=== PATIENT | female | born 1950 | race Caucasian/White ===

== ENCOUNTER 2016-06-05 19:15 | Inpatient (IN) | payer MEDICARE, MEDICAID ==
--- NOTE | 2016-06-05 19:20 | ED Physician Chart ---
Chief Complaint/HPI - Patient Information Date Seen:: 06/05/16 Time Seen:: 19:20 Chief Complaint:: nausea and vomiting History of Present Illness:: 65-year-old female, with severe intellectual disability, brought in with acute, severe, nausea with associated vomiting since this morning. Has also associated fever. History limited as patient has underlying severe intellectual disability History provided by EMS and EMS run sheet Allergies:: Allergies Allergy/AdvReac Type Severity Reaction Status Date / Time No Known Allergies Allergy Verified 11/17/15 11:34 Historian:: EMS Review:: Nurse's Note Reviewed, EMS run form Reviewed, Transfer documents Reviewed Review of Systems - Review of Systems Other: Complete system review otherwise unremarkable except as noted in HPI. Past Medical History - Past Medical History Past Medical History: Seizures, Other (severe intellectual disability, severe muscle spasms) Family History: None Social History: Non Smoker, No Alcohol, No Drug Use, Care Facility Surgical History: PEG/GTube Psychiatricy History: None Medication: Reviewed Family Medical History - Family Member Mother History Unknown: Yes Mother Sister History Unknown: Yes Physical Exam - Physical Examination Other:: INITIAL VITAL SIGNS: Reviewed by me GENERAL: Patient is lying on gurney, is alert but severely intellectual handicap HEAD: Head is normocephalic. No evidence of trauma. No scalp or facial swelling EYES: No scleral icterus bilaterally ENT: Oropharynx is clear of exudate and erythema NECK: Supple. No meningismus. No masses. No evidence of trauma. No cervical spine bony step-offs or crepitus to palpation RESPIRATORY: No tachypnea. Right lower lungs have crepitus. CV: Regular rate and rhythm. No murmurs, rubs, or gallops ABDOMEN: Soft, non-distended. No masses. G-tube in place. BACK: No ecchymoses. No evidence of trauma EXTREMITIES: Normal to inspection and palpation. No deformity SKIN: Skin surrounding G-tube is edematous and erythematous and indurated. Approximately 4 x 6 cm NEUROLOGIC: Face is symmetric. Withdraws to pain in all extremities Labs/Radiology/EKG Results - Radiology Results Results: Single AP VIEW Portable Chest X-ray was interpreted independently and contemporaneously by Fallon Bhat MD: No cardiomegaly Normal mediastinum No lung infiltrates No pneumothorax No soft tissue or bony abnormalities - EKG Interpretations Comments:: 12-lead EKG Interpretation by Fallon Bhat MD: Normal Sinus Rhythm with ventricular rate of 84 beats per minute Normal axis Normal intervals No acute ST or T wave changes. No obvious STEMI Assessment - Assessment General Assessment: Critical Care Time: 30 minutes Treatments/Evaluations: Close monitoring and treatment of unstable vital signs, cardiorespiratory, and neurologic status, while maintaining tight balance of fluid, respiratory, and cardiac interventions. This time includes discussing the case with the patient and the patient's family. This time does not include all procedures stated elsewhere in this record. This time also includes reviewing old records, labs and radiological studies. This time includes examining and re-examining the patient. Additionally, this time also includes arranging care with admitting and consulting physicians. Excludes all billable procedures: Yes This condition life threatening/high prob of deterioration: Yes ED Septic Shock - . Is Septic Shock (SBP<90, OR Lactate>4 mmol\L) present?: No Reassessment (Disposition) - Reassessment Reassessment:: Patient has a fever, UTI, white count of 17,000. She is septic with urinary tract infection. Gave IV Zosyn. IV fluids. Given rectal Tylenol for the fever. Also given IV Toradol. Discussed case with admitting physician Dr. Sutherland. He expressed good understanding of the case. He will admit the patient to his service for further workup and treatment. Reassessment Condition:: Improved - Diagnosis Diagnosis:: Sepsis, UTI G-tube site cellulitis/abdominal wall cellulitis - Patient Disposition Discharge/Transfer:: Acute Care w/in this hosp Admitting Medical Physician:: Deb Sutherland Time:: 21:19 Condition at Disposition:: Stable ED Discharge Plan - Patient Disposition Admit/Discharge/Transfer: Acute Care w/in this hosp
[2016-06-05] MEDS ORDERED: Sodium Chloride 0.9% 1,000 ML IV ONE (19:22)
[2016-06-05] MEDS ORDERED: Piperacillin Sodium/Tazobact 3.375 gm Vial IV ONE (19:49)
[2016-06-05 19:58] LABS: % EOSINOPHILS 0.3 % (0.0-5.0); % MONOCYTES 6.8 % (2.0-10.0); MEAN CORPUSCULAR HGB CONC 33.9 pg (28.0-36.0); PLATELET COUNT 150 Th/cmm (150-400)
[2016-06-05 20:05] LABS: INR 1.07 (0.5-1.4); PROTHROMBIN TIME (TEST) 10.6 SECONDS (9.5-11.5)
[2016-06-05 20:09] LABS: % LYMPHOCYTES 9.2 % (20.0-50.0); % NEUTROPHILS 81.7 % (40.0-80.0); HEMATOCRIT 38.3 % (35.0-45.0); MEAN CELL VOLUME 87.6 fl (81-100); MEAN CORPUSCULAR HEMOGLOBIN 29.7 pg (27.0-31.0); MEAN PLATELET VOLUME 8.7 fl; RED BLOOD COUNT 4.38 Mil/cmm (3.80-5.20); RED CELL DISTRIBUTION WIDTH 13.5 % (11.5-20.0)
[2016-06-05 20:12] LABS: ALB/GLOB RATIO 0.9 (1.0-1.8); ALKALINE PHOSPHATASE 95 U/L (34-104); ANION GAP 7.1 (7.0-16.0); BILIRUBIN,TOTAL 0.4 mg/dL (0.3-1.0); BUN - UREA NITROGEN 23 mg/dL (7-25); BUN/CREATININE RATIO 38.3; CHLORIDE 100 mEq/L (98-107); CREATININE - SERUM 0.6 mg/dL (0.6-1.2); GLUCOSE 84 mg/dL (70-105); POTASSIUM SERUM 4.1 mEq/L (3.5-5.1); SGOT 13 U/L (13-39); SGPT/ALT 7 U/L (7-52); SODIUM SERUM 133 mEq/L (136-145)
[2016-06-05 20:15] LABS: WHITE BLOOD COUNT 17.2 Th/cmm (4.8-10.8)
[2016-06-05 21:11] LABS: URINE BILIRUBIN SMALL (NEGATIVE); URINE COLOR YELLOW; URINE GLUCOSE (UA) NEGATIVE (NEGATIVE); URINE KETONE 15 mg/dL (NEGATIVE)
[2016-06-05 21:12] LABS: URINE BLOOD TRACE (NEGATIVE); URINE PROTEIN 30 mg/dL (NEGATIVE); URINE UROBILINOGEN >=8.0 E.U./dL (0.2 - 1.0)
[2016-06-05 21:13] LABS: URINE BACTERIA NONE SEEN /hpf (NONE SEEN); URINE EPITHELIAL CELLS NONE SEEN /lpf (FEW)
[2016-06-05 21:19] LABS: AMYLASE SERUM 55 U/L (29-103); LIPASE 30 U/L (11-82)
--- NOTE | 2016-06-05 21:49 | Admit Criteria Form ---
Admit Criteria Forms - Admit Criteria Diagnosis: SEPSIS and OTHER FEBRILE ILLNESS, W/O FOCAL INFECTION Clinical Indications for Admission to Inpatient Care ( Place 'X' for any and all applicable criteria): Admission is indicated for ANY ONE of the following (1)(2)(3)(4): [ ] I. Bacteremia [X]II. Suspected or identified specific infection requiring hospitalization (eg, meningitis, endocarditis) [ ]III. Hemodynamic instability [ ]IV. Altered mental status [ ]V. Failure or unavailability of outpatient antimicrobial treatment [ ]. Hypoxemia [ ]VII. Seizures [ ]VIII. High-risk febrile neutropenia [ ]IX. Need for parenteral antibiotic in patient who is likely to abuse vascular access device (eg, injection drug user) [A](7) [ ]X. Temperature greater than 104.9 degrees F (40.5 degrees C) (oral) [ ]XI. Inpatient admission required rather than observation care because of ANY ONE of the following: [ ]1) Specific infection identified that is too severe for outpatient treatment or observation care trial [ ]2) Metabolic disorder (eg, hypoglycemia, hyperglycemia, metabolic acidosis) that is severe or persistent [ ]3) Temperature greater than 103.1 degrees F (39.5 degrees C) ( oral) that is not responsive to observation care treatment [ ]4) IV fluid to replace significant ongoing (eg, for over 24 hours) losses (> 3 L/m2 per day) [ ]5) Supplemental oxygen or respiratory treatments for over 24 hours that is performable only in acute inpatient setting [ ]6) Parenteral nutrition regimen need that must be implemented on inpatient basis [ ]7) Strict or protective (eg, laminar flow) isolation [ ]8) Other condition, treatment or monitoring requiring inpatient admission Extended stay beyond goal length of stay may be needed for(1)(3) [ ]a) Sepsis or septic shock(22) [ ]b) Positive blood cultures [ ]c) Insufficient oral intake [ ]d) High-risk febrile neutropenia(29)(30) [ ]e) Continued fever and clinical instability [ ]f) Clinically active comorbid illness (e.g,heart failure, renal failure , diabetes) The original [facility] content created by Barbara Strickland has been revised. The portions of the content which have been revised are identified through the use of italic text or in bold, and [employer] has neither reviewed nor approved the modified material. All other unmodified content is copyright [facility]. Please see references footnoted in the original [facility] edition 2016 Admit Criteria Met?: Yes
[2016-06-05] MEDS ORDERED: Albuterol/Ipratropium Neb 3 ML AERS HHN PRN (23:01)
[2016-06-05] MEDS ORDERED: Sodium Chloride 0.9% 1,000 ML IV SCH (23:02)
[2016-06-06] MEDS ORDERED: Piperacillin Sodium/Tazobact 3.375 gm Vial IV ONE ×2 (00:46→04:48)
[2016-06-06] MEDS ORDERED: metroNIDAZOLE 500mg/NS 100mL 500 MG/100 ML BAG IV ONE (04:49)
[2016-06-06] MEDS: metroNIDAZOLE 500mg/NS 100mL 500 MG/100 ML BAG IV SCH ×3 (04:52→20:52)
[2016-06-06] MEDS: Albuterol/Ipratropium Neb 3 ML AERS HHN SCH ×4 (08:09→20:21)
[2016-06-06] MEDS ORDERED: Magnesium Hydroxide (MOM) 30 mL UDC GT PRN (09:20)
[2016-06-06] MEDS ORDERED: Fleet Enema 135 mL RC PRN (09:20)
[2016-06-06 09:26] LABS: ALB/GLOB RATIO 0.8 (1.0-1.8); ALKALINE PHOSPHATASE 101 U/L (34-104); ANION GAP 7.2 (7.0-16.0); BILIRUBIN,TOTAL 0.6 mg/dL (0.3-1.0); BUN - UREA NITROGEN 17 mg/dL (7-25); BUN/CREATININE RATIO 28.3; CARBON DIOXIDE 25.9 mEq/L (21.0-31.0); CHLORIDE 110 mEq/L (98-107); CREATININE - SERUM 0.6 mg/dL (0.6-1.2); GLUCOSE 77 mg/dL (70-105); POTASSIUM SERUM 4.1 mEq/L (3.5-5.1); SGOT 14 U/L (13-39); SGPT/ALT 8 U/L (7-52); SODIUM SERUM 139 mEq/L (136-145)
[2016-06-06] MEDS ORDERED: Levothyroxine 0.075 Mg Tab GT SCH (09:30)
--- NOTE | 2016-06-06 10:34 | Diagnostic Imaging Report ---
CHEST X-RAY: AP view INDICATION: Sepsis COMPARISON: Chest x-ray 06/05/2016 at 19:48 FINDINGS: There is elevation of the right hemidiaphragm. Chronic changes are seen with no focal consolidation or definite effusions. Interposed loops of bowel are seen along the left upper quadrant under the left hemidiaphragm. Heart size is normal. IMPRESSION: Chronic lung changes with no focal consolidation identified.
--- NOTE | 2016-06-06 10:35 | Diagnostic Imaging Report ---
CHEST X-RAY: AP view INDICATION: pain COMPARISON: Chest x-ray 11/18/2015 FINDINGS: Chronic lung changes are seen with no focal consolidation or effusions. Heart size normal. Gaseous distended loops of bowel are seen along the upper abdomen under the hemidiaphragms. No pleural effusions. IMPRESSION: Chronic lung changes with no focal consolidation identified Gaseous distended loops of bowel possibly representing an ileus. Consider follow-up KUB abdominal series if indicated.
[2016-06-06 10:41] LABS: % BASOPHILS 0.6 % (0.0-2.0); % EOSINOPHILS 1.8 % (0.0-5.0); % LYMPHOCYTES 9.8 % (20.0-50.0); % NEUTROPHILS 78.8 % (40.0-80.0); HEMATOCRIT 34.8 % (35.0-45.0); HEMOGLOBIN 11.9 gm/dL (11.7-16.1); MEAN CELL VOLUME 88.6 fl (81-100); MEAN CORPUSCULAR HEMOGLOBIN 30.2 pg (27.0-31.0); MEAN CORPUSCULAR HGB CONC 34.1 pg (28.0-36.0); MEAN PLATELET VOLUME 8.3 fl; NEUTROPHILE ABSOLUTE 7.2 Th/cmm (1.8-8.0); PLATELET COUNT 125 Th/cmm (150-400); RED BLOOD COUNT 3.92 Mil/cmm (3.80-5.20); RED CELL DISTRIBUTION WIDTH 13.1 % (11.5-20.0)
[2016-06-06 10:42] LABS: WHITE BLOOD COUNT 9.2 Th/cmm (4.8-10.8)
[2016-06-06] MEDS: Multivitamin w/ Minerals 15 mL UDC GT SCH (11:38)
[2016-06-06] MEDS: Levetiracetam 500 mg/5mL 5mL UDC GT SCH ×2 (11:42→16:21)
[2016-06-06] MEDS: Calcium Carb/Vit D 500 mg/200 U Tab GT SCH ×3 (11:43→20:57)
[2016-06-06] MEDS: POLYETHYLENE GLYCOL 3350 17 GM PACK GT SCH (11:43)
[2016-06-06] MEDS ORDERED: VTE Chemical Prophylaxis Screen/Admission MC PRN (12:11)
--- NOTE | 2016-06-06 13:01 | History & Physical ---
CHIEF COMPLAINT: Nausea, vomiting, fevers. HISTORY OF PRESENT ILLNESS: This is a 65-year-old female who lives at [facility] with medical history significant for profound intellectual disability, encephalopathy, spastic quadriplegia, hepatitis B carrier, osteoporosis, history of hiatal hernias, seizure disorder, history of PEG placement, who presented to the ER with a 1-day history of nausea, vomiting and also fevers. In the ER, pertinent findings included a white count of 17.2, sodium of 133 and UA which is consistent with the UTI and low-grade temperature and G-tube site with erythema consistent with a G-tube site cellulitis. The patient now has been admitted to telemetry for further management and care. The patient appears to be comfortable at this time. She is unable to give me any history. PAST MEDICAL HISTORY: As noted above, history of previous pneumonia and history of hypothyroidism and seizures. PAST SURGICAL HISTORY: Include a PEG placement. FAMILY HISTORY: Likely noncontributory. SOCIAL HISTORY: Lives at [facility]. No tobacco, ETOH. ALLERGIES: NKDA. OUTPATIENT MEDICATIONS: Tylenol 650 q. 4 p.r.n. via G-tube, Dulcolax 10 mg per rectum q. 96 hours, Oyster Shell Calcium 500 mg 2 tabs t.i.d., Fleet enema q. 96 hours per rectum for severe constipation, Keppra 500 mg b.i.d., Synthroid 75 mcg every day, Milk of Magnesia 30 mL q. 72 hours for GI upset, multivitamins with iron 30 mL every day, Zofran 4 mg q. 6 hours p.r.n. for nausea and vomiting, MiraLax 17 grams every day, sucralfate 1 gram t.i.d., valproic acid 10 mL b.i.d. REVIEW OF SYSTEMS: Unable to be done given patient's condition, but per records, nausea, vomiting and fevers for 1 day. There are no reports of coughing or phlegm production. PHYSICAL EXAMINATION: VITAL SIGNS: T-max 100.8 and T-current is 97.7, pulse 75, respirations 18, BP 135/73, satting 98% on room air. GENERAL: She is a thin, mentally disabled female, currently awake, not in acute distress. HEAD AND NECK: Normocephalic, atraumatic. NECK: There is no JVD or LAD. CARDIOVASCULAR: Regular rate and rhythm without any murmurs. LUNGS: Decreased at the bases, but clear to auscultation, no audible rhonchi or wheezing noted at this time. ABDOMEN: Soft, supple, nontender, nondistended with normoactive bowel sounds. At the G-tube site, there is surrounding erythema around the stoma. There is no discharge and no evidence of leakage. NEUROLOGIC: Unable to be tested given patient's condition. LABORATORY DATA: White count 17.2, H and H 13/38 with a platelet count of 150. INR is 1.07. Chemistry shows sodium 133, otherwise within normal limits. Creatinine kinase 19, albumin 3.4, amylase 55, lipase 55, lactic acid 1.98. UA shows positive for protein and ketones, leukocyte esterase positive with 2-5 rbc's and 2-5 wbc's. X-ray prelim results are negative. IMPRESSION: 1. Fever, rule out sepsis. 2. G-tube site cellulitis. 3. Urinary tract infection. 4. History of profound intellectual disability. 5. History of dysphagia, status post PEG. 6. History of seizure disorder. PLAN: The patient has been admitted to tele brar for further management and care where she has been placed on IV fluids, IV saline at 75 mL per hour and has been started on Zosyn for broad spectrum coverage and Flagyl for possible aspiration. She also has been placed on Zofran IV and has been kept on her other medications as scheduled. Labs will be followed as well as cultures including blood cultures and urine cultures as well as wound cultures. JOB# [id number] [facility]
[2016-06-06] MEDS: Levothyroxine 0.075 Mg Tab GT SCH (13:39)
[2016-06-07] MEDS: metroNIDAZOLE 500mg/NS 100mL 500 MG/100 ML BAG IV SCH (05:28)
[2016-06-07 07:25] LABS: % BASOPHILS 0.1 % (0.0-2.0); % EOSINOPHILS 6.7 % (0.0-5.0); % LYMPHOCYTES 11.2 % (20.0-50.0); % MONOCYTES 11.9 % (2.0-10.0); % NEUTROPHILS 70.1 % (40.0-80.0); HEMATOCRIT 33.6 % (35.0-45.0); HEMOGLOBIN 11.5 gm/dL (11.7-16.1); MEAN CELL VOLUME 87.9 fl (81-100); MEAN CORPUSCULAR HEMOGLOBIN 30.1 pg (27.0-31.0); MEAN CORPUSCULAR HGB CONC 34.2 pg (28.0-36.0); MEAN PLATELET VOLUME 8.1 fl; NEUTROPHILE ABSOLUTE 4.9 Th/cmm (1.8-8.0); RED BLOOD COUNT 3.82 Mil/cmm (3.80-5.20)
[2016-06-07 07:35] LABS: PLATELET COUNT 155 Th/cmm (150-400)
[2016-06-07] MEDS: Albuterol/Ipratropium Neb 3 ML AERS HHN SCH ×4 (07:43→19:43)
[2016-06-07 07:57] LABS: ANION GAP 9.7 (7.0-16.0); BUN - UREA NITROGEN 10 mg/dL (7-25); CALCIUM SERUM 8.4 mg/dL (8.6-10.3); CARBON DIOXIDE 24.7 mEq/L (21.0-31.0); CHLORIDE 110 mEq/L (98-107); CREATININE - SERUM 0.5 mg/dL (0.6-1.2); GLUCOSE 73 mg/dL (70-105); MAGNESIUM 1.8 mg/dL (1.9-2.7); POTASSIUM SERUM 3.4 mEq/L (3.5-5.1); SODIUM SERUM 141 mEq/L (136-145)
[2016-06-07] MEDS: Levetiracetam 500 mg/5mL 5mL UDC GT SCH ×2 (08:27→16:07)
[2016-06-07] MEDS: POLYETHYLENE GLYCOL 3350 17 GM PACK GT SCH (08:27)
[2016-06-07] MEDS: Levothyroxine 0.075 Mg Tab GT SCH (08:27)
[2016-06-07] MEDS: Calcium Carb/Vit D 500 mg/200 U Tab GT SCH ×3 (08:27→21:49)
[2016-06-07] MEDS ORDERED: Metoclopramide 5 mg/mL 2mL Vial IVP PRN (11:00)
[2016-06-07] MEDS: D5-0.45NS 1,000 ML IV SCH (11:30)
[2016-06-07] MEDS: Multivitamin w/ Minerals 15 mL UDC GT SCH (12:03)
[2016-06-07] MEDS ORDERED: Mag Sulfate 2gm/50mL Premix 2 GM/50 ML BAG IV ONE (13:00)
[2016-06-07] MEDS ORDERED: KCL 20mEq/100mL Premix 20 MEQ/100 ML PIGGYBACK IV SCH (13:00)
--- NOTE | 2016-06-07 13:35 | Diagnostic Imaging Report ---
KUB abdominal film HISTORY: Pain There is a nonspecific gas pattern of nondilated bowel. No free intraperitoneal air. Catheter tubing projects over the upper right abdomen. Severe scoliosis and deformity noted in the spine. Severe deformity about the left hip. IMPRESSION: 1. Nonspecific bowel gas pattern with no acute radiographic abnormalities
[2016-06-08 05:36] LABS: HEMATOCRIT 35.1 % (35.0-45.0); HEMOGLOBIN 11.7 gm/dL (11.7-16.1); MEAN CELL VOLUME 88.8 fl (81-100); MEAN CORPUSCULAR HEMOGLOBIN 29.7 pg (27.0-31.0); MEAN CORPUSCULAR HGB CONC 33.4 pg (28.0-36.0); MEAN PLATELET VOLUME 8.3 fl; PLATELET COUNT 162 Th/cmm (150-400); RED BLOOD COUNT 3.95 Mil/cmm (3.80-5.20); RED CELL DISTRIBUTION WIDTH 13.1 % (11.5-20.0); WHITE BLOOD COUNT 6.7 Th/cmm (4.8-10.8)
[2016-06-08 06:28] LABS: ANION GAP 4.4 (7.0-16.0); BUN - UREA NITROGEN 10 mg/dL (7-25); BUN/CREATININE RATIO 12.5; CALCIUM SERUM 8.3 mg/dL (8.6-10.3); CARBON DIOXIDE 28.4 mEq/L (21.0-31.0); CHLORIDE 108 mEq/L (98-107); CREATININE - SERUM 0.8 mg/dL (0.6-1.2); GLUCOSE 109 mg/dL (70-105); POTASSIUM SERUM 3.8 mEq/L (3.5-5.1); SODIUM SERUM 137 mEq/L (136-145)
[2016-06-08] MEDS: Albuterol/Ipratropium Neb 3 ML AERS HHN SCH ×4 (07:46→19:37)
[2016-06-08] MEDS: Levothyroxine 0.075 Mg Tab GT SCH (08:26)
[2016-06-08] MEDS: Calcium Carb/Vit D 500 mg/200 U Tab GT SCH ×3 (08:26→21:36)
[2016-06-08] MEDS: POLYETHYLENE GLYCOL 3350 17 GM PACK GT SCH (08:26)
[2016-06-08] MEDS: Levetiracetam 500 mg/5mL 5mL UDC GT SCH ×2 (09:28→18:09)
[2016-06-08] MEDS: Multivitamin w/ Minerals 15 mL UDC GT SCH (09:28)
[2016-06-08 09:49] LABS: BAND NEUTROPHILE 5 % (0-10); EOSINOPHIL 6 % (0-5); NEUTROPHILS 59 % (40-80); PLATELET ESTIMATE ADEQUATE (NORMAL); PLATELET MORPHOLOGY NORMAL (NORMAL); TOTAL CELLS COUNTED 100
[2016-06-08] MEDS: D5-0.45NS 1,000 ML IV SCH (23:11)
[2016-06-09 06:29] LABS: ANION GAP 1.3 (7.0-16.0); BUN - UREA NITROGEN 7 mg/dL (7-25); CALCIUM SERUM 8.5 mg/dL (8.6-10.3); CARBON DIOXIDE 30.2 mEq/L (21.0-31.0); CHLORIDE 110 mEq/L (98-107); CREATININE - SERUM 0.5 mg/dL (0.6-1.2); GLUCOSE 95 mg/dL (70-105); POTASSIUM SERUM 3.5 mEq/L (3.5-5.1); SODIUM SERUM 138 mEq/L (136-145)
[2016-06-09 06:46] LABS: % BASOPHILS 0.3 % (0.0-2.0); % EOSINOPHILS 5.5 % (0.0-5.0); % LYMPHOCYTES 24.6 % (20.0-50.0); % MONOCYTES 12.9 % (2.0-10.0); % NEUTROPHILS 56.7 % (40.0-80.0); HEMATOCRIT 36.5 % (35.0-45.0); HEMOGLOBIN 12.3 gm/dL (11.7-16.1); MEAN CORPUSCULAR HEMOGLOBIN 29.8 pg (27.0-31.0); MEAN CORPUSCULAR HGB CONC 33.8 pg (28.0-36.0); MEAN PLATELET VOLUME 8.1 fl; NEUTROPHILE ABSOLUTE 2.6 Th/cmm (1.8-8.0); PLATELET COUNT 183 Th/cmm (150-400); RED BLOOD COUNT 4.15 Mil/cmm (3.80-5.20); RED CELL DISTRIBUTION WIDTH 13.3 % (11.5-20.0)
[2016-06-09 06:51] LABS: WHITE BLOOD COUNT 4.6 Th/cmm (4.8-10.8)
[2016-06-09] MEDS: Albuterol/Ipratropium Neb 3 ML AERS HHN SCH ×4 (08:00→19:28)
[2016-06-09] MEDS: Calcium Carb/Vit D 500 mg/200 U Tab GT SCH ×3 (09:15→21:04)
[2016-06-09] MEDS: POLYETHYLENE GLYCOL 3350 17 GM PACK GT SCH (09:20)
[2016-06-09] MEDS: Levetiracetam 500 mg/5mL 5mL UDC GT SCH ×2 (09:25→16:46)
[2016-06-09] MEDS: Multivitamin w/ Minerals Tab GT SCH (09:25)
[2016-06-09] MEDS: Levothyroxine 0.075 Mg Tab GT SCH (09:40)
[2016-06-10] MEDS: Albuterol/Ipratropium Neb 3 ML AERS HHN SCH ×4 (07:38→19:14)
[2016-06-10] MEDS: Calcium Carb/Vit D 500 mg/200 U Tab GT SCH ×3 (08:42→20:59)
[2016-06-10] MEDS: Levetiracetam 500 mg/5mL 5mL UDC GT SCH ×2 (08:42→16:48)
[2016-06-10] MEDS: Levothyroxine 0.075 Mg Tab GT SCH (08:42)
[2016-06-10] MEDS: Multivitamin w/ Minerals Tab GT SCH (08:43)
[2016-06-10] MEDS: POLYETHYLENE GLYCOL 3350 17 GM PACK GT SCH (08:43)
[2016-06-10] MEDS: D5-0.45NS 1,000 ML IV SCH (20:59)
[2016-06-11] MEDS: Albuterol/Ipratropium Neb 3 ML AERS HHN SCH ×3 (08:07→15:36)
[2016-06-11] MEDS: Levetiracetam 500 mg/5mL 5mL UDC GT SCH ×2 (09:53→17:44)
[2016-06-11] MEDS: Multivitamin w/ Minerals Tab GT SCH (09:53)
[2016-06-11] MEDS: Calcium Carb/Vit D 500 mg/200 U Tab GT SCH ×2 (09:53→14:58)
[2016-06-11] MEDS: Levothyroxine 0.075 Mg Tab GT SCH (09:53)
[2016-06-11] MEDS: POLYETHYLENE GLYCOL 3350 17 GM PACK GT SCH (09:54)
--- NOTE | 2016-06-11 19:00 | Discharge Summary ---
ADMITTING DIAGNOSES: Fever-rule out sepsis, G-tube site cellulitis, urinary tract infection, leukocytosis. SECONDARY DIAGNOSES: History of profound mental retardation/intellectual disability, history of dysphagia status post PEG, history of seizure disorder. DISCHARGE DIAGNOSES: 1. Klebsiella pneumoniae, septicemia, bacteremia, clinically stable. 2. G-tube site cellulitis with Klebsiella pneumoniae. 3. Sepsis, resolved. 4. Urinary tract infection. CONSULTANTS: There were no consultants used during this admission. MAJOR PROCEDURES: No major procedures were done. There was a KUB done on 06/07/2016, showing nonspecific bowel gas pattern with no acute radiographic abnormalities. DISCHARGE MEDICATIONS: Tylenol 650 via G-tube q.4h. p.r.n., DuoNeb 3 mL q.4h. p.r.n. for wheezing, Dulcolax 10 mg q.96h. p.r.n. for constipation, calcium with vitamin D 2tabs via G-tube t.i.d., Diflucan 100 mg p.o. every day x 7 days, Keppra 500 mg b.i.d., Synthroid 75 mcg every day, milk of magnesia 30 mL q.72h. p.r.n. for constipation, Reglan 5 mg p.o. q.8h. around the clock, Protonix 40 mg p.o. every day and Cipro 200 mg b.i.d. x 10 days. BRIEF HOSPITAL COURSE: The patient is a 65-year-old female resident of [facility] with the above mentioned diagnosis/conditions, who was brought into the ER secondary to fever and nausea/vomiting. Pertinent findings noted on the ER included redness around the G-tube site and a UA consistent with UTI as well as a white count of 17,000. The patient was placed on Zosyn and was admitted to the medical floor. The patient was also placed on IV fluids and was pancultured and was kept on her medications via G-tube as scheduled. The patient has the G-tube, mostly for medications. She is able to eat soft pure diet. Initially, she had a poor p.o. intake, but this gradually improved. Her vital signs were also noted to improve, remaining mostly afebrile throughout her hospital stay. The redness around the G-tube site also was noted to improve. The patient was also given vancomycin for broad spectrum coverage. Blood cultures were drawn as well as wound cultures that came back with Gram positive cocci septicemia in the blood, eventually being identified as K. pneumoniae. The patient's appetite has picked up and as mentioned above, the erythema around the G-tube site has improved. CONDITION ON DISCHARGE: Stable. DISPOSITION: The patient will be discharged today to [facility] with the above-mentioned medications including PO antibiotics which are sensitive to the K. pna bacteremia. [facility]# [id number] [facility]
== END 2016-06-11 16:50 | DRG 871 ==
LOC: ER 19:15 → TELE 22:45
PROVIDERS: ADMIT Internal Medicine; ATTEND Internal Medicine
DX: A41.50 Gram-negative sepsis, unspecified (principal); G80.0 Spastic quadriplegic cerebral palsy; G93.40 Encephalopathy, unspecified; F73 Profound intellectual disabilities; K94.22 Gastrostomy infection; L03.311 Cellulitis of abdominal wall; N39.0 Urinary tract infection, site not specified; B19.10 Unspecified viral hepatitis B without hepatic coma; R13.10 Dysphagia, unspecified; G40.909 Epilepsy, unspecified, not intractable, without status epilepticus; E03.9 Hypothyroidism, unspecified; M81.0 Age-related osteoporosis without current pathological fracture; Y83.8 Other surgical procedures as the cause of abnormal reaction of the patient, or of later complication, without mention of misadventure at the time of the procedure; Y92.89 Other specified places as the place of occurrence of the external cause
CPT/HCPCS: 36415-UA; 71010-TC; 74000-TC; 80048-TC; 80053-TC; 80202-TC; 81001-TC; 82150-TC; 82550-TC; 83605; 83690-TC; 83735-TC; 85007-TC; 85025-TC; 85027-TC; 85610-TC; 85652-TC; 85730-TC; 86141-TC; 87070-90; 87075-90; 87205-90; 90799; 93005; 94760; 96375; C9113; J1885; J2405; J2543; J3370; J3475; J7030; Z7502; Z7610

== ENCOUNTER 2016-09-06 14:28 | Emergency (ER) | payer MEDICARE, MEDICAID ==
[2016-09-06 14:38] VITALS: BP 103/49
--- NOTE | 2016-09-06 15:08 | ED Physician Chart ---
Chief Complaint/HPI - Patient Information Date Seen:: 09/06/16 Time Seen:: 14:50 Chief Complaint:: left thigh contusion and swelling History of Present Illness:: Caretakers at the patient's halfway facility noted contusion and swelling of the left anterior thigh this morning. Allergies:: Allergies Allergy/AdvReac Type Severity Reaction Status Date / Time No Known Allergies Allergy Verified 06/05/16 19:39 Vitals:: Vital Signs - 8 hr 09/06/16 09/06/16 14:38 14:39 Temp 97.2 F HR 96 RR 15 BP 103/49 103/49 O2 Sat % 99 Historian:: EMS Review:: Transfer documents Reviewed Review of Systems - Review of Systems General/Constitutional: No fever Skin: Skin lesions Head: No headache Eyes: No loss of vision ENT: No earache Neck: No neck pain, No swelling Cardio Vascular: No chest pain, No palpitations Pulmonary: No SOB GI: No nausea, No vomiting G/U: No dysuria Musculoskeletal: Bone or joint pain Endocrine: Polyuria Psychiatric: Prior psych history Hematopoietic: Bruising Allergic/Immuno: No urticaria Neurological: No syncope Past Medical History - Past Medical History Past Medical History: Seizures, Arthritis, Other (mental retardation; hepatitis B; spastic quadriplegia; osteoporosis; status post pneumonia) Family History: Other (not available) Social History: Non Smoker, No Alcohol, Care Facility Surgical History: PEG/GTube Psychiatricy History: Other (mental retardation) Medication: Reviewed Family Medical History - Family Member Mother History Unknown: Yes Mother Sister History Unknown: Yes Physical Exam - Physical Examination General/Constitutional: Alert Other Gen/Cons comments:: Slight of build; contractures noted; nonverbal Head: Atraumatic Eyes: Lids, conjuctiva normal, PERRL Skin: No rash Other Skin comments:: Contusions of anterior left thigh; tenderness and slight swelling of left thigh ENMT: External ears, nose nl, TM canals nl Neck: No nuchal rigidity Respiratory: Clear to Auscultation Cardio Vascular: RRR GI: No tenderness/rebounding/guarding : No CVA tenderness Extremities: No edema, Normal digits & nails Neuro/Psych: No focal deficits Other Neuro/Psych comments:: Patient is nonverbal Labs/Radiology/EKG Results - Lab Results Results: Laboratory Results - last 24 hr 09/06/16 09/06/16 15:59 15:59 WBC 10.2 D RBC 3.81 Hgb 11.1 L Hct 33.2 L MCV 87.2 MCH 29.2 MCHC Differential 33.5 RDW 14.1 Plt Count 176 MPV 8.7 Neutrophils % 73.0 Lymphocytes % 13.4 L Monocytes % 12.9 H Eosinophils % 0.5 Basophils % 0.2 Sodium 143 Potassium 4.1 Chloride 106 Carbon Dioxide 29.1 Anion Gap 12.0 BUN 31 H Creatinine 0.5 L Est GFR ( Amer) > 60.0 Est GFR (Non-Af Amer) > 60.0 BUN/Creatinine Ratio 62.0 Glucose 90 Calcium 9.3 - Radiology Results Results: X-ray left femur showed healed fractures of the shaft the left femur; left hip joint is fused. Right femur showed possible old trauma to right inferior pubic ramus. Ultrasound left leg was negative for deep vein thrombosis. Assessment - Assessment General Assessment: I spoke to Dr. Bhatt who felt patient could return to her halfway facility with a prescription for Celebrex 200 mg daily for 10 days. ED Septic Shock - . Is Septic Shock (SBP<90, OR Lactate>4 mmol\L) present?: No - <6hrs of presentation: Vital Signs: Vital Signs - 8 hr 09/06/16 09/06/16 14:38 14:39 Temp 97.2 F HR 96 RR 15 BP 103/49 103/49 O2 Sat % 99 Reassessment (Disposition) - Reassessment Reassessment Condition:: Unchanged - Diagnosis Diagnosis:: Left thigh contusion; mental retardation; aphasia; multiple contractures; fused left hip - Aftercare/Follow up Instructions Aftercare/Follow-Up Instructions:: Refer to Discharge Instructions Medication Prescribed:: Rx for Celebrex 200 mg daily via G-tube 10 days - Patient Disposition Discharge/Transfer:: [facility] - SNF Condition at Disposition:: Stable, Unchanged
--- NOTE | 2016-09-06 15:37 | Diagnostic Imaging Report ---
Left femur 2 views Indication: Pain and swelling Comparison: none Findings: Exam is limited due to body habitus. There appears to be previous healed fractures of the femoral shaft and additional previous fractures of the left hip joint with fusion of the left hip joint. Osteopenia is noted. No obvious acute fractures identified. No significant focal soft tissue swelling. There may have been additional previous left knee fractures. IMPRESSION: Evidence of previous healed fractures of the femoral shaft with marked prominence of the cortex. There is also fusion of the left hip joint. Please correlate with patient's clinical history and previous history of trauma. Please also correlate for possible previous history of spinal cord injury. Questionable additional age-indeterminate, possibly chronic left knee fractures. If indicated left knee x-rays may also be obtained. In the setting of trauma, if clinical symptoms persist and there is continued concern for an occult fracture, follow up exams in 5-7 days is suggested.
--- NOTE | 2016-09-06 15:45 | Diagnostic Imaging Report ---
Right femur 2 views Indication: Pain, contracted Comparison: none Findings: Exam is limited as patient was uncooperative. Osteopenia is noted. No evidence of an acute fracture or dislocation. There may have been old trauma to the right inferior pubic ramus. Impression: Possible old trauma to the right inferior pubic ramus. Otherwise no evidence of an acute fracture. Osteopenia. In the setting of trauma, if clinical symptoms persist and there is continued concern for an occult fracture, follow up exams in 5-7 days such as follow repeat x-ray or CT is recommended.
[2016-09-06 16:11] LABS: % BASOPHILS 0.2 % (0.0-2.0); % EOSINOPHILS 0.5 % (0.0-5.0); % LYMPHOCYTES 13.4 % (20.0-50.0); % MONOCYTES 12.9 % (2.0-10.0); HEMATOCRIT 33.2 % (35.0-45.0); HEMOGLOBIN 11.1 gm/dL (11.7-16.1); MEAN CELL VOLUME 87.2 fl (81-100); MEAN CORPUSCULAR HEMOGLOBIN 29.2 pg (27.0-31.0); MEAN CORPUSCULAR HGB CONC 33.5 pg (28.0-36.0); MEAN PLATELET VOLUME 8.7 fl; NEUTROPHILE ABSOLUTE 7.4 Th/cmm (1.8-8.0); PLATELET COUNT 176 Th/cmm (150-400); RED BLOOD COUNT 3.81 Mil/cmm (3.80-5.20); RED CELL DISTRIBUTION WIDTH 14.1 % (11.5-20.0)
[2016-09-06 16:18] LABS: WHITE BLOOD COUNT 10.2 Th/cmm (4.8-10.8)
[2016-09-06 16:21] LABS: BUN - UREA NITROGEN 31 mg/dL (7-25); CALCIUM SERUM 9.3 mg/dL (8.6-10.3); CARBON DIOXIDE 29.1 mEq/L (21.0-31.0); CHLORIDE 106 mEq/L (98-107); CREATININE - SERUM 0.5 mg/dL (0.6-1.2); GLUCOSE 90 mg/dL (70-105); POTASSIUM SERUM 4.1 mEq/L (3.5-5.1); SODIUM SERUM 143 mEq/L (136-145)
--- NOTE | 2016-09-07 10:08 | Diagnostic Imaging Report ---
Left lower extremity DVT study HISTORY: Pain COMPARISON: None Technique: Longitudinal and transverse sonographic images of the left lower extremity veins were obtained with doppler analysis. FINDINGS: There is normal compressibility, augmentation and phasicity of the left common femoral, superficial femoral, popliteal, and posterior tibial veins. No thrombus is visualized. IMPRESSION: No evidence of thrombus within the left lower extremity veins.
== END 2016-09-06 18:05 | disposition home or self-care (01) ==
LOC: ER 14:28
DX: S70.12XA Contusion of left thigh, initial encounter (principal); F79 Unspecified intellectual disabilities; X58.XXXA Exposure to other specified factors, initial encounter; Y93.89 Activity, other specified; Y92.89 Other specified places as the place of occurrence of the external cause; Y99.8 Other external cause status
CPT/HCPCS: 36415-UA; 80048-TC; 85025-TC; 93971-TC-LT

== ENCOUNTER 2016-10-27 21:43 | Inpatient (IN) | payer MEDICARE, MEDICAID ==
--- NOTE | 2016-10-27 21:44 | ED Physician Chart ---
Chief Complaint/HPI - Patient Information Date Seen:: 10/27/16 Time Seen:: 21:44 Chief Complaint:: coffee-ground emesis History of Present Illness:: 66-year-old female history of profound intellectual disability brought in from custodial facility by ambulance with acute, single episode, moderate to severe, episode of coffee-ground emesis that happened at 8 PM tonight. History limited this patient has underlying profound dorsal disability and does not speak History provided by EMS and EMS run sheet Allergies:: Allergies Allergy/AdvReac Type Severity Reaction Status Date / Time No Known Allergies Allergy Verified 09/11/16 21:25 Historian:: EMS Review:: Nurse's Note Reviewed, EMS run form Reviewed, Transfer documents Reviewed Review of Systems - Review of Systems Other: Complete system review otherwise unremarkable except as noted in history of present illness. Past Medical History - Past Medical History Past Medical History: Other (profound intellectual disability, hepatitis B, seizures, recent left hip fracture) Social History: Non Smoker, No Alcohol, No Drug Use, Care Facility Surgical History: PEG/GTube Medication: Reviewed Family Medical History - Family Member Mother History Unknown: Yes Mother Sister History Unknown: Yes Physical Exam - Physical Examination Other:: INITIAL VITAL SIGNS: Reviewed by me GENERAL: Patient is lying on gurney. Patient is alert but does not speak. HEAD: Head is normocephalic. No evidence of trauma. No scalp or facial swelling EYES: No scleral icterus bilaterally ENT: Oropharynx is clear of exudate and erythema NECK: Supple. No meningismus. No masses. No evidence of trauma. No cervical spine bony step-offs or crepitus to palpation RESPIRATORY: No tachypnea. Clear to auscultation bilaterally. CV: Regular rate and rhythm. No murmurs, rubs, or gallops ABDOMEN: Soft, non-distended. G-tube in place. No masses BACK: No ecchymoses. No evidence of trauma EXTREMITIES: Contracted extremities. SKIN: Warm and dry. No obvious rash. No jaundice NEUROLOGIC: Face is symmetric. Withdraws to pain in all extremities Labs/Radiology/EKG Results - Lab Results Results: Lab Results 10/27/16 10/27/16 10/27/16 Range/Units 22:07 22:07 22:07 WBC 13.4 H D (4.8-10.8) Th/cmm RBC 5.09 (3.80-5.20) Mil/cmm Hgb 14.9 D (11.7-16.1) gm/dL Hct 45.5 H D (35.0-45.0) % MCV 89.3 (81-100) fl MCH 29.3 (27.0-31.0) pg MCHC Differential 32.8 (28.0-36.0) pg RDW 15.0 (11.5-20.0) % Plt Count 222 (150-400) Th/cmm MPV 9.8 fl Neutrophils % 76.9 (40.0-80.0) % Lymphocytes % 14.0 L (20.0-50.0) % Monocytes % 8.4 (2.0-10.0) % Eosinophils % 0.7 (0.0-5.0) % Basophils % 0.0 (0.0-2.0) % PT 9.9 (9.5-11.5) SECONDS INR 0.95 (0.5-1.4) PTT (Actin FS) 21.0 L (26.0-38.0) SECONDS Sodium 139 (136-145) mEq/L Potassium 4.0 (3.5-5.1) mEq/L Chloride 107 (98-107) mEq/L Carbon Dioxide 25.6 (21.0-31.0) mEq/L Anion Gap 10.4 (7.0-16.0) BUN 34 H (7-25) mg/dL Creatinine 0.7 (0.6-1.2) mg/dL Est GFR ( Amer) > 60.0 (>90) ml/min Est GFR (Non-Af Amer) > 60.0 ml/min BUN/Creatinine Ratio 48.6 Glucose 144 H (70-105) mg/dL Whole Bld Lactic Acid (0.60-1.99) mmol/L Calcium 9.6 (8.6-10.3) mg/dL Total Bilirubin 0.4 (0.3-1.0) mg/dL AST 25 (13-39) U/L ALT 18 (7-52) U/L Alkaline Phosphatase 126 H (34-104) U/L Total Protein 7.7 (6.0-8.3) gm/dL Albumin 4.1 (3.7-5.3) gm/dL Globulin 3.6 gm/dL Albumin/Globulin Ratio 1.1 (1.0-1.8) 10/27/16 Range/Units 22:07 WBC (4.8-10.8) Th/cmm RBC (3.80-5.20) Mil/cmm Hgb (11.7-16.1) gm/dL Hct (35.0-45.0) % MCV (81-100) fl MCH (27.0-31.0) pg MCHC Differential (28.0-36.0) pg RDW (11.5-20.0) % Plt Count (150-400) Th/cmm MPV fl Neutrophils % (40.0-80.0) % Lymphocytes % (20.0-50.0) % Monocytes % (2.0-10.0) % Eosinophils % (0.0-5.0) % Basophils % (0.0-2.0) % PT (9.5-11.5) SECONDS INR (0.5-1.4) PTT (Actin FS) (26.0-38.0) SECONDS Sodium (136-145) mEq/L Potassium (3.5-5.1) mEq/L Chloride (98-107) mEq/L Carbon Dioxide (21.0-31.0) mEq/L Anion Gap (7.0-16.0) BUN (7-25) mg/dL Creatinine (0.6-1.2) mg/dL Est GFR ( Amer) (>90) ml/min Est GFR (Non-Af Amer) ml/min BUN/Creatinine Ratio Glucose (70-105) mg/dL Whole Bld Lactic Acid 1.40 (0.60-1.99) mmol/L Calcium (8.6-10.3) mg/dL Total Bilirubin (0.3-1.0) mg/dL AST (13-39) U/L ALT (7-52) U/L Alkaline Phosphatase (34-104) U/L Total Protein (6.0-8.3) gm/dL Albumin (3.7-5.3) gm/dL Globulin gm/dL Albumin/Globulin Ratio (1.0-1.8) - Radiology Results Results: Single AP VIEW Portable Chest X-ray was interpreted independently and contemporaneously by Fallon Bhat MD: No cardiomegaly Normal mediastinum No lung infiltrates No pneumothorax No soft tissue or bony abnormalities - EKG Interpretations Comments:: 12-lead EKG Interpretation by Fallon Bhat MD: Normal Sinus Rhythm with ventricular rate of 80 beats per minute Normal axis Normal intervals No acute ST or T wave changes. No obvious STEMI ED Septic Shock - . Is Septic Shock (SBP<90, OR Lactate>4 mmol\L) present?: No Reassessment (Disposition) - Reassessment Reassessment:: [age]-old female with history of severe dorsal disability. Prominent with acute episode of coffee-ground emesis. We stabilized condition with IV Protonix and IV fluids and Zosyn to cover for possible aspiration pneumonia. Has slight leukocytosis. Given her severe intellectual disability it is difficult to obtain a clear history. Discussed the case with the admitting physician. Patient admitted for further workup and treatment. Reassessment Condition:: Unchanged - Diagnosis Diagnosis:: Acute upper GI bleed - Patient Disposition Discharge/Transfer:: Acute Care w/in this hosp Admitted to:: Telemetry Admitting Medical Physician:: Deb Sutherland Time:: 00:27 Condition at Disposition:: Stable ED Discharge Plan - Patient Disposition Admit/Discharge/Transfer: Acute Care w/in this hosp
[2016-10-27 22:20] LABS: % EOSINOPHILS 0.7 % (0.0-5.0); % MONOCYTES 8.4 % (2.0-10.0); % NEUTROPHILS 76.9 % (40.0-80.0); MEAN CELL VOLUME 89.3 fl (81-100); MEAN CORPUSCULAR HEMOGLOBIN 29.3 pg (27.0-31.0); MEAN CORPUSCULAR HGB CONC 32.8 pg (28.0-36.0); MEAN PLATELET VOLUME 9.8 fl; NEUTROPHILE ABSOLUTE 10.3 Th/cmm (1.8-8.0); PLATELET COUNT 222 Th/cmm (150-400); RED BLOOD COUNT 5.09 Mil/cmm (3.80-5.20)
[2016-10-27 22:29] LABS: HEMATOCRIT 45.5 % (35.0-45.0); HEMOGLOBIN 14.9 gm/dL (11.7-16.1); WHITE BLOOD COUNT 13.4 Th/cmm (4.8-10.8)
[2016-10-27 22:38] LABS: INR 0.95 (0.5-1.4); PROTHROMBIN TIME (TEST) 9.9 SECONDS (9.5-11.5)
[2016-10-27 22:40] LABS: ALB/GLOB RATIO 1.1 (1.0-1.8); ALKALINE PHOSPHATASE 126 U/L (34-104); ANION GAP 10.4 (7.0-16.0); BILIRUBIN,TOTAL 0.4 mg/dL (0.3-1.0); BUN - UREA NITROGEN 34 mg/dL (7-25); BUN/CREATININE RATIO 48.6; CALCIUM SERUM 9.6 mg/dL (8.6-10.3); CARBON DIOXIDE 25.6 mEq/L (21.0-31.0); CHLORIDE 107 mEq/L (98-107); CREATININE - SERUM 0.7 mg/dL (0.6-1.2); GLUCOSE 144 mg/dL (70-105); SGOT 25 U/L (13-39); SGPT/ALT 18 U/L (7-52); SODIUM SERUM 139 mEq/L (136-145)
[2016-10-27] MEDS ORDERED: Sodium Chloride 0.9% 1,000 ML IV ONE (22:55)
[2016-10-27] MEDS ORDERED: Pantoprazole 80 MG in Sodium Chloride 0.9% 100 ML IV ONE (22:55)
[2016-10-27] MEDS ORDERED: Piperacillin Sodium/Tazobact 3.375 gm Vial IV ONE (23:34)
[2016-10-28 03:38] LABS: URINE BILIRUBIN SMALL (NEGATIVE); URINE BLOOD NEGATIVE (NEGATIVE); URINE COLOR YELLOW; URINE GLUCOSE (UA) NEGATIVE (NEGATIVE); URINE KETONE TRACE mg/dL (NEGATIVE)
[2016-10-28 03:39] LABS: URINE BACTERIA FEW /hpf (NONE SEEN); URINE EPITHELIAL CELLS FEW /lpf (FEW); URINE PROTEIN NEGATIVE (NEGATIVE); URINE RBC 0-2 /hpf (0-5)
[2016-10-28 03:40] LABS: URINE URIC ACID CRYSTALS MODERATE /hpf (NONE SEEN)
[2016-10-28] MEDS: D5-0.9%NS 1,000 ML IV SCH ×2 (03:45→23:37)
[2016-10-28 06:17] VITALS: BP 100/67
--- NOTE | 2016-10-28 08:20 | Diagnostic Imaging Report ---
Exam: Portable examination of the chest. HISTORY: Cough. Findings: Portable examination chest upright at 2154 hours reviewed. The study demonstrates COPD changes. No acute pulmonic infiltrates or effusions are noted the costophrenic angles are clear bony thorax remarkable for degenerative osteopenia. IMPRESSION: COPD changes no acute disease
[2016-10-28] MEDS: Levothyroxine 0.025 Mg Tab NG SCH (08:43)
[2016-10-28] MEDS: Levetiracetam 500 mg/5mL 5mL UDC NG SCH ×2 (08:44→16:36)
[2016-10-28] MEDS: Pantoprazole 40 mg/Packet GT SCH (11:43)
--- NOTE | 2016-10-28 16:25 | History and Physical ---
History of Present Illness - HPI Chief Complaint: Coffee-ground emesis HPI: 66-year-old female past medical history "disability who was brought in because of one episode of hematemesis. A few hours prior to admission, stop noted patient to have coffee-ground emesis. She was then brought to the emergency room. Her G-tube was noted to be malfunctioning at the ER. WBC was started 13.4. Chest x-ray revealed no acute disease. 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: Report: No Pertinent Hx GI: Report: No Pertinent Hx Psych: Report: No Pertinent Hx Musculoskeletal: Report: No Pain Rheumatologic: Report: No pertinent Hx Infectious Disease: Report: Human Papilloma Virus Renal/: Report: No Pertinent Hx Endocrine: Report: No Pertinent Hx Dermatology: Report: No Pertinent Hx - Past Surgical History Past Surgical History: No pertinent Hx Family Medical History - Family Member Mother History Unknown: Yes (unknown at the present time) Ethnicity: Non- Mother Sister History Unknown: Yes Ethnicity: Non- Social History Smoke: No Alcohol: Other (No alcohol use) Drugs: None Lives: Residential Domestic Violence: Negative Health Maintenance Health Maintenance: Other (unknown at the present time) - Medications Home Medications: Home Medication Medication Instructions Recorded Type Acetaminophen 650 mg GT Q4HR PRN MDD NTE 11/22/13 History 3grms/24 hrs Bisacodyl [Dulcolax] 1 unit CO Q96H PRN 11/22/13 History Calcium/Cholecalciferol [Oyster 2 tab GT TID 11/22/13 History Shell Calcium 500 mg-200 Iu] Levothyroxine Sodium [Synthroid] 75 mcg GT DAILY 11/22/13 History Magnesium Hydroxide [Milk of 30 ml GT Q72HR PRN 11/22/13 History Magnesia] Polyethylene Glycol 3350 [Miralax] 17 gm GT DAILY 11/22/13 History Fleet Enema 1 applic RC Q96H PRN 06/11/15 History Levetiracetam [Keppra] 500 mg GT BID 06/11/15 History Ondansetron [Zofran Odt] 4 mg GT Q6HR PRN 06/05/16 History Valproic Acid [Depakene] 10 ml GT BID 06/05/16 History Diclofenac Sodium 50 mg GT Q12HR PRN 10/27/16 History Multivitamin w/ Minerals 1 tab GT DAILY 10/27/16 History [Theragran M] Other Medications: Zosyn, Flagyl - Allergies Allergies/Adverse Reactions: Allergies Allergy/AdvReac Type Severity Reaction Status Date / Time No Known Allergies Allergy Verified 09/11/16 21:25 Review of Systems - Review of Systems Constitutional: Report: No Significant Eyes: Report: No Significant ENT: Report: No Significant Respiratory: Report: No Significant Cardiovascular: Report: No Significant Gastrointestinal: Report: No Significant Genitourinary: Report: No Significant Musculoskeletal: Report: No Significant Skin: Report: No Significant Neurological: Report: No Significant Physical Exam - Physical Exam HEENT: Report: Pharnyx within normal limits, Pale Conjunctiva Neck: Report: Within normal limits Cardiovascular Systems: Report: +s1/s2 noted, Regular, Rate and Rhythm, no murmurs noted, Systolic Murmur, No JVD Present Respiratory: Report: Rhonchi, Chest is non-tender to palpation. Abdomen: Report: Non-tender to palpation, Bowel Sounds are within normal limits Back: Report: Inspection of back is within normal limits. Extremities: Report: Non-tender to palpation., No pedal edema was noted on inspection, Extremities are contracted Skin: Report: Color of skin is within normal limits, Warm, Dry, No Rashes noted of the skin Neuro/Psych: Report: Disoriented to name time or place, Depressed affect, No new focal deficits - Lab Results All Lab Results last 24 hours: Laboratory Last Values WBC 13.4 Th/cmm (4.8-10.8) H D 10/27/16 22:07 RBC 5.09 Mil/cmm (3.80-5.20) 10/27/16 22:07 Hgb 14.9 gm/dL (11.7-16.1) D 10/27/16 22:07 Hct 45.5 % (35.0-45.0) H D 10/27/16 22:07 MCV 89.3 fl (81-100) 10/27/16 22:07 MCH 29.3 pg (27.0-31.0) 10/27/16 22:07 MCHC Differential 32.8 pg (28.0-36.0) 10/27/16 22:07 RDW 15.0 % (11.5-20.0) 10/27/16 22:07 Plt Count 222 Th/cmm (150-400) 10/27/16 22:07 MPV 9.8 fl 10/27/16 22:07 Neutrophils % 76.9 % (40.0-80.0) 10/27/16 22:07 Lymphocytes % 14.0 % (20.0-50.0) L 10/27/16 22:07 Monocytes % 8.4 % (2.0-10.0) 10/27/16 22:07 Eosinophils % 0.7 % (0.0-5.0) 10/27/16 22:07 Basophils % 0.0 % (0.0-2.0) 10/27/16 22:07 PT 9.9 SECONDS (9.5-11.5) 10/27/16 22:07 INR 0.95 (0.5-1.4) 10/27/16 22:07 PTT (Actin FS) 21.0 SECONDS (26.0-38.0) L 10/27/16 22:07 Sodium 139 mEq/L (136-145) 10/27/16 22:07 Potassium 4.0 mEq/L (3.5-5.1) 10/27/16 22:07 Chloride 107 mEq/L (98-107) 10/27/16 22:07 Carbon Dioxide 25.6 mEq/L (21.0-31.0) 10/27/16 22:07 Anion Gap 10.4 (7.0-16.0) 10/27/16 22:07 BUN 34 mg/dL (7-25) H 10/27/16 22:07 Creatinine 0.7 mg/dL (0.6-1.2) 10/27/16 22:07 Est GFR ( Amer) > 60.0 ml/min (>90) 10/27/16 22:07 Est GFR (Non-Af Amer) > 60.0 ml/min 10/27/16 22:07 BUN/Creatinine Ratio 48.6 10/27/16 22:07 Glucose 144 mg/dL (70-105) H 10/27/16 22:07 Whole Bld Lactic Acid 1.40 mmol/L (0.60-1.99) 10/27/16 22:07 Calcium 9.6 mg/dL (8.6-10.3) 10/27/16 22:07 Total Bilirubin 0.4 mg/dL (0.3-1.0) 10/27/16 22:07 AST 25 U/L (13-39) 10/27/16 22:07 ALT 18 U/L (7-52) 10/27/16 22:07 Alkaline Phosphatase 126 U/L (34-104) H 10/27/16 22:07 Total Protein 7.7 gm/dL (6.0-8.3) 10/27/16 22:07 Albumin 4.1 gm/dL (3.7-5.3) 10/27/16 22:07 Globulin 3.6 gm/dL 10/27/16 22:07 Albumin/Globulin Ratio 1.1 (1.0-1.8) 10/27/16 22:07 Urine Source CATH 10/28/16 02:55 Urine Color YELLOW 10/28/16 02:55 Urine Clarity CLEAR (CLEAR) 10/28/16 02:55 Urine pH 5.0 10/28/16 02:55 Ur Specific [place] 1.020 (1.005-1.030) 10/28/16 02:55 Urine Protein NEGATIVE mg/dL (NEGATIVE) 10/28/16 02:55 Urine Glucose (UA) NEGATIVE mg/dL (NEGATIVE) 10/28/16 02:55 Urine Ketones TRACE mg/dL (NEGATIVE) 10/28/16 02:55 Urine Blood NEGATIVE (NEGATIVE) 10/28/16 02:55 Urine Nitrate NEGATIVE (NEGATIVE) 10/28/16 02:55 Urine Bilirubin SMALL (NEGATIVE) H 10/28/16 02:55 Urine Ictotest NEGATIVE (NEGATIVE) 10/28/16 02:55 Urine Urobilinogen 1.0 E.U./dL (0.2 - 1.0) 10/28/16 02:55 Ur Leukocyte Esterase TRACE (NEGATIVE) H 10/28/16 02:55 Urine RBC 0-2 /hpf (0-5) 10/28/16 02:55 Urine WBC 2-5 /hpf (0-5) 10/28/16 02:55 Ur Epithelial Cells FEW /lpf (FEW) 10/28/16 02:55 Uric Acid Crystals MODERATE /hpf (NONE SEEN) 10/28/16 02:55 Urine Bacteria FEW /hpf (NONE SEEN) 10/28/16 02:55 Laboratory Results - last 24 hr 10/28/16 02:55 Urine Source CATH Urine Color YELLOW Urine Clarity CLEAR Urine pH 5.0 Ur Specific D[place] 1.020 Urine Protein NEGATIVE Urine Glucose (UA) NEGATIVE Urine Ketones TRACE Urine Blood NEGATIVE Urine Nitrate NEGATIVE Urine Bilirubin SMALL H Urine Ictotest NEGATIVE Urine Urobilinogen 1.0 Ur Leukocyte Esterase TRACE H Urine RBC 0-2 Urine WBC 2-5 Ur Epithelial Cells FEW Uric Acid Crystals MODERATE Urine Bacteria FEW Microbiology 10/28/16 05:30 Gram Stain - Final Sputum - Expectorated Sputum Sputum Culture - Final - Assessment Assessment: Current Active Problems Problem Status Onset Coffee ground emesis Acute Upper GI bleed -no active bleed, stable Mal functioning [id number] Leukocytosis possible aspiration pneumonia due to recent history of emesis Prerenal azotemia Intellectual disability Constipation Hypothyroidism - Plan Plan: Continue gentle hydration Encourage fluid intake and pure diet Continue Zosyn along with Flagyl Follow-up cultures and urinalysis Follow-up CBC and electrolytes PPI
[2016-10-28 17:36] LABS: URINE BILIRUBIN NEGATIVE (NEGATIVE); URINE COLOR YELLOW; URINE GLUCOSE (UA) NEGATIVE (NEGATIVE); URINE KETONE NEGATIVE (NEGATIVE)
[2016-10-28 17:37] LABS: URINE BLOOD NEGATIVE (NEGATIVE); URINE PH 5.5; URINE PROTEIN NEGATIVE (NEGATIVE)
[2016-10-28] MEDS: metroNIDAZOLE 500mg/NS 100mL 500 MG/100 ML BAG IV SCH (20:40)
[2016-10-29 05:31] LABS: % BASOPHILS 0.7 % (0.0-2.0); % EOSINOPHILS 3.1 % (0.0-5.0); % LYMPHOCYTES 21.4 % (20.0-50.0); % MONOCYTES 10.6 % (2.0-10.0); % NEUTROPHILS 64.2 % (40.0-80.0); HEMATOCRIT 33.7 % (35.0-45.0); MEAN CELL VOLUME 89.5 fl (81-100); MEAN CORPUSCULAR HEMOGLOBIN 29.9 pg (27.0-31.0); MEAN CORPUSCULAR HGB CONC 33.5 pg (28.0-36.0); NEUTROPHILE ABSOLUTE 3.8 Th/cmm (1.8-8.0); PLATELET COUNT 170 Th/cmm (150-400); RED BLOOD COUNT 3.77 Mil/cmm (3.80-5.20); RED CELL DISTRIBUTION WIDTH 14.9 % (11.5-20.0); WHITE BLOOD COUNT 5.9 Th/cmm (4.8-10.8)
[2016-10-29] MEDS: metroNIDAZOLE 500mg/NS 100mL 500 MG/100 ML BAG IV SCH ×3 (05:37→23:03)
[2016-10-29 05:53] LABS: ALB/GLOB RATIO 1.2 (1.0-1.8); ALKALINE PHOSPHATASE 88 U/L (34-104); ANION GAP 5.5 (7.0-16.0); BILIRUBIN,TOTAL 0.4 mg/dL (0.3-1.0); BUN - UREA NITROGEN 22 mg/dL (7-25); CALCIUM SERUM 8.8 mg/dL (8.6-10.3); CARBON DIOXIDE 28.4 mEq/L (21.0-31.0); CHLORIDE 116 mEq/L (98-107); CREATININE - SERUM 0.5 mg/dL (0.6-1.2); GLUCOSE 105 mg/dL (70-105); POTASSIUM SERUM 3.9 mEq/L (3.5-5.1); SGOT 15 U/L (13-39); SGPT/ALT 12 U/L (7-52); SODIUM SERUM 146 mEq/L (136-145)
[2016-10-29 07:53] LABS: HEMOGLOBIN 11.3 gm/dL (11.7-16.1)
[2016-10-29] MEDS: Levothyroxine 0.025 Mg Tab NG SCH (10:29)
[2016-10-29] MEDS: Pantoprazole 40 mg/Packet GT SCH (10:33)
[2016-10-29] MEDS: Levetiracetam 500 mg/5mL 5mL UDC NG SCH ×2 (10:34→17:17)
--- NOTE | 2016-10-29 11:50 | Diagnostic Imaging Report ---
KUB abdominal film HISTORY: Pain, constipation The exam demonstrates distended stool-filled large bowel suggesting a degree of constipation. Balloontipped catheter noted over the upper abdomen. No free intraperitoneal air. Chronic severe deformity about the left pelvis and hip region. IMPRESSION: 1. Moderately distended stool-filled large bowel consistent with a degree of constipation
--- NOTE | 2016-10-29 13:32 | General Progress Note ---
Subjective - Review of Systems Service Date: 10/29/16 Subjective: Alert, comfortable, nonverbal Objective - Results Result Diagrams: 10/29/16 05:21 10/29/16 05:21 Recent Labs: Laboratory Last Values WBC 5.9 Th/cmm (4.8-10.8) D 10/29/16 05:21 RBC 3.77 Mil/cmm (3.80-5.20) L 10/29/16 05:21 Hgb 11.3 gm/dL (11.7-16.1) L D 10/29/16 05:21 Hct 33.7 % (35.0-45.0) L D 10/29/16 05:21 MCV 89.5 fl (81-100) 10/29/16 05:21 MCH 29.9 pg (27.0-31.0) 10/29/16 05:21 MCHC Differential 33.5 pg (28.0-36.0) 10/29/16 05:21 RDW 14.9 % (11.5-20.0) 10/29/16 05:21 Plt Count 170 Th/cmm (150-400) D 10/29/16 05:21 MPV 9.0 fl 10/29/16 05:21 Neutrophils % 64.2 % (40.0-80.0) 10/29/16 05:21 Lymphocytes % 21.4 % (20.0-50.0) 10/29/16 05:21 Monocytes % 10.6 % (2.0-10.0) H 10/29/16 05:21 Eosinophils % 3.1 % (0.0-5.0) 10/29/16 05:21 Basophils % 0.7 % (0.0-2.0) 10/29/16 05:21 PT 9.9 SECONDS (9.5-11.5) 10/27/16 22:07 INR 0.95 (0.5-1.4) 10/27/16 22:07 PTT (Actin FS) 21.0 SECONDS (26.0-38.0) L 10/27/16 22:07 Sodium 146 mEq/L (136-145) H 10/29/16 05:21 Potassium 3.9 mEq/L (3.5-5.1) 10/29/16 05:21 Chloride 116 mEq/L (98-107) H 10/29/16 05:21 Carbon Dioxide 28.4 mEq/L (21.0-31.0) 10/29/16 05:21 Anion Gap 5.5 (7.0-16.0) L 10/29/16 05:21 BUN 22 mg/dL (7-25) 10/29/16 05:21 Creatinine 0.5 mg/dL (0.6-1.2) L 10/29/16 05:21 Est GFR ( Amer) > 60.0 ml/min (>90) 10/29/16 05:21 Est GFR (Non-Af Amer) > 60.0 ml/min 10/29/16 05:21 BUN/Creatinine Ratio 44.0 10/29/16 05:21 Glucose 105 mg/dL (70-105) 10/29/16 05:21 Whole Bld Lactic Acid 1.40 mmol/L (0.60-1.99) 10/27/16 22:07 Uric Acid 2.0 mg/dL (2.3-6.6) L 10/29/16 05:21 Calcium 8.8 mg/dL (8.6-10.3) 10/29/16 05:21 Total Bilirubin 0.4 mg/dL (0.3-1.0) 10/29/16 05:21 AST 15 U/L (13-39) 10/29/16 05:21 ALT 12 U/L (7-52) 10/29/16 05:21 Alkaline Phosphatase 88 U/L (34-104) 10/29/16 05:21 Total Protein 5.8 gm/dL (6.0-8.3) L 10/29/16 05:21 Albumin 3.1 gm/dL (3.7-5.3) L 10/29/16 05:21 Globulin 2.7 gm/dL 10/29/16 05:21 Albumin/Globulin Ratio 1.2 (1.0-1.8) 10/29/16 05:21 TSH 0.35 uIU/ml (0.34-5.60) 10/29/16 05:21 Urine Source MIDSTREAM 10/28/16 02:55 Urine Color YELLOW 10/28/16 02:55 Urine Clarity SLIGHT HAZY (CLEAR) 10/28/16 02:55 Urine pH 5.5 10/28/16 02:55 Ur Specific [place] 1.020 (1.005-1.030) 10/28/16 02:55 Urine Protein NEGATIVE mg/dL (NEGATIVE) 10/28/16 02:55 Urine Glucose (UA) NEGATIVE mg/dL (NEGATIVE) 10/28/16 02:55 Urine Ketones NEGATIVE mg/dL (NEGATIVE) 10/28/16 02:55 Urine Blood NEGATIVE (NEGATIVE) 10/28/16 02:55 Urine Nitrate NEGATIVE (NEGATIVE) 10/28/16 02:55 Urine Bilirubin NEGATIVE (NEGATIVE) 10/28/16 02:55 Urine Ictotest NEGATIVE (NEGATIVE) 10/28/16 02:55 Urine Urobilinogen 1.0 E.U./dL (0.2 - 1.0) 10/28/16 02:55 Ur Leukocyte Esterase TRACE (NEGATIVE) H 10/28/16 02:55 Urine RBC 0-2 /hpf (0-5) 10/28/16 02:55 Urine WBC 2-5 /hpf (0-5) 10/28/16 02:55 Ur Epithelial Cells FEW /lpf (FEW) 10/28/16 02:55 Uric Acid Crystals MODERATE /hpf (NONE SEEN) 10/28/16 02:55 Urine Bacteria FEW /hpf (NONE SEEN) 10/28/16 02:55 Ur Random Sodium 63 mmol/L 10/28/16 02:55 - Physical Exam Vitals and I&O: Vital Signs Temp 97.7 F 10/29/16 04:00 Pulse 68 10/29/16 04:00 Resp 18 10/29/16 04:00 BP 120/63 10/29/16 04:00 Pulse Ox 94 10/29/16 04:00 Intake & Output 10/28/16 10/29/16 10/29/16 18:59 06:59 18:59 Intake Total 500 1150 50 Balance 500 1150 50 Weight (lbs) 39.009 kg Intake: Intake, IV Amount 50 1150 50 D5-0.9%Ns 1,000 ml @ 60 1000 mls/hr IV .[id number] [facility] Rx #:[id number] Piperacillin Sodium/ 50 50 50 Tazobact 3.375 gm In Sodium Chloride 0.9% 50 ml @ 100 mls/hr IV Q6HR [facility] Rx#:[id number] metroNIDAZOLE 500mg/NS 100 100mL 500 mg In 100 ml @ 100 mls/hr IV Q8HR [facility] Rx #:[id number] Other 450 Other: # Voids 3 Stool Characteristics Soft Soft Active Medications: Current Medications Acetaminophen (Tylenol 650mg/20.3ml Suspension) 650 mg NG Q4H PRN PRN Reason: Pain or Fever >101 Stop: 12/27/16 02:06 Piperacillin Sod/Tazobactam (Sod 3.375 gm/ Sodium Chloride) 50 mls @ 100 mls/ hr IV Q6HR [facility] Stop: 12/27/16 17:59 Last Admin: 10/29/16 12:54 Dose: 100 mls/hr Metronidazole (Flagyl) 500 mg in 100 mls @ 100 mls/hr IV Q8HR [facility] Stop: 12/27/16 20:59 Last Admin: 10/29/16 05:37 Dose: 100 mls/hr Dextrose/Sodium Chloride (D5-0.45ns) 1,000 mls @ 75 mls/hr IV .[id number] [facility] Stop: 12/28/16 13:23 Levetiracetam (Keppra) 500 mg NG BID [facility] Stop: 12/27/16 08:59 Last Admin: 10/29/16 10:34 Dose: Not Given Levothyroxine Sodium (Synthroid) 0.075 mg NG DAILY [facility] Stop: 12/27/16 08:59 Last Admin: 10/29/16 10:29 Dose: 0.075 mg Ondansetron HCl (Zofran) 4 mg IV Q4H PRN PRN Reason: Nausea / Vomiting Stop: 12/27/16 02:04 Pantoprazole Sodium (Protonix) 40 mg GT DAILY [facility] Stop: 12/27/16 09:59 Last Admin: 10/29/16 10:33 Dose: 40 mg Valproate Sodium (Depakene) 500 mg NG BID [facility] PRN Reason: Protocol Stop: 12/27/16 08:59 Last Admin: 10/29/16 10:32 Dose: 500 mg General: Alert, Cooperative, No acute distress HEENT: Atraumatic, PERRLA, EOMI, Mucous membr. moist/pink Neck: Supple, +2 carotid pulse wo bruit Cardiovascular: Regular rate, Normal S1, Normal S2 Lungs: Normal air movement, Other (few rhonchi) Abdomen: Bowel sounds, Soft Extremities: no Edema Neurological: Sensation intact Skin: no Rash Psych/Mental Status: Mood NL - Procedures Procedures: Procedures Procedure Code Date CHANGE GASTROSTOMY TUBE 47310 01/20/12 EGD DIAGNOSTIC BRUSH WASH 09352 11/17/[address] GASTROSTOMY TUBE 64594 11/23/13 OTHER ENDOSCOPY OF SM INTEST 45.13 11/23/13 PERCUTANEOUS [ENDOSCOPIC] GASTROSTOMY [PEG] 43.11 12/27/10 RECONSTRUCTION OF HIP SOCKET 20748 11/17/15 REPLACE GASTROSTOMY TUBE 97.02 11/23/13 REVISION OF FEEDING DEVICE IN STOMACH, PERCUTANEOUS APPROACH [id number] 11/17/15 VACCINATION NEC 99.55 07/13/13 Assessment/Plan - Problem List Patient Problems: All Active Problems Coffee ground emesis (Acute) K92.0 Gastrostomy malfunction (Acute) K94.23 - Assessment Assessment: Current Active Problems Problem Status Onset Coffee ground emesis Acute Upper GI bleed -no active bleed, stable Mal functioning [id number] Leukocytosis possible aspiration pneumonia due to recent history of emesis Prerenal azotemia improving Intellectual disability Constipation Hypothyroidism - Plan Plan: Continue gentle hydration Encourage fluid intake and pure diet Continue Zosyn along with Flagyl Follow-up cultures and urinalysis WBC down to 5.9 BUN improved down to 22 with a stable creatinine of 0.5 PPI Switch IV fluids to D5 half NS due to slight hypernatremia
[2016-10-30] MEDS: D5-0.45NS 1,000 ML IV SCH (01:26)
[2016-10-30 05:33] LABS: % BASOPHILS 0.3 % (0.0-2.0); % LYMPHOCYTES 22.3 % (20.0-50.0); % MONOCYTES 9.4 % (2.0-10.0); HEMOGLOBIN 11.5 gm/dL (11.7-16.1); MEAN CELL VOLUME 89.7 fl (81-100); MEAN CORPUSCULAR HEMOGLOBIN 29.5 pg (27.0-31.0); MEAN CORPUSCULAR HGB CONC 32.8 pg (28.0-36.0); MEAN PLATELET VOLUME 9.1 fl; NEUTROPHILE ABSOLUTE 3.7 Th/cmm (1.8-8.0); PLATELET COUNT 161 Th/cmm (150-400); RED BLOOD COUNT 3.91 Mil/cmm (3.80-5.20); RED CELL DISTRIBUTION WIDTH 14.8 % (11.5-20.0); WHITE BLOOD COUNT 5.7 Th/cmm (4.8-10.8)
[2016-10-30 06:08] LABS: ANION GAP 5.4 (7.0-16.0); BUN - UREA NITROGEN 13 mg/dL (7-25); BUN/CREATININE RATIO 32.5; CALCIUM SERUM 8.7 mg/dL (8.6-10.3); CARBON DIOXIDE 26.1 mEq/L (21.0-31.0); CHLORIDE 112 mEq/L (98-107); CREATININE - SERUM 0.4 mg/dL (0.6-1.2); GLUCOSE 131 mg/dL (70-105); MAGNESIUM 1.8 mg/dL (1.9-2.7); POTASSIUM SERUM 3.5 mEq/L (3.5-5.1); SODIUM SERUM 140 mEq/L (136-145)
[2016-10-30] MEDS: metroNIDAZOLE 500mg/NS 100mL 500 MG/100 ML BAG IV SCH ×3 (06:49→20:15)
[2016-10-30] MEDS ORDERED: Mag Sulfate 2gm/50mL Premix 2 GM/50 ML BAG IV ONE (08:11)
[2016-10-30] MEDS ORDERED: Potassium Chloride Elixir 20 mEq /15 mL UDC GT ONE (08:11)
[2016-10-30] MEDS: Pantoprazole 40 mg/Packet GT SCH (09:13)
[2016-10-30] MEDS: Levothyroxine 0.025 Mg Tab NG SCH (09:13)
[2016-10-30] MEDS: Levetiracetam 500 mg/5mL 5mL UDC NG SCH ×2 (09:59→17:16)
--- NOTE | 2016-10-30 10:54 | Diagnostic Imaging Report ---
Portable chest x-ray HISTORY: Pneumonia Compared with prior exam of October 27, 2016, patient is markedly rotated. There remains elevation the right hemidiaphragm. This poor visualization of the left lower lobe. Allowing for differences in positioning, no significant change. No definite focal parenchymal processes. IMPRESSION: 1. Allowing for differences in positioning, little change from October 27, 2016. No definite focal pulmonary processes.
--- NOTE | 2016-10-30 13:24 | General Progress Note ---
Subjective - Review of Systems Service Date: 10/30/16 Subjective: Alert, comfortable, nonverbal Objective - Results Result Diagrams: 10/30/16 05:25 10/30/16 05:25 Recent Labs: Laboratory Last Values WBC 5.7 Th/cmm (4.8-10.8) 10/30/16 05:25 RBC 3.91 Mil/cmm (3.80-5.20) 10/30/16 05:25 Hgb 11.5 gm/dL (11.7-16.1) L 10/30/16 05:25 Hct 35.0 % (35.0-45.0) 10/30/16 05:25 MCV 89.7 fl (81-100) 10/30/16 05:25 MCH 29.5 pg (27.0-31.0) 10/30/16 05:25 MCHC Differential 32.8 pg (28.0-36.0) 10/30/16 05:25 RDW 14.8 % (11.5-20.0) 10/30/16 05:25 Plt Count 161 Th/cmm (150-400) 10/30/16 05:25 MPV 9.1 fl 10/30/16 05:25 Neutrophils % 64.0 % (40.0-80.0) 10/30/16 05:25 Lymphocytes % 22.3 % (20.0-50.0) 10/30/16 05:25 Monocytes % 9.4 % (2.0-10.0) 10/30/16 05:25 Eosinophils % 4.0 % (0.0-5.0) 10/30/16 05:25 Basophils % 0.3 % (0.0-2.0) 10/30/16 05:25 PT 9.9 SECONDS (9.5-11.5) 10/27/16 22:07 INR 0.95 (0.5-1.4) 10/27/16 22:07 PTT (Actin FS) 21.0 SECONDS (26.0-38.0) L 10/27/16 22:07 Sodium 140 mEq/L (136-145) 10/30/16 05:25 Potassium 3.5 mEq/L (3.5-5.1) 10/30/16 05:25 Chloride 112 mEq/L (98-107) H 10/30/16 05:25 Carbon Dioxide 26.1 mEq/L (21.0-31.0) 10/30/16 05:25 Anion Gap 5.4 (7.0-16.0) L 10/30/16 05:25 BUN 13 mg/dL (7-25) 10/30/16 05:25 Creatinine 0.4 mg/dL (0.6-1.2) L 10/30/16 05:25 Est GFR ( Amer) > 60.0 ml/min (>90) 10/30/16 05:25 Est GFR (Non-Af Amer) > 60.0 ml/min 10/30/16 05:25 BUN/Creatinine Ratio 32.5 10/30/16 05:25 Glucose 131 mg/dL (70-105) H 10/30/16 05:25 Whole Bld Lactic Acid 1.40 mmol/L (0.60-1.99) 10/27/16 22:07 Uric Acid 2.0 mg/dL (2.3-6.6) L 10/29/16 05:21 Calcium 8.7 mg/dL (8.6-10.3) 10/30/16 05:25 Magnesium 1.8 mg/dL (1.9-2.7) L 10/30/16 05:25 Total Bilirubin 0.4 mg/dL (0.3-1.0) 10/29/16 05:21 AST 15 U/L (13-39) 10/29/16 05:21 ALT 12 U/L (7-52) 10/29/16 05:21 Alkaline Phosphatase 88 U/L (34-104) 10/29/16 05:21 Total Protein 5.8 gm/dL (6.0-8.3) L 10/29/16 05:21 Albumin 3.1 gm/dL (3.7-5.3) L 10/29/16 05:21 Globulin 2.7 gm/dL 10/29/16 05:21 Albumin/Globulin Ratio 1.2 (1.0-1.8) 10/29/16 05:21 TSH 0.35 uIU/ml (0.34-5.60) 10/29/16 05:21 Urine Source MIDSTREAM 10/28/16 02:55 Urine Color YELLOW 10/28/16 02:55 Urine Clarity SLIGHT HAZY (CLEAR) 10/28/16 02:55 Urine pH 5.5 10/28/16 02:55 Ur Specific [place] 1.020 (1.005-1.030) 10/28/16 02:55 Urine Protein NEGATIVE mg/dL (NEGATIVE) 10/28/16 02:55 Urine Glucose (UA) NEGATIVE mg/dL (NEGATIVE) 10/28/16 02:55 Urine Ketones NEGATIVE mg/dL (NEGATIVE) 10/28/16 02:55 Urine Blood NEGATIVE (NEGATIVE) 10/28/16 02:55 Urine Nitrate NEGATIVE (NEGATIVE) 10/28/16 02:55 Urine Bilirubin NEGATIVE (NEGATIVE) 10/28/16 02:55 Urine Ictotest NEGATIVE (NEGATIVE) 10/28/16 02:55 Urine Urobilinogen 1.0 E.U./dL (0.2 - 1.0) 10/28/16 02:55 Ur Leukocyte Esterase TRACE (NEGATIVE) H 10/28/16 02:55 Urine RBC 0-2 /hpf (0-5) 10/28/16 02:55 Urine WBC 2-5 /hpf (0-5) 10/28/16 02:55 Ur Epithelial Cells FEW /lpf (FEW) 10/28/16 02:55 Uric Acid Crystals MODERATE /hpf (NONE SEEN) 10/28/16 02:55 Urine Bacteria FEW /hpf (NONE SEEN) 10/28/16 02:55 Ur Random Sodium 63 mmol/L 10/28/16 02:55 - Physical Exam Vitals and I&O: Vital Signs Temp 97.6 F 10/30/16 11:53 Pulse 67 10/30/16 11:53 Resp 18 10/30/16 11:53 BP 108/60 10/30/16 11:53 Pulse Ox 98 10/30/16 11:53 Intake & Output 10/29/16 10/30/16 10/30/16 18:59 06:59 18:59 Intake Total 200 150 100 Balance 200 150 100 Intake: Intake, IV Amount 200 150 100 Piperacillin Sodium/ 100 50 Tazobact 3.375 gm In Sodium Chloride 0.9% 50 ml @ 100 mls/hr IV Q6HR [facility] Rx#:[id number] metroNIDAZOLE 500mg/NS 100 100 100 100mL 500 mg In 100 ml @ 100 mls/hr IV Q8HR [facility] Rx #:[id number] Other: Stool Characteristics Soft Active Medications: Current Medications Acetaminophen (Tylenol 650mg/20.3ml Suspension) 650 mg NG Q4H PRN PRN Reason: Pain or Fever >101 Stop: 12/27/16 02:06 Piperacillin Sod/Tazobactam (Sod 3.375 gm/ Sodium Chloride) 50 mls @ 100 mls/ hr IV Q6HR [facility] Stop: 12/27/16 17:59 Last Admin: 10/30/16 05:49 Dose: 100 mls/hr Metronidazole (Flagyl) 500 mg in 100 mls @ 100 mls/hr IV Q8HR [facility] Stop: 12/27/16 20:59 Last Admin: 10/30/16 12:57 Dose: 100 mls/hr Dextrose/Sodium Chloride (D5-0.45ns) 1,000 mls @ 75 mls/hr IV .[id number] [facility] Stop: 12/28/16 13:23 Last Admin: 10/30/16 01:26 Dose: 75 mls/hr Levetiracetam (Keppra) 500 mg NG BID [facility] Stop: 12/27/16 08:59 Last Admin: 10/30/16 09:59 Dose: 500 mg Levothyroxine Sodium (Synthroid) 0.075 mg NG DAILY [facility] Stop: 12/30/16 08:59 Ondansetron HCl (Zofran) 4 mg IV Q4H PRN PRN Reason: Nausea / Vomiting Stop: 12/27/16 02:04 Pantoprazole Sodium (Protonix) 40 mg GT DAILY [facility] Stop: 12/27/16 09:59 Last Admin: 10/30/16 09:13 Dose: 40 mg Valproate Sodium (Depakene) 500 mg NG BID [facility] PRN Reason: Protocol Stop: 12/27/16 08:59 Last Admin: 10/30/16 09:13 Dose: 500 mg General: Alert, Cooperative, No acute distress HEENT: Atraumatic, PERRLA, EOMI, Mucous membr. moist/pink Neck: Supple, +2 carotid pulse wo bruit Cardiovascular: Regular rate, Normal S1, Normal S2 Lungs: Normal air movement, Other (few rhonchi) Abdomen: Bowel sounds, Soft Extremities: no Edema Neurological: Sensation intact Skin: no Rash Psych/Mental Status: Mood NL - Procedures Procedures: Procedures Procedure Code Date CHANGE GASTROSTOMY TUBE 91603 01/20/12 EGD DIAGNOSTIC BRUSH WASH 90286 11/17/[address] GASTROSTOMY TUBE 62224 11/23/13 OTHER ENDOSCOPY OF SM INTEST 45.13 11/23/13 PERCUTANEOUS [ENDOSCOPIC] GASTROSTOMY [PEG] 43.11 12/27/10 RECONSTRUCTION OF HIP SOCKET 28987 11/17/15 REPLACE GASTROSTOMY TUBE 97.02 11/23/13 REVISION OF FEEDING DEVICE IN STOMACH, PERCUTANEOUS APPROACH [id number] 11/17/15 VACCINATION NEC 99.55 07/13/13 Assessment/Plan - Problem List Patient Problems: All Active Problems Coffee ground emesis (Acute) K92.0 Gastrostomy malfunction (Acute) K94.23 - Assessment Assessment: Current Active Problems Problem Status Onset Coffee ground emesis Acute Upper GI bleed -no active bleed, stable Mal functioning [id number] Leukocytosis possible aspiration pneumonia due to recent history of emesis Prerenal azotemia improving Intellectual disability Constipation Hypothyroidism - Plan Plan: Continue gentle hydration Encourage fluid intake and pure diet Continue Zosyn along with Flagyl Follow-up cultures and urinalysis WBC down to 5.7 BUN improved down to 13 with a stable creatinine of 0.4 PPI Switch IV fluids to D5 half NS due to slight hypernatremia Agree w/ K replacement Nutritional Asmnt/Malnutr-PDOC - Dietary Evaluation Malnutrition Findings (Please click <Entered> for more info): Nutritional Asmnt/Malnutrition Start: 10/29/16 16: 34 Text: Status: Complete Freq: Document 10/29/16 16:34 GSGAGAN (Rec: 10/29/16 16:58 GSGAGAN [email or web address]) Nutritional Asmnt/Malnutrition Patient General Information Nutritional Screening High Risk Screening Diagnosis Leukocytosis possible aspiration PNA due to recent hx of emesis Pertinent Medical Hx/Surgical Hx Intellectual disability, constipation, hypothyroidism, epilepsy, human papilloma virus, PEG Subjective Information 66 year odl female from [facility]. Admitted due to 1 episode of coffee ground emesis at [facility], none since. Pt has order for both PO intake and enteral feeding. Observed Fibersource running at 40ml/hr during visit. Spoke to KASSI Kilgore, pt refused pureed diet during lunch today. Pt appeared thin, no severe wasting noted. Questionable weights, CBW 91. 3lb via bedscalew ith equipment removed, EMR record 86lb. Current Diet Order/ Nutrition Support Pureed, 2gm Pertinent Medications D5-0.45ns, Synthroid, Flagyl, Zofran, Protonix Pertinent Labs Reviewed. Nutritional Hx/Data Height 1.47 m Height (Calculated Centimeters) 147.3 Current Weight (lbs) 41.413 kg Weight (Calculated Kilograms) 41.4 Weight (Calculated Grams) 07339.0 [place] Body Weight 95 (-2.5lb) GI Symptoms Cultural/Ethnic/Sabianist Belief [place]: 2gm potassium, pureed, [place]. One can Nepro bolus with 60ml/ water daily at 7pm. Skin Integrity/Comment: Mayur 10. Skin intact. Estimated Nutritional Goals Calories/Kcals/Kg IBW 95lb/43.2kg (questionable EMR weights, bedridden, possibly underwt) Kcals Calculated 1296-1512kcal (30-35kcal/kg) Protein Calculated 43-52g (1-1.2g/kg) Fluid: ml 1296-1512ml (1ml/kcal) Nutritional Problem 1. Problem Problem Difficulty swallowing related to Etiology dysphagia, possible aspiration PNA noted in H&P aeb Signs/Symptoms: PEG present, coffee ground emesis at SNF Intervention/Recommendation Comments 1. Recommend discontinue pureed diet, as possible aspiration PNA noted in H&P, pt refused lunch, pt has a PEG . 2. Recommend Fibersource at 45ml/hr x 24hrs, providing 1080ml total volume, 1296kcal, 58g protein. 3. Recommend swallow evaluation. Pt has orders for both enteral feeding and pureed Lindy thick at SNF. If pt pass swallow, recommend PO intake as main source of nutrition or oral gratification. Expected Outcomes/Goals Expected Outcomes/Goals 1. Pt to meet 100% of estimated nutritional needs on tube feeding with tolerance.
[2016-10-31] MEDS: D5-0.45NS 1,000 ML IV SCH (05:15)
[2016-10-31] MEDS: metroNIDAZOLE 500mg/NS 100mL 500 MG/100 ML BAG IV SCH (05:15)
[2016-10-31 05:51] LABS: % LYMPHOCYTES 16.5 % (20.0-50.0); % MONOCYTES 9.4 % (2.0-10.0); % NEUTROPHILS 71.1 % (40.0-80.0); HEMATOCRIT 36.2 % (35.0-45.0); HEMOGLOBIN 12.3 gm/dL (11.7-16.1); MEAN CELL VOLUME 88.7 fl (81-100); MEAN CORPUSCULAR HEMOGLOBIN 30.2 pg (27.0-31.0); MEAN CORPUSCULAR HGB CONC 34.1 pg (28.0-36.0); MEAN PLATELET VOLUME 9.6 fl; NEUTROPHILE ABSOLUTE 4.5 Th/cmm (1.8-8.0); PLATELET COUNT 156 Th/cmm (150-400); RED BLOOD COUNT 4.08 Mil/cmm (3.80-5.20); RED CELL DISTRIBUTION WIDTH 14.7 % (11.5-20.0); WHITE BLOOD COUNT 6.3 Th/cmm (4.8-10.8)
[2016-10-31 06:15] LABS: ANION GAP 3.9 (7.0-16.0); BUN - UREA NITROGEN 11 mg/dL (7-25); CALCIUM SERUM 8.8 mg/dL (8.6-10.3); CARBON DIOXIDE 28.1 mEq/L (21.0-31.0); CHLORIDE 109 mEq/L (98-107); CREATININE - SERUM 0.5 mg/dL (0.6-1.2); GLUCOSE 121 mg/dL (70-105); MAGNESIUM 2.1 mg/dL (1.9-2.7); SODIUM SERUM 137 mEq/L (136-145)
[2016-10-31] MEDS ORDERED: Levothyroxine 0.075 Mg Tab NG SCH (09:00)
[2016-10-31] MEDS: Pantoprazole 40 mg/Packet GT SCH (09:11)
[2016-10-31] MEDS: Levetiracetam 500 mg/5mL 5mL UDC NG SCH (09:11)
--- NOTE | 2016-10-31 14:20 | General Progress Note ---
Subjective - Review of Systems Service Date: 10/31/16 Subjective: Sleeping, comfortable, nonverbal Objective - Results Result Diagrams: 10/31/16 05:40 10/31/16 05:40 Recent Labs: Laboratory Last Values WBC 6.3 Th/cmm (4.8-10.8) 10/31/16 05:40 RBC 4.08 Mil/cmm (3.80-5.20) 10/31/16 05:40 Hgb 12.3 gm/dL (11.7-16.1) 10/31/16 05:40 Hct 36.2 % (35.0-45.0) 10/31/16 05:40 MCV 88.7 fl (81-100) 10/31/16 05:40 MCH 30.2 pg (27.0-31.0) 10/31/16 05:40 MCHC Differential 34.1 pg (28.0-36.0) 10/31/16 05:40 RDW 14.7 % (11.5-20.0) 10/31/16 05:40 Plt Count 156 Th/cmm (150-400) 10/31/16 05:40 MPV 9.6 fl 10/31/16 05:40 Neutrophils % 71.1 % (40.0-80.0) 10/31/16 05:40 Lymphocytes % 16.5 % (20.0-50.0) L 10/31/16 05:40 Monocytes % 9.4 % (2.0-10.0) 10/31/16 05:40 Eosinophils % 3.0 % (0.0-5.0) 10/31/16 05:40 Basophils % 0.0 % (0.0-2.0) 10/31/16 05:40 PT 9.9 SECONDS (9.5-11.5) 10/27/16 22:07 INR 0.95 (0.5-1.4) 10/27/16 22:07 PTT (Actin FS) 21.0 SECONDS (26.0-38.0) L 10/27/16 22:07 Sodium 137 mEq/L (136-145) 10/31/16 05:40 Potassium 4.0 mEq/L (3.5-5.1) 10/31/16 05:40 Chloride 109 mEq/L (98-107) H 10/31/16 05:40 Carbon Dioxide 28.1 mEq/L (21.0-31.0) 10/31/16 05:40 Anion Gap 3.9 (7.0-16.0) L 10/31/16 05:40 BUN 11 mg/dL (7-25) 10/31/16 05:40 Creatinine 0.5 mg/dL (0.6-1.2) L 10/31/16 05:40 Est GFR ( Amer) > 60.0 ml/min (>90) 10/31/16 05:40 Est GFR (Non-Af Amer) > 60.0 ml/min 10/31/16 05:40 BUN/Creatinine Ratio 22.0 10/31/16 05:40 Glucose 121 mg/dL (70-105) H 10/31/16 05:40 Whole Bld Lactic Acid 1.40 mmol/L (0.60-1.99) 10/27/16 22:07 Uric Acid 2.0 mg/dL (2.3-6.6) L 10/29/16 05:21 Calcium 8.8 mg/dL (8.6-10.3) 10/31/16 05:40 Magnesium 2.1 mg/dL (1.9-2.7) 10/31/16 05:40 Total Bilirubin 0.4 mg/dL (0.3-1.0) 10/29/16 05:21 AST 15 U/L (13-39) 10/29/16 05:21 ALT 12 U/L (7-52) 10/29/16 05:21 Alkaline Phosphatase 88 U/L (34-104) 10/29/16 05:21 Total Protein 5.8 gm/dL (6.0-8.3) L 10/29/16 05:21 Albumin 3.1 gm/dL (3.7-5.3) L 10/29/16 05:21 Globulin 2.7 gm/dL 10/29/16 05:21 Albumin/Globulin Ratio 1.2 (1.0-1.8) 10/29/16 05:21 TSH 0.35 uIU/ml (0.34-5.60) 10/29/16 05:21 Urine Source MIDSTREAM 10/28/16 02:55 Urine Color YELLOW 10/28/16 02:55 Urine Clarity SLIGHT HAZY (CLEAR) 10/28/16 02:55 Urine pH 5.5 10/28/16 02:55 Ur Specific [place] 1.020 (1.005-1.030) 10/28/16 02:55 Urine Protein NEGATIVE mg/dL (NEGATIVE) 10/28/16 02:55 Urine Glucose (UA) NEGATIVE mg/dL (NEGATIVE) 10/28/16 02:55 Urine Ketones NEGATIVE mg/dL (NEGATIVE) 10/28/16 02:55 Urine Blood NEGATIVE (NEGATIVE) 10/28/16 02:55 Urine Nitrate NEGATIVE (NEGATIVE) 10/28/16 02:55 Urine Bilirubin NEGATIVE (NEGATIVE) 10/28/16 02:55 Urine Ictotest NEGATIVE (NEGATIVE) 10/28/16 02:55 Urine Urobilinogen 1.0 E.U./dL (0.2 - 1.0) 10/28/16 02:55 Ur Leukocyte Esterase TRACE (NEGATIVE) H 10/28/16 02:55 Urine RBC 0-2 /hpf (0-5) 10/28/16 02:55 Urine WBC 2-5 /hpf (0-5) 10/28/16 02:55 Ur Epithelial Cells FEW /lpf (FEW) 10/28/16 02:55 Uric Acid Crystals MODERATE /hpf (NONE SEEN) 10/28/16 02:55 Urine Bacteria FEW /hpf (NONE SEEN) 10/28/16 02:55 Ur Random Sodium 63 mmol/L 10/28/16 02:55 - Physical Exam Vitals and I&O: Vital Signs Temp 97 F 10/31/16 08:00 Pulse 70 10/31/16 08:00 Resp 18 10/31/16 08:00 BP 121/58 10/31/16 08:00 Pulse Ox 97 10/31/16 08:00 Intake & Output 10/30/16 10/31/16 10/31/16 18:59 06:59 18:59 Intake Total 2190 100 60 Balance 2190 100 60 Weight (lbs) 39.916 kg 42.638 kg 42.638 kg Intake: Intake, IV Amount 1200 100 D5-0.45NS 1,000 ml @ 75 1000 mls/hr IV .[id number] [facility] Rx #:[id number] metroNIDAZOLE 500mg/NS 200 100 100mL 500 mg In 100 ml @ 100 mls/hr IV Q8HR [facility] Rx #:[id number] Oral 0 60 TPN/PPN 540 Other 450 Other: # Voids 3 2 1 # Bowel Movements 1 Active Medications: Current Medications Acetaminophen (Tylenol 650mg/20.3ml Suspension) 650 mg NG Q4H PRN PRN Reason: Pain or Fever >101 Stop: 12/27/16 02:06 Ciprofloxacin (Cipro) 250 mg PO BID [facility] Stop: 12/30/16 09:14 Last Admin: 10/31/16 11:01 Dose: 250 mg Dextrose/Sodium Chloride (D5-0.45ns) 1,000 mls @ 75 mls/hr IV .[id number] [facility] Stop: 12/28/16 13:23 Last Admin: 10/31/16 05:15 Dose: 75 mls/hr Levetiracetam (Keppra) 500 mg NG BID [facility] Stop: 12/27/16 08:59 Last Admin: 10/31/16 09:11 Dose: 500 mg Levothyroxine Sodium (Synthroid) 0.075 mg NG DAILY [facility] Stop: 12/30/16 08:59 Last Admin: 10/31/16 09:11 Dose: 0.075 mg Ondansetron HCl (Zofran) 4 mg IV Q4H PRN PRN Reason: Nausea / Vomiting Stop: 12/27/16 02:04 Pantoprazole Sodium (Protonix) 40 mg GT DAILY [facility] Stop: 12/27/16 09:59 Last Admin: 10/31/16 09:11 Dose: 40 mg Valproate Sodium (Depakene) 500 mg NG BID [facility] PRN Reason: Protocol Stop: 12/27/16 08:59 Last Admin: 10/31/16 09:11 Dose: 500 mg General: Alert, Cooperative, No acute distress HEENT: Atraumatic, PERRLA, EOMI, Mucous membr. moist/pink Neck: Supple, +2 carotid pulse wo bruit Cardiovascular: Regular rate, Normal S1, Normal S2 Lungs: Clear to auscultation, Normal air movement, Other (few rhonchi) Abdomen: Bowel sounds, Soft Extremities: no Edema Neurological: Sensation intact Skin: no Rash Psych/Mental Status: Mood NL - Procedures Procedures: Procedures Procedure Code Date CHANGE GASTROSTOMY TUBE 36245 01/20/12 EGD DIAGNOSTIC BRUSH WASH 61813 11/17/[address] GASTROSTOMY TUBE 51045 11/23/13 OTHER ENDOSCOPY OF SM INTEST 45.13 11/23/13 PERCUTANEOUS [ENDOSCOPIC] GASTROSTOMY [PEG] 43.11 12/27/10 RECONSTRUCTION OF HIP SOCKET 02155 11/17/15 REPLACE GASTROSTOMY TUBE 97.02 11/23/13 REVISION OF FEEDING DEVICE IN STOMACH, PERCUTANEOUS APPROACH [id number] 11/17/15 VACCINATION NEC 99.55 07/13/13 Assessment/Plan - Problem List Patient Problems: All Active Problems Coffee ground emesis (Acute) K92.0 Gastrostomy malfunction (Acute) K94.23 - Assessment Assessment: Current Active Problems Problem Status Onset Coffee ground emesis Acute Upper GI bleed -no active bleed, stable Mal functioning [id number] Leukocytosis possible aspiration pneumonia due to recent history of emesis Prerenal azotemia improving Intellectual disability Constipation Hypothyroidism - Plan Plan: Continue gentle hydration Encourage fluid intake and pure diet Continue Zosyn along with Flagyl Follow-up cultures and urinalysis WBC down to 4.8 BUN improved down to 11 with a stable creatinine of 0.4 PPI Switch IV fluids to D5 half NS due to slight hypernatremia, Na down to 137 Agree w/ K replacement Nutritional Asmnt/Malnutr-PDOC - Dietary Evaluation Malnutrition Findings (Please click <Entered> for more info): Nutritional Asmnt/Malnutrition Start: 10/29/16 16: 34 Text: Status: Complete Freq: Document 10/29/16 16:34 GSUN (Rec: 10/29/16 16:58 GSGAGAN [email or web address]) Nutritional Asmnt/Malnutrition Patient General Information Nutritional Screening High Risk Screening Diagnosis Leukocytosis possible aspiration PNA due to recent hx of emesis Pertinent Medical Hx/Surgical Hx Intellectual disability, constipation, hypothyroidism, epilepsy, human papilloma virus, PEG Subjective Information 66 year odl female from [facility]. Admitted due to 1 episode of coffee ground emesis at [facility], none since. Pt has order for both PO intake and enteral feeding. Observed Fibersource running at 40ml/hr during visit. Spoke to KASSI Kilgore, pt refused pureed diet during lunch today. Pt appeared thin, no severe wasting noted. Questionable weights, CBW 91. 3lb via bedscalew ith equipment removed, EMR record 86lb. Current Diet Order/ Nutrition Support Pureed, 2gm Pertinent Medications D5-0.45ns, Synthroid, Flagyl, Zofran, Protonix Pertinent Labs Reviewed. Nutritional Hx/Data Height 1.47 m Height (Calculated Centimeters) 147.3 Current Weight (lbs) 41.413 kg Weight (Calculated Kilograms) 41.4 Weight (Calculated Grams) 67714.0 [place] Body Weight 95 (-2.5lb) GI Symptoms Cultural/Ethnic/Yarsanism Belief [place]: 2gm potassium, pureed, [place]. One can Nepro bolus with 60ml/ water daily at 7pm. Skin Integrity/Comment: Mayur [place]. Skin intact. Estimated Nutritional Goals Calories/Kcals/Kg IBW 95lb/43.2kg (questionable EMR weights, bedridden, possibly underwt) Kcals Calculated 1296-1512kcal (30-35kcal/kg) Protein Calculated 43-52g (1-1.2g/kg) Fluid: ml 1296-1512ml (1ml/kcal) Nutritional Problem 1. Problem Problem Difficulty swallowing related to Etiology dysphagia, possible aspiration PNA noted in H&P aeb Signs/Symptoms: PEG present, coffee ground emesis at SNF Intervention/Recommendation Comments 1. Recommend discontinue pureed diet, as possible aspiration PNA noted in H&P, pt refused lunch, pt has a PEG . 2. Recommend Fibersource at 45ml/hr x 24hrs, providing 1080ml total volume, 1296kcal, 58g protein. 3. Recommend swallow evaluation. Pt has orders for both enteral feeding and pureed [place] thick at [facility]. If pt pass swallow, recommend PO intake as main source of nutrition or oral gratification. Expected Outcomes/Goals Expected Outcomes/Goals 1. Pt to meet 100% of estimated nutritional needs on tube feeding with tolerance.
== END 2016-10-31 15:15 | disposition home or self-care (01) | DRG 393 ==
LOC: ER 21:43 → MSI 10-28 01:55
PROVIDERS: ADMIT Internal Medicine; ATTEND Internal Medicine
DX: K94.23 Gastrostomy malfunction (principal); J69.0 Pneumonitis due to inhalation of food and vomit; E87.0 Hyperosmolality and hypernatremia; K92.2 Gastrointestinal hemorrhage, unspecified; F72 Severe intellectual disabilities; B19.10 Unspecified viral hepatitis B without hepatic coma; K59.00 Constipation, unspecified; E03.9 Hypothyroidism, unspecified; Y83.8 Other surgical procedures as the cause of abnormal reaction of the patient, or of later complication, without mention of misadventure at the time of the procedure; G40.909 Epilepsy, unspecified, not intractable, without status epilepticus; Z79.899 Other long term (current) drug therapy; Y92.89 Other specified places as the place of occurrence of the external cause
CPT/HCPCS: 36415-UA; 71010-TC; 74000-TC; 80048-TC; 80053-TC; 81001-TC; 81003-TC; 83605; 83735-TC; 84300-TC; 84443-TC; 84550-TC; 85025-TC; 85610-TC; 85730-TC; 87070; 90799; 93005; C9113; J2543; J3475; J7030; J7042; Z7610

== ENCOUNTER 2018-05-16 19:31 | Inpatient (IN) | payer MEDICARE, MEDICAID ==
--- NOTE | 2018-05-16 20:43 | ED Physician Chart ---
ED Chief Complaint/HPI - Patient Information Date Seen:: 05/16/18 Time Seen:: 20:38 Chief Complaint:: GTUBE REMOVAL History of Present Illness:: 67 YR OLD WITH PARAPLEGIA CONTRACTURES LEGS GTUBE DEPENDENT WHO PULLED OUT THE GUBE HERE FOR REPLACEMENT Allergies:: Allergies Allergy/AdvReac Type Severity Reaction Status Date / Time No Known Allergies Allergy Verified 09/11/16 21:25 Vitals:: Vital Signs - 8 hr 05/16/18 19:37 Temp 97.1 F HR 59 RR 18 BP 145/50 O2 Sat % 96 ED Review of Systems - Review of Systems General/Constitutional: No fever Eyes: No loss of vision Pulmonary: No cough GI: No vomiting, No diarrhea G/U: No frequency Endocrine: No polyuria Allergic/Immuno: No urticaria Neurological: No syncope ED Past Medical History - Past Medical History Past Medical History: Other (SEE NURSES NOTES) Family Medical History - Family Member Mother History Unknown: Yes Ethnicity: Non- Mother Sister History Unknown: Yes Ethnicity: Non- ED Physical Exam - Physical Examination Other Gen/Cons comments:: NON VERBAL SEVERE FLEXION CTXS LEGS Head: Atraumatic Eyes: Lids, conjuctiva normal ENMT: External ears, nose nl Respiratory: Nl effort/Exclusion Cardio Vascular: RRR GI: No tenderness/rebounding/guarding ED Assessment - Assessment General Assessment: GTUBE MALFUNCTION ED Septic Shock - . Is Septic Shock (SBP<90, OR Lactate>4 mmol\L) present?: No - <6hrs of presentation: Vital Signs: Vital Signs - 8 hr 05/16/18 19:37 Temp 97.1 F HR 59 RR 18 BP 145/50 O2 Sat % 96 ED Reassessment (Disposition) - Reassessment Reassessment:: GTUBE MALFUNCTION PT PULLED HER GTUBE OUT - Diagnosis Diagnosis:: ABOVE - Patient Disposition Discharge/Transfer:: Acute Care w/in this hosp Admitted to:: Med/Surg Condition at Disposition:: Stable
[2018-05-16 22:01] LABS: % BASOPHILS 0.2 % (0.0-2.0); % EOSINOPHILS 4.8 % (0.0-5.0); % LYMPHOCYTES 32.3 % (20.0-50.0); % MONOCYTES 10.3 % (2.0-10.0); % NEUTROPHILS 52.4 % (40.0-80.0); EOSINOPHILE ABSOLUTE 0.3 Th/cmm (0.1-0.4); HEMATOCRIT 42.1 % (41.0-60); HEMOGLOBIN 13.9 gm/dL (12-16); MEAN CELL VOLUME 93.6 fl (81-100); MEAN CORPUSCULAR HEMOGLOBIN 30.9 pg (27.0-31.0); MEAN PLATELET VOLUME 9.5 fl; MONOCYTE ABSOLUTE 0.6 Th/cmm (0.3-1.0); NEUTROPHILE ABSOLUTE 3.2 Th/cmm (1.8-8.0); PLATELET COUNT 141 Th/cmm (150-400); RED CELL DISTRIBUTION WIDTH 12.9 % (11.5-20.0); WHITE BLOOD COUNT 6.1 Th/cmm (4.8-10.8)
[2018-05-16 22:02] LABS: ALB/GLOB RATIO 1.1 (1.0-1.8); ALBUMIN 3.4 gm/dL (3.7-5.3); ALKALINE PHOSPHATASE 93 U/L (34-104); ANION GAP 11.9 (7.0-16.0); BILIRUBIN,TOTAL 0.4 mg/dL (0.3-1.0); BUN - UREA NITROGEN 24 mg/dL (7-25); CALCIUM SERUM 9.3 mg/dL (8.6-10.3); CARBON DIOXIDE 28.9 mEq/L (21.0-31.0); CHLORIDE 100 mEq/L (98-107); CREATININE - SERUM 0.5 mg/dL (0.6-1.2); GFR AFRICAN-AMERICAN > 60.0 ml/min (>90); GFR NON AFRICAN-AMERICAN > 60.0 ml/min; GLUCOSE 75 mg/dL (70-105); POTASSIUM SERUM 4.8 mEq/L (3.5-5.1); SGOT 21 U/L (13-39); SGPT/ALT 7 U/L (7-52); SODIUM SERUM 136 mEq/L (136-145); TOTAL PROTEIN,SERUM 6.5 gm/dL (6.0-8.3)
[2018-05-17] MEDS: D5-0.45NS 1,000 ML IV SCH ×2 (01:37→12:54)
[2018-05-17] MEDS ORDERED: Levetiracetam 500 mg/5mL 5mL Vial IV ONE (01:41)
[2018-05-17 03:39] VITALS: BP 125/50
[2018-05-17] MEDS ORDERED: Pneumococcal Vaccine 0.5 mL Vial IM ONE (03:47)
[2018-05-17 06:34] LABS: % BASOPHILS 0.4 % (0.0-2.0); % EOSINOPHILS 5.4 % (0.0-5.0); % LYMPHOCYTES 22.6 % (20.0-50.0); % MONOCYTES 8.7 % (2.0-10.0); % NEUTROPHILS 62.9 % (40.0-80.0); EOSINOPHILE ABSOLUTE 0.3 Th/cmm (0.1-0.4); HEMATOCRIT 40.3 % (41.0-60); HEMOGLOBIN 13.4 gm/dL (12-16); LYMPHOCYTE ABSOLUTE 1.2 Th/cmm (1.5-3.0); MEAN CELL VOLUME 94.5 fl (81-100); MEAN CORPUSCULAR HEMOGLOBIN 31.3 pg (27.0-31.0); MEAN CORPUSCULAR HGB CONC 33.2 pg (28.0-36.0); MEAN PLATELET VOLUME 9.6 fl; MONOCYTE ABSOLUTE 0.5 Th/cmm (0.3-1.0); NEUTROPHILE ABSOLUTE 3.5 Th/cmm (1.8-8.0); PLATELET COUNT 135 Th/cmm (150-400); RED BLOOD COUNT 4.26 Mil/cmm (3.80-5.20); RED CELL DISTRIBUTION WIDTH 13.2 % (11.5-20.0); WHITE BLOOD COUNT 5.5 Th/cmm (4.8-10.8)
[2018-05-17 06:53] LABS: ALB/GLOB RATIO 1.2 (1.0-1.8); ALBUMIN 3.4 gm/dL (3.7-5.3); ALKALINE PHOSPHATASE 72 U/L (34-104); ANION GAP 7.9 (7.0-16.0); BILIRUBIN,TOTAL 0.5 mg/dL (0.3-1.0); BUN - UREA NITROGEN 19 mg/dL (7-25); CALCIUM SERUM 9.1 mg/dL (8.6-10.3); CARBON DIOXIDE 29.5 mEq/L (21.0-31.0); CHLORIDE 103 mEq/L (98-107); CREATININE - SERUM 0.5 mg/dL (0.6-1.2); GFR AFRICAN-AMERICAN > 60.0 ml/min (>90); GFR NON AFRICAN-AMERICAN > 60.0 ml/min; GLUCOSE 90 mg/dL (70-105); MAGNESIUM 2.2 mg/dL (1.9-2.7); POTASSIUM SERUM 4.4 mEq/L (3.5-5.1); SGOT 24 U/L (13-39); SGPT/ALT 12 U/L (7-52); SODIUM SERUM 136 mEq/L (136-145); TOTAL PROTEIN,SERUM 6.2 gm/dL (6.0-8.3)
[2018-05-17 06:59] LABS: INR 1.06 (0.5-1.4)
[2018-05-17] MEDS ORDERED: Diatrizoate Meglumine/Diatri 30 mL Sol PO ONE (08:53)
--- NOTE | 2018-05-17 08:59 | Diagnostic Imaging Report ---
Upper GI (Limited) HISTORY: Gastrostomy tube placement Water-soluble contrast instilled through patient's gastrostomy tube. The exam demonstrates opacification of the gastric lumen with flow contrast into the small bowel. IMPRESSION: 1. Confirmation of gastrostomy tube within the gastric lumen
[2018-05-17] MEDS ORDERED: VTE Chemical Prophylaxis Screen/Admission MC PRN (14:07)
--- NOTE | 2018-05-17 16:37 | Consultation ---
DATE OF CONSULTATION: 05/17/2018 REQUESTING PHYSICIAN: Dr. Sutherland. REASON FOR CONSULTATION: G-tube malfunction. Thank you for asking me to see this patient in consultation. HISTORY OF PRESENT ILLNESS: This is a 67-year-old female with paraplegia, contractures of the legs and arms, who is G-tube dependent, who [facility]. She is here for replacement, subsequently. At some point, a Hilario catheter has been inserted to maintain the G-tube tract. No confirmation x-ray imaging has been performed as of yet to confirm the placement. She is nonverbal, not able to give any meaningful history. She is otherwise alert and in no acute distress. PAST MEDICAL HISTORY: G-tube dependent, status post contractures and disability. SOCIAL HISTORY: Unable to obtain given the patient's current state. REVIEW OF SYSTEMS: Unable to obtain given the patient's current state. FAMILY HISTORY: Unable to obtain. PHYSICAL EXAMINATION: VITAL SIGNS: Temperature 97.3, pulse of 57, respiratory rate of 18, blood pressure is 125/50. GENERAL: She is in no acute distress. HEENT: Normocephalic, atraumatic. PERRL positive. LUNGS: Clear bilaterally. No wheezes, rales or rhonchi. HEART: Regular rate and rhythm, normal S1, S2. ABDOMEN: Soft. There is an intact Hilario catheter with balloon up in place with no excoriation of the skin. EXTREMITIES: No lower extremity edema. Legs are contractured. NEUROLOGIC: Unable to assess. LABORATORY DATA: Hemoglobin of 13.4, white count of 5.5. INR is 1.06. IMAGING STUDIES: None available. ASSESSMENT AND PLAN: This is a 67-year-old female with contractures, who presents with G-tube dislodgement. 1. G-tube dislodgement. 2. G-tube dependent. 3. Nonverbal with history of contractures. We will confirm the patient's G-tube placement with x-ray and Gastrografin study. If this is in satisfactory position, then I will replace the G-tube at the bedside. Thank you for allowing us to participate in this patient's care and for now, keep on IV fluids, possibly PPN in the interim for G-tube is replaced and up and running. Thank you for allowing me to participate. [facility]# [id number]
[2018-05-18] MEDS: D5-0.45NS 1,000 ML IV SCH ×2 (02:20→18:35)
[2018-05-18] MEDS ORDERED: Diatrizoate Meglumine/Diatri 30 mL Sol ONE (11:37)
[2018-05-18] MEDS ORDERED: BISACODYL PR PRN (19:50)
[2018-05-18] MEDS ORDERED: Fleet Enema 135 mL RC PRN (19:50)
[2018-05-18] MEDS ORDERED: Magnesium Hydroxide (MOM) 30 mL UDC GT PRN (19:50)
[2018-05-18] MEDS ORDERED: Non-Formulary Item 1 EA (Levetiracetam [Keppra] 500 MG) GT SCH (20:00)
[2018-05-18] MEDS ORDERED: CHOLECALCIFEROL GT SCH (21:00)
[2018-05-18] MEDS ORDERED: [UNRECOGNIZED DRUG - OTHER] GT SCH (21:00)
[2018-05-18] MEDS ORDERED: CALCIUM GT SCH (21:00)
[2018-05-18] MEDS: Multivitamin w/ Minerals Tab GT SCH (22:09)
[2018-05-18] MEDS: Levetiracetam 500 mg/5mL 5mL UDSyr *for ORAL USE ONLY GT SCH (22:09)
[2018-05-18] MEDS: POLYETHYLENE GLYCOL 3350 17 GM PACK GT SCH (22:09)
--- NOTE | 2018-05-18 22:33 | Operative Report ---
DATE OF SURGERY: 05/18/2018 PROCEDURE PERFORMED: G-tube exchange. PREOPERATIVE DIAGNOSIS: G-tube dislodgement. POSTOPERATIVE DIAGNOSIS: Successful 20-Pakistani G-tube placement. INDICATIONS: G-tube dislodgement and Hilario catheter insertion in the tract; dysphagia. PROCEDURE IN DETAIL: First, the Hilario catheter was examined and the balloon was deflated. Next, a well-lubricated 20-Pakistani G-tube was placed into the tract and tugged back and forth and in and out of the gastrocutaneous fistula. The balloon was then inflated with 20 mL of sterile water and secured. RECOMMENDATIONS: 1. Obtain KUB with Gastrografin. 2. If G-tube is in correct position, okay to start tube feeds with free water flushes 50 mL q. 6 hours and checking gastric residuals q. nursing shift and hold if greater than 100 mL. 3. Resume tube feeds per dietary protocol if G-tube is in correct position. Thank you for allowing us to participate in this patient's care. JOB# [id number]
[2018-05-19] MEDS: Calcium Carb/Vit D 500 mg/200 U Tab GT SCH ×2 (04:59→12:37)
[2018-05-19 06:35] LABS: EOSINOPHILE ABSOLUTE 0.3 Th/cmm (0.1-0.4); HEMATOCRIT 38.9 % (41.0-60); HEMOGLOBIN 13.2 gm/dL (12-16); LYMPHOCYTE ABSOLUTE 1.4 Th/cmm (1.5-3.0); MEAN CELL VOLUME 92.3 fl (81-100); MEAN CORPUSCULAR HEMOGLOBIN 31.3 pg (27.0-31.0); MEAN PLATELET VOLUME 8.7 fl; MONOCYTE ABSOLUTE 1.3 Th/cmm (0.3-1.0); NEUTROPHILE ABSOLUTE 2.7 Th/cmm (1.8-8.0); PLATELET COUNT 148 Th/cmm (150-400); RED BLOOD COUNT 4.22 Mil/cmm (3.80-5.20); RED CELL DISTRIBUTION WIDTH 13.3 % (11.5-20.0); WHITE BLOOD COUNT 5.7 Th/cmm (4.8-10.8)
[2018-05-19 06:53] LABS: ALB/GLOB RATIO 1.2 (1.0-1.8); ALKALINE PHOSPHATASE 86 U/L (34-104); ANION GAP 11.9 (7.0-16.0); BILIRUBIN,TOTAL 0.5 mg/dL (0.3-1.0); BUN - UREA NITROGEN 12 mg/dL (7-25); CALCIUM SERUM 8.7 mg/dL (8.6-10.3); CARBON DIOXIDE 24.7 mEq/L (21.0-31.0); CHLORIDE 108 mEq/L (98-107); CREATININE - SERUM 0.5 mg/dL (0.6-1.2); GFR AFRICAN-AMERICAN > 60.0 ml/min (>90); GFR NON AFRICAN-AMERICAN > 60.0 ml/min; GLUCOSE 108 mg/dL (70-105); MAGNESIUM 2.2 mg/dL (1.9-2.7); POTASSIUM SERUM 4.6 mEq/L (3.5-5.1); SGOT 42 U/L (13-39); SGPT/ALT 23 U/L (7-52); SODIUM SERUM 140 mEq/L (136-145); TOTAL PROTEIN,SERUM 5.6 gm/dL (6.0-8.3)
[2018-05-19] MEDS ORDERED: Levothyroxine 0.088 Mg Tab PO SCH (07:00)
[2018-05-19] MEDS ORDERED: Non-Formulary Item 1 EA (Valproic Acid (As Sodium Salt) [Depakene] 500 MG) GT SCH (09:00)
[2018-05-19] MEDS ORDERED: LEVOTHYROXINE SODIUM 88 MCG GT SCH (09:00)
--- NOTE | 2018-05-19 09:00 | Diagnostic Imaging Report ---
KUB 2 views HISTORY: G-tube placement COMPARISON: Upper GI examination on 05/17/2018 FINDINGS: Spray Crew image demonstrates oral contrast primarily throughout the large bowel from previous procedure. This limits the examination. Gas-filled loops of bowel are noted. The second image demonstrates contrast opacification of the stomach. There may be minimal gastroesophageal reflux. IMPRESSION: Intraluminal confirmation of patient's percutaneous gastric feeding tube There may be minimal gastroesophageal reflux. A Small hiatal hernia can also not be excluded. Generalized gas-filled loops of bowel which may represent a mild ileus.
--- NOTE | 2018-05-19 09:40 | Discharge Summary ---
DATE OF DISCHARGE: 05/19/2018 ADMITTING DIAGNOSIS: Malfunctioning/dislodged PEG tube. SECONDARY DIAGNOSES: History of dysphagia/PEG placement, history of seizure disorder, history of intellectual disability, history of seizure disorder, history of hypothyroidism. DISCHARGE DIAGNOSES: G-tube malfunction/dislodgement, status post PEG replacement. CONSULTANTS: Dr. Banda of GI. MAJOR DIAGNOSTICS AND PROCEDURES: The patient underwent a chest or a G-tube replacement on 05/18/2018 without any difficulties. There was an upper GI series on 05/17/2018 showing gastrostomy tube within the gastric lumen. BRIEF HOSPITAL COURSE: This is a 67-year-old female who was transferred from [facility] secondary to malfunctioning G-tube. The G-tube appear to be in place, but was unable to be flushed. Therefore, she was transferred to the ED where she was assessed by staff and an upper GI series was done with the above-mentioned results. The G-tube appeared to be a nonworking, she could not be flushed and therefore she was admitted to medical/surgical floor for PEG replacement, which she underwent on the without any complications. On admission, she was placed on IV fluids on the Keppra and levothyroxine were given the IV form. She remained comfortable throughout her hospital stay and post G-tube replacement, she has been able to tolerate her diet or her bolus feedings well. MEDICATIONS ON DISCHARGE: Tylenol 650 q.4 hours p.r.n. for pain, Dulcolax 10 mg per rectum q.96 hours, calcium with vitamin D 500 mg/200 international units t.i.d., Fleet Enema once every 96 hours p.r.n. for severe constipation, Keppra 500 mg b.i.d., Synthroid 88 mcg every day, milk of magnesia q.72 hours p.r.n., multivitamins and minerals every day, MiraLax 17 grams daily, valproic acid 500 mg solution b.i.d. CONDITION ON DISCHARGE: Stable. DISPOSITION: The patient was discharged back to [facility] under the care of Dr. Noriega. JOB# [id number]
[2018-05-19 09:50] LABS: EOSINOPHIL 4 % (0-5); LYMPHOCYTE 30 % (20-50); MONOCYTE 12 % (2-10); NEUTROPHILS 54 % (40-80)
[2018-05-19] MEDS: Multivitamin w/ Minerals Tab GT SCH (09:52)
[2018-05-19] MEDS: Levetiracetam 500 mg/5mL 5mL UDSyr *for ORAL USE ONLY GT SCH (09:52)
[2018-05-19] MEDS: POLYETHYLENE GLYCOL 3350 17 GM PACK GT SCH (09:52)
--- NOTE | 2018-05-19 14:03 | GI Progress Note ---
Subjective - Review of Systems Subjective: NO EVENTS Objective - Results Result Diagrams: 05/19/18 05:30 05/19/18 05:30 Recent Labs: Laboratory Last Values WBC 5.7 Th/cmm (4.8-10.8) 05/19/18 05:30 RBC 4.22 Mil/cmm (3.80-5.20) 05/19/18 05:30 Hgb 13.2 gm/dL (12-16) 05/19/18 05:30 Hct 38.9 % (41.0-60) L 05/19/18 05:30 MCV 92.3 fl (81-100) 05/19/18 05:30 MCH 31.3 pg (27.0-31.0) H 05/19/18 05:30 MCHC Differential 34.0 pg (28.0-36.0) 05/19/18 05:30 RDW 13.3 % (11.5-20.0) 05/19/18 05:30 Plt Count 148 Th/cmm (150-400) L 05/19/18 05:30 MPV 8.7 fl 05/19/18 05:30 Add Manual Diff YES 05/19/18 05:30 Neutrophils % 62.9 % (40.0-80.0) 05/17/18 05:30 Lymphocytes % 22.6 % (20.0-50.0) 05/17/18 05:30 Monocytes % 8.7 % (2.0-10.0) 05/17/18 05:30 Eosinophils % 5.4 % (0.0-5.0) H 05/17/18 05:30 Basophils % 0.4 % (0.0-2.0) 05/17/18 05:30 Neutrophils (Manual) 54 % (40-80) 05/19/18 05:30 Lymphocytes 30 % (20-50) 05/19/18 05:30 Monocytes 12 % (2-10) H 05/19/18 05:30 Eosinophils 4 % (0-5) 05/19/18 05:30 PT 11.0 SECONDS (9.5-11.5) 05/17/18 05:30 INR 1.06 (0.5-1.4) 05/17/18 05:30 Sodium 140 mEq/L (136-145) 05/19/18 05:30 Potassium 4.6 mEq/L (3.5-5.1) 05/19/18 05:30 Chloride 108 mEq/L (98-107) H 05/19/18 05:30 Carbon Dioxide 24.7 mEq/L (21.0-31.0) 05/19/18 05:30 Anion Gap 11.9 (7.0-16.0) 05/19/18 05:30 BUN 12 mg/dL (7-25) 05/19/18 05:30 Creatinine 0.5 mg/dL (0.6-1.2) L 05/19/18 05:30 Est GFR ( Amer) > 60.0 ml/min (>90) 05/19/18 05:30 Est GFR (Non-Af Amer) > 60.0 ml/min 05/19/18 05:30 BUN/Creatinine Ratio 24.0 05/19/18 05:30 Glucose 108 mg/dL (70-105) H 05/19/18 05:30 Calcium 8.7 mg/dL (8.6-10.3) 05/19/18 05:30 Magnesium 2.2 mg/dL (1.9-2.7) 05/19/18 05:30 Total Bilirubin 0.5 mg/dL (0.3-1.0) 05/19/18 05:30 AST 42 U/L (13-39) H 05/19/18 05:30 ALT 23 U/L (7-52) 05/19/18 05:30 Alkaline Phosphatase 86 U/L (34-104) 05/19/18 05:30 Total Protein 5.6 gm/dL (6.0-8.3) L 05/19/18 05:30 Albumin 3.0 gm/dL (3.7-5.3) L 05/19/18 05:30 Globulin 2.6 gm/dL 05/19/18 05:30 Albumin/Globulin Ratio 1.2 (1.0-1.8) 05/19/18 05:30 - Physical Exam Vitals and I&O: Vital Signs Temp 97.4 F 05/19/18 12:00 Pulse 63 05/19/18 12:00 Resp 18 05/19/18 12:00 BP 133/76 05/19/18 12:00 Pulse Ox 98 05/19/18 12:00 Intake & Output 05/18/18 05/19/18 05/19/18 18:59 06:59 18:59 Intake Total 1000 337 Balance 1000 337 Weight (lbs) 44.452 kg 45.359 kg Intake: Intake, IV Amount 1000 D5-0.45NS 1,000 ml @ 75 1000 mls/hr IV .[id number] [facility] Rx #:[id number] Tube Feeding 337 Other: # Voids 3 3 # Bowel Movements 2 Weight Source Bedscale Bedscale Active Medications: Current Medications Acetaminophen (Tylenol) 650 mg GT Q4HR PRN PRN Reason: MILD PAIN/FEVER Stop: 07/17/18 22:05 Bisacodyl (Dulcolax 10 Mg Supp) 10 mg RC Q96HR PRN PRN Reason: Constipation Stop: 07/17/18 23:04 Calcium/Vitamin D (Oscal W/Vitamin D) 2 tab GT BIDWM [facility] Stop: 07/17/18 23:29 Last Admin: 05/19/18 12:37 Dose: 2 tab Heparin Sodium (Porcine) (Heparin) 5,000 units SUBQ Q12HR [facility] Stop: 07/16/18 20:59 Last Admin: 05/19/18 09:13 Dose: Not Given Levetiracetam (Keppra) 500 mg GT BID [facility] Stop: 07/17/18 21:59 Last Admin: 05/19/18 09:52 Dose: 500 mg Levothyroxine Sodium (Synthroid) 0.088 mg PO DAILY@0700 [facility] Stop: 07/18/18 06:59 Last Admin: 05/19/18 06:06 Dose: 0.088 mg Magnesium Hydroxide (Milk Of Magnesia) 30 ml GT Q72HR PRN PRN Reason: Constipation Stop: 07/17/18 19:49 Miscellaneous (Vte Chemical Prophylaxis Screen/ Admission) 1 ea MC PRN PRN PRN Reason: PROTOCOL Stop: 07/16/18 14:06 Mupirocin (Bactroban Oint) 1 appl NS BID [facility] Stop: 05/26/18 09:01 Polyethylene Glycol (Miralax) 17 gm GT DAILY [facility] Stop: 07/17/18 19:59 Last Admin: 05/19/18 09:52 Dose: 17 gm Sodium Phosphate (Fleet Enema) 135 ml RC Q96H PRN PRN Reason: Constipation Stop: 07/17/18 19:49 Valproate Sodium (Depakene) 500 mg GT BID [facility] Stop: 07/18/18 08:59 Last Admin: 05/19/18 09:52 Dose: 500 mg - Procedures Procedures: Procedures Procedure Code Date CHANGE FEEDING DEVICE IN UP INTEST TRACT, FITNESS PROFESSIONAL APPROACH [id number] 05/17/18 CHANGE GASTROSTOMY TUBE 16211 01/20/12 EGD DIAGNOSTIC BRUSH WASH 12776 11/17/[address] GASTROSTOMY TUBE 39375 11/23/13 OTHER ENDOSCOPY OF SM INTEST 45.13 11/23/13 PERCUTANEOUS [ENDOSCOPIC] GASTROSTOMY [PEG] 43.11 12/27/10 RECONSTRUCTION OF HIP SOCKET 38513 11/17/15 REPLACE GASTROSTOMY TUBE 97.02 11/23/13 REVISION OF FEEDING DEVICE IN STOMACH, PERCUTANEOUS APPROACH [id number] 11/17/15 VACCINATION NEC 99.55 07/13/13 Assessment/Plan - Assessment Assessment: 67 YO FEMALE WITH MALFUNCTION GT AND DYSPHAGIA GT CHANGED KUB SHOWED GT IN THE STOMACH 1.MAY USE GT 2.CONT SUPP CARE 3.ABD BINDER TO PROTECT GT
== END 2018-05-19 18:37 | DRG 393 ==
LOC: ER 19:31 → MSI 05-17 00:33
PROVIDERS: ADMIT Internal Medicine; ATTEND Internal Medicine
PROC: 0D20XUZ Change Feeding Device in Upper Intestinal Tract, External Approach (ICD-10-PCS; principal; 2018-05-18)
DX: K94.23 Gastrostomy malfunction (principal); R53.2 Functional quadriplegia; E44.1 Mild protein-calorie malnutrition; G40.909 Epilepsy, unspecified, not intractable, without status epilepticus; F79 Unspecified intellectual disabilities; E03.9 Hypothyroidism, unspecified; R13.10 Dysphagia, unspecified; Y83.3 Surgical operation with formation of external stoma as the cause of abnormal reaction of the patient, or of later complication, without mention of misadventure at the time of the procedure; Y92.89 Other specified places as the place of occurrence of the external cause; Z68.20 Body mass index [BMI] 20.0-20.9, adult
CPT/HCPCS: 36415-UA; 74000-TC; 80053-TC; 83735-TC; 85007-TC; 85025-TC; 85610-TC; 93005; 96374; J1644; J1953; Z7610

== ENCOUNTER 2018-08-11 21:26 | Emergency (ER) | payer MEDICARE, MEDICAID ==
--- NOTE | 2018-08-11 22:08 | ED Physician Chart ---
ED Chief Complaint/HPI - Patient Information Date Seen:: 08/11/18 Time Seen:: 22:03 Chief Complaint:: VOMITING History of Present Illness:: 68 YR OLD FEMALE WITH MULTIPLE MEDICAL PROBLEMS INCLUDING SEIZURES SEVERE INTELLECTUAL DISABILITIES PARAPLEGIA HEP B GTUBE AND HYPOTHYROIDISM HERE FOR SEVERAL EPISODES OF VOMITING PT HAS GTUBE IN PLACE AND NON VERBAL AND HAS FOOD STUCK AT SIDE OF THE MOUTH Allergies:: Allergies Allergy/AdvReac Type Severity Reaction Status Date / Time No Known Allergies Allergy Verified 09/11/16 21:25 Vitals:: Vital Signs - 8 hr 08/11/18 21:38 Temp 97.4 F HR 86 RR 16 BP 129/65 O2 Sat % 96 ED Review of Systems - Review of Systems General/Constitutional: No fever, No chills, No weight loss, No weakness, No diaphoresis, No edema, No loss of appetite Skin: No skin lesions, No rash, No bruising Head: No headache, No light-headedness Eyes: No loss of vision, No pain, No diplopia ENT: No earache, No nasal drainage, No sore throat, No tinnitus Neck: No neck pain, No swelling, No thyromegaly, No stiffness, No mass noted Cardio Vascular: No chest pain, No palpitations, No PND, No orthopnea, No edema Pulmonary: No SOB, No cough, No sputum, No wheezing GI: Nausea, Vomiting, Other (GTUBE) G/U: Dysuria Musculoskeletal: No bone or joint pain, No back pain, No muscle pain Endocrine: No polyuria, No polydipsia Psychiatric: No prior psych history, No depression, No anxiety, No suicidal ideation Hematopoietic: No bruising, No lymphadenopathy Allergic/Immuno: No urticaria, No angioedema Neurological: No syncope, No focal symptoms, No weakness, No paresthesia, No headache, No seizure, No dizziness, No confusion, No vertigo ED Past Medical History - Past Medical History Past Medical History: PUD/GERD, Seizures, Other (PARAPLEGIA HYPOTHYROIDISM SEVERE INTELLECTUAL DISABILITIES HEP B) Family Medical History - Family Member Mother History Unknown: Yes Ethnicity: Non- Mother Sister History Unknown: Yes Ethnicity: Non- ED Physical Exam - Physical Examination General/Constitutional: Awake Skin: Nl inspection ENMT: External ears, nose nl Neck: Nontender Respiratory: Nl effort/Exclusion Cardio Vascular: RRR GI: No tenderness/rebounding/guarding Other GI comments:: GTUBE IN PLACE Other Extremities comments:: CONTRACTURES ED Assessment - Assessment General Assessment: SEVERE MENTAL RETARDATION GTUBE IN PLACE R/O CONSTIPATION FECAL IMPACTION ED Septic Shock - . Is Septic Shock (SBP<90, OR Lactate>4 mmol\L) present?: No - <6hrs of presentation: Vital Signs: Vital Signs - 8 hr 08/11/18 21:38 Temp 97.4 F HR 86 RR 16 BP 129/65 O2 Sat % 96 ED Reassessment (Disposition) - Reassessment Reassessment:: ABD PAIN GTUBE VOMITING R/O CONSTIPATION FECAL IMPACTION - Diagnosis Diagnosis:: ABOVE - Patient Disposition Discharge/Transfer:: Acute Care w/in this hosp Admitted to:: Med/Surg Condition at Disposition:: Stable
[2018-08-11 22:59] LABS: % MONOCYTES 11.2 % (2.0-10.0); EOSINOPHILE ABSOLUTE 0.2 Th/cmm (0.1-0.4)
[2018-08-11 23:01] LABS: % BASOPHILS 0.2 % (0.0-2.0); % LYMPHOCYTES 14.8 % (20.0-50.0); % NEUTROPHILS 71.8 % (40.0-80.0); HEMATOCRIT 42.1 % (41.0-60); HEMOGLOBIN 14.1 gm/dL (12-16); LYMPHOCYTE ABSOLUTE 1.4 Th/cmm (1.5-3.0); MEAN CELL VOLUME 92.4 fl (81-100); MEAN CORPUSCULAR HEMOGLOBIN 30.9 pg (27.0-31.0); MEAN CORPUSCULAR HGB CONC 33.5 pg (28.0-36.0); MEAN PLATELET VOLUME 8.7 fl; MONOCYTE ABSOLUTE 1.1 Th/cmm (0.3-1.0); NEUTROPHILE ABSOLUTE 6.7 Th/cmm (1.8-8.0); PLATELET COUNT 159 Th/cmm (150-400); RED BLOOD COUNT 4.56 Mil/cmm (3.80-5.20); RED CELL DISTRIBUTION WIDTH 14.1 % (11.5-20.0); WHITE BLOOD COUNT 9.4 Th/cmm (4.8-10.8)
[2018-08-11 23:16] LABS: ALB/GLOB RATIO 1.3 (1.0-1.8); ALBUMIN 3.6 gm/dL (3.7-5.3); ALKALINE PHOSPHATASE 106 U/L (34-104); ANION GAP 11.9 (7.0-16.0); BILIRUBIN,TOTAL 0.4 mg/dL (0.3-1.0); BUN - UREA NITROGEN 21 mg/dL (7-25); CALCIUM SERUM 8.9 mg/dL (8.6-10.3); CARBON DIOXIDE 34.5 mEq/L (21.0-31.0); CHLORIDE 97 mEq/L (98-107); CREATININE - SERUM 0.5 mg/dL (0.6-1.2); GFR AFRICAN-AMERICAN > 60.0 ml/min (>90); GFR NON AFRICAN-AMERICAN > 60.0 ml/min; GLUCOSE 64 mg/dL (70-105); POTASSIUM SERUM 3.4 mEq/L (3.5-5.1); SGOT 29 U/L (13-39); SGPT/ALT 16 U/L (7-52); SODIUM SERUM 140 mEq/L (136-145); TOTAL PROTEIN,SERUM 6.4 gm/dL (6.0-8.3)
--- NOTE | 2018-08-12 09:03 | Diagnostic Imaging Report ---
KUB abdominal film HISTORY: Vomiting There is a nonspecific gas pattern of nondilated small and minimally dilated large bowel. Stool noted within the colon. No free intraperitoneal air. Catheter tubing projects over the upper right midabdomen. Severe scoliosis of the thoracolumbar spine convexity to the left. Severe chronic deformity noted about the left hip. IMPRESSION: 1. Nonspecific bowel gas pattern
== END 2018-08-12 01:06 ==
LOC: ER 21:26
DX: R11.2 Nausea with vomiting, unspecified (principal); R10.9 Unspecified abdominal pain; R30.0 Dysuria; K21.9 Gastro-esophageal reflux disease without esophagitis; Z93.1 Gastrostomy status
CPT/HCPCS: 36415-UA; 74000-TC; 80053-TC; 82948-90; 85025-TC

== ENCOUNTER 2018-08-13 10:04 | Inpatient (IN) | payer MEDICARE, MEDICAID ==
--- NOTE | 2018-08-13 11:02 | Diagnostic Imaging Report ---
CHEST X-RAY: AP view INDICATION: Shortness of breath COMPARISON: 08/03/2017 FINDINGS: There is marked elevation of the right hemidiaphragm limiting assessment of right lung base. Right basal linear markings are noted. Left basal density is also noted. Borderline prominent heart is noted. Degenerative changes of the spine are noted. Gas-filled bowel of the upper abdomen are noted. IMPRESSION: Elevation of the right hemidiaphragm limited evaluation of the right lung base. There is subsegmental atelectasis versus less likely scarring of the right lung base. No focal consolidation identified. left basal density along the left retrocardiac region. Findings are indeterminate however infiltrate cannot be excluded.
[2018-08-13 11:05] LABS: % EOSINOPHILS 1.4 % (0.0-5.0); % MONOCYTES 10.2 % (2.0-10.0); % NEUTROPHILS 76.4 % (40.0-80.0); EOSINOPHILE ABSOLUTE 0.1 Th/cmm (0.1-0.4); HEMATOCRIT 43.8 % (41.0-60); HEMOGLOBIN 14.7 gm/dL (12-16); MEAN CELL VOLUME 92.6 fl (81-100); MEAN CORPUSCULAR HGB CONC 33.5 pg (28.0-36.0); MEAN PLATELET VOLUME 8.9 fl; MONOCYTE ABSOLUTE 0.9 Th/cmm (0.3-1.0); NEUTROPHILE ABSOLUTE 6.7 Th/cmm (1.8-8.0); PLATELET COUNT 154 Th/cmm (150-400); RED BLOOD COUNT 4.73 Mil/cmm (3.80-5.20); RED CELL DISTRIBUTION WIDTH 14.2 % (11.5-20.0); WHITE BLOOD COUNT 8.7 Th/cmm (4.8-10.8)
--- NOTE | 2018-08-13 11:13 | ED Physician Chart ---
ED Chief Complaint/HPI - Patient Information Date Seen:: 08/13/18 Time Seen:: 11:09 Chief Complaint:: Coffee ground emesis History of Present Illness:: 68 yo female with intellectual disability, quadriplegic and G-tube, was brought from [facility] for coffee ground emesis. On arrival, pt did not have emesis. Pt was awake, alert, without acute distress. Allergies:: Allergies Allergy/AdvReac Type Severity Reaction Status Date / Time No Known Allergies Allergy Verified 08/13/18 10:33 Vitals:: Vital Signs - 8 hr 08/13/18 10:15 Temp 97.5 F HR 80 RR 16 BP 118/72 O2 Sat % 98 ED Review of Systems - Review of Systems General/Constitutional: No fever, No chills Skin: No rash Head: No headache Eyes: No pain ENT: No nasal drainage Neck: No neck pain Cardio Vascular: No chest pain Pulmonary: No SOB GI: Nausea, Vomiting Musculoskeletal: No bone or joint pain Neurological: Weakness ED Past Medical History - Past Medical History Past Medical History: Asthma/COPD, Dementia, Other (Hyponatremia, osteoporosis, hepatitis B carrier) Social History: Non Smoker, No Alcohol, No Drug Use Surgical History: PEG/GTube, other (Left hip fusion) Family Medical History - Family Member Mother History Unknown: Yes Ethnicity: Non- Mother Sister History Unknown: Yes Ethnicity: Non- ED Physical Exam - Physical Examination General/Constitutional: Awake, Alert Other Gen/Cons comments:: Non-verbal Head: Atraumatic Eyes: PERRL, EOMI Skin: No ecchymosis ENMT: Nasal exam nl Neck: No nuchal rigidity Respiratory: No Wheeze/Rhonchi/Rales Cardio Vascular: RRR, No murmur, gallop, rubs, NL S1 S2 Other GI comments:: Distended Other Extremities comments:: Contracture Other Neuro/Psych comments:: Not oriented ED Labs/Radiology/EKG Results - Lab Results Results: Laboratory Tests 08/13/18 10:50 WBC 8.7 RBC 4.73 Hgb 14.7 Hct 43.8 MCV 92.6 MCH 31.0 MCHC Differential 33.5 RDW 14.2 Plt Count 154 MPV 8.9 Neutrophils % 76.4 Lymphocytes % 12.0 L Monocytes % 10.2 H Eosinophils % 1.4 Basophils % 0.0 Laboratory Last Values WBC 8.7 Th/cmm (4.8-10.8) 08/13/18 10:50 RBC 4.73 Mil/cmm (3.80-5.20) 08/13/18 10:50 Hgb 14.7 gm/dL (12-16) 08/13/18 10:50 Hct 43.8 % (41.0-60) 08/13/18 10:50 MCV 92.6 fl (81-100) 08/13/18 10:50 MCH 31.0 pg (27.0-31.0) 08/13/18 10:50 MCHC Differential 33.5 pg (28.0-36.0) 08/13/18 10:50 RDW 14.2 % (11.5-20.0) 08/13/18 10:50 Plt Count 154 Th/cmm (150-400) 08/13/18 10:50 MPV 8.9 fl 08/13/18 10:50 Neutrophils % 76.4 % (40.0-80.0) 08/13/18 10:50 Lymphocytes % 12.0 % (20.0-50.0) L 08/13/18 10:50 Monocytes % 10.2 % (2.0-10.0) H 08/13/18 10:50 Eosinophils % 1.4 % (0.0-5.0) 08/13/18 10:50 Basophils % 0.0 % (0.0-2.0) 08/13/18 10:50 PT 10.7 SECONDS (9.5-11.5) 08/13/18 11:05 INR 1.03 (0.5-1.4) 08/13/18 11:05 PTT (Actin FS) 25.2 SECONDS (26.0-38.0) L 08/13/18 11:05 Sodium 139 mEq/L (136-145) 08/13/18 11:05 Potassium 3.9 mEq/L (3.5-5.1) 08/13/18 11:05 Chloride 98 mEq/L (98-107) 08/13/18 11:05 Carbon Dioxide 34.0 mEq/L (21.0-31.0) H 08/13/18 11:05 Anion Gap 10.9 (7.0-16.0) 08/13/18 11:05 BUN 14 mg/dL (7-25) 08/13/18 11:05 Creatinine 0.5 mg/dL (0.6-1.2) L 08/13/18 11:05 Est GFR ( Amer) > 60.0 ml/min (>90) 08/13/18 11:05 Est GFR (Non-Af Amer) > 60.0 ml/min 08/13/18 11:05 BUN/Creatinine Ratio 28.0 08/13/18 11:05 Glucose 105 mg/dL (70-105) 08/13/18 11:05 Calcium 9.1 mg/dL (8.6-10.3) 08/13/18 11:05 Total Bilirubin 0.7 mg/dL (0.3-1.0) 08/13/18 11:05 AST 21 U/L (13-39) 08/13/18 11:05 ALT 10 U/L (7-52) 08/13/18 11:05 Alkaline Phosphatase 81 U/L (34-104) 08/13/18 11:05 Troponin I < 0.01 ng/mL (0.01-0.05) L 08/13/18 10:50 Total Protein 6.5 gm/dL (6.0-8.3) 08/13/18 11:05 Albumin 3.5 gm/dL (3.7-5.3) L 08/13/18 11:05 Globulin 3.0 gm/dL 08/13/18 11:05 Albumin/Globulin Ratio 1.2 (1.0-1.8) 08/13/18 11:05 Lipase 25 U/L (11-82) 08/13/18 11:05 TSH 5.72 uIU/ml (0.34-5.60) H 08/13/18 11:05 Urine Source CATH 08/13/18 11:44 Urine Color YELLOW 08/13/18 11:44 Urine Clarity CLOUDY (CLEAR) H 08/13/18 11:44 Urine pH 8.5 (4.6 - 8.0) 08/13/18 11:44 Ur Specific [place] 1.010 (1.005-1.030) 08/13/18 11:44 Urine Protein NEGATIVE mg/dL (NEGATIVE) 08/13/18 11:44 Urine Glucose (UA) NEGATIVE mg/dL (NEGATIVE) 08/13/18 11:44 Urine Ketones NEGATIVE mg/dL (NEGATIVE) 08/13/18 11:44 Urine Blood TRACE (NEGATIVE) 08/13/18 11:44 Urine Nitrate NEGATIVE (NEGATIVE) 08/13/18 11:44 Urine Bilirubin NEGATIVE (NEGATIVE) 08/13/18 11:44 Urine Urobilinogen 2.0 E.U./dL (0.2 - 1.0) 08/13/18 11:44 Ur Leukocyte Esterase LARGE (NEGATIVE) H 08/13/18 11:44 Urine RBC 5-10 /hpf (0-5) H 08/13/18 11:44 Urine WBC 25-50 /hpf (0-5) H 08/13/18 11:44 Ur Epithelial Cells FEW /lpf (FEW) 08/13/18 11:44 Amorphous Sediment MANY PHOSPHATES (NONE SEEN) 08/13/18 11:44 Urine Bacteria FEW /hpf (NONE SEEN) 08/13/18 11:44 Valproic Acid 44.8 ug/mL (50.0-100.0) L 08/13/18 11:05 - Radiology Results Results: CXR: right lung base subsegmental atelectasis. Elevation of the right hemidiaphragm. CT abdomen/pelvis without contrast: Mild generalized gas-filled loops of bowel suggestive of possible mild ileus. Distal sigmoid and rectal wall thickening. - EKG Interpretations EKG Time:: 11:07 Rate & Rhythm: 50 bpm, sinus rhythm Intervals: Abnormal R wave progression Comments:: No ST, T change ED Assessment - Assessment General Assessment: Emesis Ileus Possible colitis Urinary tract infection Assessment/Comments:: CBC, CMP, Trop, BNP, UA CXR, EKG CT abdomen/plevis Rocephin 1g IV NS 1L IV bolus Admit to med surg under Dr. Romero. ED Septic Shock - . Is Septic Shock (SBP<90, OR Lactate>4 mmol\L) present?: No - <6hrs of presentation: Vital Signs: Vital Signs - 8 hr 08/13/18 10:15 Temp 97.5 F HR 80 RR 16 BP 118/72 O2 Sat % 98 ED Reassessment (Disposition) - Reassessment Reassessment Condition:: Improved - Patient Disposition Discharge/Transfer:: Acute Care w/in this hosp Admitting Medical Physician:: Nico Romero
[2018-08-13 11:26] LABS: INR 1.03 (0.5-1.4); PROTHROMBIN TIME (TEST) 10.7 SECONDS (9.5-11.5)
[2018-08-13 11:32] LABS: ALB/GLOB RATIO 1.2 (1.0-1.8); ALBUMIN 3.5 gm/dL (3.7-5.3); ALKALINE PHOSPHATASE 81 U/L (34-104); ANION GAP 10.9 (7.0-16.0); BILIRUBIN,TOTAL 0.7 mg/dL (0.3-1.0); BUN - UREA NITROGEN 14 mg/dL (7-25); CALCIUM SERUM 9.1 mg/dL (8.6-10.3); CHLORIDE 98 mEq/L (98-107); CREATININE - SERUM 0.5 mg/dL (0.6-1.2); GFR AFRICAN-AMERICAN > 60.0 ml/min (>90); GFR NON AFRICAN-AMERICAN > 60.0 ml/min; GLUCOSE 105 mg/dL (70-105); LIPASE 25 U/L (11-82); POTASSIUM SERUM 3.9 mEq/L (3.5-5.1); SGOT 21 U/L (13-39); SGPT/ALT 10 U/L (7-52); SODIUM SERUM 139 mEq/L (136-145); TOTAL PROTEIN,SERUM 6.5 gm/dL (6.0-8.3)
[2018-08-13 11:57] LABS: URINE SOURCE CATH
[2018-08-13 12:01] LABS: URINE BILIRUBIN NEGATIVE (NEGATIVE); URINE BLOOD TRACE (NEGATIVE); URINE GLUCOSE (UA) NEGATIVE (NEGATIVE); URINE KETONE NEGATIVE (NEGATIVE); URINE LEUKOCYTE ESTERASE LARGE (NEGATIVE); URINE MICROSCOPIC INDICATED? YES; URINE NITRATE NEGATIVE (NEGATIVE); URINE PH 8.5 (4.6 - 8.0); URINE PROTEIN NEGATIVE (NEGATIVE)
[2018-08-13 12:12] LABS: URINE CLARITY CLOUDY (CLEAR); URINE COLOR YELLOW
[2018-08-13 12:14] LABS: URINE AMORPHOUS SEDIMENT MANY PHOSPHATES (NONE SEEN); URINE BACTERIA FEW /hpf (NONE SEEN); URINE EPITHELIAL CELLS FEW /lpf (FEW); URINE WBC 25-50 /hpf (0-5)
[2018-08-13 12:19] LABS: VALPROIC ACID 44.8 ug/mL (50.0-100.0)
[2018-08-13] MEDS ORDERED: cefTRIAXone 1 GM in Sodium Chloride 0.9% 50 ML IV ONE (12:25)
[2018-08-13] MEDS ORDERED: Sodium Chloride 0.9% 1,000 ML IV ONE (12:26)
--- NOTE | 2018-08-13 12:47 | Diagnostic Imaging Report ---
CT abdomen and pelvis without intravenous contrast Indication: Coffee ground emesis Comparison: KUB on 08/11/2018, Technique: Axial images were obtained from the lung bases to the bilateral proximal femurs without IV contrast. Coronal reconstructions were made. total DLP: [id number], [id number] FINDINGS: Hypoventilatory atelectatic changes are seen with minimal right basal consolidative changes. Exam is limited due to motion and lack of IV contrast. There is marked elevation of the right hemidiaphragm. 3 nodular granuloma is seen within the right lobe of the liver. Limited assessment of the spleen demonstrates no obvious focal lesions. Limited assessment of pancreas also demonstrates no obvious focal lesions. The adrenal glands are poorly visualized. No hydronephrosis or nephrolithiasis. There is mild urinary bladder wall thickening. There is also mild distal sigmoid and rectal wall thickening. A few diverticula are noted. There is copious stool throughout the colon with gas-filled loops of bowel also noted. Appendix is not well visualized. No free fluid or free air. Degenerative changes spine are noted with marked scoliosis. There is abnormal fusion of the left hip joint with diffuse lucencies seen throughout. Small hiatal hernia is noted. IMPRESSION: Limited exam due to motion and lack of IV contrast. Distal sigmoid and rectal wall thickening which may be due to underlying infectious, inflammatory or infiltrative process. Clinical correlation and follow-up recommended Minimal diverticulosis without evidence of diverticulitis. Mild generalized gas-filled loops of bowel. A mild ileus cannot be excluded. Percutaneous gastric feeding tube noted. Mild urinary bladder wall thickening, correlate for possible UTI. Minimal atherosclerosis. Right basal atelectasis versus infiltrate Fusion and deformity of the left hip with lucencies probably due to chronic etiology and possible old fracture and fusion. Please correlate with old exams.
[2018-08-13] MEDS: Sodium Chloride 0.9% 1,000 ML IV SCH ×2 (18:52→22:34)
[2018-08-13 18:55] VITALS: BP 153/78
[2018-08-13] MEDS ORDERED: Fleet Enema 135 mL RC PRN (19:25)
[2018-08-13] MEDS ORDERED: Magnesium Hydroxide (MOM) 30 mL UDC GT PRN (19:25)
[2018-08-14 06:40] LABS: % BASOPHILS 0.3 % (0.0-2.0); % EOSINOPHILS 1.4 % (0.0-5.0); % LYMPHOCYTES 12.1 % (20.0-50.0); % MONOCYTES 11.6 % (2.0-10.0); % NEUTROPHILS 74.6 % (40.0-80.0); EOSINOPHILE ABSOLUTE 0.1 Th/cmm (0.1-0.4); HEMATOCRIT 40.9 % (41.0-60); HEMOGLOBIN 13.8 gm/dL (12-16); LYMPHOCYTE ABSOLUTE 0.8 Th/cmm (1.5-3.0); MEAN CELL VOLUME 90.9 fl (81-100); MEAN CORPUSCULAR HEMOGLOBIN 30.6 pg (27.0-31.0); MEAN CORPUSCULAR HGB CONC 33.7 pg (28.0-36.0); MONOCYTE ABSOLUTE 0.8 Th/cmm (0.3-1.0); NEUTROPHILE ABSOLUTE 5.2 Th/cmm (1.8-8.0); PLATELET COUNT 149 Th/cmm (150-400); RED CELL DISTRIBUTION WIDTH 14.1 % (11.5-20.0); WHITE BLOOD COUNT 6.9 Th/cmm (4.8-10.8)
[2018-08-14 07:00] LABS: ALB/GLOB RATIO 1.3 (1.0-1.8); ALBUMIN 3.5 gm/dL (3.7-5.3); ALKALINE PHOSPHATASE 80 U/L (34-104); ANION GAP 15.4 (7.0-16.0); BILIRUBIN,TOTAL 0.9 mg/dL (0.3-1.0); BUN - UREA NITROGEN 13 mg/dL (7-25); CALCIUM SERUM 8.9 mg/dL (8.6-10.3); CARBON DIOXIDE 27.7 mEq/L (21.0-31.0); CHLORIDE 102 mEq/L (98-107); CREATININE - SERUM 0.5 mg/dL (0.6-1.2); GFR AFRICAN-AMERICAN > 60.0 ml/min (>90); GFR NON AFRICAN-AMERICAN > 60.0 ml/min; GLUCOSE 92 mg/dL (70-105); POTASSIUM SERUM 3.1 mEq/L (3.5-5.1); SGOT 28 U/L (13-39); SGPT/ALT 14 U/L (7-52); SODIUM SERUM 142 mEq/L (136-145); TOTAL PROTEIN,SERUM 6.3 gm/dL (6.0-8.3)
--- NOTE | 2018-08-14 09:22 | History and Physical ---
History of Present Illness - HPI Chief Complaint: Coffe ground emesis HPI: Patient was send from SNF due to Coffe ground emesis. During ER evaluation no blodd was found but abdominal CT shows possible ileus. Vital Signs: Last Vital Signs Temp 97.9 F 08/14/18 04:00 Pulse 65 08/14/18 04:00 Resp 19 08/14/18 04:00 BP 142/75 08/14/18 04:00 Pulse Ox 97 08/14/18 04:00 Past Medical History Cardiovascular: Report: No Pertinent Hx Pulmonary: Report: Asthma, COPD MEDICAL I D SALES: Report: Other (MR) GI: Report: Other (G-tube in place) Psych: Report: Other (MR) Musculoskeletal: Report: Other (Funtional quadriplegia) Rheumatologic: Report: No pertinent Hx Infectious Disease: Report: Other (Hep B carrier) Renal/: Report: No Pertinent Hx Endocrine: Report: No Pertinent Hx Dermatology: Report: No Pertinent Hx Family Medical History - Family Member Mother History Unknown: Yes Ethnicity: Non- Mother Sister History Unknown: Yes Ethnicity: Non- Social History Smoke: No Alcohol: None Drugs: None Lives: Skilled Nursing Domestic Violence: Negative - Medications Home Medications: Home Medication Medication Instructions Recorded Type Acetaminophen [Tylenol] 650 mg GT Q4HR PRN tab 05/19/18 Rx Bisacodyl [Dulcolax 10 Mg Supp] 10 mg RC Q96HR PRN sup 05/19/18 Rx Fleet Enema 135 ml RC Q96H PRN btl 05/19/18 Rx Heparin Sodium [Heparin*] 5,000 units SUBQ Q12HR vial 05/19/18 Rx Levetiracetam [Keppra*] 500 mg GT BID udc 05/19/18 Rx Levothyroxine [Synthroid] 0.088 mg PO DAILY@0700 tab 05/19/18 Rx Magnesium Hydroxide [Milk of 30 ml GT Q72HR PRN udc 05/19/18 Rx Magnesia] Multivitamin w/ Minerals 1 tab GT DAILY tab 05/19/18 Rx [Theragran M] Mupirocin Oint [Mupirocin*] 1 appl NS BID appl 05/19/18 Rx Polyethylene Glycol 3350 [Miralax] 17 gm GT DAILY pack 05/19/18 Rx Valproic Acid [Depakene] 500 mg GT BID udc 05/19/18 Rx Calcium Carb/Vit D 500mg/200U 2 tab GT TID 08/13/18 History [Oscal w/Vitamin D] - Allergies Allergies/Adverse Reactions: Allergies Allergy/AdvReac Type Severity Reaction Status Date / Time No Known Allergies Allergy Verified 08/13/18 10:33 Review of Systems - Review of Systems Constitutional: Report: No Significant Eyes: Report: No Significant ENT: Report: No Significant Respiratory: Report: No Significant Cardiovascular: Report: No Significant Gastrointestinal: Report: Vomiting Genitourinary: Report: No Significant Musculoskeletal: Report: No Significant Skin: Report: No Significant Neurological: Report: Weakness Physical Exam - Physical Exam HEENT: Report: Ears Nose Throat within normal limits Neck: Report: Within normal limits Cardiovascular Systems: Report: Regular, Rate and Rhythm Respiratory: Report: Breath Sounds are within normal limits Abdomen: Report: Non-tender to palpation, PEG site is clean Back: Report: Inspection of back is within normal limits. Extremities: Report: Non-tender to palpation. Skin: Report: Color of skin is within normal limits Neuro/Psych: Report: Other (Patient is MR) - Lab Results All Lab Results last 24 hours: Laboratory Results - last 24 hr 08/13/18 08/13/18 08/13/18 10:50 10:50 11:05 WBC 8.7 RBC 4.73 Hgb 14.7 Hct 43.8 MCV 92.6 MCH 31.0 MCHC Differential 33.5 RDW 14.2 Plt Count 154 MPV 8.9 Neutrophils % 76.4 Lymphocytes % 12.0 L Monocytes % 10.2 H Eosinophils % 1.4 Basophils % 0.0 PT 10.7 INR 1.03 PTT (Actin FS) 25.2 L Sodium Potassium Chloride Carbon Dioxide Anion Gap BUN Creatinine Est GFR ( Amer) Est GFR (Non-Af Amer) BUN/Creatinine Ratio Glucose Calcium Total Bilirubin AST ALT Alkaline Phosphatase Troponin I < 0.01 L Total Protein Albumin Globulin Albumin/Globulin Ratio Lipase Free T4 TSH Urine Source Urine Color Urine Clarity Urine pH Ur Specific [place] Urine Protein Urine Glucose (UA) Urine Ketones Urine Blood Urine Nitrate Urine Bilirubin Urine Urobilinogen Ur Leukocyte Esterase Urine RBC Urine WBC Ur Epithelial Cells Amorphous Sediment Urine Bacteria Valproic Acid 08/13/18 08/13/18 08/13/18 11:05 11:05 11:05 WBC RBC Hgb Hct MCV MCH MCHC Differential RDW Plt Count MPV Neutrophils % Lymphocytes % Monocytes % Eosinophils % Basophils % PT INR PTT (Actin FS) Sodium 139 Potassium 3.9 Chloride 98 Carbon Dioxide 34.0 H Anion Gap 10.9 BUN 14 Creatinine 0.5 L Est GFR ( Amer) > 60.0 Est GFR (Non-Af Amer) > 60.0 BUN/Creatinine Ratio 28.0 Glucose 105 Calcium 9.1 Total Bilirubin 0.7 AST 21 ALT 10 Alkaline Phosphatase 81 Troponin I Total Protein 6.5 Albumin 3.5 L Globulin 3.0 Albumin/Globulin Ratio 1.2 Lipase 25 Free T4 1.01 TSH 5.72 H Urine Source Urine Color Urine Clarity Urine pH Ur Specific [place] Urine Protein Urine Glucose (UA) Urine Ketones Urine Blood Urine Nitrate Urine Bilirubin Urine Urobilinogen Ur Leukocyte Esterase Urine RBC Urine WBC Ur Epithelial Cells Amorphous Sediment Urine Bacteria Valproic Acid 44.8 L 08/13/18 08/14/18 08/14/18 11:44 05:40 05:40 WBC 6.9 D RBC 4.50 Hgb 13.8 Hct 40.9 L MCV 90.9 MCH 30.6 MCHC Differential 33.7 RDW 14.1 Plt Count 149 L MPV 9.0 Neutrophils % 74.6 Lymphocytes % 12.1 L Monocytes % 11.6 H Eosinophils % 1.4 Basophils % 0.3 PT INR PTT (Actin FS) Sodium 142 Potassium 3.1 L Chloride 102 Carbon Dioxide 27.7 Anion Gap 15.4 BUN 13 Creatinine 0.5 L Est GFR ( Amer) > 60.0 Est GFR (Non-Af Amer) > 60.0 BUN/Creatinine Ratio 26.0 Glucose 92 Calcium 8.9 Total Bilirubin 0.9 AST 28 ALT 14 Alkaline Phosphatase 80 Troponin I Total Protein 6.3 Albumin 3.5 L Globulin 2.8 Albumin/Globulin Ratio 1.3 Lipase Free T4 TSH Urine Source CATH Urine Color YELLOW Urine Clarity CLOUDY H Urine pH 8.5 Ur Specific [place] 1.010 Urine Protein NEGATIVE Urine Glucose (UA) NEGATIVE Urine Ketones NEGATIVE Urine Blood TRACE Urine Nitrate NEGATIVE Urine Bilirubin NEGATIVE Urine Urobilinogen 2.0 Ur Leukocyte Esterase LARGE H Urine RBC 5-10 H Urine WBC 25-50 H Ur Epithelial Cells FEW Amorphous Sediment MANY PHOSPHATES Urine Bacteria FEW Valproic Acid - Assessment Assessment: Patient is awake, alert, calm in no acute distress. Dx: Coffe ground emesis, possible ileous, UTI, Intellectually disable, Asthma, Functional quadriplegic, Hep B carrier. - Plan Plan: Patient in IV NS, IV AB, Continue with SNF meds. Consult with GI requested
[2018-08-14] MEDS: Multivitamin w/ Minerals Tab GT SCH (09:48)
[2018-08-14] MEDS: POLYETHYLENE GLYCOL 3350 17 GM PACK GT SCH (09:49)
[2018-08-14] MEDS: Levothyroxine 0.088 Mg Tab PO SCH (09:49)
[2018-08-14] MEDS: Levetiracetam 500 mg/5mL 5mL UDSyr *for ORAL USE ONLY GT SCH ×2 (09:59→16:49)
[2018-08-14] MEDS: Sodium Chloride 0.9% 1,000 ML IV SCH ×2 (10:01→21:50)
[2018-08-14] MEDS: Fleet Enema 135 mL RC SCH (11:41)
[2018-08-14] MEDS: cefTRIAXone 1 GM in Sodium Chloride 0.9% 50 ML IV SCH (11:45)
[2018-08-14] MEDS ORDERED: POLYETHYLENE GLYCOL 3350 17 GM PACK PO ONE (13:45)
--- NOTE | 2018-08-14 14:02 | Consultation ---
DATE OF CONSULTATION: 08/14/2018 REQUESTING PHYSICIAN: Nico Romero MD. REASON FOR CONSULTATION: Coffee-ground emesis. Thank you for asking me to see this patient in consultation. HISTORY OF PRESENT ILLNESS: This is a 68-year-old female with history of COPD, asthma, dementia, functional quadriplegia and G-tube dependence who presented with coffee-ground emesis. The patient had a CT scan, which showed a possible ileus and some possible rectal thickening. The patient is fairly somnolent and nonverbal and not able to provide any history. She has not had any episodes of coffee-ground emesis since she has been here in the hospital. Thus far, she has received an enema, which did not yield any stool per nursing report. PAST MEDICAL HISTORY: As described above. SOCIAL HISTORY: Lives in a detention. FAMILY HISTORY: Noncontributory for GI disease. REVIEW OF SYSTEMS: Unobtainable given patient's current state. PHYSICAL EXAMINATION: VITAL SIGNS: Temperature 97.4, pulse of 71, respiratory rate of 18, blood pressure is 142/67. GENERAL: She is in no acute distress. HEENT: Normocephalic, atraumatic. PERRL positive. LUNGS: Clear bilaterally. No wheezes, rales or rhonchi. HEART: Regular rate and rhythm, normal S1, S2. ABDOMEN: Soft, nontender. Bowel sounds are positive. EXTREMITIES: Show no lower extremity edema. LAB DATA: White count of 6.9, hemoglobin of 13.8, platelet count 149,000. Large amount of leukocyte esterase. IMAGING STUDY: She had a CT of the abdomen and pelvis, which showed copious stool throughout the colon with gas filled loops of bowel and some mild distal sigmoid rectal wall thickening. ASSESSMENT AND PLAN: This is a 68-year-old female with history of chronic obstructive pulmonary disease, dysphagia, gastric tube dependence, intellectual disability and quadriplegia, who presents for coffee-ground emesis in the setting of constipation and bowel ileus. 1. Coffee-ground emesis. 2. Severe constipation. 3. Ileus. 4. Intellectual disability. Most likely, the patient's constellation of symptoms is related to severe constipation. I would recommend aggressive bowel regimen with MiraLax 17 grams x 2 today through the G-tube as well as initiating Reglan 5 mg IV q. 8 hours for now. Okay to restart tube feeds at 10 mL an hour and give enema as scheduled. If the patient is having ongoing issues with constipation and obstipation will consider barium enema as well for further evaluation of diagnosis and management. At this point, risks of doing any colonoscopy outweigh any benefits and we will treat symptomatically at this time. Thank you for allowing me to participate in this patient's care. [facility]# [id number]
[2018-08-15] MEDS: Levothyroxine 0.088 Mg Tab PO SCH (06:51)
[2018-08-15 07:03] LABS: ALBUMIN 3.1 gm/dL (3.7-5.3); ALKALINE PHOSPHATASE 85 U/L (34-104); ANION GAP 11.5 (7.0-16.0); BILIRUBIN,TOTAL 0.8 mg/dL (0.3-1.0); BUN - UREA NITROGEN 10 mg/dL (7-25); CALCIUM SERUM 8.2 mg/dL (8.6-10.3); CARBON DIOXIDE 25.8 mEq/L (21.0-31.0); CHLORIDE 103 mEq/L (98-107); CREATININE - SERUM 0.4 mg/dL (0.6-1.2); GFR AFRICAN-AMERICAN > 60.0 ml/min (>90); GFR NON AFRICAN-AMERICAN > 60.0 ml/min; GLUCOSE 103 mg/dL (70-105); POTASSIUM SERUM 3.3 mEq/L (3.5-5.1); SGOT 50 U/L (13-39); SGPT/ALT 26 U/L (7-52); SODIUM SERUM 137 mEq/L (136-145); TOTAL PROTEIN,SERUM 6.2 gm/dL (6.0-8.3)
[2018-08-15 07:19] LABS: % BASOPHILS 0.3 % (0.0-2.0); % EOSINOPHILS 2.3 % (0.0-5.0); % LYMPHOCYTES 23.4 % (20.0-50.0); % MONOCYTES 14.7 % (2.0-10.0); % NEUTROPHILS 59.3 % (40.0-80.0); EOSINOPHILE ABSOLUTE 0.1 Th/cmm (0.1-0.4); HEMATOCRIT 40.7 % (41.0-60); HEMOGLOBIN 13.4 gm/dL (12-16); LYMPHOCYTE ABSOLUTE 1.3 Th/cmm (1.5-3.0); MEAN CELL VOLUME 92.3 fl (81-100); MEAN CORPUSCULAR HEMOGLOBIN 30.4 pg (27.0-31.0); MEAN PLATELET VOLUME 8.1 fl; MONOCYTE ABSOLUTE 0.8 Th/cmm (0.3-1.0); NEUTROPHILE ABSOLUTE 3.3 Th/cmm (1.8-8.0); PLATELET COUNT 152 Th/cmm (150-400); RED CELL DISTRIBUTION WIDTH 14.1 % (11.5-20.0); WHITE BLOOD COUNT 5.5 Th/cmm (4.8-10.8)
--- NOTE | 2018-08-15 08:56 | General Progress Note ---
Subjective - Review of Systems Service Date: 08/15/18 Subjective: Patient non verbal Objective - Results Result Diagrams: 08/15/18 06:30 08/15/18 06:30 Recent Labs: Laboratory Last Values WBC 5.5 Th/cmm (4.8-10.8) 08/15/18 06:30 RBC 4.40 Mil/cmm (3.80-5.20) 08/15/18 06:30 Hgb 13.4 gm/dL (12-16) 08/15/18 06:30 Hct 40.7 % (41.0-60) L 08/15/18 06:30 MCV 92.3 fl (81-100) 08/15/18 06:30 MCH 30.4 pg (27.0-31.0) 08/15/18 06:30 MCHC Differential 33.0 pg (28.0-36.0) 08/15/18 06:30 RDW 14.1 % (11.5-20.0) 08/15/18 06:30 Plt Count 152 Th/cmm (150-400) 08/15/18 06:30 MPV 8.1 fl 08/15/18 06:30 Neutrophils % 59.3 % (40.0-80.0) 08/15/18 06:30 Lymphocytes % 23.4 % (20.0-50.0) 08/15/18 06:30 Monocytes % 14.7 % (2.0-10.0) H 08/15/18 06:30 Eosinophils % 2.3 % (0.0-5.0) 08/15/18 06:30 Basophils % 0.3 % (0.0-2.0) 08/15/18 06:30 PT 10.7 SECONDS (9.5-11.5) 08/13/18 11:05 INR 1.03 (0.5-1.4) 08/13/18 11:05 PTT (Actin FS) 25.2 SECONDS (26.0-38.0) L 08/13/18 11:05 Sodium 137 mEq/L (136-145) 08/15/18 06:30 Potassium 3.3 mEq/L (3.5-5.1) L 08/15/18 06:30 Chloride 103 mEq/L (98-107) 08/15/18 06:30 Carbon Dioxide 25.8 mEq/L (21.0-31.0) 08/15/18 06:30 Anion Gap 11.5 (7.0-16.0) 08/15/18 06:30 BUN 10 mg/dL (7-25) 08/15/18 06:30 Creatinine 0.4 mg/dL (0.6-1.2) L 08/15/18 06:30 Est GFR ( Amer) > 60.0 ml/min (>90) 08/15/18 06:30 Est GFR (Non-Af Amer) > 60.0 ml/min 08/15/18 06:30 BUN/Creatinine Ratio 25.0 08/15/18 06:30 Glucose 103 mg/dL (70-105) 08/15/18 06:30 Calcium 8.2 mg/dL (8.6-10.3) L 08/15/18 06:30 Total Bilirubin 0.8 mg/dL (0.3-1.0) 08/15/18 06:30 AST 50 U/L (13-39) H 08/15/18 06:30 ALT 26 U/L (7-52) 08/15/18 06:30 Alkaline Phosphatase 85 U/L (34-104) 08/15/18 06:30 Troponin I < 0.01 ng/mL (0.01-0.05) L 08/13/18 10:50 Total Protein 6.2 gm/dL (6.0-8.3) 08/15/18 06:30 Albumin 3.1 gm/dL (3.7-5.3) L 08/15/18 06:30 Globulin 3.1 gm/dL 08/15/18 06:30 Albumin/Globulin Ratio 1.0 (1.0-1.8) 08/15/18 06:30 Lipase 25 U/L (11-82) 08/13/18 11:05 Free T4 1.01 ng/dL (0.82-1.77) 08/13/18 11:05 TSH 5.72 uIU/ml (0.34-5.60) H 08/13/18 11:05 Urine Source CATH 08/13/18 11:44 Urine Color YELLOW 08/13/18 11:44 Urine Clarity CLOUDY (CLEAR) H 08/13/18 11:44 Urine pH 8.5 (4.6 - 8.0) 08/13/18 11:44 Ur Specific [place] 1.010 (1.005-1.030) 08/13/18 11:44 Urine Protein NEGATIVE mg/dL (NEGATIVE) 08/13/18 11:44 Urine Glucose (UA) NEGATIVE mg/dL (NEGATIVE) 08/13/18 11:44 Urine Ketones NEGATIVE mg/dL (NEGATIVE) 08/13/18 11:44 Urine Blood TRACE (NEGATIVE) 08/13/18 11:44 Urine Nitrate NEGATIVE (NEGATIVE) 08/13/18 11:44 Urine Bilirubin NEGATIVE (NEGATIVE) 08/13/18 11:44 Urine Urobilinogen 2.0 E.U./dL (0.2 - 1.0) 08/13/18 11:44 Ur Leukocyte Esterase LARGE (NEGATIVE) H 08/13/18 11:44 Urine RBC 5-10 /hpf (0-5) H 08/13/18 11:44 Urine WBC 25-50 /hpf (0-5) H 08/13/18 11:44 Ur Epithelial Cells FEW /lpf (FEW) 08/13/18 11:44 Amorphous Sediment MANY PHOSPHATES (NONE SEEN) 08/13/18 11:44 Urine Bacteria FEW /hpf (NONE SEEN) 08/13/18 11:44 Valproic Acid 44.8 ug/mL (50.0-100.0) L 08/13/18 11:05 - Physical Exam Vitals and I&O: Vital Signs Temp 97.6 F 08/15/18 04:00 Pulse 64 08/15/18 04:00 Resp 18 08/15/18 04:00 BP 134/66 08/15/18 04:00 Pulse Ox 93 08/15/18 04:00 Intake & Output 08/14/18 08/15/18 08/15/18 18:59 06:59 18:59 Intake Total 1000 420 Balance 1000 420 Weight (lbs) 50.802 kg 52.163 kg Intake: Intake, IV Amount 1000 Sodium Chloride 0.9% 1, 1000 000 ml @ 90 mls/hr IV . Q11H7M [facility] Rx#:[id number] Oral 0 Tube Feeding 220 Other 200 Other: # Voids 2 1 # Bowel Movements 0 Weight Source Bedscale Bedscale Active Medications: Current Medications Acetaminophen (Tylenol) 650 mg GT Q4HR PRN PRN Reason: MILD PAIN/FEVER Stop: 10/12/18 19:24 Bisacodyl (Dulcolax 10 Mg Supp) 10 mg RC Q96HR PRN PRN Reason: Constipation Stop: 10/12/18 19:24 Ceftriaxone Sodium 1 gm/ (Sodium Chloride) 50 mls @ 100 mls/hr IV Q24HR SHELLY Stop: 10/13/18 11:59 Last Admin: 08/14/18 11:45 Dose: 100 mls/hr Sodium Chloride (Nacl 0.9%) 1,000 mls @ 90 mls/hr IV .Q11H7M [facility] Stop: 10/13/18 09:13 Last Admin: 08/14/18 21:50 Dose: 90 mls/hr Levetiracetam (Keppra) 500 mg GT BID [facility] Stop: 10/13/18 08:59 Last Admin: 08/14/18 16:49 Dose: 500 mg Levothyroxine Sodium (Synthroid) 0.088 mg PO DAILY@0700 [facility] Stop: 10/13/18 06:59 Last Admin: 08/15/18 06:51 Dose: 0.088 mg Magnesium Hydroxide (Milk Of Magnesia) 30 ml GT Q72HR PRN PRN Reason: Constipation Stop: 10/12/18 19:24 Mupirocin (Bactroban Oint) 1 appl NS BID [facility] Stop: 08/18/18 17:01 Last Admin: 08/14/18 18:01 Dose: 1 appl Pneumococcal Polyvalent Vaccine (Pneumovax) 0.5 ml IM .ONCE ONE Stop: 08/15/18 09:01 Polyethylene Glycol (Miralax) 17 gm GT DAILY [facility] Stop: 10/13/18 08:59 Last Admin: 08/14/18 09:49 Dose: 17 gm Sodium Phosphate (Fleet Enema) 135 ml RC DAILY [facility] Stop: 10/13/18 09:14 Last Admin: 08/14/18 11:41 Dose: 135 ml Valproate Sodium (Depakene) 500 mg GT BID [facility]; Protocol Stop: 10/13/18 08:59 Last Admin: 08/14/18 16:49 Dose: 500 mg General: Alert, No acute distress, Other (Non verbal) HEENT: Atraumatic Neck: Supple Cardiovascular: Regular rate Lungs: Clear to auscultation Abdomen: Bowel sounds Extremities: Other (No edema) Neurological: Other (Non ambulatory) Skin: Other (Warm and dry) Psych/Mental Status: Other (Patient is MR, non verbal.) - Procedures Procedures: Procedures Procedure Code Date CHANGE FEEDING DEVICE IN UP INTEST TRACT, SULFUR BURNER APPROACH [id number] 05/17/18 CHANGE GASTROSTOMY TUBE 13200 01/20/12 EGD DIAGNOSTIC BRUSH WASH 92109 11/17/[address] GASTROSTOMY TUBE 56315 11/23/13 OTHER ENDOSCOPY OF SM INTEST 45.13 11/23/13 PERCUTANEOUS [ENDOSCOPIC] GASTROSTOMY [PEG] 43.11 12/27/10 RECONSTRUCTION OF HIP SOCKET 95425 11/17/15 REPLACE GASTROSTOMY TUBE 97.02 11/23/13 REVISION OF FEEDING DEVICE IN STOMACH, PERCUTANEOUS APPROACH [id number] 11/17/15 VACCINATION NEC 99.55 07/13/13 Assessment/Plan - Assessment Assessment: Patient is awake, alert, calm in no acute distress. No bowel movement yesterday. Dx: Coffe ground emesis, possible ileous, UTI, Intellectually disable , Asthma, Functional quadriplegic, Hep B carrier. - Plan Plan: Patient in IV NS, IV AB, Continue with SNF meds. already seen by GI.
[2018-08-15] MEDS: Fleet Enema 135 mL RC SCH (08:59)
[2018-08-15] MEDS ORDERED: Pneumococcal Vaccine 0.5 mL Vial IM ONE (09:00)
[2018-08-15] MEDS: POLYETHYLENE GLYCOL 3350 17 GM PACK GT SCH (09:01)
[2018-08-15] MEDS: Levetiracetam 500 mg/5mL 5mL UDSyr *for ORAL USE ONLY GT SCH ×2 (09:02→17:14)
[2018-08-15] MEDS: Multivitamin w/ Minerals Tab GT SCH (09:02)
[2018-08-15] MEDS: cefTRIAXone 1 GM in Sodium Chloride 0.9% 50 ML IV SCH (13:49)
[2018-08-15] MEDS: Sodium Chloride 0.9% 1,000 ML IV SCH (13:50)
[2018-08-15] MEDS ORDERED: Probiotic Screen MC PRN (14:04)
--- NOTE | 2018-08-15 23:20 | GI Progress Note ---
Subjective - Review of Systems Service Date: 08/15/18 Events since last encounter: no new events; had a large bm Objective - Results Result Diagrams: 08/15/18 06:30 08/15/18 06:30 Recent Labs: Laboratory Last Values WBC 5.5 Th/cmm (4.8-10.8) 08/15/18 06:30 RBC 4.40 Mil/cmm (3.80-5.20) 08/15/18 06:30 Hgb 13.4 gm/dL (12-16) 08/15/18 06:30 Hct 40.7 % (41.0-60) L 08/15/18 06:30 MCV 92.3 fl (81-100) 08/15/18 06:30 MCH 30.4 pg (27.0-31.0) 08/15/18 06:30 MCHC Differential 33.0 pg (28.0-36.0) 08/15/18 06:30 RDW 14.1 % (11.5-20.0) 08/15/18 06:30 Plt Count 152 Th/cmm (150-400) 08/15/18 06:30 MPV 8.1 fl 08/15/18 06:30 Neutrophils % 59.3 % (40.0-80.0) 08/15/18 06:30 Lymphocytes % 23.4 % (20.0-50.0) 08/15/18 06:30 Monocytes % 14.7 % (2.0-10.0) H 08/15/18 06:30 Eosinophils % 2.3 % (0.0-5.0) 08/15/18 06:30 Basophils % 0.3 % (0.0-2.0) 08/15/18 06:30 PT 10.7 SECONDS (9.5-11.5) 08/13/18 11:05 INR 1.03 (0.5-1.4) 08/13/18 11:05 PTT (Actin FS) 25.2 SECONDS (26.0-38.0) L 08/13/18 11:05 Sodium 137 mEq/L (136-145) 08/15/18 06:30 Potassium 3.3 mEq/L (3.5-5.1) L 08/15/18 06:30 Chloride 103 mEq/L (98-107) 08/15/18 06:30 Carbon Dioxide 25.8 mEq/L (21.0-31.0) 08/15/18 06:30 Anion Gap 11.5 (7.0-16.0) 08/15/18 06:30 BUN 10 mg/dL (7-25) 08/15/18 06:30 Creatinine 0.4 mg/dL (0.6-1.2) L 08/15/18 06:30 Est GFR ( Amer) > 60.0 ml/min (>90) 08/15/18 06:30 Est GFR (Non-Af Amer) > 60.0 ml/min 08/15/18 06:30 BUN/Creatinine Ratio 25.0 08/15/18 06:30 Glucose 103 mg/dL (70-105) 08/15/18 06:30 Calcium 8.2 mg/dL (8.6-10.3) L 08/15/18 06:30 Total Bilirubin 0.8 mg/dL (0.3-1.0) 08/15/18 06:30 AST 50 U/L (13-39) H 08/15/18 06:30 ALT 26 U/L (7-52) 08/15/18 06:30 Alkaline Phosphatase 85 U/L (34-104) 08/15/18 06:30 Troponin I < 0.01 ng/mL (0.01-0.05) L 08/13/18 10:50 Total Protein 6.2 gm/dL (6.0-8.3) 08/15/18 06:30 Albumin 3.1 gm/dL (3.7-5.3) L 08/15/18 06:30 Globulin 3.1 gm/dL 08/15/18 06:30 Albumin/Globulin Ratio 1.0 (1.0-1.8) 08/15/18 06:30 Lipase 25 U/L (11-82) 08/13/18 11:05 Free T4 1.01 ng/dL (0.82-1.77) 08/13/18 11:05 TSH 5.72 uIU/ml (0.34-5.60) H 08/13/18 11:05 Urine Source CATH 08/13/18 11:44 Urine Color YELLOW 08/13/18 11:44 Urine Clarity CLOUDY (CLEAR) H 08/13/18 11:44 Urine pH 8.5 (4.6 - 8.0) 08/13/18 11:44 Ur Specific [place] 1.010 (1.005-1.030) 08/13/18 11:44 Urine Protein NEGATIVE mg/dL (NEGATIVE) 08/13/18 11:44 Urine Glucose (UA) NEGATIVE mg/dL (NEGATIVE) 08/13/18 11:44 Urine Ketones NEGATIVE mg/dL (NEGATIVE) 08/13/18 11:44 Urine Blood TRACE (NEGATIVE) 08/13/18 11:44 Urine Nitrate NEGATIVE (NEGATIVE) 08/13/18 11:44 Urine Bilirubin NEGATIVE (NEGATIVE) 08/13/18 11:44 Urine Urobilinogen 2.0 E.U./dL (0.2 - 1.0) 08/13/18 11:44 Ur Leukocyte Esterase LARGE (NEGATIVE) H 08/13/18 11:44 Urine RBC 5-10 /hpf (0-5) H 08/13/18 11:44 Urine WBC 25-50 /hpf (0-5) H 08/13/18 11:44 Ur Epithelial Cells FEW /lpf (FEW) 08/13/18 11:44 Amorphous Sediment MANY PHOSPHATES (NONE SEEN) 08/13/18 11:44 Urine Bacteria FEW /hpf (NONE SEEN) 08/13/18 11:44 Valproic Acid 44.8 ug/mL (50.0-100.0) L 08/13/18 11:05 - Physical Exam Vitals and I&O: Vital Signs Temp 97.3 F 08/15/18 15:46 Pulse 62 08/15/18 15:46 Resp 19 08/15/18 15:46 BP 133/58 08/15/18 15:46 Pulse Ox 96 08/15/18 15:46 Intake & Output 08/15/18 08/15/18 08/16/18 06:59 18:59 06:59 Intake Total 420 1600 Balance 420 1600 Weight (lbs) 52.163 kg 52.163 kg Intake: Intake, IV Amount 1000 Sodium Chloride 0.9% 1, 1000 000 ml @ 90 mls/hr IV . Q11H7M [facility] Rx#:[id number] Oral 0 Tube Feeding 220 300 Other 200 300 Other: # Voids 1 3 # Bowel Movements 0 2 Weight Source Bedscale Bedscale Active Medications: Current Medications Acetaminophen (Tylenol) 650 mg GT Q4HR PRN PRN Reason: MILD PAIN/FEVER Stop: 10/12/18 19:24 Bisacodyl (Dulcolax 10 Mg Supp) 10 mg RC Q96HR PRN PRN Reason: Constipation Stop: 10/12/18 19:24 Ceftriaxone Sodium 1 gm/ (Sodium Chloride) 50 mls @ 100 mls/hr IV Q24HR [facility] Stop: 10/13/18 11:59 Last Admin: 08/15/18 13:49 Dose: 100 mls/hr Sodium Chloride (Nacl 0.9%) 1,000 mls @ 90 mls/hr IV .Q11H7M [facility] Stop: 10/13/18 09:13 Last Admin: 08/15/18 13:50 Dose: 90 mls/hr Lactobacillus Rhamnosus (Culturelle 15b) 1 each PO DAILY [facility] Stop: 10/15/18 08:59 Levetiracetam (Keppra) 500 mg GT BID [facility] Stop: 10/13/18 08:59 Last Admin: 08/15/18 17:14 Dose: 500 mg Levothyroxine Sodium (Synthroid) 0.088 mg PO DAILY@0700 [facility] Stop: 10/13/18 06:59 Last Admin: 08/15/18 06:51 Dose: 0.088 mg Magnesium Hydroxide (Milk Of Magnesia) 30 ml GT Q72HR PRN PRN Reason: Constipation Stop: 10/12/18 19:24 Miscellaneous (Probiotic Screen) 1 ea MC PRN PRN PRN Reason: PROTOCOL Stop: 10/14/18 14:03 Mupirocin (Bactroban Oint) 1 appl NS BID [facility] Stop: 08/18/18 17:01 Last Admin: 08/15/18 17:28 Dose: 1 appl Polyethylene Glycol (Miralax) 17 gm GT DAILY [facility] Stop: 10/13/18 08:59 Last Admin: 08/15/18 09:01 Dose: 17 gm Sodium Phosphate (Fleet Enema) 135 ml RC DAILY [facility] Stop: 10/13/18 09:14 Last Admin: 08/15/18 08:59 Dose: 135 ml Valproate Sodium (Depakene) 500 mg GT BID [facility]; Protocol Stop: 10/13/18 08:59 Last Admin: 08/15/18 17:14 Dose: 500 mg General: Alert, No acute distress, Other (Non verbal) HEENT: Atraumatic Neck: Supple Cardiovascular: Regular rate Lungs: Clear to auscultation Abdomen: Bowel sounds Extremities: Other (No edema) Neurological: Other (Non ambulatory) Skin: Other (Warm and dry) Psych/Mental Status: Other (Patient is MR, non verbal.) - Procedures Procedures: Procedures Procedure Code Date CHANGE FEEDING DEVICE IN UP INTEST TRACT, [employer] APPROACH [id number] 05/17/18 CHANGE GASTROSTOMY TUBE 97173 01/20/12 EGD DIAGNOSTIC BRUSH WASH 90519 11/17/[address] GASTROSTOMY TUBE 56627 11/23/13 OTHER ENDOSCOPY OF SM INTEST 45.13 11/23/13 PERCUTANEOUS [ENDOSCOPIC] GASTROSTOMY [PEG] 43.11 12/27/10 RECONSTRUCTION OF HIP SOCKET 84442 11/17/15 REPLACE GASTROSTOMY TUBE 97.02 11/23/13 REVISION OF FEEDING DEVICE IN STOMACH, PERCUTANEOUS APPROACH [id number] 11/17/15 VACCINATION NEC 99.55 07/13/13 Assessment/Plan - Assessment Assessment: 1. Fecal impaction 2. Coffee ground emesis 3. Dysphagia 4. G tube dependant -okay to start G tube slowly increase to goal rate -Daily bowel regimen with miralax and colace -enema prn -G tube care
[2018-08-16] MEDS: Levothyroxine 0.088 Mg Tab PO SCH (06:14)
[2018-08-16 06:40] LABS: BASOPHILE ABSOLUTE 0.1 Th/cumm (0-0.2); EOSINOPHILE ABSOLUTE 0.2 Th/cmm (0.1-0.4); HEMATOCRIT 41.1 % (41.0-60); HEMOGLOBIN 13.7 gm/dL (12-16); LYMPHOCYTE ABSOLUTE 1.1 Th/cmm (1.5-3.0); MEAN CELL VOLUME 92.7 fl (81-100); MEAN CORPUSCULAR HGB CONC 33.4 pg (28.0-36.0); MEAN PLATELET VOLUME 8.4 fl; NEUTROPHILE ABSOLUTE 3.7 Th/cmm (1.8-8.0); PLATELET COUNT 178 Th/cmm (150-400); RED BLOOD COUNT 4.43 Mil/cmm (3.80-5.20); RED CELL DISTRIBUTION WIDTH 13.8 % (11.5-20.0); WHITE BLOOD COUNT 6.1 Th/cmm (4.8-10.8)
[2018-08-16 06:58] LABS: ALB/GLOB RATIO 1.1 (1.0-1.8); ALBUMIN 3.3 gm/dL (3.7-5.3); ALKALINE PHOSPHATASE 101 U/L (34-104); ANION GAP 12.8 (7.0-16.0); BILIRUBIN,TOTAL 0.6 mg/dL (0.3-1.0); BUN - UREA NITROGEN 14 mg/dL (7-25); CALCIUM SERUM 8.4 mg/dL (8.6-10.3); CARBON DIOXIDE 28.2 mEq/L (21.0-31.0); CHLORIDE 102 mEq/L (98-107); CREATININE - SERUM 0.4 mg/dL (0.6-1.2); GFR AFRICAN-AMERICAN > 60.0 ml/min (>90); GFR NON AFRICAN-AMERICAN > 60.0 ml/min; GLUCOSE 132 mg/dL (70-105); SGOT 34 U/L (13-39); SGPT/ALT 23 U/L (7-52); SODIUM SERUM 140 mEq/L (136-145); TOTAL PROTEIN,SERUM 6.3 gm/dL (6.0-8.3)
[2018-08-16] MEDS ORDERED: Potassium Phosphate 40 MMOLE in Sodium Chloride 0.9% 250 ML IV ONE (07:40)
[2018-08-16 08:19] LABS: EOSINOPHIL 3 % (0-5); LYMPHOCYTE 20 % (20-50); MONOCYTE 17 % (2-10); NEUTROPHILS 60 % (40-80); PLATELET ESTIMATE ADEQUATE (NORMAL)
--- NOTE | 2018-08-16 08:38 | GI Progress Note ---
Subjective - Review of Systems Subjective: NO EVENTS Objective - Results Result Diagrams: 08/16/18 06:00 08/16/18 06:00 Recent Labs: Laboratory Last Values WBC 6.1 Th/cmm (4.8-10.8) 08/16/18 06:00 RBC 4.43 Mil/cmm (3.80-5.20) 08/16/18 06:00 Hgb 13.7 gm/dL (12-16) 08/16/18 06:00 Hct 41.1 % (41.0-60) 08/16/18 06:00 MCV 92.7 fl (81-100) 08/16/18 06:00 MCH 31.0 pg (27.0-31.0) 08/16/18 06:00 MCHC Differential 33.4 pg (28.0-36.0) 08/16/18 06:00 RDW 13.8 % (11.5-20.0) 08/16/18 06:00 Plt Count 178 Th/cmm (150-400) 08/16/18 06:00 MPV 8.4 fl 08/16/18 06:00 Add Manual Diff YES 08/16/18 06:00 Neutrophils % 59.3 % (40.0-80.0) 08/15/18 06:30 Lymphocytes % 23.4 % (20.0-50.0) 08/15/18 06:30 Monocytes % 14.7 % (2.0-10.0) H 08/15/18 06:30 Eosinophils % 2.3 % (0.0-5.0) 08/15/18 06:30 Basophils % 0.3 % (0.0-2.0) 08/15/18 06:30 Neutrophils (Manual) 60 % (40-80) 08/16/18 06:00 Lymphocytes 20 % (20-50) 08/16/18 06:00 Monocytes 17 % (2-10) H 08/16/18 06:00 Eosinophils 3 % (0-5) 08/16/18 06:00 Platelet Estimate ADEQUATE (NORMAL) 08/16/18 06:00 PT 10.7 SECONDS (9.5-11.5) 08/13/18 11:05 INR 1.03 (0.5-1.4) 08/13/18 11:05 PTT (Actin FS) 25.2 SECONDS (26.0-38.0) L 08/13/18 11:05 Sodium 140 mEq/L (136-145) 08/16/18 06:00 Potassium 3.0 mEq/L (3.5-5.1) L 08/16/18 06:00 Chloride 102 mEq/L (98-107) 08/16/18 06:00 Carbon Dioxide 28.2 mEq/L (21.0-31.0) 08/16/18 06:00 Anion Gap 12.8 (7.0-16.0) 08/16/18 06:00 BUN 14 mg/dL (7-25) 08/16/18 06:00 Creatinine 0.4 mg/dL (0.6-1.2) L 08/16/18 06:00 Est GFR ( Amer) > 60.0 ml/min (>90) 08/16/18 06:00 Est GFR (Non-Af Amer) > 60.0 ml/min 08/16/18 06:00 BUN/Creatinine Ratio 35.0 08/16/18 06:00 Glucose 132 mg/dL (70-105) H 08/16/18 06:00 Calcium 8.4 mg/dL (8.6-10.3) L 08/16/18 06:00 Total Bilirubin 0.6 mg/dL (0.3-1.0) 08/16/18 06:00 AST 34 U/L (13-39) 08/16/18 06:00 ALT 23 U/L (7-52) 08/16/18 06:00 Alkaline Phosphatase 101 U/L (34-104) 08/16/18 06:00 Troponin I < 0.01 ng/mL (0.01-0.05) L 08/13/18 10:50 Total Protein 6.3 gm/dL (6.0-8.3) 08/16/18 06:00 Albumin 3.3 gm/dL (3.7-5.3) L 08/16/18 06:00 Globulin 3.0 gm/dL 08/16/18 06:00 Albumin/Globulin Ratio 1.1 (1.0-1.8) 08/16/18 06:00 Lipase 25 U/L (11-82) 08/13/18 11:05 Free T4 1.01 ng/dL (0.82-1.77) 08/13/18 11:05 TSH 5.72 uIU/ml (0.34-5.60) H 08/13/18 11:05 Urine Source CATH 08/13/18 11:44 Urine Color YELLOW 08/13/18 11:44 Urine Clarity CLOUDY (CLEAR) H 08/13/18 11:44 Urine pH 8.5 (4.6 - 8.0) 08/13/18 11:44 Ur Specific [place] 1.010 (1.005-1.030) 08/13/18 11:44 Urine Protein NEGATIVE mg/dL (NEGATIVE) 08/13/18 11:44 Urine Glucose (UA) NEGATIVE mg/dL (NEGATIVE) 08/13/18 11:44 Urine Ketones NEGATIVE mg/dL (NEGATIVE) 08/13/18 11:44 Urine Blood TRACE (NEGATIVE) 08/13/18 11:44 Urine Nitrate NEGATIVE (NEGATIVE) 08/13/18 11:44 Urine Bilirubin NEGATIVE (NEGATIVE) 08/13/18 11:44 Urine Urobilinogen 2.0 E.U./dL (0.2 - 1.0) 08/13/18 11:44 Ur Leukocyte Esterase LARGE (NEGATIVE) H 08/13/18 11:44 Urine RBC 5-10 /hpf (0-5) H 08/13/18 11:44 Urine WBC 25-50 /hpf (0-5) H 08/13/18 11:44 Ur Epithelial Cells FEW /lpf (FEW) 08/13/18 11:44 Amorphous Sediment MANY PHOSPHATES (NONE SEEN) 08/13/18 11:44 Urine Bacteria FEW /hpf (NONE SEEN) 08/13/18 11:44 Valproic Acid 44.8 ug/mL (50.0-100.0) L 08/13/18 11:05 - Physical Exam Vitals and I&O: Vital Signs Temp 98.2 F 08/16/18 00:00 Pulse 67 08/16/18 00:00 Resp 18 08/16/18 00:00 BP 133/61 08/16/18 00:00 Pulse Ox 94 08/16/18 00:00 Intake & Output 08/15/18 08/16/18 08/16/18 18:59 06:59 18:59 Intake Total 1600 400 Output Total 2 Balance 1600 398 Weight (lbs) 52.163 kg 63.503 kg Intake: Intake, IV Amount 1000 Sodium Chloride 0.9% 1, 1000 000 ml @ 90 mls/hr IV . Q11H7M [facility] Rx#:[id number] Tube Feeding 300 400 Other 300 Output: Urine 2 Other: # Voids 3 # Bowel Movements 2 Weight Source Bedscale Estimated Active Medications: Current Medications Acetaminophen (Tylenol) 650 mg GT Q4HR PRN PRN Reason: MILD PAIN/FEVER Stop: 10/12/18 19:24 Bisacodyl (Dulcolax 10 Mg Supp) 10 mg RC Q96HR PRN PRN Reason: Constipation Stop: 10/12/18 19:24 Ceftriaxone Sodium 1 gm/ (Sodium Chloride) 50 mls @ 100 mls/hr IV Q24HR [facility] Stop: 10/13/18 11:59 Last Admin: 08/15/18 13:49 Dose: 100 mls/hr Sodium Chloride (Nacl 0.9%) 1,000 mls @ 90 mls/hr IV .Q11H7M [facility] Stop: 10/13/18 09:13 Last Admin: 08/15/18 13:50 Dose: 90 mls/hr Potassium Chloride (Potassium Chloride) 20 meq in 100 mls @ 50 mls/hr IV Q2H [facility] Stop: 08/16/18 11:42 Lactobacillus Rhamnosus (Culturelle 15b) 1 each PO DAILY [facility] Stop: 10/15/18 08:59 Levetiracetam (Keppra) 500 mg GT BID [facility] Stop: 10/13/18 08:59 Last Admin: 08/15/18 17:14 Dose: 500 mg Levothyroxine Sodium (Synthroid) 0.088 mg PO DAILY@0700 [facility] Stop: 10/13/18 06:59 Last Admin: 08/16/18 06:14 Dose: 0.088 mg Magnesium Hydroxide (Milk Of Magnesia) 30 ml GT Q72HR PRN PRN Reason: Constipation Stop: 10/12/18 19:24 Miscellaneous (Probiotic Screen) 1 ea MC PRN PRN PRN Reason: PROTOCOL Stop: 10/14/18 14:03 Mupirocin (Bactroban Oint) 1 appl NS BID [facility] Stop: 08/18/18 17:01 Last Admin: 08/15/18 17:28 Dose: 1 appl Polyethylene Glycol (Miralax) 17 gm GT DAILY [facility] Stop: 10/13/18 08:59 Last Admin: 08/15/18 09:01 Dose: 17 gm Sodium Phosphate (Fleet Enema) 135 ml RC DAILY [facility] Stop: 10/13/18 09:14 Last Admin: 08/15/18 08:59 Dose: 135 ml Valproate Sodium (Depakene) 500 mg GT BID [facility]; Protocol Stop: 10/13/18 08:59 Last Admin: 08/15/18 17:14 Dose: 500 mg General: Alert, No acute distress, Other (Non verbal) HEENT: Atraumatic Neck: Supple Cardiovascular: Regular rate Lungs: Clear to auscultation Abdomen: Bowel sounds Extremities: Other (No edema) Neurological: Other (Non ambulatory) Skin: Other (Warm and dry) Psych/Mental Status: Other (Patient is MR, non verbal.) - Procedures Procedures: Procedures Procedure Code Date CHANGE FEEDING DEVICE IN UP INTEST TRACT, INSTALLER TECHNICIAN APPROACH [id number] 05/17/18 CHANGE GASTROSTOMY TUBE 97787 01/20/12 EGD DIAGNOSTIC BRUSH WASH 39999 11/17/[address] GASTROSTOMY TUBE 19529 11/23/13 OTHER ENDOSCOPY OF SM INTEST 45.13 11/23/13 PERCUTANEOUS [ENDOSCOPIC] GASTROSTOMY [PEG] 43.11 12/27/10 RECONSTRUCTION OF HIP SOCKET 65314 11/17/15 REPLACE GASTROSTOMY TUBE 97.02 11/23/13 REVISION OF FEEDING DEVICE IN STOMACH, PERCUTANEOUS APPROACH [id number] 11/17/15 VACCINATION NEC 99.55 07/13/13 Assessment/Plan - Assessment Assessment: 68 YO FEMALE WITH CONSTIPATION HAS DYSPHAGIA WITH GT 1.CONT SUPP CARE 2.CONT TUBE FEEDS 3.CONT LAXATIVES
[2018-08-16] MEDS: KCL 20mEq/100mL Premix 20 MEQ/100 ML PIGGYBACK IV SCH ×2 (09:49→12:02)
[2018-08-16] MEDS: Levetiracetam 500 mg/5mL 5mL UDSyr *for ORAL USE ONLY GT SCH ×2 (09:50→18:14)
[2018-08-16] MEDS: Multivitamin w/ Minerals Tab GT SCH (09:50)
[2018-08-16] MEDS: Lactobacillus Rhamnosus GG 15 Billion CFU CAP.SPRINK PO SCH (09:50)
[2018-08-16] MEDS: POLYETHYLENE GLYCOL 3350 17 GM PACK GT SCH (09:52)
[2018-08-16] MEDS: Sodium Chloride 0.9% 1,000 ML IV SCH (12:06)
[2018-08-16] MEDS: cefTRIAXone 1 GM in Sodium Chloride 0.9% 50 ML IV SCH (12:32)
[2018-08-16] MEDS: Fleet Enema 135 mL RC SCH (12:33)
--- NOTE | 2018-08-16 15:01 | General Progress Note ---
Subjective - Review of Systems Service Date: 08/16/18 Subjective: Patient non verbal Objective - Results Result Diagrams: 08/16/18 06:00 08/16/18 06:00 Recent Labs: Laboratory Last Values WBC 6.1 Th/cmm (4.8-10.8) 08/16/18 06:00 RBC 4.43 Mil/cmm (3.80-5.20) 08/16/18 06:00 Hgb 13.7 gm/dL (12-16) 08/16/18 06:00 Hct 41.1 % (41.0-60) 08/16/18 06:00 MCV 92.7 fl (81-100) 08/16/18 06:00 MCH 31.0 pg (27.0-31.0) 08/16/18 06:00 MCHC Differential 33.4 pg (28.0-36.0) 08/16/18 06:00 RDW 13.8 % (11.5-20.0) 08/16/18 06:00 Plt Count 178 Th/cmm (150-400) 08/16/18 06:00 MPV 8.4 fl 08/16/18 06:00 Add Manual Diff YES 08/16/18 06:00 Neutrophils % 59.3 % (40.0-80.0) 08/15/18 06:30 Lymphocytes % 23.4 % (20.0-50.0) 08/15/18 06:30 Monocytes % 14.7 % (2.0-10.0) H 08/15/18 06:30 Eosinophils % 2.3 % (0.0-5.0) 08/15/18 06:30 Basophils % 0.3 % (0.0-2.0) 08/15/18 06:30 Neutrophils (Manual) 60 % (40-80) 08/16/18 06:00 Lymphocytes 20 % (20-50) 08/16/18 06:00 Monocytes 17 % (2-10) H 08/16/18 06:00 Eosinophils 3 % (0-5) 08/16/18 06:00 Platelet Estimate ADEQUATE (NORMAL) 08/16/18 06:00 PT 10.7 SECONDS (9.5-11.5) 08/13/18 11:05 INR 1.03 (0.5-1.4) 08/13/18 11:05 PTT (Actin FS) 25.2 SECONDS (26.0-38.0) L 08/13/18 11:05 Sodium 140 mEq/L (136-145) 08/16/18 06:00 Potassium 3.0 mEq/L (3.5-5.1) L 08/16/18 06:00 Chloride 102 mEq/L (98-107) 08/16/18 06:00 Carbon Dioxide 28.2 mEq/L (21.0-31.0) 08/16/18 06:00 Anion Gap 12.8 (7.0-16.0) 08/16/18 06:00 BUN 14 mg/dL (7-25) 08/16/18 06:00 Creatinine 0.4 mg/dL (0.6-1.2) L 08/16/18 06:00 Est GFR ( Amer) > 60.0 ml/min (>90) 08/16/18 06:00 Est GFR (Non-Af Amer) > 60.0 ml/min 08/16/18 06:00 BUN/Creatinine Ratio 35.0 08/16/18 06:00 Glucose 132 mg/dL (70-105) H 08/16/18 06:00 Calcium 8.4 mg/dL (8.6-10.3) L 08/16/18 06:00 Total Bilirubin 0.6 mg/dL (0.3-1.0) 08/16/18 06:00 AST 34 U/L (13-39) 08/16/18 06:00 ALT 23 U/L (7-52) 08/16/18 06:00 Alkaline Phosphatase 101 U/L (34-104) 08/16/18 06:00 Troponin I < 0.01 ng/mL (0.01-0.05) L 08/13/18 10:50 Total Protein 6.3 gm/dL (6.0-8.3) 08/16/18 06:00 Albumin 3.3 gm/dL (3.7-5.3) L 08/16/18 06:00 Globulin 3.0 gm/dL 08/16/18 06:00 Albumin/Globulin Ratio 1.1 (1.0-1.8) 08/16/18 06:00 Lipase 25 U/L (11-82) 08/13/18 11:05 Free T4 1.01 ng/dL (0.82-1.77) 08/13/18 11:05 TSH 5.72 uIU/ml (0.34-5.60) H 08/13/18 11:05 Urine Source CATH 08/13/18 11:44 Urine Color YELLOW 08/13/18 11:44 Urine Clarity CLOUDY (CLEAR) H 08/13/18 11:44 Urine pH 8.5 (4.6 - 8.0) 08/13/18 11:44 Ur Specific [place] 1.010 (1.005-1.030) 08/13/18 11:44 Urine Protein NEGATIVE mg/dL (NEGATIVE) 08/13/18 11:44 Urine Glucose (UA) NEGATIVE mg/dL (NEGATIVE) 08/13/18 11:44 Urine Ketones NEGATIVE mg/dL (NEGATIVE) 08/13/18 11:44 Urine Blood TRACE (NEGATIVE) 08/13/18 11:44 Urine Nitrate NEGATIVE (NEGATIVE) 08/13/18 11:44 Urine Bilirubin NEGATIVE (NEGATIVE) 08/13/18 11:44 Urine Urobilinogen 2.0 E.U./dL (0.2 - 1.0) 08/13/18 11:44 Ur Leukocyte Esterase LARGE (NEGATIVE) H 08/13/18 11:44 Urine RBC 5-10 /hpf (0-5) H 08/13/18 11:44 Urine WBC 25-50 /hpf (0-5) H 08/13/18 11:44 Ur Epithelial Cells FEW /lpf (FEW) 08/13/18 11:44 Amorphous Sediment MANY PHOSPHATES (NONE SEEN) 08/13/18 11:44 Urine Bacteria FEW /hpf (NONE SEEN) 08/13/18 11:44 Valproic Acid 44.8 ug/mL (50.0-100.0) L 08/13/18 11:05 - Physical Exam Vitals and I&O: Vital Signs Temp 97.4 F 08/16/18 12:00 Pulse 61 08/16/18 12:00 Resp 18 08/16/18 12:00 BP 148/66 08/16/18 12:00 Pulse Ox 97 08/16/18 12:00 Intake & Output 08/15/18 08/16/18 08/16/18 18:59 06:59 18:59 Intake Total 1650 1400 100 Output Total 2 Balance 1650 1398 100 Weight (lbs) 52.163 kg 63.503 kg Intake: Intake, IV Amount 1050 1000 100 KCL 20mEq/100mL Premix 20 100 meq In 100 ml @ 50 mls/ hr IV Q2H [facility] Rx#: [id number] Sodium Chloride 0.9% 1, 1000 1000 000 ml @ 90 mls/hr IV . Q11H7M [facility] Rx#:[id number] cefTRIAXone 1 gm In 50 Sodium Chloride 0.9% 50 ml @ 100 mls/hr IV Q24HR [facility] Rx#:[id number] Tube Feeding 300 400 Other 300 Output: Urine 2 Other: # Voids 3 # Bowel Movements 2 Weight Source Bedscale Estimated Active Medications: Current Medications Acetaminophen (Tylenol) 650 mg GT Q4HR PRN PRN Reason: MILD PAIN/FEVER Stop: 10/12/18 19:24 Bisacodyl (Dulcolax 10 Mg Supp) 10 mg RC Q96HR PRN PRN Reason: Constipation Stop: 10/12/18 19:24 Ceftriaxone Sodium 1 gm/ (Sodium Chloride) 50 mls @ 100 mls/hr IV Q24HR [facility] Stop: 10/13/18 11:59 Last Admin: 08/16/18 12:32 Dose: 100 mls/hr Sodium Chloride (Nacl 0.9%) 1,000 mls @ 90 mls/hr IV .Q11H7M [facility] Stop: 10/13/18 09:13 Last Admin: 08/16/18 12:06 Dose: 90 mls/hr Lactobacillus Rhamnosus (Culturelle 15b) 1 each PO DAILY [facility] Stop: 10/15/18 08:59 Last Admin: 08/16/18 09:50 Dose: 1 each Levetiracetam (Keppra) 500 mg GT BID [facility] Stop: 10/13/18 08:59 Last Admin: 08/16/18 09:50 Dose: 500 mg Levothyroxine Sodium (Synthroid) 0.088 mg PO DAILY@0700 [facility] Stop: 10/13/18 06:59 Last Admin: 08/16/18 06:14 Dose: 0.088 mg Magnesium Hydroxide (Milk Of Magnesia) 30 ml GT Q72HR PRN PRN Reason: Constipation Stop: 10/12/18 19:24 Miscellaneous (Probiotic Screen) 1 ea PRN PRN PRN Reason: PROTOCOL Stop: 10/14/18 14:03 Mupirocin (Bactroban Oint) 1 appl NS BID [facility] Stop: 08/18/18 17:01 Last Admin: 08/16/18 09:52 Dose: 1 appl Polyethylene Glycol (Miralax) 17 gm GT DAILY [facility] Stop: 10/13/18 08:59 Last Admin: 08/16/18 09:52 Dose: 17 gm Sodium Phosphate (Fleet Enema) 135 ml RC DAILY [facility] Stop: 10/13/18 09:14 Last Admin: 08/16/18 12:33 Dose: 135 ml Valproate Sodium (Depakene) 500 mg GT BID [facility]; Protocol Stop: 10/13/18 08:59 Last Admin: 08/16/18 09:50 Dose: 500 mg General: Alert, No acute distress, Other (Non verbal) HEENT: Atraumatic Neck: Supple Cardiovascular: Regular rate Lungs: Clear to auscultation Abdomen: Bowel sounds Extremities: Other (No edema) Neurological: Other (Non ambulatory) Skin: Other (Warm and dry) Psych/Mental Status: Other (Patient is MR, non verbal.) - Procedures Procedures: Procedures Procedure Code Date CHANGE FEEDING DEVICE IN UP INTEST TRACT, 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 Patient had 2 movement yesterday. Dx: [place] emesis, possible ileous, UTI, Impactation, Intellectually disable, Asthma, Functional quadriplegic, Hep B carrier. - Plan Plan: Patient in IV NS, IV AB, Continue with SNF meds. already seen by GI. Will continue to monitor. Nutritional Asmnt/Malnutr-PDOC - Dietary Evaluation Malnutrition Findings (Please click <Entered> for more info): Nutritional Asmnt/Malnutrition Start: 08/15/18 17: 39 Text: Status: Complete Freq: Protocol: Document 08/15/18 17:39 JEAN-PAUL (Rec: 08/15/18 18:11 JEAN-PAUL [email or web address]) Nutritional Asmnt/Malnutrition Patient General Information Nutritional Screening High Risk Diagnosis ileus and UTI Pertinent Medical Hx/Surgical Hx asthma/COPD, dementia, hyponatremia, osteoporosis, hepatitis B, PEG/Gtube, L hip fusion Subjective Information Pt seen sleeping in bed. TF was running at 20ml/hr this time. Current Diet Order/ Nutrition Support jevity 1.2 at 10ml/hr continuously Pertinent Medications culturle, synthroid, miralax, nacl 0.9% Pertinent Labs 08/15 K 3.3, Cr 0.4, Ca 8.2, Alb 3.1 Nutritional Hx/Data Height 1.68 m Height (Calculated Centimeters) 167.6 Current Weight (lbs) 52.163 kg Weight (Calculated Kilograms) 52.2 Weight (Calculated Grams) 77501.1 [place] Body Weight 130 Body Mass Index (BMI) 18.6 Weight Status Approriate GI Symptoms GI Symptoms None Last BM 08/14 Difficult in: None Usual diet at home Jevity 1 can x 5 daily to provide 1422kcal Skin Integrity/Comment: dry Estimated Nutritional Goals BEE in Kcals: Using Current wt Calories/Kcals/Kg 25-30 Kcals Calculated 5143-2716 Protein: Using Current wt Protein g/k-1.2 Protein Calculated 52-62 Fluid: ml 1300-1560ml (1ml/kcal) Nutritional Problem 1. Problem Problem altered nutrition related labs Etiology electrolytes imbalance Signs/Symptoms: K 3.3, Ca 8.2 Malnutrition Alert Is there a minimum of two criteria No selected? Query Text:Check all the applicable criteria. A minimum of two criteria are recommended for diagnosis of either severe or non-severe malnutrition. Malnutrition Related to Morbid Obesity Malnutrition related to morbid obesity No Intervention/Recommendation Comments 1. Recommend Jevity 1.2 at goal rate of 50ml/hr. It provides 1440kcal, 66g protein , 968ml free water, meeting 100% of nutritional needs. MD to replace electrolytes and needed. 2. Monitor TF rate, tolerance, wt, skin integrity and labs 3. F/U as high risk in 2-3 days Expected Outcomes/Goals Expected Outcomes/Goals 1. Pt to meet at least 90% of nutritional needs via nutrition support with tolerance 2. Wt stability, skin to remain intact, labs to approach WNL.
[2018-08-17] MEDS: Levothyroxine 0.088 Mg Tab PO SCH (06:41)
[2018-08-17 07:12] LABS: % BASOPHILS 0.8 % (0.0-2.0); % EOSINOPHILS 3.7 % (0.0-5.0); % LYMPHOCYTES 18.8 % (20.0-50.0); % MONOCYTES 13.8 % (2.0-10.0); % NEUTROPHILS 62.9 % (40.0-80.0); BASOPHILE ABSOLUTE 0.1 Th/cumm (0-0.2); EOSINOPHILE ABSOLUTE 0.3 Th/cmm (0.1-0.4); HEMATOCRIT 46.3 % (41.0-60); HEMOGLOBIN 15.4 gm/dL (12-16); LYMPHOCYTE ABSOLUTE 1.3 Th/cmm (1.5-3.0); MEAN CELL VOLUME 92.4 fl (81-100); MEAN CORPUSCULAR HEMOGLOBIN 30.8 pg (27.0-31.0); MEAN CORPUSCULAR HGB CONC 33.3 pg (28.0-36.0); MEAN PLATELET VOLUME 8.1 fl; NEUTROPHILE ABSOLUTE 4.4 Th/cmm (1.8-8.0); PLATELET COUNT 197 Th/cmm (150-400); RED BLOOD COUNT 5.01 Mil/cmm (3.80-5.20); RED CELL DISTRIBUTION WIDTH 14.3 % (11.5-20.0); WHITE BLOOD COUNT 7.1 Th/cmm (4.8-10.8)
[2018-08-17 07:19] LABS: ALBUMIN 3.6 gm/dL (3.7-5.3); ALKALINE PHOSPHATASE 112 U/L (34-104); ANION GAP 11.1 (7.0-16.0); BILIRUBIN,TOTAL 0.5 mg/dL (0.3-1.0); BUN - UREA NITROGEN 11 mg/dL (7-25); CALCIUM SERUM 9.1 mg/dL (8.6-10.3); CARBON DIOXIDE 30.8 mEq/L (21.0-31.0); CHLORIDE 103 mEq/L (98-107); CREATININE - SERUM 0.4 mg/dL (0.6-1.2); GFR AFRICAN-AMERICAN > 60.0 ml/min (>90); GFR NON AFRICAN-AMERICAN > 60.0 ml/min; GLUCOSE 118 mg/dL (70-105); POTASSIUM SERUM 3.9 mEq/L (3.5-5.1); SGOT 25 U/L (13-39); SGPT/ALT 20 U/L (7-52); SODIUM SERUM 141 mEq/L (136-145); TOTAL PROTEIN,SERUM 7.1 gm/dL (6.0-8.3)
--- NOTE | 2018-08-17 08:17 | GI Progress Note ---
Subjective - Review of Systems Subjective: NO EVENTS Objective - Results Result Diagrams: 08/17/18 06:35 08/17/18 06:35 Recent Labs: Laboratory Last Values WBC 7.1 Th/cmm (4.8-10.8) 08/17/18 06:35 RBC 5.01 Mil/cmm (3.80-5.20) 08/17/18 06:35 Hgb 15.4 gm/dL (12-16) 08/17/18 06:35 Hct 46.3 % (41.0-60) 08/17/18 06:35 MCV 92.4 fl (81-100) 08/17/18 06:35 MCH 30.8 pg (27.0-31.0) 08/17/18 06:35 MCHC Differential 33.3 pg (28.0-36.0) 08/17/18 06:35 RDW 14.3 % (11.5-20.0) 08/17/18 06:35 Plt Count 197 Th/cmm (150-400) 08/17/18 06:35 MPV 8.1 fl 08/17/18 06:35 Add Manual Diff YES 08/16/18 06:00 Neutrophils % 62.9 % (40.0-80.0) 08/17/18 06:35 Lymphocytes % 18.8 % (20.0-50.0) L 08/17/18 06:35 Monocytes % 13.8 % (2.0-10.0) H 08/17/18 06:35 Eosinophils % 3.7 % (0.0-5.0) 08/17/18 06:35 Basophils % 0.8 % (0.0-2.0) 08/17/18 06:35 Neutrophils (Manual) 60 % (40-80) 08/16/18 06:00 Lymphocytes 20 % (20-50) 08/16/18 06:00 Monocytes 17 % (2-10) H 08/16/18 06:00 Eosinophils 3 % (0-5) 08/16/18 06:00 Platelet Estimate ADEQUATE (NORMAL) 08/16/18 06:00 PT 10.7 SECONDS (9.5-11.5) 08/13/18 11:05 INR 1.03 (0.5-1.4) 08/13/18 11:05 PTT (Actin FS) 25.2 SECONDS (26.0-38.0) L 08/13/18 11:05 Sodium 141 mEq/L (136-145) 08/17/18 06:35 Potassium 3.9 mEq/L (3.5-5.1) 08/17/18 06:35 Chloride 103 mEq/L (98-107) 08/17/18 06:35 Carbon Dioxide 30.8 mEq/L (21.0-31.0) 08/17/18 06:35 Anion Gap 11.1 (7.0-16.0) 08/17/18 06:35 BUN 11 mg/dL (7-25) 08/17/18 06:35 Creatinine 0.4 mg/dL (0.6-1.2) L 08/17/18 06:35 Est GFR ( Amer) > 60.0 ml/min (>90) 08/17/18 06:35 Est GFR (Non-Af Amer) > 60.0 ml/min 08/17/18 06:35 BUN/Creatinine Ratio 27.5 08/17/18 06:35 Glucose 118 mg/dL (70-105) H 08/17/18 06:35 Calcium 9.1 mg/dL (8.6-10.3) 08/17/18 06:35 Total Bilirubin 0.5 mg/dL (0.3-1.0) 08/17/18 06:35 AST 25 U/L (13-39) 08/17/18 06:35 ALT 20 U/L (7-52) 08/17/18 06:35 Alkaline Phosphatase 112 U/L (34-104) H 08/17/18 06:35 Troponin I < 0.01 ng/mL (0.01-0.05) L 08/13/18 10:50 Total Protein 7.1 gm/dL (6.0-8.3) 08/17/18 06:35 Albumin 3.6 gm/dL (3.7-5.3) L 08/17/18 06:35 Globulin 3.5 gm/dL 08/17/18 06:35 Albumin/Globulin Ratio 1.0 (1.0-1.8) 08/17/18 06:35 Lipase 25 U/L (11-82) 08/13/18 11:05 Free T4 1.01 ng/dL (0.82-1.77) 08/13/18 11:05 TSH 5.72 uIU/ml (0.34-5.60) H 08/13/18 11:05 Urine Source CATH 08/13/18 11:44 Urine Color YELLOW 08/13/18 11:44 Urine Clarity CLOUDY (CLEAR) H 08/13/18 11:44 Urine pH 8.5 (4.6 - 8.0) 08/13/18 11:44 Ur Specific [place] 1.010 (1.005-1.030) 08/13/18 11:44 Urine Protein NEGATIVE mg/dL (NEGATIVE) 08/13/18 11:44 Urine Glucose (UA) NEGATIVE mg/dL (NEGATIVE) 08/13/18 11:44 Urine Ketones NEGATIVE mg/dL (NEGATIVE) 08/13/18 11:44 Urine Blood TRACE (NEGATIVE) 08/13/18 11:44 Urine Nitrate NEGATIVE (NEGATIVE) 08/13/18 11:44 Urine Bilirubin NEGATIVE (NEGATIVE) 08/13/18 11:44 Urine Urobilinogen 2.0 E.U./dL (0.2 - 1.0) 08/13/18 11:44 Ur Leukocyte Esterase LARGE (NEGATIVE) H 08/13/18 11:44 Urine RBC 5-10 /hpf (0-5) H 08/13/18 11:44 Urine WBC 25-50 /hpf (0-5) H 08/13/18 11:44 Ur Epithelial Cells FEW /lpf (FEW) 08/13/18 11:44 Amorphous Sediment MANY PHOSPHATES (NONE SEEN) 08/13/18 11:44 Urine Bacteria FEW /hpf (NONE SEEN) 08/13/18 11:44 Valproic Acid 44.8 ug/mL (50.0-100.0) L 08/13/18 11:05 - Physical Exam Vitals and I&O: Vital Signs Temp 97.0 F 08/17/18 03:53 Pulse 80 08/17/18 03:53 Resp 18 08/17/18 03:53 BP 142/71 08/17/18 03:53 Pulse Ox 97 08/17/18 03:53 Intake & Output 08/16/18 08/17/18 08/17/18 18:59 06:59 18:59 Intake Total 100 552 Output Total 8 Balance 100 544 Weight (lbs) 63.503 kg Intake: Intake, IV Amount 100 KCL 20mEq/100mL Premix 20 100 meq In 100 ml @ 50 mls/ hr IV Q2H [facility] Rx#: [id number] Tube Feeding 552 Output: Urine 2 Stool 6 Other: Weight Source Estimated Active Medications: Current Medications Acetaminophen (Tylenol) 650 mg GT Q4HR PRN PRN Reason: MILD PAIN/FEVER Stop: 10/12/18 19:24 Bisacodyl (Dulcolax 10 Mg Supp) 10 mg RC Q96HR PRN PRN Reason: Constipation Stop: 10/12/18 19:24 Ceftriaxone Sodium 1 gm/ (Sodium Chloride) 50 mls @ 100 mls/hr IV Q24HR SHELLY Stop: 10/13/18 11:59 Last Admin: 08/16/18 12:32 Dose: 100 mls/hr Sodium Chloride (Nacl 0.9%) 1,000 mls @ 90 mls/hr IV .Q11H7M [facility] Stop: 10/13/18 09:13 Last Admin: 08/16/18 12:06 Dose: 90 mls/hr Lactobacillus Rhamnosus (Culturelle 15b) 1 each PO DAILY SHELYL Stop: 10/15/18 08:59 Last Admin: 08/16/18 09:50 Dose: 1 each Levetiracetam (Keppra) 500 mg GT BID [facility] Stop: 10/13/18 08:59 Last Admin: 08/16/18 18:14 Dose: 500 mg Levothyroxine Sodium (Synthroid) 0.088 mg PO DAILY@0700 [facility] Stop: 10/13/18 06:59 Last Admin: 08/17/18 06:41 Dose: 0.088 mg Magnesium Hydroxide (Milk Of Magnesia) 30 ml GT Q72HR PRN PRN Reason: Constipation Stop: 10/12/18 19:24 Miscellaneous (Probiotic Screen) 1 ea MC PRN PRN PRN Reason: PROTOCOL Stop: 10/14/18 14:03 Mupirocin (Bactroban Oint) 1 appl NS BID SHELLY Stop: 08/18/18 17:01 Last Admin: 08/16/18 18:14 Dose: 1 appl Polyethylene Glycol (Miralax) 17 gm GT DAILY SHELLY Stop: 10/13/18 08:59 Last Admin: 08/16/18 09:52 Dose: 17 gm Sodium Phosphate (Fleet Enema) 135 ml RC DAILY SHELLY Stop: 10/13/18 09:14 Last Admin: 08/16/18 12:33 Dose: 135 ml Valproate Sodium (Depakene) 500 mg GT BID SHELLY; Protocol Stop: 10/13/18 08:59 Last Admin: 08/16/18 18:14 Dose: 500 mg General: Alert, No acute distress, Other (Non verbal) HEENT: Atraumatic Neck: Supple Cardiovascular: Regular rate Lungs: Clear to auscultation Abdomen: Bowel sounds Extremities: Other (No edema) Neurological: Other (Non ambulatory) Skin: Other (Warm and dry) Psych/Mental Status: Other (Patient is MR, non verbal.) - Procedures Procedures: Procedures Procedure Code Date CHANGE FEEDING DEVICE IN UP INTEST TRACT, MEDICAID BILLER APPROACH [id number] 05/17/18 CHANGE GASTROSTOMY TUBE 49163 01/20/12 EGD DIAGNOSTIC BRUSH WASH 83199 11/17/[address] GASTROSTOMY TUBE 04811 11/23/13 OTHER ENDOSCOPY OF SM INTEST 45.13 11/23/13 PERCUTANEOUS [ENDOSCOPIC] GASTROSTOMY [PEG] 43.11 12/27/10 RECONSTRUCTION OF HIP SOCKET 99985 11/17/15 REPLACE GASTROSTOMY TUBE 97.02 11/23/13 REVISION OF FEEDING DEVICE IN STOMACH, PERCUTANEOUS APPROACH [id number] 11/17/15 VACCINATION NEC 99.55 07/13/13 Assessment/Plan - Assessment Assessment: 68 YO FEMALE WITH CONSTIPATION HAS DYSPHAGIA WITH GT 1.CONT SUPP CARE 2.CONT TUBE FEEDS 3.CONT LAXATIVES
[2018-08-17] MEDS: Levetiracetam 500 mg/5mL 5mL UDSyr *for ORAL USE ONLY GT SCH (08:55)
[2018-08-17] MEDS: Multivitamin w/ Minerals Tab GT SCH (08:55)
[2018-08-17] MEDS: Lactobacillus Rhamnosus GG 15 Billion CFU CAP.SPRINK PO SCH (08:55)
[2018-08-17] MEDS: POLYETHYLENE GLYCOL 3350 17 GM PACK GT SCH (08:56)
[2018-08-17] MEDS: Fleet Enema 135 mL RC SCH (08:56)
[2018-08-17] MEDS: cefTRIAXone 1 GM in Sodium Chloride 0.9% 50 ML IV SCH (11:04)
[2018-08-17] MEDS: Sodium Chloride 0.9% 1,000 ML IV SCH (11:05)
--- NOTE | 2018-08-17 12:10 | Discharge Summary ---
General Discharge Summary - Discharge Summary Date of Admission: 08/13/18 Admitting Diagnosis: [place] emesis, Ileous, UTI, Impacted, Intelectually disable, Asthma, Discharge Date: 08/17/18 Discharge Diagnosis: Ileous resolved, UTI resolved, Impactatuion resolved, asthma in xcontrol, Functional quadriplegia, Hep B carrier. Laboratory Findings: Laboratory Results - last 24 hr 08/17/18 08/17/18 06:35 06:35 WBC 7.1 RBC 5.01 Hgb 15.4 Hct 46.3 MCV 92.4 MCH 30.8 MCHC Differential 33.3 RDW 14.3 Plt Count 197 MPV 8.1 Neutrophils % 62.9 Lymphocytes % 18.8 L Monocytes % 13.8 H Eosinophils % 3.7 Basophils % 0.8 Sodium 141 Potassium 3.9 Chloride 103 Carbon Dioxide 30.8 Anion Gap 11.1 BUN 11 Creatinine 0.4 L Est GFR ( Amer) > 60.0 Est GFR (Non-Af Amer) > 60.0 BUN/Creatinine Ratio 27.5 Glucose 118 H Calcium 9.1 Total Bilirubin 0.5 AST 25 ALT 20 Alkaline Phosphatase 112 H Total Protein 7.1 Albumin 3.6 L Globulin 3.5 Albumin/Globulin Ratio 1.0 Hospital Course: Patient responded to treatment, she had large bowel movements. Treatment: Patient was started in IV NS, IV AB, Miralax and continue with SNF meds. Condition at Discharge: Stable Disposition: Discharge/Transfered to SNF Home Medications: Home Medication Medication Instructions Recorded Type Acetaminophen [Tylenol] 650 mg GT Q4HR PRN tab 05/19/18 Rx Bisacodyl [Dulcolax 10 Mg Supp] 10 mg RC Q96HR PRN sup 05/19/18 Rx Fleet Enema 135 ml RC Q96H PRN btl 05/19/18 Rx Heparin Sodium [Heparin*] 5,000 units SUBQ Q12HR vial 05/19/18 Rx Levetiracetam [Keppra*] 500 mg GT BID udc 05/19/18 Rx Levothyroxine [Synthroid] 0.088 mg PO DAILY@0700 tab 05/19/18 Rx Magnesium Hydroxide [Milk of 30 ml GT Q72HR PRN udc 05/19/18 Rx Magnesia] Multivitamin w/ Minerals 1 tab GT DAILY tab 05/19/18 Rx [Theragran M] Mupirocin Oint [Mupirocin*] 1 appl NS BID appl 05/19/18 Rx Polyethylene Glycol 3350 [Miralax] 17 gm GT DAILY pack 05/19/18 Rx Valproic Acid [Depakene] 500 mg GT BID udc 05/19/18 Rx Calcium Carb/Vit D 500mg/200U 2 tab GT TID 08/13/18 History [Oscal w/Vitamin D] Inpatient Medications: Current Medications Acetaminophen (Tylenol) 650 mg GT Q4HR PRN PRN Reason: MILD PAIN/FEVER Stop: 10/12/18 19:24 Bisacodyl (Dulcolax 10 Mg Supp) 10 mg RC Q96HR PRN PRN Reason: Constipation Stop: 10/12/18 19:24 Ceftriaxone Sodium 1 gm/ (Sodium Chloride) 50 mls @ 100 mls/hr IV Q24HR SHELLY Stop: 10/13/18 11:59 Last Admin: 08/17/18 11:04 Dose: 100 mls/hr Sodium Chloride (Nacl 0.9%) 1,000 mls @ 90 mls/hr IV .Q11H7M SHELLY Stop: 10/13/18 09:13 Last Admin: 08/17/18 11:05 Dose: 90 mls/hr Lactobacillus Rhamnosus (Culturelle 15b) 1 each PO DAILY SHELLY Stop: 10/15/18 08:59 Last Admin: 08/17/18 08:55 Dose: 1 each Levetiracetam (Keppra) 500 mg GT BID SHELLY Stop: 10/13/18 08:59 Last Admin: 08/17/18 08:55 Dose: 500 mg Levothyroxine Sodium (Synthroid) 0.088 mg PO DAILY@0700 SHELLY Stop: 10/13/18 06:59 Last Admin: 08/17/18 06:41 Dose: 0.088 mg Magnesium Hydroxide (Milk Of Magnesia) 30 ml GT Q72HR PRN PRN Reason: Constipation Stop: 10/12/18 19:24 Miscellaneous (Probiotic Screen) 1 ea MC PRN PRN PRN Reason: PROTOCOL Stop: 10/14/18 14:03 Mupirocin (Bactroban Oint) 1 appl NS BID SHELLY Stop: 08/18/18 17:01 Last Admin: 08/17/18 08:55 Dose: 1 appl Polyethylene Glycol (Miralax) 17 gm GT DAILY SHELLY Stop: 10/13/18 08:59 Last Admin: 08/17/18 08:56 Dose: 17 gm Sodium Phosphate (Fleet Enema) 135 ml RC DAILY SHELLY Stop: 10/13/18 09:14 Last Admin: 08/17/18 08:56 Dose: Not Given Valproate Sodium (Depakene) 500 mg GT BID SHELLY; Protocol Stop: 10/13/18 08:59 Last Admin: 08/17/18 08:55 Dose: 500 mg Activity: Bed Rest Discharge Diet: Tube Feeding Consults and Follow-Up: Sanket Noriega [Primary Care Provider] - Consulting Speciality: GI, Other (PCP)
== END 2018-08-17 16:30 | DRG 388 ==
LOC: ER 10:04 → MSI 13:34
PROVIDERS: ADMIT General Practice; ATTEND General Practice
DX: K56.7 Ileus, unspecified (principal); R53.2 Functional quadriplegia; N39.0 Urinary tract infection, site not specified; B19.10 Unspecified viral hepatitis B without hepatic coma; J44.9 Chronic obstructive pulmonary disease, unspecified; F03.90 Unspecified dementia, unspecified severity, without behavioral disturbance, psychotic disturbance, mood disturbance, and anxiety; M81.0 Age-related osteoporosis without current pathological fracture; F79 Unspecified intellectual disabilities; K56.41 Fecal impaction; R13.10 Dysphagia, unspecified; Z98.1 Arthrodesis status; Z93.1 Gastrostomy status; Z23 Encounter for immunization
CPT/HCPCS: 36415-UA; 71045-TC; 74000-TC; 80053-TC; 80164-TC; 81001-TC; 82948-90; 83690-TC; 84439-90; 84443-TC; 84484-TC; 85007-TC; 85025-TC; 85610-TC; 87086-90; 90732; 93005; J0696; J3480; J7030; Z7610

== ENCOUNTER 2018-09-28 10:14 | Emergency (ER) | payer MEDICARE, MEDICAID ==
[2018-09-28] MEDS ORDERED: Diatrizoate Meglumine/Diatri 30 mL Sol ONE ×2 (10:28→11:19)
[2018-09-28] MEDS ORDERED: Triple Antibiotic 0.94 gm Pkt TP ONE (10:46)
--- NOTE | 2018-09-28 10:53 | ED Physician Chart ---
ED Chief Complaint/HPI - Patient Information Date Seen:: 09/28/18 Time Seen:: 10:48 Chief Complaint:: gtube malfunction History of Present Illness:: 68 yr old female with peg s/p dislodgement here for replacement Allergies:: Allergies Allergy/AdvReac Type Severity Reaction Status Date / Time No Known Allergies Allergy Verified 09/28/18 10:30 Vitals:: Vital Signs - 8 hr 09/28/18 10:20 Temp 97.1 F HR 56 RR 18 BP 155/83 O2 Sat % 97 ED Review of Systems - Review of Systems General/Constitutional: No fever, No chills, No weight loss, No weakness, No diaphoresis, No edema, No loss of appetite Skin: No skin lesions, No rash, No bruising Head: No headache, No light-headedness Eyes: No loss of vision, No pain, No diplopia ENT: No earache, No nasal drainage, No sore throat, No tinnitus Neck: No neck pain, No swelling, No thyromegaly, No stiffness, No mass noted Cardio Vascular: No chest pain, No palpitations, No PND, No orthopnea, No edema Pulmonary: No SOB, No cough, No sputum, No wheezing GI: No nausea, No vomiting, No diarrhea, Pain, No melena, No hematochezia, No hematemesis G/U: No dysuria, No frequency, No hematuria Musculoskeletal: No bone or joint pain, No back pain, No muscle pain Endocrine: No polyuria, No polydipsia Hematopoietic: No bruising, No lymphadenopathy Allergic/Immuno: No urticaria, No angioedema Neurological: No syncope, No focal symptoms, No weakness, No paresthesia, No headache, No seizure, No dizziness, No confusion, No vertigo ED Past Medical History - Past Medical History Past Medical History: PUD/GERD, Other (hep b carrier seizures gerd encephalopathy) Family Medical History - Family Member Mother History Unknown: Yes Ethnicity: Non- Mother Sister History Unknown: Yes Ethnicity: Non- ED Physical Exam - Physical Examination General/Constitutional: Awake Head: Atraumatic Eyes: Lids, conjuctiva normal Other Skin comments:: gtube with keene ENMT: External ears, nose nl Respiratory: Nl effort/Exclusion Cardio Vascular: RRR Other GI comments:: peg hole with keene Extremities: No tenderness or effusion ED Assessment - Assessment General Assessment: gtube dislodgement s/p replacement ED Septic Shock - . Is Septic Shock (SBP<90, OR Lactate>4 mmol\L) present?: No - <6hrs of presentation: Vital Signs: Vital Signs - 8 hr 09/28/18 10:20 Temp 97.1 F HR 56 RR 18 BP 155/83 O2 Sat % 97 ED Reassessment (Disposition) - Reassessment Reassessment:: gtube dislodgement s/p replacement - Diagnosis Diagnosis:: as above - Patient Disposition Discharge/Transfer:: [facility] - SNF Condition at Disposition:: Stable
--- NOTE | 2018-09-29 08:52 | Diagnostic Imaging Report ---
Upper GI with Gastrografin HISTORY: G-tube confirmation with Gastrografin COMPARISON: CT abdomen and pelvis on 08/13/2018 FINDINGS: Lot Attendant view demonstrates marked distal fecal impaction. Copious stool is noted with generalized gas-filled loops of bowel. Degenerative changes spine are noted with scoliosis. Deformity of the pelvis is noted with fusion of the left hip joint is noted. The second image demonstrates contrast opacification of the stomach and small bowel loops. Note is made of a moderate-sized hiatal hernia with enteric contrast in this region. IMPRESSION: Intraluminal confirmation of patient's percutaneous gastric feeding tube. Note is made of a moderate-sized hiatal hernia. Marked distal fecal impaction with copious stool and and generalized Gas-filled bowel. Please correlate clinically for ileus and constipation.
== END 2018-09-28 11:35 | disposition home or self-care (01) ==
LOC: ER 10:14
DX: Z43.1 Encounter for attention to gastrostomy (principal); K21.9 Gastro-esophageal reflux disease without esophagitis
CPT/HCPCS: Z7610

== ENCOUNTER 2018-10-21 14:44 | Inpatient (IN) | payer MEDICARE, MEDICAID ==
[2018-10-21] MEDS ORDERED: Sodium Chloride 0.9% 1,000 ML IV ONE (14:52)
[2018-10-21 15:29] LABS: % BASOPHILS 0.7 % (0.0-2.0); % EOSINOPHILS 1.9 % (0.0-5.0); % LYMPHOCYTES 22.2 % (20.0-50.0); % MONOCYTES 10.9 % (2.0-10.0); % NEUTROPHILS 64.3 % (40.0-80.0); EOSINOPHILE ABSOLUTE 0.1 Th/cmm (0.1-0.4); HEMOGLOBIN 15.7 gm/dL (12-16); LYMPHOCYTE ABSOLUTE 1.4 Th/cmm (1.5-3.0); MEAN CELL VOLUME 92.8 fl (81-100); MEAN CORPUSCULAR HEMOGLOBIN 31.6 pg (27.0-31.0); MONOCYTE ABSOLUTE 0.7 Th/cmm (0.3-1.0); PLATELET COUNT 133 Th/cmm (150-400); RED BLOOD COUNT 4.96 Mil/cmm (3.80-5.20); WHITE BLOOD COUNT 6.2 Th/cmm (4.8-10.8)
[2018-10-21 15:40] LABS: AMYLASE SERUM 59 U/L (29-103); ANION GAP 13.2 (7.0-16.0); BUN - UREA NITROGEN 25 mg/dL (7-25); CALCIUM SERUM 9.7 mg/dL (8.6-10.3); CARBON DIOXIDE 29.3 mEq/L (21.0-31.0); CHLORIDE 101 mEq/L (98-107); CREATININE - SERUM 0.7 mg/dL (0.6-1.2); GFR AFRICAN-AMERICAN > 60.0 ml/min (>90); GFR NON AFRICAN-AMERICAN > 60.0 ml/min; GLUCOSE 92 mg/dL (70-105); LIPASE 43 U/L (11-82); POTASSIUM SERUM 4.5 mEq/L (3.5-5.1); SODIUM SERUM 139 mEq/L (136-145)
--- NOTE | 2018-10-21 15:54 | ED Physician Chart ---
ED Chief Complaint/HPI - Patient Information Date Seen:: 10/21/18 Time Seen:: 14:50 Chief Complaint:: G-Tube Dysfunction History of Present Illness:: onset x 3 hours of g-tube dysfunction with g-tube accidentally pulled out by pt ; no report of any other trauma, AMS, H/As, neck pain, C/P, SOB, Abd. Pain, A/N/ V/D/C, fever, chills, or urinary s/s Allergies:: Allergies Allergy/AdvReac Type Severity Reaction Status Date / Time No Known Allergies Allergy Verified 10/21/18 14:49 Vitals:: Vital Signs - 8 hr 10/21/18 14:50 Temp 97.5 F HR 55 RR 18 BP 135/65 O2 Sat % 98 Historian:: Patient, EMS Review:: Nurse's Note Reviewed, Old Chart Reviewed, EMS run form Reviewed ED Review of Systems - Review of Systems General/Constitutional: No fever, No chills, No weight loss, No weakness, No diaphoresis, No edema, No loss of appetite Skin: No skin lesions, No rash, No bruising Head: No headache, No light-headedness Eyes: No loss of vision, No pain, No diplopia ENT: No earache, No nasal drainage, No sore throat, No tinnitus Neck: No neck pain, No swelling, No thyromegaly, No stiffness, No mass noted Cardio Vascular: No chest pain, No palpitations, No PND, No orthopnea, No edema Pulmonary: No SOB, No cough, No sputum, No wheezing GI: No nausea, No vomiting, No diarrhea, No pain, No melena, No hematochezia, No constipation, No hematemesis G/U: No dysuria, No frequency, No hematuria, No nacturia Housekeeper Head: No vaginal discharge, No abnormal vaginal bleed, No contraction Musculoskeletal: No bone or joint pain, No back pain, No muscle pain Endocrine: No polyuria, No polydipsia Psychiatric: No prior psych history, No depression, No anxiety, No suicidal ideation, No homicidal ideation, No auditory hallucination, No visual hallucination Hematopoietic: No bruising, No lymphadenopathy Allergic/Immuno: No urticaria, No angioedema Neurological: No syncope, No focal symptoms, No weakness, No paresthesia, No headache, Seizure, No dizziness, Confusion, No vertigo ED Past Medical History - Past Medical History Obtainable: Yes Past Medical History: HTN, PUD/GERD, Seizures, Thyroid disorder, Dementia Family History: HTN Social History: Non Smoker, No Alcohol, No Drug Use, , Care Facility Surgical History: PEG/GTube Psychiatricy History: Dementia Medication: Reviewed Family Medical History - Family Member Mother History Unknown: Yes Ethnicity: Non- Mother Sister History Unknown: Yes Ethnicity: Non- ED Physical Exam - Physical Examination General/Constitutional: Awake, Well-developed, well-nourished, Alert, No distress, GCS 15, Non-toxic appearing, Ambulatory Head: Atraumatic Eyes: Lids, conjuctiva normal, PERRL, EOMI Skin: Nl inspection, No rash, No skin lesions, No ecchymosis, Well hydrated, No lymphadenopathy ENMT: External ears, nose nl, TM canals nl, Nasal exam nl, Lips, teeth, gums nl , Oropharynx nl, Tonsils nl Neck: Nontender, Full ROM w/o pain, No JVD, No nuchal rigidity, No bruit, No mass, No stridor Other Neck comments:: supple; no meningeal signs; no cervical tenderness; no bruits Respiratory: Nl effort/Exclusion, Clear to Auscultation, No Wheeze/Rhonchi/Rales Cardio Vascular: RRR, No murmur, gallop, rubs, NL S1 S2, Carotid/Femoral/Distal pulses equal bilaterally GI: No tenderness/rebounding/guarding, No organomegaly, No hernia, Normal BS's, Nondistended, No mass/bruits, No McBurney tenderness, Rectum exam nl Other GI comments:: no pulsatile masses; + g-tube dysfunction : No CVA tenderness Extremities: No tenderness or effusion, Full ROM, normal strength in all extremities, No edema, Normal digits & nails Neuro/Psych: Alert/oriented, DTR's symmetric, Normal sensory exam, Normal motor strength, Judgement/insight normal, Mood normal, Normal gait, No focal deficits Misc: Normal back, No paraspinal tenderness ED Labs/Radiology/EKG Results - Lab Results Results: Laboratory Tests 10/21/18 10/21/18 10/21/18 15:15 15:15 15:15 WBC 6.2 RBC 4.96 Hgb 15.7 Hct 46.0 MCV 92.8 MCH 31.6 H MCHC Differential 34.0 RDW 14.0 Plt Count 133 L MPV 10.0 Neutrophils % 64.3 Lymphocytes % 22.2 Monocytes % 10.9 H Eosinophils % 1.9 Basophils % 0.7 Sodium 139 Potassium 4.5 Chloride 101 Carbon Dioxide 29.3 Anion Gap 13.2 BUN 25 Creatinine 0.7 Est GFR ( Amer) > 60.0 Est GFR (Non-Af Amer) > 60.0 BUN/Creatinine Ratio 35.7 Glucose 92 Calcium 9.7 Troponin I 0.01 Amylase 59 Lipase 43 Comments:: Reviewed ED Septic Shock - . Is Septic Shock (SBP<90, OR Lactate>4 mmol\L) present?: No - <6hrs of presentation: Vital Signs: Vital Signs - 8 hr 10/21/18 14:50 Temp 97.5 F HR 55 RR 18 BP 135/65 O2 Sat % 98 ED Reassessment (Disposition) - Reassessment Reassessment Condition:: Improved - Diagnosis Diagnosis:: G-Tube Dysfunction; G-Tube Malfunction; G-Tube Dislodgement - Aftercare/Follow up Instructions Aftercare/Follow-Up Instructions:: Counseled pt regarding lab results/diagnosis & need follow up, Counseled pt & family regarding lab results/diagnosis & need follow up - Patient Disposition Discharge/Transfer:: Acute Care w/in this hosp Accepting Physician:: Dr. Sutherland Time Called:: 0816 Time Responded:: 16:30 Admitted to:: Med/Surg Spoke to:: Dr. Sutherland Admitting Medical Physician:: Dr. Sutherland Condition at Disposition:: Stable, Improved
[2018-10-21] MEDS: D5-0.45NS 1,000 ML IV SCH (17:39)
[2018-10-21] MEDS ORDERED: Fleet Enema 135 mL RC PRN (18:59)
[2018-10-21] MEDS ORDERED: Magnesium Hydroxide (MOM) 30 mL UDC GT PRN (19:00)
[2018-10-21] MEDS: Calcium Carb/Vit D 500 mg/200 U Tab GT SCH (21:21)
[2018-10-21] MEDS: Levetiracetam 500 mg/5mL 5mL UDSyr *for ORAL USE ONLY GT SCH (21:21)
[2018-10-22] MEDS ORDERED: Levothyroxine 0.088 Mg Tab PO SCH (07:00)
[2018-10-22] MEDS: D5-0.45NS 1,000 ML IV SCH (07:24)
[2018-10-22] MEDS ORDERED: Levothyroxine 0.075 Mg Tab PO SCH (07:30)
[2018-10-22] MEDS ORDERED: Multivitamin w/ Minerals Tab GT SCH (09:00)
[2018-10-22] MEDS: Calcium Carb/Vit D 500 mg/200 U Tab GT SCH ×2 (09:17→14:19)
[2018-10-22] MEDS: Levetiracetam 500 mg/5mL 5mL UDSyr *for ORAL USE ONLY GT SCH ×2 (09:17→16:59)
--- NOTE | 2018-10-22 09:58 | History & Physical ---
ADMIT DATE: 10/21/2018 CHIEF COMPLAINT: Displaced G-tube. HISTORY OF PRESENT ILLNESS: A 68-year-old female with profound intellectual disability, encephalopathy, spastic paraplegia, history of hiatal hernia, seizure disorder, dysphagia with PEG placement who was noted by staff at [facility] to have a pulled G-tube. The patient apparently accidentally pulled a G-tube, but there was no report of trauma or bleeding from the site. The patient was transferred to the ER and now has been admitted to the medical floor awaiting a G-tube replacement. PAST MEDICAL HISTORY: As noted above. PAST SURGERIES: G-tube placement with a history of replacement of G-tubes in the past. FAMILY HISTORY: Likely noncontributory to this admission. SOCIAL HISTORY: No tobacco, ETOH or illicit drug usage. She lives at [facility] under the care of Dr. Noriega. ALLERGIES: NKDA. OUTPATIENT MEDICATIONS: MiraLax 17 grams via G-tube once a day, Valproate 10 mL b.i.d., Dulcolax suppository one suppository every 96 hours for moderate constipation, Fleet enema one application every 96 hours for severe constipation, Keppra 100 mg b.i.d., milk of magnesia p.r.n. for constipation, multivitamins and minerals, calcium oyster with vitamin D three times a day, Synthroid 75 mcg every day, Tylenol 650 q. 4 p.r.n. for mild pain or fever. REVIEW OF SYSTEMS: Unable to be done given patient's condition. PHYSICAL EXAMINATION: VITAL SIGNS: Temperature 96.4, pulse 96-102, respirations 18-20, BP 136/57, satting 100% on room air. GENERALLY: She is not in acute distress. NECK: Supple. No LAD. CARDIAC: Regular rate and rhythm without any murmurs. LUNGS: Diminished at the bases, but clear to auscultation bilaterally. ABDOMEN: Soft, supple, nontender, nondistended, normoactive bowel sounds. G-tube stoma is currently covered with gauze. There are positive bowel sounds. LOWER EXTREMITIES: There is no edema. LABORATORY DATA: CBC was essentially within normal limits with a platelet count of 133. Chem-7 was within normal limits. INR 1.0. DIAGNOSTICS: None current. ASSESSMENT: 1. Displaced G-tube. 2. History of dysphagia with PEG tube feedings. 3. History of gastroesophageal reflux disease. 4. History of essential hypertension. 5. History of hypothyroidism. 6. Mental retardation/intellectual disability. PLAN: The patient has been admitted to the medical floor for further management and care. The patient has been placed on IV fluids and a temporary Hilario cath was placed in the ER by ER staff. We will continue with her current medications as scheduled and a GI eval has been asked for G-tube replacement. JOB# [id number]
[2018-10-22] MEDS ORDERED: Diatrizoate Meglumine/Diatri 30 mL Sol PO ONE (14:03)
--- NOTE | 2018-10-22 15:45 | Operative Report ---
DATE OF SURGERY: 10/22/2018 PROCEDURE: G-tube replacement. DESCRIPTION OF PROCEDURE: The procedure took place at the bedside of the medical surgical unit of [facility]. The patient was kept in a supine position. The existing previous G-tube, which actually was a small caliber Hilario catheter was removed after its inner balloon was deflated using a syringe. Using the same gastrocutaneous fistula site, a new 20-Cuban replacement G-tube was inserted into the stomach and inner balloon tip was inflated using 20 mL of sterile water. The outer bumper was placed as close to the skin as possible. Overlying dressing was placed. The tube was noted to be in good position. The patient tolerated the procedure well. No complications anticipated. RECOMMENDATIONS: 1. Wr will obtain a contrast KUB to confirm that the G-tube is in satisfactory position in the stomach. 2. Once G-tube position has been confirmed, then may use G-tube for water flushes, medications, and feedings as tolerated. 3. Abdominal wall binder to prevent the patient from pulling out her own G-tube. DISPOSITION: As per hospitalist. Thank you, Dr. Deb Sutherland for involving us in the care of your patient. If you have any further questions, please call us. [facility]# [id number]
--- NOTE | 2018-10-22 22:10 | Consultation ---
DATE OF CONSULTATION: 10/22/2018 GASTROINTESTINAL CONSULTATION REQUESTING PHYSICIAN: Deb Sutherland MD REASON FOR CONSULTATION: Dysphagia with displaced G-tube. HISTORY OF PRESENT ILLNESS: A 68-year-old female with a history of mental retardation, encephalopathy, spastic paraplegia, hiatal hernia, seizure disorder, dysphagia with G-tube insertion, noted by nursing staff to have pulled her G-tube. It was replaced with a small caliber Hilario catheter. We were asked to see the patient for G-tube replacement. The patient is nonverbal and further history is obtained from medical chart and computer records and nursing present at bedside. PAST MEDICAL HISTORY: As above. PAST SURGICAL HISTORY: G-tube replacement. FAMILY HISTORY: Noncontributory. SOCIAL HISTORY: shelter resident. No recent tobacco, alcohol or drugs. ALLERGIES: No known drug allergies. REVIEW OF SYSTEMS: A comprehensive 12-point review of system was conducted and is only positive for the signs and symptoms present in history of present illness. MEDICATIONS: Here are Tylenol, Dulcolax suppository as needed, Os-Stephane with vitamin D, IV fluids, Keppra, Synthroid, milk of magnesia p.r.n., Fleet enema p.r.n., and Depakote. PHYSICAL EXAMINATION: VITAL SIGNS: Temperature of 97.0, blood pressure is 106/48, pulse of 54, respirations are 18, O2 sat is 96% on room air. GENERAL: The patient is well-developed, small statured female who is in no acute distress, talking gibberish. HEENT: Sclerae nonicteric. Oropharynx is clear. CARDIOVASCULAR: Regular rate and rhythm. ABDOMEN: Soft, nontender, nondistended. Intact small caliber replacement Hilario catheter serving as a G-tube. EXTREMITIES: Contractured. RECTAL: Deferred. LABORATORY DATA AND IMAGING: WBC 6.2, hemoglobin 15.7, platelet count 133. INR is normal. Creatinine normal. Amylase and lipase normal. IMPRESSION: 1. Dysphagia with displaced G-tube requiring replacement. 2. Seizure disorder. 3. Encephalopathy. RECOMMENDATIONS: 1. We will replace G-tube at bedside. See separately dictated report. 2. Continue medications per Hilario catheter for now, serving as G-tube. 3. Monitor labs. Thank you, Dr. Deb Sutherland, for involving us in the care of your patient. If you have any further questions, please call us. [facility]# [id number]
--- NOTE | 2018-10-23 09:24 | Diagnostic Imaging Report ---
Exam: Gastrostomy tube placement HISTORY: Confirmation of the gastrostomy tube placement Findings: After injection of contrast material into the gastrostomy tube there is normal opacification of the stomach. IMPRESSION: Gastrostomy tube in the stomach.
--- NOTE | 2018-10-24 10:37 | Discharge Summary ---
DATE OF DISCHARGE: 10/22/2018 ADMITTING DIAGNOSES: Displaced G-tube. SECONDARY DIAGNOSES: History of dysphagia with PEG tube feedings. History of gastroesophageal reflux disease. History of hypothyroidism. History of intellectual disability/mental retardation. DISCHARGE DIAGNOSES: Displaced G-tube status post G-tube replacement. CONSULTANTS: Dr. Banda. MAJOR PROCEDURES: G-tube replacement on 10/22/2018. BRIEF HOSPITAL COURSE: A 68-year-old female who was found to have a pulled G-tube at the [facility] where she resides. She was transferred to the ER and was admitted for G-tube replacement, which she underwent without any complications on 10/22/2018. DISCHARGE MEDICATIONS: MiraLax 17 grams b.i.d. to every day. Valproate 10 mL b.i.d., Dulcolax q.96 hours p.r.n. for constipation, Fleet enema q. 96 hours for severe constipation, Keppra 100 mg b.i.d., milk of magnesia, calcium oyster with vitamin D 3 times a day, Synthroid 75 mcg every day, Tylenol 650 q.4 p.r.n. for pain. DISPOSITION: The patient was discharged to [facility] under the care of Dr. Noriega. [facility]# [id number]
== END 2018-10-22 18:18 | DRG 393 ==
LOC: ER 14:44 → MSI 16:19
PROVIDERS: ADMIT Internal Medicine; ATTEND Internal Medicine
PROC: 0D20XUZ Change Feeding Device in Upper Intestinal Tract, External Approach (ICD-10-PCS; principal; 2018-10-22)
DX: K94.23 Gastrostomy malfunction (principal); R53.2 Functional quadriplegia; F73 Profound intellectual disabilities; G93.40 Encephalopathy, unspecified; I10 Essential (primary) hypertension; K21.9 Gastro-esophageal reflux disease without esophagitis; F03.90 Unspecified dementia, unspecified severity, without behavioral disturbance, psychotic disturbance, mood disturbance, and anxiety; G40.909 Epilepsy, unspecified, not intractable, without status epilepticus; E03.9 Hypothyroidism, unspecified; R13.10 Dysphagia, unspecified; Y83.3 Surgical operation with formation of external stoma as the cause of abnormal reaction of the patient, or of later complication, without mention of misadventure at the time of the procedure; Y92.89 Other specified places as the place of occurrence of the external cause
CPT/HCPCS: 36415-UA; 80048-TC; 82150-TC; 83690-TC; 84484-TC; 85025-TC; 85610-TC; J7030; Z7610

== ENCOUNTER 2018-11-20 11:11 | Inpatient (IN) | payer MEDICARE, MEDICAID ==
--- NOTE | 2018-11-20 11:33 | ED Physician Chart ---
ED Chief Complaint/HPI - Patient Information Date Seen:: 11/20/18 Time Seen:: 11:15 Chief Complaint:: oral bleeding History of Present Illness:: Patient is nonverbal so is unable to provide any history. Patient had 2 teeth extracted 3 days ago and she was sent here this morning for coffee-ground hematemesis. water main installer helper report seeing about 25 mL of coffee-ground and red blood on the bedding. Allergies:: Allergies Allergy/AdvReac Type Severity Reaction Status Date / Time No Known Allergies Allergy Verified 10/21/18 14:49 Historian:: EMS Review:: Nurse's Note Reviewed, Transfer documents Reviewed ED Review of Systems - Review of Systems General/Constitutional: No fever, No chills Skin: No skin lesions Head: No headache Eyes: No loss of vision ENT: No earache, No nasal drainage, No sore throat Neck: No neck pain Cardio Vascular: No chest pain, No palpitations Pulmonary: No SOB GI: Hematemesis G/U: No dysuria Musculoskeletal: No bone or joint pain Endocrine: No polyuria Psychiatric: Prior psych history Hematopoietic: No bruising Allergic/Immuno: No urticaria Neurological: No syncope, No focal symptoms ED Past Medical History - Past Medical History Past Medical History: Asthma/COPD, PUD/GERD, Arthritis, Other (history of hyponatremia; hepatitis B) Family History: Other (unavailable) Social History: Care Facility Surgical History: PEG/GTube Psychiatricy History: Other (apparently has severe mental retardation) Medication: Reviewed Family Medical History - Family Member Mother History Unknown: Yes Ethnicity: Non- Mother Sister History Unknown: Yes Ethnicity: Non- ED Physical Exam - Physical Examination General/Constitutional: Alert, No distress Other Gen/Cons comments:: Nonverbal Head: Atraumatic Eyes: Lids, conjuctiva normal, PERRL Skin: Nl inspection ENMT: External ears, nose nl Other ENMT comments:: When I inserted at tongue blade to visualize the throat patient vomited about 30 mL of coffee-ground material. Neck: No stridor Respiratory: Nl effort/Exclusion, Clear to Auscultation Cardio Vascular: RRR, No murmur, gallop, rubs GI: No tenderness/rebounding/guarding, No organomegaly : No CVA tenderness Extremities: Normal digits & nails Other Neuro/Psych comments:: Contracture left wrist and left hand ED Labs/Radiology/EKG Results - Lab Results Results: Laboratory Results WBC 18.7 Th/cmm (4.8-10.8) H 11/20/18 11:35 RBC 4.76 Mil/cmm (3.80-5.20) 11/20/18 11:35 Hgb 14.9 gm/dL (12-16) 11/20/18 11:35 Hct 44.0 % (41.0-60) 11/20/18 11:35 MCV 92.5 fl (81-100) 11/20/18 11:35 MCH 31.3 pg (27.0-31.0) H 11/20/18 11:35 MCHC Differential 33.9 pg (28.0-36.0) 11/20/18 11:35 RDW 13.9 % (11.5-20.0) 11/20/18 11:35 Plt Count 165 Th/cmm (150-400) 11/20/18 11:35 MPV 9.4 fl 11/20/18 11:35 Add Manual Diff YES 11/20/18 11:35 Band Neutrophils % 25 % (0-10) H 11/20/18 11:35 Neutrophils (Manual) 60 % (40-80) 11/20/18 11:35 Lymphocytes 9 % (20-50) L 11/20/18 11:35 Monocytes 6 % (2-10) 11/20/18 11:35 Platelet Estimate ADEQUATE (NORMAL) 11/20/18 11:35 Platelet Morphology GIANT PLATELETS SEEN (NORMAL) 11/20/18 11:35 PT 10.4 SECONDS (9.5-11.5) 11/20/18 11:35 INR 1.00 (0.5-1.4) 11/20/18 11:35 PTT (Actin FS) 19.9 SECONDS (26.0-38.0) L 11/20/18 11:35 Sodium 141 mEq/L (136-145) 11/20/18 11:35 Potassium 3.5 mEq/L (3.5-5.1) 11/20/18 11:35 Chloride 97 mEq/L (98-107) L 11/20/18 11:35 Carbon Dioxide 33.2 mEq/L (21.0-31.0) H 11/20/18 11:35 Anion Gap 14.3 (7.0-16.0) 11/20/18 11:35 BUN 25 mg/dL (7-25) 11/20/18 11:35 Creatinine 0.6 mg/dL (0.6-1.2) 11/20/18 11:35 Est GFR ( Amer) > 60.0 ml/min (>90) 11/20/18 11:35 Est GFR (Non-Af Amer) > 60.0 ml/min 11/20/18 11:35 BUN/Creatinine Ratio 41.7 11/20/18 11:35 Glucose 204 mg/dL (70-105) H 11/20/18 11:35 Whole Bld Lactic Acid 5.72 mmol/L (0.60-1.99) H* 11/20/18 11:35 Calcium 9.3 mg/dL (8.6-10.3) 11/20/18 11:35 - Radiology Results Results: Chest x-ray as read by the radiologist states no change from 08/13/18 - EKG Interpretations Rate & Rhythm: normal sinus rhythm with a rate of 76 [place]: normal Comments:: Inverted T waves in leads V2 and V3 ED Assessment - Assessment General Assessment: It is still uncertain whether the coffee-ground fluid is from the dental extractions of 3 days ago or from upper GI bleeding. Patient has a white blood cell count of 19,000 with 20% bands. Aspiration of the coffee-ground material causing an aspiration pneumonia is possible so patient received 1 L normal saline IV and 3.375 g of Zosyn IV piggyback. I spoke to Dr. Almendarez at about 1640 and he will be the admitting physician. He wished a CAT scan of abdomen and pelvis. ED Septic Shock - . Is Septic Shock (SBP<90, OR Lactate>4 mmol\L) present?: No ED Reassessment (Disposition) - Reassessment Reassessment:: Vomited coffee-ground material only once upon arrival in the emergency department Reassessment Condition:: Improved - Diagnosis Diagnosis:: Upper GI bleeding versus oral bleeding; bandemia; possible aspiration pneumonia ; - Patient Disposition Admitted to:: Telemetry Spoke to:: Alan Almendarez Admitting Medical Physician:: Alan Almendarez Condition at Disposition:: Stable, Improved
[2018-11-20 11:50] LABS: BASOPHILE ABSOLUTE 0.2 Th/cumm (0-0.2); HEMOGLOBIN 14.9 gm/dL (12-16); LYMPHOCYTE ABSOLUTE 0.7 Th/cmm (1.5-3.0); MEAN CELL VOLUME 92.5 fl (81-100); MEAN CORPUSCULAR HEMOGLOBIN 31.3 pg (27.0-31.0); MEAN CORPUSCULAR HGB CONC 33.9 pg (28.0-36.0); MONOCYTE ABSOLUTE 0.9 Th/cmm (0.3-1.0); NEUTROPHILE ABSOLUTE 16.9 Th/cmm (1.8-8.0); PLATELET COUNT 165 Th/cmm (150-400); RED BLOOD COUNT 4.76 Mil/cmm (3.80-5.20); RED CELL DISTRIBUTION WIDTH 13.9 % (11.5-20.0)
[2018-11-20 12:02] LABS: ANION GAP 14.3 (7.0-16.0); BUN - UREA NITROGEN 25 mg/dL (7-25); CALCIUM SERUM 9.3 mg/dL (8.6-10.3); CARBON DIOXIDE 33.2 mEq/L (21.0-31.0); CHLORIDE 97 mEq/L (98-107); CREATININE - SERUM 0.6 mg/dL (0.6-1.2); GFR AFRICAN-AMERICAN > 60.0 ml/min (>90); GFR NON AFRICAN-AMERICAN > 60.0 ml/min; GLUCOSE 204 mg/dL (70-105); POTASSIUM SERUM 3.5 mEq/L (3.5-5.1); SODIUM SERUM 141 mEq/L (136-145)
[2018-11-20 12:07] LABS: WHITE BLOOD COUNT 18.7 Th/cmm (4.8-10.8)
[2018-11-20 12:27] LABS: BAND NEUTROPHILE 25 % (0-10); LYMPHOCYTE 9 % (20-50); MONOCYTE 6 % (2-10); NEUTROPHILS 60 % (40-80); PLATELET ESTIMATE ADEQUATE (NORMAL); PLATELET MORPHOLOGY GIANT PLATELETS SEEN (NORMAL)
[2018-11-20] MEDS ORDERED: Sodium Chloride 0.9% 1,000 ML IV ONE (12:27)
[2018-11-20] MEDS ORDERED: Piperacillin Sodium/Tazobact 3.375 gm Vial IV ONE (14:23)
--- NOTE | 2018-11-20 14:29 | Diagnostic Imaging Report ---
Portable chest x-ray HISTORY: Pneumonia Compared with prior exam of August 13, 2018, there is chronic elevation the right hemidiaphragm. Linear density noted in the right base consistent with scarring. Heart size difficult to assess. No new/acute focal poorly processes are seen. IMPRESSION: 1. No significant change from August 13, 2018. Chronic changes as noted above. No definite acute abnormalities
[2018-11-20] MEDS ORDERED: Influenza Vaccine (65 yr & older) 0.5 ml Syr IM ONE (18:22)
[2018-11-20] MEDS ORDERED: Pneumococcal Vaccine 0.5 mL Vial IM ONE (18:22)
[2018-11-20] MEDS ORDERED: Fleet Enema 135 mL RC PRN (20:14)
[2018-11-20] MEDS ORDERED: Magnesium Hydroxide (MOM) 30 mL UDC GT PRN (20:17)
[2018-11-20] MEDS ORDERED: Levetiracetam 500 mg/5mL 5mL UDSyr *for ORAL USE ONLY PO SCH (20:30)
[2018-11-20] MEDS ORDERED: Calcium Carb/Vit D 500 mg/200 U Tab PO SCH (21:00)
--- NOTE | 2018-11-20 22:15 | History & Physical ---
ADMIT DATE: 11/20/2018 CHIEF COMPLAINT: Coffee-ground emesis. HISTORY OF PRESENT ILLNESS: A 68-year-old female with underlying history of severe mental retardation, nonverbal, underlying history of seizure disorder, hypothyroidism, GERD, mental disorder, lives at nursing facility, was brought to Emergency Department for evaluation of coffee-ground emesis. The patient's history is limited due to poor communicative status. Most of the history obtained through available medical record and discussion with ER physicians. PAST MEDICAL HISTORY: As per HPI. PAST SURGICAL HISTORY: G-tube placement. FAMILY HISTORY: Noncontributory. SOCIAL HISTORY: [facility] resident. No reported alcohol or tobacco use. CURRENT MEDICATIONS: Per medication reconciliation. ALLERGIES: None known. REVIEW OF SYSTEMS: Unobtainable. PHYSICAL EXAMINATION: GENERAL: The patient lying, nonverbal status. VITAL SIGNS: Temperature 98, pulse 72, respiration 18, blood pressure 158/47, 98% on room air. HEENT: She appeared to have some coffee-ground material around the mouth area. HEART: S1, S2 normal. LUNGS: Clear. ABDOMEN: Soft, nontender. NEUROLOGIC: The patient is nonverbal, does not follow command. AVAILABLE LABORATORY DATA: Reviewed and chest x-ray reviewed. ASSESSMENT: 1. Coffee-ground emesis, rule out gastrointestinal bleed. 2. Pneumonia. 3. Dysphagia, on tube feeding. 4. Hypothyroidism. 5. Seizure disorder. 6. Mental disorder. PLAN: The patient admitted to Tele Unit, started on IV Zosyn and GI consulted. Low dose G-tube feeding has been given. H and H seems stable. Blood cultures obtained. Follow up on the final cultures. Home medication has been reconciled, continue. We will follow up on the special recommendations. The patient's condition discussed with nursing staff. [facility]# [id number]
[2018-11-20] MEDS ORDERED: Clindamycin 150 mg/mL 4mL Vial ONE (23:35)
[2018-11-20] MEDS: Clindamycin 600mg/50mL 600 MG/50 ML BAG IV SCH (23:53)
[2018-11-20] MEDS: Levetiracetam 500 mg/5mL 5mL UDSyr *for ORAL USE ONLY GT SCH (23:54)
[2018-11-21] MEDS ORDERED: Clindamycin 150 mg/mL 4mL Vial ONE (04:29)
[2018-11-21] MEDS: Levothyroxine 0.075 Mg Tab GT SCH (06:40)
[2018-11-21 07:08] LABS: A1C 5.5 % (4.8-5.6)
[2018-11-21 07:52] LABS: HEMOGLOBIN 12.8 gm/dL (12-16); MEAN CELL VOLUME 92.4 fl (81-100); MEAN CORPUSCULAR HGB CONC 34.6 pg (28.0-36.0); PLATELET COUNT 152 Th/cmm (150-400); RED BLOOD COUNT 3.99 Mil/cmm (3.80-5.20); RED CELL DISTRIBUTION WIDTH 14.2 % (11.5-20.0)
[2018-11-21 07:54] LABS: HEMATOCRIT 36.9 % (41.0-60); WHITE BLOOD COUNT 12.9 Th/cmm (4.8-10.8)
[2018-11-21 07:55] LABS: ANION GAP 8.4 (7.0-16.0); BUN - UREA NITROGEN 21 mg/dL (7-25); CALCIUM SERUM 8.4 mg/dL (8.6-10.3); CARBON DIOXIDE 32.6 mEq/L (21.0-31.0); CHLORIDE 103 mEq/L (98-107); CREATININE - SERUM 0.5 mg/dL (0.6-1.2); GFR AFRICAN-AMERICAN > 60.0 ml/min (>90); GFR NON AFRICAN-AMERICAN > 60.0 ml/min; GLUCOSE 153 mg/dL (70-105); SODIUM SERUM 141 mEq/L (136-145)
[2018-11-21 08:25] LABS: BAND NEUTROPHILE 5 % (0-10); BASOPHIL 0 % (0-3); EOSINOPHIL 0 % (0-5); LYMPHOCYTE 10 % (20-50); MONOCYTE 7 % (2-10); NEUTROPHILS 78 % (40-80)
[2018-11-21] MEDS: Calcium Carb/Vit D 500 mg/200 U Tab GT SCH ×4 (08:25→21:34)
[2018-11-21] MEDS: Multivitamin w/ Minerals Tab PO SCH (08:25)
[2018-11-21] MEDS: Levetiracetam 500 mg/5mL 5mL UDSyr *for ORAL USE ONLY GT SCH ×2 (08:25→16:39)
--- NOTE | 2018-11-21 09:01 | Diagnostic Imaging Report ---
Exam: CT examination abdomen pelvis. HISTORY: GI bleed Total DLP equals 573 CTDI equals 11.0 COMPARISON: 08/13/2018 Findings: Multiple contiguous thin section the abdomen pelvis obtained from lower thorax to pubic symphysis without administration of intravenous or oral contrast material therefore the study is limited. No prior studies available comparison. The study is limited due to difficulty positioning the patient. There is evidence of left basilar infiltrate pleural thickening versus small effusion. The visualized liver and spleen is intact. The gallbladder is intact. Gastrostomy tube is noted. Nonobstructing right renal calculus. There is no evidence of hydronephrosis. Left kidney is intact. The pancreas is poorly seen. There is evidence for a dilator dictation of the air-filled sigmoid colon and upper rectum. Deformity of the thoracic spine. There is evidence for large expansile deformity of the left acetabulum with deformity of the fusion of left hip joint. This most likely related to prior trauma. Urinary bladder is intact. IMPRESSION: Limited study due to patient positioning Left basilar infiltrate small effusion versus pleural thickening. Clinical correlation recommended Nonobstructing right renal calculus Rotation air filled sigmoid colon and the rectum. Deformity of left hip joint unchanged upper prior examination of 0 08/13 2017.
--- NOTE | 2018-11-21 09:02 | Diagnostic Imaging Report ---
Exam: Portable chest x-ray HISTORY: Pneumonia Prior exam: 11/20/2018 Findings: Portable summation of chest at 0 712 reviewed. The study demonstrates elevation right hemidiaphragm. There is evidence of mild congestion. Mediastinal structures midline the heart is not enlarged. Bony thorax is intact. No acute pulmonic interest appreciated. IMPRESSION: Mild congestion. Elevation right hemidiaphragm.
[2018-11-21] MEDS ORDERED: Potassium Chloride Elixir 20 mEq /15 mL UDC GT ONE (09:29)
[2018-11-21] MEDS ORDERED: VTE Chemical Prophylaxis Screen/Admission MC PRN (10:23)
[2018-11-21] MEDS ORDERED: Probiotic Screen MC PRN (15:19)
--- NOTE | 2018-11-21 18:21 | Consultation ---
DATE OF CONSULTATION: 11/21/2018 INPATIENT GASTROINTESTINAL CONSULTATION CONSULTING PHYSICIAN: Dr. Almendarez. REASON FOR CONSULTATION: Coffee-ground emesis. HISTORY OF PRESENT ILLNESS: The patient is a 68-year-old female with past medical history significant for severe mental retardation, seizure disorder, GERD, hypothyroidism, brought into the Emergency Room from a nursing facility due to suspected coffee-ground emesis. The patient is nonverbal, thus, the history is obtained from the nursing staff and documentation. Apparently, the patient was found with some coffee-ground emesis like material around her lips, mouth and a pillow at the nursing facility. However, it should be noted that apparently she had some teeth pulled several days ago as well. The labs in the ER showed markedly elevated white blood cell count as well as an elevated lactate and the patient has since been started on antibiotic therapy. She has had no further coffee-ground emesis or melena here in the hospital. PAST MEDICAL HISTORY: Seizure disorder, mental retardation, GERD, hypothyroidism. PAST SURGICAL HISTORY: G-tube placement. FAMILY HISTORY: Noncontributory. SOCIAL HISTORY: The patient requires 24-hour care at a nursing facility. No documented history of alcoholism or illicit drug use. ALLERGIES: No known drug allergies. REVIEW OF SYSTEMS: Not possible given the patient is unable to participate in the interview. CURRENT MEDICATIONS: Tylenol, Dulcolax, calcium, vitamin D3, clindamycin, Keppra, Synthroid, milk of magnesia, Zosyn, Depakote. PHYSICAL EXAMINATION: VITAL SIGNS: Blood pressure is 121/67, pulse 82 beats per minute, respiratory rate of 18, temperature 99.8, oxygenation is 93% on 2 liters. GENERAL: The patient is lying on her back. She is alert and oriented x 0. Does not appear to be in acute distress. HEENT: Normocephalic, atraumatic appearing head. Pupils are equal and reactive. Extraocular muscles appear to be intact. There is some dried coffee-ground blood-like material on her lips. NECK: Supple, no JVD. CHEST: There are crackles heard bilaterally at the bases. CARDIOVASCULAR: S1, S2 are present, regular rate and rhythm. ABDOMEN: There is a G-tube that is clean, dry and intact. Soft, otherwise. No distention. EXTREMITIES: Contracted appearing, no edema. Pulses are not present. SKIN: There is no jaundice. LABORATORY DATA: White blood cell count is 12.9, hemoglobin is 12.8, the platelet count is 152. Sodium 141, BUN 21, creatinine 0.5. Lactate on presentation was 5.7, then redraw several hours later was 3.6. A chest-ray was performed and shows no evidence of pneumonia. IMPRESSION: This is a 68-year-old female with history of mental retardation, seizure disorder, gastroesophageal reflux disease, hypothyroidism, who was admitted from her nursing facility for possible coffee-ground emesis. 1. Coffee-ground emesis versus oral bleeding. 2. Mental retardation. 3. Gastroesophageal reflux disease. 4. Seizure disorder. 5. Recent tooth extraction. DISCUSSION: Given the relatively normal hemoglobin and history of recent tooth extraction, I am more concerned that the bleeding is from her mouth rather than from her stomach. Regardless, I do not think there is a significant blood loss. Additionally, she presented with more of a septic picture including an elevated white blood cell count and lactic acid and I think it is appropriate that she be on antibiotics and the source is most likely the tooth extraction. I do not think endoscopy is going to be necessary here unless the patient has a significant change in her clinical status and has more evidence of GI bleeding with either melena, coffee-ground emesis and a drop in hemoglobin. I do not think that there is oral surgical consultation that is available here or dentistry that is available at this hospital, but these would be the appropriate consults for this. RECOMMENDATIONS: 1. As I do not suspect GI bleeding as the main source of her presentation, I think it will be okay with daily PPI therapy. 2. Trend the hemoglobin, transfuse to keep above 7. 3. Antibiotic therapy as per primary and ID consultation. I think sepsis is likely present with the source in her mouth at the site of her tooth extraction. 4. Okay to resume G-tube feeding as no procedures planned on my end. 5. If she has further bleeding from her tooth extraction site, can consult ENT. Will have the patient transferred to a hospital where this is available. Thank you for allowing me to participate in her care. Please call with any questions. JOB# [id number]
--- NOTE | 2018-11-21 21:46 | General Progress Note ---
Subjective - Review of Systems Service Date: 11/21/18 Subjective: patient doing fine afebrile no reported bleeding Objective - Results Result Diagrams: 11/22/18 06:15 11/22/18 06:15 Recent Labs: Laboratory Last Values WBC 12.9 Th/cmm (4.8-10.8) H D 11/21/18 07:00 RBC 3.99 Mil/cmm (3.80-5.20) 11/21/18 07:00 Hgb 12.8 gm/dL (12-16) 11/21/18 07:00 Hct 36.9 % (41.0-60) L D 11/21/18 07:00 MCV 92.4 fl (81-100) 11/21/18 07:00 MCH 32.0 pg (27.0-31.0) H 11/21/18 07:00 MCHC Differential 34.6 pg (28.0-36.0) 11/21/18 07:00 RDW 14.2 % (11.5-20.0) 11/21/18 07:00 Plt Count 152 Th/cmm (150-400) 11/21/18 07:00 MPV 9.8 fl 11/21/18 07:00 Add Manual Diff YES 11/21/18 07:00 Band Neutrophils % 5 % (0-10) 11/21/18 07:00 Neutrophils (Manual) 78 % (40-80) 11/21/18 07:00 Lymphocytes 10 % (20-50) L 11/21/18 07:00 Monocytes 7 % (2-10) 11/21/18 07:00 Eosinophils 0 % (0-5) 11/21/18 07:00 Basophils 0 % (0-3) 11/21/18 07:00 Platelet Estimate ADEQUATE (NORMAL) 11/20/18 11:35 Platelet Morphology GIANT PLATELETS SEEN (NORMAL) 11/20/18 11:35 PT 10.4 SECONDS (9.5-11.5) 11/20/18 11:35 INR 1.00 (0.5-1.4) 11/20/18 11:35 PTT (Actin FS) 19.9 SECONDS (26.0-38.0) L 11/20/18 11:35 Sodium 141 mEq/L (136-145) 11/21/18 07:00 Potassium 3.0 mEq/L (3.5-5.1) L 11/21/18 07:00 Chloride 103 mEq/L (98-107) 11/21/18 07:00 Carbon Dioxide 32.6 mEq/L (21.0-31.0) H 11/21/18 07:00 Anion Gap 8.4 (7.0-16.0) 11/21/18 07:00 BUN 21 mg/dL (7-25) 11/21/18 07:00 Creatinine 0.5 mg/dL (0.6-1.2) L 11/21/18 07:00 Est GFR ( Amer) > 60.0 ml/min (>90) 11/21/18 07:00 Est GFR (Non-Af Amer) > 60.0 ml/min 11/21/18 07:00 BUN/Creatinine Ratio 42.0 11/21/18 07:00 Glucose 153 mg/dL (70-105) H 11/21/18 07:00 Whole Bld Lactic Acid 3.61 mmol/L (0.60-1.99) H* 11/20/18 13:35 Calcium 8.4 mg/dL (8.6-10.3) L 11/21/18 07:00 - Physical Exam Vitals and I&O: Vital Signs Temp 98.2 F 11/21/18 20:00 Pulse 76 11/21/18 20:00 Resp 19 11/21/18 20:00 BP 122/79 11/21/18 20:00 Pulse Ox 94 11/21/18 20:00 Intake & Output 11/21/18 11/21/18 11/22/18 06:59 18:59 06:59 Intake Total 930 600 100 Balance 930 600 100 Weight (lbs) 53.025 kg 53.025 kg Intake: Intake, IV Amount 250 100 Clindamycin 600mg/50mL 50 600 mg In 50 ml @ 100 mls /hr IV Q6HR SHELLY Rx#: [id number] Piperacillin Sodium/ 200 100 Tazobact 4.5 gm In Sodium Chloride 0.9% 100 ml @ 100 mls/hr IV Q8HR SHELLY Rx #:[id number] Oral 0 0 Tube Feeding 480 400 Other 200 200 Other: # Voids 3 2 # Bowel Movements 1 1 Weight Source Bedscale Bedscale Active Medications: Current Medications Acetaminophen (Tylenol) 650 mg GT Q4HR PRN PRN Reason: PAIN AND FEVER TEMP>100 Stop: 01/19/19 20:26 Bisacodyl (Dulcolax 10 Mg Supp) 10 mg RC Q96HR PRN PRN Reason: FOR MODERATE CONSTIPATION Stop: 01/19/19 20:14 Calcium/Vitamin D (Oscal W/Vitamin D) 2 tab GT TID SHELLY Stop: 01/20/19 07:59 Last Admin: 11/21/18 21:34 Dose: 2 tab Cholecalciferol (Vitamin D3) 2,000 iu PO TID SHELLY Stop: 01/19/19 20:59 Last Admin: 11/21/18 21:34 Dose: 2,000 iu Piperacillin Sod/Tazobactam (Sod 4.5 gm/ Sodium Chloride) 100 mls @ 100 mls/hr IV Q8HR SHELLY Stop: 01/19/19 20:59 Last Admin: 11/21/18 21:34 Dose: 100 mls/hr Clindamycin Phosphate (Cleocin Pb) 600 mg in 50 mls @ 100 mls/hr IV Q6HR SHELLY Stop: 01/20/19 00:00 Last Infusion: 11/21/18 00:25 Dose: Infused Lactobacillus Rhamnosus (Culturelle 15b) 1 each PO DAILY [facility] Stop: 01/21/19 08:59 Levetiracetam (Keppra) 500 mg GT BID SHELLY Stop: 01/19/19 20:29 Last Admin: 11/21/18 16:39 Dose: 500 mg Levothyroxine Sodium (Synthroid) 0.075 mg GT QDAC SHELLY Stop: 01/20/19 07:29 Last Admin: 11/21/18 06:40 Dose: 0.075 mg Levothyroxine Sodium (Synthroid) 0.088 mg GT QDAC SHELLY Stop: 01/20/19 07:29 Magnesium Hydroxide (Milk Of Magnesia) 30 ml GT Q72HR PRN PRN Reason: Constipation Stop: 01/19/19 20:29 Miscellaneous (Vte Chemical Prophylaxis Screen/ Admission) 1 ea MC PRN PRN PRN Reason: PROTOCOL Stop: 01/20/19 10:22 Miscellaneous (Probiotic Screen) 1 ea MC PRN PRN PRN Reason: PROTOCOL Stop: 01/20/19 15:18 Pantoprazole Sodium (Protonix) 40 mg IVP DAILY [facility]LLY Stop: 01/20/19 08:59 Last Admin: 11/21/18 08:24 Dose: 40 mg Sodium Phosphate (Fleet Enema) 135 ml RC Q96HR PRN PRN Reason: SEVERE CONSTIPATION Stop: 01/19/19 20:14 Valproate Sodium (Depakene) 250 mg GT BID SHELLY; Protocol Stop: 01/19/19 20:29 Last Admin: 11/21/18 16:39 Dose: 250 mg Cardiovascular: Regular rate Lungs: Clear to auscultation Abdomen: Soft, no Tender - Procedures Procedures: Procedures Procedure Code Date CHANGE FEEDING DEVICE IN UP INTEST TRACT, WINDER OPERATOR APPROACH [id number] 10/21/18 CHANGE GASTROSTOMY TUBE 15941 01/20/12 EGD DIAGNOSTIC BRUSH WASH 61084 11/17/[address] GASTROSTOMY TUBE 47674 11/23/13 OTHER ENDOSCOPY OF SM INTEST 45.13 11/23/13 PERCUTANEOUS [ENDOSCOPIC] GASTROSTOMY [PEG] 43.11 12/27/10 RECONSTRUCTION OF HIP SOCKET 89509 11/17/15 REPLACE GASTROSTOMY TUBE 97.02 11/23/13 REVISION OF FEEDING DEVICE IN STOMACH, PERCUTANEOUS APPROACH [id number] 11/17/15 VACCINATION NEC 99.55 07/13/13 Assessment/Plan - Problem List Patient Problems: All Active Problems Dysphagia (Acute) R13.10 GI bleeding (Acute) K92.2 Gastrostomy malfunction (Acute) K94.23 - Assessment Assessment: Pnemonia Dysphagia Mental health disorder Congnitive impairment - Plan Plan: WBC better HH stable GI on board Continue current treatment Nutritional Asmnt/Malnutr-PDOC - Dietary Evaluation Malnutrition Findings (Please click <Entered> for more info): Nutritional Asmnt/Malnutrition Start: 11/21/18 12: 13 Text: Status: Complete Freq: Protocol: Document 11/21/18 12:14 GREGORY (Rec: 11/21/18 12:23 GREGORY [email or web address]) Nutritional Asmnt/Malnutrition Patient General Information Nutritional Screening High Risk Consult Diagnosis Sepsis, Pneumonia Pertinent Medical Hx/Surgical Hx Asthma/COPD, PUD/GERD, Arthritis, hyponatremia, Hepatitis B, PEG/G-Tube, Seizure disorder, hypothyroidism Subjective Information Consult: G-Tube Feeding Pt was downgraded to low risk d/t well tolerance on enteral feeding and meeting nutritional needs. Pt is a 68-year-old female from nursing facility admitted on 11/20 c/o coffee-ground emesis. Per Meal/Nutrition Activity Record, Pt is on G- Tube feeding with Jevity 1.2 at 40ml/24 hrs, no residual noted. Per Nurse note on 11/21, GT Feeding tolerating well, no residual, G-Tube Intact. HT: 48 WT: 116 LB 14.4 oz (53.18 kg) ADJ BW: 46.36 kg BMI: 26.20 (Overweight) GI: Non-Tender, Round, Coffee- ground emesis BM: 11/21 x1 I/O: 1930/Not Noted Skin: WNL, Intact Mayur: 13 Diet Order: Jevity 1.2 at 40ml /24hrs Estimated Energy Needs: ( Geriatric, ADJ BW) 4304-5625 kcals (25-30 kcals/ kg) 46-56g Pro (1.0-1.2 g/kg) 4836-0811 ml (25-30 ml/kg) Pt on G-Tube feeding with Jevity 1.2 at 40ml/24hrs Per Meal/Nutrition Activity Record . Enteral feeding is currently providing an estimated 1152 kcals and 53 gm Pro, to meet 99% kcal and 100+% Pro needs- adequate. Current Diet Order/ Nutrition Support G-Tube Feeding Jevity 1.2 at 40ml/24hrs Pertinent Medications Dulcolax (PRN), Oscal w/ Vitamin D, Vitamin D3, Keppra, Synthroid, MOM (PRN), Protonix, Fleet Enema (PRN) Pertinent Labs 11/21: Hgb/Hct 12.8/36.9, Potass 3.0, BUN/Cr 21/0.5, Glucose 153, Ca 8.4 11/20: Cl 97, Glucose 204 Nutritional Hx/Data Height 1.42 m Height (Calculated Centimeters) 142.2 Current Weight (lbs) 52.617 kg Weight (Calculated Kilograms) 52.6 Weight (Calculated Grams) 02778.7 [place] Body Weight 92 lbs (41.84 kg) % [place] Body Weight 127 Body Mass Index (BMI) 25.9 Weight Status Overweight GI Symptoms GI Symptoms None Last BM 11/21 x1 Skin Integrity/Comment: WNL, Intact Mayur: 13 Estimated Nutritional Goals BEE in Kcals: Adj wt of IBW Calories/Kcals/Kg 25-30 Kcals Calculated 6091-5971 Protein: Adj wt of IBW Protein g/k.0-1.2 Protein Calculated 46-56 Fluid: ml 1355-0643 ml (25-30 ml/kg) Nutritional Problem 1. Problem Problem Altered nutrition related labs Etiology r/t medical condition Signs/Symptoms: aeb lab result Potass 3.0, BUN /Cr 21/0.5, Glucose 153, Ca 8. 4 Malnutrition Related to Morbid Obesity Malnutrition related to morbid obesity No Intervention/Recommendation Comments 1.Continue on G-tube feeding Jevity 1.2 at 40ml/24hrs to meet nutritional needs. Expected Outcomes/Goals Expected Outcomes/Goals 1.Monitor on TF regiment and enteral feeding tolerance. 2.Monitor wt, skin integrity and nutrition related labs to Trend WNL. 3.F/U as low risk in 7 days,
[2018-11-21] MEDS: Clindamycin 600mg/50mL 600 MG/50 ML BAG IV SCH (23:51)
[2018-11-22] MEDS: Clindamycin 600mg/50mL 600 MG/50 ML BAG IV SCH ×2 (05:21→23:15)
[2018-11-22] MEDS: Levothyroxine 0.075 Mg Tab GT SCH (06:30)
[2018-11-22 06:53] LABS: % BASOPHILS 3.5 % (0.0-2.0); % EOSINOPHILS 2.1 % (0.0-5.0); % MONOCYTES 7.7 % (2.0-10.0); % NEUTROPHILS 76.7 % (40.0-80.0); BASOPHILE ABSOLUTE 0.3 Th/cumm (0-0.2); EOSINOPHILE ABSOLUTE 0.2 Th/cmm (0.1-0.4); HEMATOCRIT 39.1 % (41.0-60); HEMOGLOBIN 13.2 gm/dL (12-16); LYMPHOCYTE ABSOLUTE 0.9 Th/cmm (1.5-3.0); MEAN CELL VOLUME 92.6 fl (81-100); MEAN CORPUSCULAR HEMOGLOBIN 31.2 pg (27.0-31.0); MEAN CORPUSCULAR HGB CONC 33.7 pg (28.0-36.0); MONOCYTE ABSOLUTE 0.7 Th/cmm (0.3-1.0); NEUTROPHILE ABSOLUTE 6.4 Th/cmm (1.8-8.0); PLATELET COUNT 155 Th/cmm (150-400); RED BLOOD COUNT 4.22 Mil/cmm (3.80-5.20); RED CELL DISTRIBUTION WIDTH 13.6 % (11.5-20.0)
[2018-11-22 06:55] LABS: WHITE BLOOD COUNT 8.5 Th/cmm (4.8-10.8)
[2018-11-22 07:10] LABS: ANION GAP 10.3 (7.0-16.0); BUN - UREA NITROGEN 16 mg/dL (7-25); CALCIUM SERUM 8.6 mg/dL (8.6-10.3); CHLORIDE 103 mEq/L (98-107); CREATININE - SERUM 0.5 mg/dL (0.6-1.2); GFR AFRICAN-AMERICAN > 60.0 ml/min (>90); GFR NON AFRICAN-AMERICAN > 60.0 ml/min; GLUCOSE 169 mg/dL (70-105); POTASSIUM SERUM 3.3 mEq/L (3.5-5.1); SODIUM SERUM 140 mEq/L (136-145)
--- NOTE | 2018-11-22 07:46 | Consultation ---
DATE OF CONSULTATION: 11/21/2018 INFECTIOUS DISEASE CONSULTATION REFERRING PHYSICIAN: Alan Almendarez M.D. REASON FOR CONSULTATION: Pneumonia. HISTORY OF PRESENT ILLNESS: The patient is a 68-year-old female with a past medical history of severe mental retardation, aphasic with aggressive behavior, seizure disorder, hypothyroidism, and GERD, brought in from nursing facility for coffee-ground emesis. The patient had recent dental workup done and the patient was found to have some blood clots with coffee-ground emesis. The patient was brought to the ER for further evaluation and management. On initial evaluation, the patient's temperature was 97.5 degree Fahrenheit and WBC count was 18,700. Bands were 25%. CT scan of the abdomen and pelvis suggested presence of some infiltrate. Aspiration pneumonia was suspected and the patient was started on Zosyn. I was called and clindamycin was added. The patient's WBC count is improving. No fevers so far. PAST MEDICAL HISTORY: As mentioned above, mental retardation, psychosis and aggressive behavior, nonverbal, seizure disorder, hypothyroidism and GERD. PAST SURGICAL HISTORY: Includes G-tube placement. FAMILY HISTORY: Noncontributory. SOCIAL HISTORY: The patient is a jail resident. No history of smoking, alcohol or drug use. CURRENT MEDICATIONS: As per medication reconciliation sheet. Antibiotic mathew, the patient is on clindamycin and Zosyn. ALLERGIES: Unknown. REVIEW OF SYSTEMS: Unable to obtain. PHYSICAL EXAMINATION: GENERAL: The patient is a lean and thin female, not in acute distress. VITAL SIGNS: Shows temperature is 98.2 degrees Fahrenheit, pulse 76, respirations 19, blood pressure 122/79. GENERAL: The patient is comfortable. HEENT: Head is normocephalic, atraumatic. The patient has some dry clots on the lips. Eyes: No pallor, no icterus. PERRLA, EOMI. Oral cavity moist, pink tongue NECK: Supple, no JVD, no carotid bruit. Trachea in midline. CHEST: Bilateral breath sounds. No crackles or wheezing. HEART: Soft, nontender, nondistended. Bowel sounds present. G-tube site is clear. EXTREMITIES: No cyanosis, no clubbing, no edema. NEUROLOGIC: Alert and awake. Aggressive. LABORATORY DATA: Current lab shows WBC count is 12,900, hemoglobin 12.8, hematocrit 36.9, platelets are 152,000, neutrophils 78%, and bands are 5%. Sodium is 141, potassium 3, chloride 103, bicarbonate is 22.6, BUN is 21, creatinine 0.5, glucose is 153. Lactic acid 3.61. IMPRESSION: 1. Severe sepsis on the presentation. 2. Aspiration pneumonia. 3. Lactic acidosis. 4. Mental retardation. 5. Seizure disorder. 6. Psychosis and aggressive behavior. 7. Hypothyroidism. RECOMMENDATIONS: Continue IV fluid support. Continue clindamycin and Zosyn. Thank you, Dr. Almendarez for involving me in taking care of this patient. JOB# [id number]
[2018-11-22] MEDS: Levetiracetam 500 mg/5mL 5mL UDSyr *for ORAL USE ONLY GT SCH ×2 (08:43→17:05)
[2018-11-22] MEDS: Lactobacillus Rhamnosus GG 15 Billion CFU CAP.SPRINK PO SCH (08:44)
[2018-11-22] MEDS: Levothyroxine 0.088 Mg Tab GT SCH ×2 (08:44→08:45)
[2018-11-22] MEDS: Multivitamin w/ Minerals Tab PO SCH (08:44)
[2018-11-22] MEDS: Calcium Carb/Vit D 500 mg/200 U Tab GT SCH ×3 (08:44→20:42)
--- NOTE | 2018-11-22 19:03 | GI Progress Note ---
Subjective - Review of Systems Service Date: 11/22/18 Events since last encounter: No events Subjective: Responsive NAD GI OBJECTIVE - Results Result Diagrams: 11/22/18 06:15 11/22/18 06:15 Recent Labs: Laboratory Last Values WBC 8.5 Th/cmm (4.8-10.8) D 11/22/18 06:15 RBC 4.22 Mil/cmm (3.80-5.20) 11/22/18 06:15 Hgb 13.2 gm/dL (12-16) 11/22/18 06:15 Hct 39.1 % (41.0-60) L 11/22/18 06:15 MCV 92.6 fl (81-100) 11/22/18 06:15 MCH 31.2 pg (27.0-31.0) H 11/22/18 06:15 MCHC Differential 33.7 pg (28.0-36.0) 11/22/18 06:15 RDW 13.6 % (11.5-20.0) 11/22/18 06:15 Plt Count 155 Th/cmm (150-400) 11/22/18 06:15 MPV 8.6 fl 11/22/18 06:15 Add Manual Diff YES 11/21/18 07:00 Neutrophils % 76.7 % (40.0-80.0) 11/22/18 06:15 Band Neutrophils % 5 % (0-10) 11/21/18 07:00 Lymphocytes % 10.0 % (20.0-50.0) L 11/22/18 06:15 Monocytes % 7.7 % (2.0-10.0) 11/22/18 06:15 Eosinophils % 2.1 % (0.0-5.0) 11/22/18 06:15 Basophils % 3.5 % (0.0-2.0) H 11/22/18 06:15 Neutrophils (Manual) 78 % (40-80) 11/21/18 07:00 Lymphocytes 10 % (20-50) L 11/21/18 07:00 Monocytes 7 % (2-10) 11/21/18 07:00 Eosinophils 0 % (0-5) 11/21/18 07:00 Basophils 0 % (0-3) 11/21/18 07:00 Platelet Estimate ADEQUATE (NORMAL) 11/20/18 11:35 Platelet Morphology GIANT PLATELETS SEEN (NORMAL) 11/20/18 11:35 PT 10.4 SECONDS (9.5-11.5) 11/20/18 11:35 INR 1.00 (0.5-1.4) 11/20/18 11:35 PTT (Actin FS) 19.9 SECONDS (26.0-38.0) L 11/20/18 11:35 Sodium 140 mEq/L (136-145) 11/22/18 06:15 Potassium 3.3 mEq/L (3.5-5.1) L 11/22/18 06:15 Chloride 103 mEq/L (98-107) 11/22/18 06:15 Carbon Dioxide 30.0 mEq/L (21.0-31.0) 11/22/18 06:15 Anion Gap 10.3 (7.0-16.0) 11/22/18 06:15 BUN 16 mg/dL (7-25) 11/22/18 06:15 Creatinine 0.5 mg/dL (0.6-1.2) L 11/22/18 06:15 Est GFR ( Amer) > 60.0 ml/min (>90) 11/22/18 06:15 Est GFR (Non-Af Amer) > 60.0 ml/min 11/22/18 06:15 BUN/Creatinine Ratio 32.0 11/22/18 06:15 Glucose 169 mg/dL (70-105) H 11/22/18 06:15 Whole Bld Lactic Acid 1.72 mmol/L (0.60-1.99) 11/22/18 06:15 Calcium 8.6 mg/dL (8.6-10.3) 11/22/18 06:15 - Physical Exam Vitals and I&O: Vital Signs Temp 97.7 F 11/22/18 16:00 Pulse 70 11/22/18 16:00 Resp 18 11/22/18 16:00 BP 160/64 11/22/18 16:00 Pulse Ox 94 11/22/18 16:00 Intake & Output 11/21/18 11/22/18 11/22/18 18:59 06:59 18:59 Intake Total 600 1090 660 Output Total 2 Balance 600 1088 660 Weight (lbs) 53.025 kg 55.338 kg 55.338 kg Intake: Intake, IV Amount 400 Clindamycin 600mg/50mL 100 600 mg In 50 ml @ 100 mls /hr IV Q6HR [facility] Rx#: [id number] Piperacillin Sodium/ 300 Tazobact 4.5 gm In Sodium Chloride 0.9% 100 ml @ 100 mls/hr IV Q8HR [facility] Rx #:[id number] Oral 0 0 Tube Feeding 400 490 660 Other 200 200 Output: Urine/Stool Mix 2 Other: # Voids 2 3 # Bowel Movements 1 2 Stool Characteristics Soft Soft Brown Brown Weight Source Bedscale Bedscale Bedscale Active Medications: Current Medications Acetaminophen (Tylenol) 650 mg GT Q4HR PRN PRN Reason: PAIN AND FEVER TEMP>100 Stop: 01/19/19 20:26 Bisacodyl (Dulcolax 10 Mg Supp) 10 mg RC Q96HR PRN PRN Reason: FOR MODERATE CONSTIPATION Stop: 01/19/19 20:14 Calcium/Vitamin D (Oscal W/Vitamin D) 2 tab GT TID [facility] Stop: 01/20/19 07:59 Last Admin: 11/22/18 13:45 Dose: 2 tab Cholecalciferol (Vitamin D3) 2,000 iu PO TID [facility] Stop: 01/19/19 20:59 Last Admin: 11/22/18 13:45 Dose: 2,000 iu Piperacillin Sod/Tazobactam (Sod 4.5 gm/ Sodium Chloride) 100 mls @ 100 mls/hr IV Q8HR [facility] Stop: 01/19/19 20:59 Last Admin: 11/22/18 13:45 Dose: 100 mls/hr Clindamycin Phosphate (Cleocin Pb) 600 mg in 50 mls @ 100 mls/hr IV Q6HR [facility] Stop: 01/20/19 00:00 Last Infusion: 11/22/18 05:55 Dose: Infused Lactobacillus Rhamnosus (Culturelle 15b) 1 each PO DAILY [facility] Stop: 01/21/19 08:59 Last Admin: 11/22/18 08:44 Dose: 1 each Levetiracetam (Keppra) 500 mg GT BID [facility] Stop: 01/19/19 20:29 Last Admin: 11/22/18 17:05 Dose: 500 mg Levothyroxine Sodium (Synthroid) 0.088 mg GT QDAC [facility] Stop: 01/20/19 07:29 Last Admin: 11/22/18 08:45 Dose: 0.088 mg Magnesium Hydroxide (Milk Of Magnesia) 30 ml GT Q72HR PRN PRN Reason: Constipation Stop: 01/19/19 20:29 Miscellaneous (Vte Chemical Prophylaxis Screen/ Admission) 1 ea MC PRN PRN PRN Reason: PROTOCOL Stop: 01/20/19 10:22 Miscellaneous (Probiotic Screen) 1 ea MC PRN PRN PRN Reason: PROTOCOL Stop: 01/20/19 15:18 Pantoprazole Sodium (Protonix) 40 mg IVP DAILY [facility] Stop: 01/20/19 08:59 Last Admin: 11/22/18 08:44 Dose: 40 mg Sodium Phosphate (Fleet Enema) 135 ml RC Q96HR PRN PRN Reason: SEVERE CONSTIPATION Stop: 01/19/19 20:14 Valproate Sodium (Depakene) 250 mg GT BID [facility]; Protocol Stop: 01/19/19 20:29 Last Admin: 11/22/18 17:05 Dose: 250 mg General: Alert, No acute distress Neck: Supple Cardiovascular: Regular rate, Normal S1, Normal S2 Lungs: Clear to auscultation Abdomen: Bowel sounds, Soft, no Tender - Procedures Procedures: Procedures Procedure Code Date CHANGE FEEDING DEVICE IN UP INTEST TRACT, IRRIGATION FLUME LAYER APPROACH [id number] 10/21/18 CHANGE GASTROSTOMY TUBE 78894 01/20/12 EGD DIAGNOSTIC BRUSH WASH 07174 11/17/[address] GASTROSTOMY TUBE 51773 11/23/13 OTHER ENDOSCOPY OF SM INTEST 45.13 11/23/13 PERCUTANEOUS [ENDOSCOPIC] GASTROSTOMY [PEG] 43.11 12/27/10 RECONSTRUCTION OF HIP SOCKET 41736 11/17/15 REPLACE GASTROSTOMY TUBE 97.02 11/23/13 REVISION OF FEEDING DEVICE IN STOMACH, PERCUTANEOUS APPROACH [id number] 11/17/15 VACCINATION NEC 99.55 07/13/13 Assessment/Plan - Problem List Patient Problems: All Active Problems Dysphagia (Acute) R13.10 GI bleeding (Acute) K92.2 Gastrostomy malfunction (Acute) K94.23 - Assessment Assessment: Dysphagia (Acute) R13.10 GI bleeding (Acute) K92.2 Gastrostomy malfunction (Acute) K94.23 - Plan Plan: Dysphagia (Acute) R13.10 Cont tube feeding GI bleeding (Acute) K92.2 No more bleeding Monitor H/H PPI Gastrostomy malfunction (Acute) K94.23 Functiong well now
[2018-11-22] MEDS ORDERED: Potassium Chloride 20 mEq ER Tab PO ONE (19:46)
--- NOTE | 2018-11-22 21:39 | General Progress Note ---
Subjective - Review of Systems Service Date: 11/22/18 Subjective: Patient seems fine no new concern reported Objective - Results Result Diagrams: 11/22/18 06:15 11/22/18 06:15 Recent Labs: Laboratory Last Values WBC 8.5 Th/cmm (4.8-10.8) D 11/22/18 06:15 RBC 4.22 Mil/cmm (3.80-5.20) 11/22/18 06:15 Hgb 13.2 gm/dL (12-16) 11/22/18 06:15 Hct 39.1 % (41.0-60) L 11/22/18 06:15 MCV 92.6 fl (81-100) 11/22/18 06:15 MCH 31.2 pg (27.0-31.0) H 11/22/18 06:15 MCHC Differential 33.7 pg (28.0-36.0) 11/22/18 06:15 RDW 13.6 % (11.5-20.0) 11/22/18 06:15 Plt Count 155 Th/cmm (150-400) 11/22/18 06:15 MPV 8.6 fl 11/22/18 06:15 Add Manual Diff YES 11/21/18 07:00 Neutrophils % 76.7 % (40.0-80.0) 11/22/18 06:15 Band Neutrophils % 5 % (0-10) 11/21/18 07:00 Lymphocytes % 10.0 % (20.0-50.0) L 11/22/18 06:15 Monocytes % 7.7 % (2.0-10.0) 11/22/18 06:15 Eosinophils % 2.1 % (0.0-5.0) 11/22/18 06:15 Basophils % 3.5 % (0.0-2.0) H 11/22/18 06:15 Neutrophils (Manual) 78 % (40-80) 11/21/18 07:00 Lymphocytes 10 % (20-50) L 11/21/18 07:00 Monocytes 7 % (2-10) 11/21/18 07:00 Eosinophils 0 % (0-5) 11/21/18 07:00 Basophils 0 % (0-3) 11/21/18 07:00 Platelet Estimate ADEQUATE (NORMAL) 11/20/18 11:35 Platelet Morphology GIANT PLATELETS SEEN (NORMAL) 11/20/18 11:35 PT 10.4 SECONDS (9.5-11.5) 11/20/18 11:35 INR 1.00 (0.5-1.4) 11/20/18 11:35 PTT (Actin FS) 19.9 SECONDS (26.0-38.0) L 11/20/18 11:35 Sodium 140 mEq/L (136-145) 11/22/18 06:15 Potassium 3.3 mEq/L (3.5-5.1) L 11/22/18 06:15 Chloride 103 mEq/L (98-107) 11/22/18 06:15 Carbon Dioxide 30.0 mEq/L (21.0-31.0) 11/22/18 06:15 Anion Gap 10.3 (7.0-16.0) 11/22/18 06:15 BUN 16 mg/dL (7-25) 11/22/18 06:15 Creatinine 0.5 mg/dL (0.6-1.2) L 11/22/18 06:15 Est GFR ( Amer) > 60.0 ml/min (>90) 11/22/18 06:15 Est GFR (Non-Af Amer) > 60.0 ml/min 11/22/18 06:15 BUN/Creatinine Ratio 32.0 11/22/18 06:15 Glucose 169 mg/dL (70-105) H 11/22/18 06:15 Whole Bld Lactic Acid 1.72 mmol/L (0.60-1.99) 11/22/18 06:15 Calcium 8.6 mg/dL (8.6-10.3) 11/22/18 06:15 - Physical Exam Vitals and I&O: Vital Signs Temp 97.7 F 11/22/18 20:00 Pulse 66 11/22/18 20:00 Resp 18 11/22/18 21:17 BP 123/67 11/22/18 20:00 Pulse Ox 66 11/22/18 20:00 Intake & Output 11/22/18 11/22/18 11/23/18 06:59 18:59 06:59 Intake Total 1090 760 Output Total 2 Balance 1088 760 Weight (lbs) 55.338 kg 55.338 kg Intake: Intake, IV Amount 400 100 Clindamycin 600mg/50mL 100 600 mg In 50 ml @ 100 mls /hr IV Q6HR [facility] Rx#: [id number] Piperacillin Sodium/ 300 100 Tazobact 4.5 gm In Sodium Chloride 0.9% 100 ml @ 100 mls/hr IV Q8HR [facility] Rx #:[id number] Oral 0 Tube Feeding 490 660 Other 200 Output: Urine/Stool Mix 2 Other: # Voids 3 # Bowel Movements 2 Stool Characteristics Soft Soft Soft Brown Brown Brown Weight Source Bedscale Bedscale Active Medications: Current Medications Acetaminophen (Tylenol) 650 mg GT Q4HR PRN PRN Reason: PAIN AND FEVER TEMP>100 Stop: 01/19/19 20:26 Last Admin: 11/22/18 20:42 Dose: 650 mg Bisacodyl (Dulcolax 10 Mg Supp) 10 mg RC Q96HR PRN PRN Reason: FOR MODERATE CONSTIPATION Stop: 01/19/19 20:14 Calcium/Vitamin D (Oscal W/Vitamin D) 2 tab GT TID [facility] Stop: 01/20/19 07:59 Last Admin: 11/22/18 20:42 Dose: 2 tab Cholecalciferol (Vitamin D3) 2,000 iu PO TID [facility] Stop: 01/19/19 20:59 Last Admin: 11/22/18 20:41 Dose: 2,000 iu Piperacillin Sod/Tazobactam (Sod 4.5 gm/ Sodium Chloride) 100 mls @ 100 mls/hr IV Q8HR [facility] Stop: 01/19/19 20:59 Last Admin: 11/22/18 20:38 Dose: 100 mls/hr Clindamycin Phosphate (Cleocin Pb) 600 mg in 50 mls @ 100 mls/hr IV Q6HR [facility] Stop: 01/20/19 00:00 Last Infusion: 11/22/18 05:55 Dose: Infused Lactobacillus Rhamnosus (Culturelle 15b) 1 each PO DAILY [facility] Stop: 01/21/19 08:59 Last Admin: 11/22/18 08:44 Dose: 1 each Levetiracetam (Keppra) 500 mg GT BID [facility] Stop: 01/19/19 20:29 Last Admin: 11/22/18 17:05 Dose: 500 mg Levothyroxine Sodium (Synthroid) 0.088 mg GT QDAC [facility] Stop: 01/20/19 07:29 Last Admin: 11/22/18 08:45 Dose: 0.088 mg Magnesium Hydroxide (Milk Of Magnesia) 30 ml GT Q72HR PRN PRN Reason: Constipation Stop: 01/19/19 20:29 Miscellaneous (Vte Chemical Prophylaxis Screen/ Admission) 1 ea PRN PRN PRN Reason: PROTOCOL Stop: 01/20/19 10:22 Miscellaneous (Probiotic Screen) 1 ea PRN PRN PRN Reason: PROTOCOL Stop: 01/20/19 15:18 Pantoprazole Sodium (Protonix) 40 mg IVP DAILY [facility] Stop: 01/20/19 08:59 Last Admin: 11/22/18 08:44 Dose: 40 mg Sodium Phosphate (Fleet Enema) 135 ml RC Q96HR PRN PRN Reason: SEVERE CONSTIPATION Stop: 01/19/19 20:14 Valproate Sodium (Depakene) 250 mg GT BID [facility]; Protocol Stop: 01/19/19 20:29 Last Admin: 11/22/18 17:05 Dose: 250 mg General: Alert, No acute distress Neck: Supple Cardiovascular: Regular rate, Normal S1, Normal S2 Lungs: Clear to auscultation Abdomen: Bowel sounds, Soft, no Tender - Procedures Procedures: Procedures Procedure Code Date CHANGE FEEDING DEVICE IN UP INTEST TRACT, [employer] APPROACH [id number] 10/21/18 CHANGE GASTROSTOMY TUBE 71602 01/20/12 EGD DIAGNOSTIC BRUSH WASH 80864 11/17/[address] GASTROSTOMY TUBE 89496 11/23/13 OTHER ENDOSCOPY OF SM INTEST 45.13 11/23/13 PERCUTANEOUS [ENDOSCOPIC] GASTROSTOMY [PEG] 43.11 12/27/10 RECONSTRUCTION OF HIP SOCKET 03080 11/17/15 REPLACE GASTROSTOMY TUBE 97.02 11/23/13 REVISION OF FEEDING DEVICE IN STOMACH, PERCUTANEOUS APPROACH [id number] 11/17/15 VACCINATION NEC 99.55 07/13/13 Assessment/Plan - Problem List Patient Problems: All Active Problems Dysphagia (Acute) R13.10 GI bleeding (Acute) K92.2 Gastrostomy malfunction (Acute) K94.23 - Assessment Assessment: Pneumonia Dysphagia Seizure disorder Hypothyroidism - Plan Plan: No reported Active bleeding Tolerating Feeding well Per GI no further testing on GI bleed Continue antibiotics Tube feeding Keppra Nutritional Asmnt/Malnutr-PDOC - Dietary Evaluation Malnutrition Findings (Please click <Entered> for more info): Nutritional Asmnt/Malnutrition Start: 11/21/18 12: 13 Text: Status: Complete Freq: Protocol: Document 11/21/18 12:14 GREGORY (Rec: 11/21/18 12:23 GREGORY [email or web address]) Nutritional Asmnt/Malnutrition Patient General Information Nutritional Screening High Risk Consult Diagnosis Sepsis, Pneumonia Pertinent Medical Hx/Surgical Hx Asthma/COPD, PUD/GERD, Arthritis, hyponatremia, Hepatitis B, PEG/G-Tube, Seizure disorder, hypothyroidism Subjective Information Consult: G-Tube Feeding Pt was downgraded to low risk d/t well tolerance on enteral feeding and meeting nutritional needs. Pt is a 68-year-old female from nursing facility admitted on 11/20 c/o coffee-ground emesis. Per Meal/Nutrition Activity Record, Pt is on G- Tube feeding with Jevity 1.2 at 40ml/24 hrs, no residual noted. Per Nurse note on 11/21, GT Feeding tolerating well, no residual, G-Tube Intact. HT: 48 WT: 116 LB 14.4 oz (53.18 kg) ADJ BW: 46.36 kg BMI: 26.20 (Overweight) GI: Non-Tender, Round, Coffee- ground emesis BM: 11/21 x1 I/O: 1930/Not Noted Skin: WNL, Intact Mayur: 13 Diet Order: Jevity 1.2 at 40ml /24hrs Estimated Energy Needs: ( Geriatric, ADJ BW) 5143-6078 kcals (25-30 kcals/ kg) 46-56g Pro (1.0-1.2 g/kg) 6810-2196 ml (25-30 ml/kg) Pt on G-Tube feeding with Jevity 1.2 at 40ml/24hrs Per Meal/Nutrition Activity Record . Enteral feeding is currently providing an estimated 1152 kcals and 53 gm Pro, to meet 99% kcal and 100+% Pro needs- adequate. Current Diet Order/ Nutrition Support G-Tube Feeding Jevity 1.2 at 40ml/24hrs Pertinent Medications Dulcolax (PRN), Oscal w/ Vitamin D, Vitamin D3, Keppra, Synthroid, MOM (PRN), Protonix, Fleet Enema (PRN) Pertinent Labs 11/21: Hgb/Hct 12.8/36.9, Potass 3.0, BUN/Cr 21/0.5, Glucose 153, Ca 8.4 11/20: Cl 97, Glucose 204 Nutritional Hx/Data Height 1.42 m Height (Calculated Centimeters) 142.2 Current Weight (lbs) 52.617 kg Weight (Calculated Kilograms) 52.6 Weight (Calculated Grams) 33202.7 [place] Body Weight 92 lbs (41.84 kg) % [place] Body Weight 127 Body Mass Index (BMI) 25.9 Weight Status Overweight GI Symptoms GI Symptoms None Last BM 11/21 x1 Skin Integrity/Comment: WNL, Intact Mayur: 13 Estimated Nutritional Goals BEE in Kcals: Adj wt of IBW Calories/Kcals/Kg 25-30 Kcals Calculated 5054-1290 Protein: Adj wt of IBW Protein g/k.0-1.2 Protein Calculated 46-56 Fluid: ml 6804-3105 ml (25-30 ml/kg) Nutritional Problem 1. Problem Problem Altered nutrition related labs Etiology r/t medical condition Signs/Symptoms: aeb lab result Potass 3.0, BUN /Cr 21/0.5, Glucose 153, Ca 8. 4 Malnutrition Related to Morbid Obesity Malnutrition related to morbid obesity No Intervention/Recommendation Comments 1.Continue on G-tube feeding Jevity 1.2 at 40ml/24hrs to meet nutritional needs. Expected Outcomes/Goals Expected Outcomes/Goals 1.Monitor on TF regiment and enteral feeding tolerance. 2.Monitor wt, skin integrity and nutrition related labs to Trend WNL. 3.F/U as low risk in 7 days,
[2018-11-23] MEDS: Calcium Carb/Vit D 500 mg/200 U Tab GT SCH ×3 (08:32→20:49)
[2018-11-23] MEDS: Levothyroxine 0.088 Mg Tab GT SCH (08:32)
[2018-11-23] MEDS: Lactobacillus Rhamnosus GG 15 Billion CFU CAP.SPRINK PO SCH (08:32)
[2018-11-23] MEDS: Multivitamin w/ Minerals Tab PO SCH (08:32)
[2018-11-23] MEDS: Levetiracetam 500 mg/5mL 5mL UDSyr *for ORAL USE ONLY GT SCH ×2 (08:33→16:14)
--- NOTE | 2018-11-23 09:17 | GI Progress Note ---
Subjective - Review of Systems Service Date: 11/23/18 Events since last encounter: No events Subjective: Responsive NAD Tolerating feeding GI OBJECTIVE - Results Result Diagrams: 11/22/18 06:15 11/22/18 06:15 Recent Labs: Laboratory Last Values WBC 8.5 Th/cmm (4.8-10.8) D 11/22/18 06:15 RBC 4.22 Mil/cmm (3.80-5.20) 11/22/18 06:15 Hgb 13.2 gm/dL (12-16) 11/22/18 06:15 Hct 39.1 % (41.0-60) L 11/22/18 06:15 MCV 92.6 fl (81-100) 11/22/18 06:15 MCH 31.2 pg (27.0-31.0) H 11/22/18 06:15 MCHC Differential 33.7 pg (28.0-36.0) 11/22/18 06:15 RDW 13.6 % (11.5-20.0) 11/22/18 06:15 Plt Count 155 Th/cmm (150-400) 11/22/18 06:15 MPV 8.6 fl 11/22/18 06:15 Add Manual Diff YES 11/21/18 07:00 Neutrophils % 76.7 % (40.0-80.0) 11/22/18 06:15 Band Neutrophils % 5 % (0-10) 11/21/18 07:00 Lymphocytes % 10.0 % (20.0-50.0) L 11/22/18 06:15 Monocytes % 7.7 % (2.0-10.0) 11/22/18 06:15 Eosinophils % 2.1 % (0.0-5.0) 11/22/18 06:15 Basophils % 3.5 % (0.0-2.0) H 11/22/18 06:15 Neutrophils (Manual) 78 % (40-80) 11/21/18 07:00 Lymphocytes 10 % (20-50) L 11/21/18 07:00 Monocytes 7 % (2-10) 11/21/18 07:00 Eosinophils 0 % (0-5) 11/21/18 07:00 Basophils 0 % (0-3) 11/21/18 07:00 Platelet Estimate ADEQUATE (NORMAL) 11/20/18 11:35 Platelet Morphology GIANT PLATELETS SEEN (NORMAL) 11/20/18 11:35 PT 10.4 SECONDS (9.5-11.5) 11/20/18 11:35 INR 1.00 (0.5-1.4) 11/20/18 11:35 PTT (Actin FS) 19.9 SECONDS (26.0-38.0) L 11/20/18 11:35 Sodium 140 mEq/L (136-145) 11/22/18 06:15 Potassium 3.3 mEq/L (3.5-5.1) L 11/22/18 06:15 Chloride 103 mEq/L (98-107) 11/22/18 06:15 Carbon Dioxide 30.0 mEq/L (21.0-31.0) 11/22/18 06:15 Anion Gap 10.3 (7.0-16.0) 11/22/18 06:15 BUN 16 mg/dL (7-25) 11/22/18 06:15 Creatinine 0.5 mg/dL (0.6-1.2) L 11/22/18 06:15 Est GFR ( Amer) > 60.0 ml/min (>90) 11/22/18 06:15 Est GFR (Non-Af Amer) > 60.0 ml/min 11/22/18 06:15 BUN/Creatinine Ratio 32.0 11/22/18 06:15 Glucose 169 mg/dL (70-105) H 11/22/18 06:15 Whole Bld Lactic Acid 1.72 mmol/L (0.60-1.99) 11/22/18 06:15 Calcium 8.6 mg/dL (8.6-10.3) 11/22/18 06:15 - Physical Exam Vitals and I&O: Vital Signs Temp 98 F 11/23/18 03:00 Pulse 68 11/23/18 03:00 Resp 18 11/23/18 05:00 BP 109/75 11/23/18 03:00 Pulse Ox 96 11/23/18 03:00 Intake & Output 11/22/18 11/23/18 11/23/18 18:59 06:59 18:59 Intake Total 760 100 Balance 760 100 Weight (lbs) 55.338 kg Intake: Intake, IV Amount 100 100 Piperacillin Sodium/ 100 100 Tazobact 4.5 gm In Sodium Chloride 0.9% 100 ml @ 100 mls/hr IV Q8HR [facility] Rx #:[id number] Tube Feeding 660 Other: # Voids 3 # Bowel Movements 2 Stool Characteristics Soft Soft Brown Brown Weight Source Bedscale Active Medications: Current Medications Acetaminophen (Tylenol) 650 mg GT Q4HR PRN PRN Reason: PAIN AND FEVER TEMP>100 Stop: 01/19/19 20:26 Last Admin: 11/22/18 20:42 Dose: 650 mg Bisacodyl (Dulcolax 10 Mg Supp) 10 mg RC Q96HR PRN PRN Reason: FOR MODERATE CONSTIPATION Stop: 01/19/19 20:14 Calcium/Vitamin D (Oscal W/Vitamin D) 2 tab GT TID [facility] Stop: 01/20/19 07:59 Last Admin: 11/23/18 08:32 Dose: 2 tab Cholecalciferol (Vitamin D3) 2,000 iu PO TID [facility] Stop: 01/19/19 20:59 Last Admin: 11/23/18 08:32 Dose: 2,000 iu Piperacillin Sod/Tazobactam (Sod 4.5 gm/ Sodium Chloride) 100 mls @ 100 mls/hr IV Q8HR [facility] Stop: 01/19/19 20:59 Last Admin: 11/23/18 04:18 Dose: 100 mls/hr Clindamycin Phosphate (Cleocin Pb) 600 mg in 50 mls @ 100 mls/hr IV Q6HR [facility] Stop: 01/20/19 00:00 Last Admin: 11/22/18 23:15 Dose: 100 mls/hr Lactobacillus Rhamnosus (Culturelle 15b) 1 each PO DAILY [facility] Stop: 01/21/19 08:59 Last Admin: 11/23/18 08:32 Dose: 1 each Levetiracetam (Keppra) 500 mg GT BID [facility] Stop: 01/19/19 20:29 Last Admin: 11/23/18 08:33 Dose: 500 mg Levothyroxine Sodium (Synthroid) 0.088 mg GT QDAC [facility] Stop: 01/20/19 07:29 Last Admin: 11/23/18 08:32 Dose: 0.088 mg Magnesium Hydroxide (Milk Of Magnesia) 30 ml GT Q72HR PRN PRN Reason: Constipation Stop: 01/19/19 20:29 Miscellaneous (Vte Chemical Prophylaxis Screen/ Admission) 1 ea [facility] PRN PRN PRN Reason: PROTOCOL Stop: 01/20/19 10:22 Miscellaneous (Probiotic Screen) 1 ea [facility] PRN PRN PRN Reason: PROTOCOL Stop: 01/20/19 15:18 Pantoprazole Sodium (Protonix) 40 mg IVP DAILY [facility] Stop: 01/20/19 08:59 Last Admin: 11/23/18 08:31 Dose: 40 mg Sodium Phosphate (Fleet Enema) 135 ml RC Q96HR PRN PRN Reason: SEVERE CONSTIPATION Stop: 01/19/19 20:14 Valproate Sodium (Depakene) 250 mg GT BID [facility]; Protocol Stop: 01/19/19 20:29 Last Admin: 11/23/18 08:33 Dose: 250 mg General: Alert, No acute distress Neck: Supple Cardiovascular: Regular rate, Normal S1, Normal S2 Lungs: Clear to auscultation Abdomen: Bowel sounds, Soft, no Tender - Procedures Procedures: Procedures Procedure Code Date CHANGE FEEDING DEVICE IN UP INTEST TRACT, PATIENT SERVICES ASSISTANT APPROACH [id number] 10/21/18 CHANGE GASTROSTOMY TUBE 73584 01/20/12 EGD DIAGNOSTIC BRUSH WASH 83746 11/17/[address] GASTROSTOMY TUBE 00041 11/23/13 OTHER ENDOSCOPY OF SM INTEST 45.13 11/23/13 PERCUTANEOUS [ENDOSCOPIC] GASTROSTOMY [PEG] 43.11 12/27/10 RECONSTRUCTION OF HIP SOCKET 34475 11/17/15 REPLACE GASTROSTOMY TUBE 97.02 11/23/13 REVISION OF FEEDING DEVICE IN STOMACH, PERCUTANEOUS APPROACH [id number] 11/17/15 VACCINATION NEC 99.55 07/13/13 Assessment/Plan - Problem List Patient Problems: All Active Problems Dysphagia (Acute) R13.10 GI bleeding (Acute) K92.2 Gastrostomy malfunction (Acute) K94.23 - Assessment Assessment: Dysphagia (Acute) R13.10 GI bleeding (Acute) K92.2 Gastrostomy malfunction (Acute) K94.23 - Plan Plan: Dysphagia (Acute) R13.10 Cont tube feeding GI bleeding (Acute) K92.2 No more bleeding Monitor H/H PPI Gastrostomy malfunction (Acute) K94.23 Functiong well now WBCs down to normal
--- NOTE | 2018-11-23 10:48 | Diagnostic Imaging Report ---
Exam: Portable chest x-ray HISTORY: Pneumonia Findings: Portable chest at 0 813 reviewed compatible prior study 11/21/2018 demonstrates persistent elevation of right hemidiaphragm with right basilar atelectasis. Mediastinal structures midline the heart is not enlarged bony thorax is intact. IMPRESSION: Elevation right hemidiaphragm, right basilar atelectasis.
--- NOTE | 2018-11-23 11:51 | General Progress Note ---
Subjective - Review of Systems Service Date: 11/23/18 Subjective: Patient seems fine no new concern reported Objective - Results Result Diagrams: 11/22/18 06:15 11/22/18 06:15 Recent Labs: Laboratory Last Values WBC 8.5 Th/cmm (4.8-10.8) D 11/22/18 06:15 RBC 4.22 Mil/cmm (3.80-5.20) 11/22/18 06:15 Hgb 13.2 gm/dL (12-16) 11/22/18 06:15 Hct 39.1 % (41.0-60) L 11/22/18 06:15 MCV 92.6 fl (81-100) 11/22/18 06:15 MCH 31.2 pg (27.0-31.0) H 11/22/18 06:15 MCHC Differential 33.7 pg (28.0-36.0) 11/22/18 06:15 RDW 13.6 % (11.5-20.0) 11/22/18 06:15 Plt Count 155 Th/cmm (150-400) 11/22/18 06:15 MPV 8.6 fl 11/22/18 06:15 Add Manual Diff YES 11/21/18 07:00 Neutrophils % 76.7 % (40.0-80.0) 11/22/18 06:15 Band Neutrophils % 5 % (0-10) 11/21/18 07:00 Lymphocytes % 10.0 % (20.0-50.0) L 11/22/18 06:15 Monocytes % 7.7 % (2.0-10.0) 11/22/18 06:15 Eosinophils % 2.1 % (0.0-5.0) 11/22/18 06:15 Basophils % 3.5 % (0.0-2.0) H 11/22/18 06:15 Neutrophils (Manual) 78 % (40-80) 11/21/18 07:00 Lymphocytes 10 % (20-50) L 11/21/18 07:00 Monocytes 7 % (2-10) 11/21/18 07:00 Eosinophils 0 % (0-5) 11/21/18 07:00 Basophils 0 % (0-3) 11/21/18 07:00 Platelet Estimate ADEQUATE (NORMAL) 11/20/18 11:35 Platelet Morphology GIANT PLATELETS SEEN (NORMAL) 11/20/18 11:35 PT 10.4 SECONDS (9.5-11.5) 11/20/18 11:35 INR 1.00 (0.5-1.4) 11/20/18 11:35 PTT (Actin FS) 19.9 SECONDS (26.0-38.0) L 11/20/18 11:35 Sodium 140 mEq/L (136-145) 11/22/18 06:15 Potassium 3.3 mEq/L (3.5-5.1) L 11/22/18 06:15 Chloride 103 mEq/L (98-107) 11/22/18 06:15 Carbon Dioxide 30.0 mEq/L (21.0-31.0) 11/22/18 06:15 Anion Gap 10.3 (7.0-16.0) 11/22/18 06:15 BUN 16 mg/dL (7-25) 11/22/18 06:15 Creatinine 0.5 mg/dL (0.6-1.2) L 11/22/18 06:15 Est GFR ( Amer) > 60.0 ml/min (>90) 11/22/18 06:15 Est GFR (Non-Af Amer) > 60.0 ml/min 11/22/18 06:15 BUN/Creatinine Ratio 32.0 11/22/18 06:15 Glucose 169 mg/dL (70-105) H 11/22/18 06:15 Whole Bld Lactic Acid 1.72 mmol/L (0.60-1.99) 11/22/18 06:15 Calcium 8.6 mg/dL (8.6-10.3) 11/22/18 06:15 - Physical Exam Vitals and I&O: Vital Signs Temp 97.4 F 11/23/18 07:00 Pulse 65 11/23/18 07:00 Resp 18 11/23/18 09:00 BP 138/67 11/23/18 07:00 Pulse Ox 95 11/23/18 07:00 Intake & Output 11/22/18 11/23/18 11/23/18 18:59 06:59 18:59 Intake Total 760 100 Balance 760 100 Weight (lbs) 55.338 kg Intake: Intake, IV Amount 100 100 Piperacillin Sodium/ 100 100 Tazobact 4.5 gm In Sodium Chloride 0.9% 100 ml @ 100 mls/hr IV Q8HR [facility] Rx #:[id number] Tube Feeding 660 Other: # Voids 3 # Bowel Movements 2 Stool Characteristics Soft Soft Soft Brown Brown Brown Weight Source Bedscale Active Medications: Current Medications Acetaminophen (Tylenol) 650 mg GT Q4HR PRN PRN Reason: PAIN AND FEVER TEMP>100 Stop: 01/19/19 20:26 Last Admin: 11/22/18 20:42 Dose: 650 mg Bisacodyl (Dulcolax 10 Mg Supp) 10 mg RC Q96HR PRN PRN Reason: FOR MODERATE CONSTIPATION Stop: 01/19/19 20:14 Calcium/Vitamin D (Oscal W/Vitamin D) 2 tab GT TID [facility] Stop: 01/20/19 07:59 Last Admin: 11/23/18 08:32 Dose: 2 tab Cholecalciferol (Vitamin D3) 2,000 iu PO TID [facility] Stop: 01/19/19 20:59 Last Admin: 11/23/18 08:32 Dose: 2,000 iu Piperacillin Sod/Tazobactam (Sod 4.5 gm/ Sodium Chloride) 100 mls @ 100 mls/hr IV Q8HR [facility] Stop: 01/19/19 20:59 Last Admin: 11/23/18 04:18 Dose: 100 mls/hr Clindamycin Phosphate (Cleocin Pb) 600 mg in 50 mls @ 100 mls/hr IV Q6HR [facility] Stop: 01/20/19 00:00 Last Admin: 11/22/18 23:15 Dose: 100 mls/hr Lactobacillus Rhamnosus (Culturelle 15b) 1 each PO DAILY [facility] Stop: 01/21/19 08:59 Last Admin: 11/23/18 08:32 Dose: 1 each Levetiracetam (Keppra) 500 mg GT BID [facility] Stop: 01/19/19 20:29 Last Admin: 11/23/18 08:33 Dose: 500 mg Levothyroxine Sodium (Synthroid) 0.088 mg GT QDAC [facility] Stop: 01/20/19 07:29 Last Admin: 11/23/18 08:32 Dose: 0.088 mg Magnesium Hydroxide (Milk Of Magnesia) 30 ml GT Q72HR PRN PRN Reason: Constipation Stop: 01/19/19 20:29 Miscellaneous (Vte Chemical Prophylaxis Screen/ Admission) 1 ea MC PRN PRN PRN Reason: PROTOCOL Stop: 01/20/19 10:22 Miscellaneous (Probiotic Screen) 1 ea MC PRN PRN PRN Reason: PROTOCOL Stop: 01/20/19 15:18 Pantoprazole Sodium (Protonix) 40 mg IVP DAILY [facility] Stop: 01/20/19 08:59 Last Admin: 11/23/18 08:31 Dose: 40 mg Sodium Phosphate (Fleet Enema) 135 ml RC Q96HR PRN PRN Reason: SEVERE CONSTIPATION Stop: 01/19/19 20:14 Valproate Sodium (Depakene) 250 mg GT BID [facility]; Protocol Stop: 01/19/19 20:29 Last Admin: 11/23/18 08:33 Dose: 250 mg General: Alert, No acute distress Neck: Supple Cardiovascular: Regular rate, Normal S1, Normal S2 Lungs: Clear to auscultation Abdomen: Bowel sounds, Soft, no Tender - Procedures Procedures: Procedures Procedure Code Date CHANGE FEEDING DEVICE IN UP INTEST TRACT, 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 [id number] 10/21/18 CHANGE GASTROSTOMY TUBE 33926 01/20/12 EGD DIAGNOSTIC BRUSH WASH 94038 11/17/[address] GASTROSTOMY TUBE 46671 11/23/13 OTHER ENDOSCOPY OF SM INTEST 45.13 11/23/13 PERCUTANEOUS [ENDOSCOPIC] GASTROSTOMY [PEG] 43.11 12/27/10 RECONSTRUCTION OF HIP SOCKET 56416 11/17/15 REPLACE GASTROSTOMY TUBE 97.02 11/23/13 REVISION OF FEEDING DEVICE IN STOMACH, PERCUTANEOUS APPROACH [id number] 11/17/15 VACCINATION NEC 99.55 07/13/13 Assessment/Plan - Problem List Patient Problems: All Active Problems Dysphagia (Acute) R13.10 GI bleeding (Acute) K92.2 Gastrostomy malfunction (Acute) K94.23 - Assessment Assessment: Pneumonia Dysphagia Seizure disorder Hypothyroidism - Plan Plan: Continue antibiotics Tube feeding Keppra Plan of care discussed with nursing staff Nutritional Asmnt/Malnutr-PDOC - Dietary Evaluation Malnutrition Findings (Please click <Entered> for more info): Nutritional Asmnt/Malnutrition Start: 11/21/18 12: 13 Text: Status: Complete Freq: Protocol: Document 11/21/18 12:14 JEXAMUS (Rec: 11/21/18 12:23 [email or web address] [email or web address]) Nutritional Asmnt/Malnutrition Patient General Information Nutritional Screening High Risk Consult Diagnosis Sepsis, Pneumonia Pertinent Medical Hx/Surgical Hx Asthma/COPD, PUD/GERD, Arthritis, hyponatremia, Hepatitis B, PEG/G-Tube, Seizure disorder, hypothyroidism Subjective Information Consult: G-Tube Feeding Pt was downgraded to low risk d/t well tolerance on enteral feeding and meeting nutritional needs. Pt is a 68-year-old female from nursing facility admitted on 11/20 c/o coffee-ground emesis. Per Meal/Nutrition Activity Record, Pt is on G- Tube feeding with Jevity 1.2 at 40ml/24 hrs, no residual noted. Per Nurse note on 11/21, GT Feeding tolerating well, no residual, G-Tube Intact. HT: 48 WT: 116 LB 14.4 oz (53.18 kg) ADJ BW: 46.36 kg BMI: 26.20 (Overweight) GI: Non-Tender, Round, Coffee- ground emesis BM: 11/21 x1 I/O: 1930/Not Noted Skin: WNL, Intact Mayur: 13 Diet Order: Jevity 1.2 at 40ml /24hrs Estimated Energy Needs: ( Geriatric, ADJ BW) 3206-6597 kcals (25-30 kcals/ kg) 46-56g Pro (1.0-1.2 g/kg) 4127-7938 ml (25-30 ml/kg) Pt on G-Tube feeding with Jevity 1.2 at 40ml/24hrs Per Meal/Nutrition Activity Record . Enteral feeding is currently providing an estimated 1152 kcals and 53 gm Pro, to meet 99% kcal and 100+% Pro needs- adequate. Current Diet Order/ Nutrition Support G-Tube Feeding Jevity 1.2 at 40ml/24hrs Pertinent Medications Dulcolax (PRN), Oscal w/ Vitamin D, Vitamin D3, Keppra, Synthroid, MOM (PRN), Protonix, Fleet Enema (PRN) Pertinent Labs 11/21: Hgb/Hct 12.8/36.9, Potass 3.0, BUN/Cr 21/0.5, Glucose 153, Ca 8.4 11/20: Cl 97, Glucose 204 Nutritional Hx/Data Height 1.42 m Height (Calculated Centimeters) 142.2 Current Weight (lbs) 52.617 kg Weight (Calculated Kilograms) 52.6 Weight (Calculated Grams) 56785.7 [place] Body Weight 92 lbs (41.84 kg) % [place] Body Weight 127 Body Mass Index (BMI) 25.9 Weight Status Overweight GI Symptoms GI Symptoms None Last BM 8/ x1 Skin Integrity/Comment: WNL, Intact Mayur: 13 Estimated Nutritional Goals BEE in Kcals: Adj wt of IBW Calories/Kcals/Kg 25-30 Kcals Calculated 1771-1492 Protein: Adj wt of IBW Protein g/k.0-1.2 Protein Calculated 46-56 Fluid: ml 4196-2050 ml (25-30 ml/kg) Nutritional Problem 1. Problem Problem Altered nutrition related labs Etiology r/t medical condition Signs/Symptoms: aeb lab result Potass 3.0, BUN /Cr 21/0.5, Glucose 153, Ca 8. 4 Malnutrition Related to Morbid Obesity Malnutrition related to morbid obesity No Intervention/Recommendation Comments 1.Continue on G-tube feeding Jevity 1.2 at 40ml/24hrs to meet nutritional needs. Expected Outcomes/Goals Expected Outcomes/Goals 1.Monitor on TF regiment and enteral feeding tolerance. 2.Monitor wt, skin integrity and nutrition related labs to Trend WNL. 3.F/U as low risk in 7 days,
--- NOTE | 2018-11-23 15:33 | Infectious Disease Prog Note ---
Infectious Disease Subjective - Review of Systems Service Date: 11/23/18 Subjective: There is no new change, no fever, Infectious Disease Objective - Results Result Diagrams: 11/22/18 06:15 11/22/18 06:15 Recent Labs: Laboratory Last Values WBC 8.5 Th/cmm (4.8-10.8) D 11/22/18 06:15 RBC 4.22 Mil/cmm (3.80-5.20) 11/22/18 06:15 Hgb 13.2 gm/dL (12-16) 11/22/18 06:15 Hct 39.1 % (41.0-60) L 11/22/18 06:15 MCV 92.6 fl (81-100) 11/22/18 06:15 MCH 31.2 pg (27.0-31.0) H 11/22/18 06:15 MCHC Differential 33.7 pg (28.0-36.0) 11/22/18 06:15 RDW 13.6 % (11.5-20.0) 11/22/18 06:15 Plt Count 155 Th/cmm (150-400) 11/22/18 06:15 MPV 8.6 fl 11/22/18 06:15 Add Manual Diff YES 11/21/18 07:00 Neutrophils % 76.7 % (40.0-80.0) 11/22/18 06:15 Band Neutrophils % 5 % (0-10) 11/21/18 07:00 Lymphocytes % 10.0 % (20.0-50.0) L 11/22/18 06:15 Monocytes % 7.7 % (2.0-10.0) 11/22/18 06:15 Eosinophils % 2.1 % (0.0-5.0) 11/22/18 06:15 Basophils % 3.5 % (0.0-2.0) H 11/22/18 06:15 Neutrophils (Manual) 78 % (40-80) 11/21/18 07:00 Lymphocytes 10 % (20-50) L 11/21/18 07:00 Monocytes 7 % (2-10) 11/21/18 07:00 Eosinophils 0 % (0-5) 11/21/18 07:00 Basophils 0 % (0-3) 11/21/18 07:00 Platelet Estimate ADEQUATE (NORMAL) 11/20/18 11:35 Platelet Morphology GIANT PLATELETS SEEN (NORMAL) 11/20/18 11:35 PT 10.4 SECONDS (9.5-11.5) 11/20/18 11:35 INR 1.00 (0.5-1.4) 11/20/18 11:35 PTT (Actin FS) 19.9 SECONDS (26.0-38.0) L 11/20/18 11:35 Sodium 140 mEq/L (136-145) 11/22/18 06:15 Potassium 3.3 mEq/L (3.5-5.1) L 11/22/18 06:15 Chloride 103 mEq/L (98-107) 11/22/18 06:15 Carbon Dioxide 30.0 mEq/L (21.0-31.0) 11/22/18 06:15 Anion Gap 10.3 (7.0-16.0) 11/22/18 06:15 BUN 16 mg/dL (7-25) 11/22/18 06:15 Creatinine 0.5 mg/dL (0.6-1.2) L 11/22/18 06:15 Est GFR ( Amer) > 60.0 ml/min (>90) 11/22/18 06:15 Est GFR (Non-Af Amer) > 60.0 ml/min 11/22/18 06:15 BUN/Creatinine Ratio 32.0 11/22/18 06:15 Glucose 169 mg/dL (70-105) H 11/22/18 06:15 Whole Bld Lactic Acid 1.72 mmol/L (0.60-1.99) 11/22/18 06:15 Calcium 8.6 mg/dL (8.6-10.3) 11/22/18 06:15 - Physical Exam Vitals and I&O: Vital Signs Temp 96.5 F 11/23/18 11:00 Pulse 67 11/23/18 11:00 Resp 18 11/23/18 13:00 BP 154/71 11/23/18 11:00 Pulse Ox 96 11/23/18 11:00 Intake & Output 11/22/18 11/23/18 11/23/18 18:59 06:59 18:59 Intake Total 760 200 Balance 760 200 Weight (lbs) 55.338 kg Intake: Intake, IV Amount 100 200 Piperacillin Sodium/ 100 200 Tazobact 4.5 gm In Sodium Chloride 0.9% 100 ml @ 100 mls/hr IV Q8HR [facility] Rx #:[id number] Tube Feeding 660 Other: # Voids 3 # Bowel Movements 2 Stool Characteristics Soft Soft Soft Brown Brown Brown Weight Source Bedscale Active Medications: Current Medications Acetaminophen (Tylenol) 650 mg GT Q4HR PRN PRN Reason: PAIN AND FEVER TEMP>100 Stop: 01/19/19 20:26 Last Admin: 11/22/18 20:42 Dose: 650 mg Bisacodyl (Dulcolax 10 Mg Supp) 10 mg RC Q96HR PRN PRN Reason: FOR MODERATE CONSTIPATION Stop: 01/19/19 20:14 Calcium/Vitamin D (Oscal W/Vitamin D) 2 tab GT TID [facility] Stop: 01/20/19 07:59 Last Admin: 11/23/18 14:01 Dose: 2 tab Cholecalciferol (Vitamin D3) 2,000 iu PO TID [facility] Stop: 01/19/19 20:59 Last Admin: 11/23/18 14:01 Dose: 2,000 iu Piperacillin Sod/Tazobactam (Sod 4.5 gm/ Sodium Chloride) 100 mls @ 100 mls/hr IV Q8HR [facility] Stop: 01/19/19 20:59 Last Admin: 11/23/18 12:52 Dose: 100 mls/hr Clindamycin Phosphate (Cleocin Pb) 600 mg in 50 mls @ 100 mls/hr IV Q6HR [facility] Stop: 01/20/19 00:00 Last Admin: 11/22/18 23:15 Dose: 100 mls/hr Lactobacillus Rhamnosus (Culturelle 15b) 1 each PO DAILY [facility] Stop: 01/21/19 08:59 Last Admin: 11/23/18 08:32 Dose: 1 each Levetiracetam (Keppra) 500 mg GT BID [facility] Stop: 01/19/19 20:29 Last Admin: 11/23/18 08:33 Dose: 500 mg Levothyroxine Sodium (Synthroid) 0.088 mg GT QDAC [facility] Stop: 01/20/19 07:29 Last Admin: 11/23/18 08:32 Dose: 0.088 mg Magnesium Hydroxide (Milk Of Magnesia) 30 ml GT Q72HR PRN PRN Reason: Constipation Stop: 01/19/19 20:29 Miscellaneous (Vte Chemical Prophylaxis Screen/ Admission) 1 ea MC PRN PRN PRN Reason: PROTOCOL Stop: 01/20/19 10:22 Miscellaneous (Probiotic Screen) 1 ea MC PRN PRN PRN Reason: PROTOCOL Stop: 01/20/19 15:18 Pantoprazole Sodium (Protonix) 40 mg IVP DAILY [facility] Stop: 01/20/19 08:59 Last Admin: 11/23/18 08:31 Dose: 40 mg Sodium Phosphate (Fleet Enema) 135 ml RC Q96HR PRN PRN Reason: SEVERE CONSTIPATION Stop: 01/19/19 20:14 Valproate Sodium (Depakene) 250 mg GT BID [facility]; Protocol Stop: 01/19/19 20:29 Last Admin: 11/23/18 08:33 Dose: 250 mg General: no acute distress, well developed, well nourished HEENT: atraumatic, normocephalic, PERRLA, EOMI, moist mucous membrane Neck: supple, no thyromegaly Cardiovascular: S1S2, regular Lungs: clear to auscultation bilaterally, clear to percussion Abdomen: soft, no tender, no distended, no rebound Extremities: no cyanosis, no clubbing, no edema Neurological: awake, alert, other (aggressive) Skin: intact - Procedures Procedures: Procedures Procedure Code Date CHANGE FEEDING DEVICE IN UP INTEST TRACT, 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 [id number] 10/21/18 CHANGE GASTROSTOMY TUBE 74827 01/20/12 EGD DIAGNOSTIC BRUSH WASH 27097 11/17/[address] GASTROSTOMY TUBE 98386 11/23/13 OTHER ENDOSCOPY OF SM INTEST 45.13 11/23/13 PERCUTANEOUS [ENDOSCOPIC] GASTROSTOMY [PEG] 43.11 12/27/10 RECONSTRUCTION OF HIP SOCKET 69131 11/17/15 REPLACE GASTROSTOMY TUBE 97.02 11/23/13 REVISION OF FEEDING DEVICE IN STOMACH, PERCUTANEOUS APPROACH [id number] 11/17/15 VACCINATION NEC 99.55 07/13/13 Infectious Disease Assmt/Plan - Problem List Patient Problems: All Active Problems Dysphagia (Acute) R13.10 GI bleeding (Acute) K92.2 Gastrostomy malfunction (Acute) K94.23 - Assessment Assessment: 1. Severe sepsis on the presentation. 2. Aspiration pneumonia. 3. Lactic acidosis. 4. Mental retardation. 5. Seizure disorder. 6. Psychosis and aggressive behavior. 7. Hypothyroidism. - Plan Plan: Continue Clinda and Zosyn. Nutritional Asmnt/Malnutr-PDOC - Dietary Evaluation Malnutrition Findings (Please click <Entered> for more info): Nutritional Asmnt/Malnutrition Start: 11/21/18 12: 13 Text: Status: Complete Freq: Protocol: Document 11/21/18 12:14 RIMMASIMEON (Rec: 11/21/18 12:23 [email or web address] [email or web address]) Nutritional Asmnt/Malnutrition Patient General Information Nutritional Screening High Risk Consult Diagnosis Sepsis, Pneumonia Pertinent Medical Hx/Surgical Hx Asthma/COPD, PUD/GERD, Arthritis, hyponatremia, Hepatitis B, PEG/G-Tube, Seizure disorder, hypothyroidism Subjective Information Consult: G-Tube Feeding Pt was downgraded to low risk d/t well tolerance on enteral feeding and meeting nutritional needs. Pt is a 68-year-old female from nursing facility admitted on 11/20 c/o coffee-ground emesis. Per Meal/Nutrition Activity Record, Pt is on G- Tube feeding with Jevity 1.2 at 40ml/24 hrs, no residual noted. Per Nurse note on 11/21, GT Feeding tolerating well, no residual, G-Tube Intact. HT: 48 WT: 116 LB 14.4 oz (53.18 kg) ADJ BW: 46.36 kg BMI: 26.20 (Overweight) GI: Non-Tender, Round, Coffee- ground emesis BM: 11/21 x1 I/O: 1930/Not Noted Skin: WNL, Intact Mayur: 13 Diet Order: Jevity 1.2 at 40ml /24hrs Estimated Energy Needs: ( Geriatric, ADJ BW) 2523-5147 kcals (25-30 kcals/ kg) 46-56g Pro (1.0-1.2 g/kg) 5656-9365 ml (25-30 ml/kg) Pt on G-Tube feeding with Jevity 1.2 at 40ml/24hrs Per Meal/Nutrition Activity Record . Enteral feeding is currently providing an estimated 1152 kcals and 53 gm Pro, to meet 99% kcal and 100+% Pro needs- adequate. Current Diet Order/ Nutrition Support G-Tube Feeding Jevity 1.2 at 40ml/24hrs Pertinent Medications Dulcolax (PRN), Oscal w/ Vitamin D, Vitamin D3, Keppra, Synthroid, MOM (PRN), Protonix, Fleet Enema (PRN) Pertinent Labs 11/21: Hgb/Hct 12.8/36.9, Potass 3.0, BUN/Cr 21/0.5, Glucose 153, Ca 8.4 11/20: Cl 97, Glucose 204 Nutritional Hx/Data Height 1.42 m Height (Calculated Centimeters) 142.2 Current Weight (lbs) 52.617 kg Weight (Calculated Kilograms) 52.6 Weight (Calculated Grams) 64095.7 [place] Body Weight 92 lbs (41.84 kg) % [place] Body Weight 127 Body Mass Index (BMI) 25.9 Weight Status Overweight GI Symptoms GI Symptoms None Last BM 11/21 x1 Skin Integrity/Comment: WNL, Intact Mayur: 13 Estimated Nutritional Goals BEE in Kcals: Adj wt of IBW Calories/Kcals/Kg 25-30 Kcals Calculated 3706-7382 Protein: Adj wt of IBW Protein g/k.0-1.2 Protein Calculated 46-56 Fluid: ml 8682-7017 ml (25-30 ml/kg) Nutritional Problem 1. Problem Problem Altered nutrition related labs Etiology r/t medical condition Signs/Symptoms: aeb lab result Potass 3.0, BUN /Cr 21/0.5, Glucose 153, Ca 8. 4 Malnutrition Related to Morbid Obesity Malnutrition related to morbid obesity No Intervention/Recommendation Comments 1.Continue on G-tube feeding Jevity 1.2 at 40ml/24hrs to meet nutritional needs. Expected Outcomes/Goals Expected Outcomes/Goals 1.Monitor on TF regiment and enteral feeding tolerance. 2.Monitor wt, skin integrity and nutrition related labs to Trend WNL. 3.F/U as low risk in 7 days,
[2018-11-24] MEDS: Clindamycin 600mg/50mL 600 MG/50 ML BAG IV SCH ×2 (00:16→04:31)
[2018-11-24] MEDS: Levothyroxine 0.088 Mg Tab GT SCH (06:43)
[2018-11-24] MEDS: Lactobacillus Rhamnosus GG 15 Billion CFU CAP.SPRINK PO SCH (09:11)
[2018-11-24] MEDS: Multivitamin w/ Minerals Tab PO SCH (09:11)
[2018-11-24] MEDS: Calcium Carb/Vit D 500 mg/200 U Tab GT SCH ×3 (09:11→21:47)
[2018-11-24] MEDS: Levetiracetam 500 mg/5mL 5mL UDSyr *for ORAL USE ONLY GT SCH ×2 (09:12→16:42)
--- NOTE | 2018-11-24 11:26 | Infectious Disease Prog Note ---
Infectious Disease Subjective - Review of Systems Service Date: 11/24/18 Events since last encounter: Vomited this am,. Subjective: There is no new change, no fever, Infectious Disease Objective - Results Result Diagrams: 11/22/18 06:15 11/22/18 06:15 Recent Labs: Laboratory Last Values WBC 8.5 Th/cmm (4.8-10.8) D 11/22/18 06:15 RBC 4.22 Mil/cmm (3.80-5.20) 11/22/18 06:15 Hgb 13.2 gm/dL (12-16) 11/22/18 06:15 Hct 39.1 % (41.0-60) L 11/22/18 06:15 MCV 92.6 fl (81-100) 11/22/18 06:15 MCH 31.2 pg (27.0-31.0) H 11/22/18 06:15 MCHC Differential 33.7 pg (28.0-36.0) 11/22/18 06:15 RDW 13.6 % (11.5-20.0) 11/22/18 06:15 Plt Count 155 Th/cmm (150-400) 11/22/18 06:15 MPV 8.6 fl 11/22/18 06:15 Add Manual Diff YES 11/21/18 07:00 Neutrophils % 76.7 % (40.0-80.0) 11/22/18 06:15 Band Neutrophils % 5 % (0-10) 11/21/18 07:00 Lymphocytes % 10.0 % (20.0-50.0) L 11/22/18 06:15 Monocytes % 7.7 % (2.0-10.0) 11/22/18 06:15 Eosinophils % 2.1 % (0.0-5.0) 11/22/18 06:15 Basophils % 3.5 % (0.0-2.0) H 11/22/18 06:15 Neutrophils (Manual) 78 % (40-80) 11/21/18 07:00 Lymphocytes 10 % (20-50) L 11/21/18 07:00 Monocytes 7 % (2-10) 11/21/18 07:00 Eosinophils 0 % (0-5) 11/21/18 07:00 Basophils 0 % (0-3) 11/21/18 07:00 Platelet Estimate ADEQUATE (NORMAL) 11/20/18 11:35 Platelet Morphology GIANT PLATELETS SEEN (NORMAL) 11/20/18 11:35 PT 10.4 SECONDS (9.5-11.5) 11/20/18 11:35 INR 1.00 (0.5-1.4) 11/20/18 11:35 PTT (Actin FS) 19.9 SECONDS (26.0-38.0) L 11/20/18 11:35 Sodium 140 mEq/L (136-145) 11/22/18 06:15 Potassium 3.3 mEq/L (3.5-5.1) L 11/22/18 06:15 Chloride 103 mEq/L (98-107) 11/22/18 06:15 Carbon Dioxide 30.0 mEq/L (21.0-31.0) 11/22/18 06:15 Anion Gap 10.3 (7.0-16.0) 11/22/18 06:15 BUN 16 mg/dL (7-25) 11/22/18 06:15 Creatinine 0.5 mg/dL (0.6-1.2) L 11/22/18 06:15 Est GFR ( Amer) > 60.0 ml/min (>90) 11/22/18 06:15 Est GFR (Non-Af Amer) > 60.0 ml/min 11/22/18 06:15 BUN/Creatinine Ratio 32.0 11/22/18 06:15 Glucose 169 mg/dL (70-105) H 11/22/18 06:15 Whole Bld Lactic Acid 1.72 mmol/L (0.60-1.99) 11/22/18 06:15 Calcium 8.6 mg/dL (8.6-10.3) 11/22/18 06:15 - Physical Exam Vitals and I&O: Vital Signs Temp 96.9 F 11/24/18 08:00 Pulse 85 11/24/18 08:00 Resp 18 11/24/18 08:00 BP 108/62 11/24/18 08:00 Pulse Ox 96 11/24/18 08:00 Intake & Output 11/23/18 11/24/18 11/24/18 18:59 06:59 18:59 Intake Total 1055 150 Output Total 2 Balance 1053 150 Weight (lbs) 55.338 kg Intake: Intake, IV Amount 100 150 Clindamycin 600mg/50mL 50 600 mg In 50 ml @ 100 mls /hr IV Q6HR [facility] Rx#: [id number] Piperacillin Sodium/ 100 100 Tazobact 4.5 gm In Sodium Chloride 0.9% 100 ml @ 100 mls/hr IV Q8HR [facility] Rx #:[id number] Tube Feeding 715 Other 240 Output: Stool 2 Other: # Voids 3 Stool Characteristics Soft Soft Brown Brown Weight Source Bedscale Active Medications: Current Medications Acetaminophen (Tylenol) 650 mg GT Q4HR PRN PRN Reason: PAIN AND FEVER TEMP>100 Stop: 01/19/19 20:26 Last Admin: 11/22/18 20:42 Dose: 650 mg Bisacodyl (Dulcolax 10 Mg Supp) 10 mg RC Q96HR PRN PRN Reason: FOR MODERATE CONSTIPATION Stop: 01/19/19 20:14 Calcium/Vitamin D (Oscal W/Vitamin D) 2 tab GT TID [facility] Stop: 01/20/19 07:59 Last Admin: 11/24/18 09:11 Dose: 2 tab Cholecalciferol (Vitamin D3) 2,000 iu PO TID [facility] Stop: 01/19/19 20:59 Last Admin: 11/24/18 09:11 Dose: 2,000 iu Piperacillin Sod/Tazobactam (Sod 4.5 gm/ Sodium Chloride) 100 mls @ 100 mls/hr IV Q8HR [facility] Stop: 01/19/19 20:59 Last Admin: 11/24/18 06:42 Dose: 100 mls/hr Clindamycin Phosphate 600 mg/ (Sodium Chloride) 54 mls @ 108 mls/hr IV Q6HR [facility] Stop: 01/23/19 11:59 Lactobacillus Rhamnosus (Culturelle 15b) 1 each PO DAILY [facility] Stop: 01/21/19 08:59 Last Admin: 11/24/18 09:11 Dose: 1 each Levetiracetam (Keppra) 500 mg GT BID [facility] Stop: 01/19/19 20:29 Last Admin: 11/24/18 09:12 Dose: 500 mg Levothyroxine Sodium (Synthroid) 0.088 mg GT QDAC [facility] Stop: 01/20/19 07:29 Last Admin: 11/24/18 06:43 Dose: 0.088 mg Magnesium Hydroxide (Milk Of Magnesia) 30 ml GT Q72HR PRN PRN Reason: Constipation Stop: 01/19/19 20:29 Miscellaneous (Vte Chemical Prophylaxis Screen/ Admission) 1 ea PRN PRN PRN Reason: PROTOCOL Stop: 01/20/19 10:22 Miscellaneous (Probiotic Screen) 1 ea PRN PRN PRN Reason: PROTOCOL Stop: 01/20/19 15:18 Pantoprazole Sodium (Protonix) 40 mg IVP DAILY [facility] Stop: 01/20/19 08:59 Last Admin: 11/24/18 09:12 Dose: 40 mg Sodium Phosphate (Fleet Enema) 135 ml RC Q96HR PRN PRN Reason: SEVERE CONSTIPATION Stop: 01/19/19 20:14 Valproate Sodium (Depakene) 250 mg GT BID [facility]; Protocol Stop: 01/19/19 20:29 Last Admin: 11/24/18 09:11 Dose: 250 mg General: no acute distress, well developed, well nourished HEENT: atraumatic, normocephalic, PERRLA, EOMI, moist mucous membrane Neck: supple, no thyromegaly Cardiovascular: S1S2, regular Lungs: clear to auscultation bilaterally, clear to percussion Abdomen: soft, no tender, no distended Extremities: no cyanosis, no clubbing, no edema Neurological: awake, alert, other (aggressive) Skin: intact - Procedures Procedures: Procedures Procedure Code Date CHANGE FEEDING DEVICE IN UP INTEST TRACT, [employer] APPROACH [id number] 10/21/18 CHANGE GASTROSTOMY TUBE 47023 01/20/12 EGD DIAGNOSTIC BRUSH WASH 56361 11/17/[address] GASTROSTOMY TUBE 86626 11/23/13 OTHER ENDOSCOPY OF SM INTEST 45.13 11/23/13 PERCUTANEOUS [ENDOSCOPIC] GASTROSTOMY [PEG] 43.11 12/27/10 RECONSTRUCTION OF HIP SOCKET 84082 11/17/15 REPLACE GASTROSTOMY TUBE 97.02 11/23/13 REVISION OF FEEDING DEVICE IN STOMACH, PERCUTANEOUS APPROACH [id number] 11/17/15 VACCINATION NEC 99.55 07/13/13 Infectious Disease Assmt/Plan - Problem List Patient Problems: All Active Problems Dysphagia (Acute) R13.10 GI bleeding (Acute) K92.2 Gastrostomy malfunction (Acute) K94.23 - Assessment Assessment: 1. Severe sepsis on the presentation. 2. Aspiration pneumonia. 3. Lactic acidosis. 4. Mental retardation. 5. Seizure disorder. 6. Psychosis and aggressive behavior. 7. Hypothyroidism. - Plan Plan: Continue Clinda and Zosyn. Nutritional Asmnt/Malnutr-PDOC - Dietary Evaluation Malnutrition Findings (Please click <Entered> for more info): Nutritional Asmnt/Malnutrition Start: 11/21/18 12: 13 Text: Status: Complete Freq: Protocol: Document 11/21/18 12:14 GREGORY (Rec: 11/21/18 12:23 GREGORY [email or web address]) Nutritional Asmnt/Malnutrition Patient General Information Nutritional Screening High Risk Consult Diagnosis Sepsis, Pneumonia Pertinent Medical Hx/Surgical Hx Asthma/COPD, PUD/GERD, Arthritis, hyponatremia, Hepatitis B, PEG/G-Tube, Seizure disorder, hypothyroidism Subjective Information Consult: G-Tube Feeding Pt was downgraded to low risk d/t well tolerance on enteral feeding and meeting nutritional needs. Pt is a 68-year-old female from nursing facility admitted on 11/20 c/o coffee-ground emesis. Per Meal/Nutrition Activity Record, Pt is on G- Tube feeding with Jevity 1.2 at 40ml/24 hrs, no residual noted. Per Nurse note on 11/21, GT Feeding tolerating well, no residual, G-Tube Intact. HT: 48 WT: 116 LB 14.4 oz (53.18 kg) ADJ BW: 46.36 kg BMI: 26.20 (Overweight) GI: Non-Tender, Round, Coffee- ground emesis BM: 11/21 x1 I/O: 1930/Not Noted Skin: WNL, Intact Mayur: 13 Diet Order: Jevity 1.2 at 40ml /24hrs Estimated Energy Needs: ( Geriatric, ADJ BW) 7074-7586 kcals (25-30 kcals/ kg) 46-56g Pro (1.0-1.2 g/kg) 0492-8291 ml (25-30 ml/kg) Pt on G-Tube feeding with Jevity 1.2 at 40ml/24hrs Per Meal/Nutrition Activity Record . Enteral feeding is currently providing an estimated 1152 kcals and 53 gm Pro, to meet 99% kcal and 100+% Pro needs- adequate. Current Diet Order/ Nutrition Support G-Tube Feeding Jevity 1.2 at 40ml/24hrs Pertinent Medications Dulcolax (PRN), Oscal w/ Vitamin D, Vitamin D3, Keppra, Synthroid, MOM (PRN), Protonix, Fleet Enema (PRN) Pertinent Labs 11/21: Hgb/Hct 12.8/36.9, Potass 3.0, BUN/Cr 21/0.5, Glucose 153, Ca 8.4 11/20: Cl 97, Glucose 204 Nutritional Hx/Data Height 1.42 m Height (Calculated Centimeters) 142.2 Current Weight (lbs) 52.617 kg Weight (Calculated Kilograms) 52.6 Weight (Calculated Grams) 40228.7 [place] Body Weight 92 lbs (41.84 kg) % [place] Body Weight 127 Body Mass Index (BMI) 25.9 Weight Status Overweight GI Symptoms GI Symptoms None Last BM 11/21 x1 Skin Integrity/Comment: WNL, Intact Mayur: 13 Estimated Nutritional Goals BEE in Kcals: Adj wt of IBW Calories/Kcals/Kg 25-30 Kcals Calculated 3890-0063 Protein: Adj wt of IBW Protein g/k.0-1.2 Protein Calculated 46-56 Fluid: ml 1706-5455 ml (25-30 ml/kg) Nutritional Problem 1. Problem Problem Altered nutrition related labs Etiology r/t medical condition Signs/Symptoms: aeb lab result Potass 3.0, BUN /Cr 21/0.5, Glucose 153, Ca 8. 4 Malnutrition Related to Morbid Obesity Malnutrition related to morbid obesity No Intervention/Recommendation Comments 1.Continue on G-tube feeding Jevity 1.2 at 40ml/24hrs to meet nutritional needs. Expected Outcomes/Goals Expected Outcomes/Goals 1.Monitor on TF regiment and enteral feeding tolerance. 2.Monitor wt, skin integrity and nutrition related labs to Trend WNL. 3.F/U as low risk in 7 days,
--- NOTE | 2018-11-24 21:36 | General Progress Note ---
Subjective - Review of Systems Service Date: 11/24/18 Subjective: Patient seen and examined afebrile breathing fine Objective - Results Result Diagrams: 11/22/18 06:15 11/22/18 06:15 Recent Labs: Laboratory Last Values WBC 8.5 Th/cmm (4.8-10.8) D 11/22/18 06:15 RBC 4.22 Mil/cmm (3.80-5.20) 11/22/18 06:15 Hgb 13.2 gm/dL (12-16) 11/22/18 06:15 Hct 39.1 % (41.0-60) L 11/22/18 06:15 MCV 92.6 fl (81-100) 11/22/18 06:15 MCH 31.2 pg (27.0-31.0) H 11/22/18 06:15 MCHC Differential 33.7 pg (28.0-36.0) 11/22/18 06:15 RDW 13.6 % (11.5-20.0) 11/22/18 06:15 Plt Count 155 Th/cmm (150-400) 11/22/18 06:15 MPV 8.6 fl 11/22/18 06:15 Add Manual Diff YES 11/21/18 07:00 Neutrophils % 76.7 % (40.0-80.0) 11/22/18 06:15 Band Neutrophils % 5 % (0-10) 11/21/18 07:00 Lymphocytes % 10.0 % (20.0-50.0) L 11/22/18 06:15 Monocytes % 7.7 % (2.0-10.0) 11/22/18 06:15 Eosinophils % 2.1 % (0.0-5.0) 11/22/18 06:15 Basophils % 3.5 % (0.0-2.0) H 11/22/18 06:15 Neutrophils (Manual) 78 % (40-80) 11/21/18 07:00 Lymphocytes 10 % (20-50) L 11/21/18 07:00 Monocytes 7 % (2-10) 11/21/18 07:00 Eosinophils 0 % (0-5) 11/21/18 07:00 Basophils 0 % (0-3) 11/21/18 07:00 Platelet Estimate ADEQUATE (NORMAL) 11/20/18 11:35 Platelet Morphology GIANT PLATELETS SEEN (NORMAL) 11/20/18 11:35 PT 10.4 SECONDS (9.5-11.5) 11/20/18 11:35 INR 1.00 (0.5-1.4) 11/20/18 11:35 PTT (Actin FS) 19.9 SECONDS (26.0-38.0) L 11/20/18 11:35 Sodium 140 mEq/L (136-145) 11/22/18 06:15 Potassium 3.3 mEq/L (3.5-5.1) L 11/22/18 06:15 Chloride 103 mEq/L (98-107) 11/22/18 06:15 Carbon Dioxide 30.0 mEq/L (21.0-31.0) 11/22/18 06:15 Anion Gap 10.3 (7.0-16.0) 11/22/18 06:15 BUN 16 mg/dL (7-25) 11/22/18 06:15 Creatinine 0.5 mg/dL (0.6-1.2) L 11/22/18 06:15 Est GFR ( Amer) > 60.0 ml/min (>90) 11/22/18 06:15 Est GFR (Non-Af Amer) > 60.0 ml/min 11/22/18 06:15 BUN/Creatinine Ratio 32.0 11/22/18 06:15 Glucose 169 mg/dL (70-105) H 11/22/18 06:15 Whole Bld Lactic Acid 1.72 mmol/L (0.60-1.99) 11/22/18 06:15 Calcium 8.6 mg/dL (8.6-10.3) 11/22/18 06:15 - Physical Exam Vitals and I&O: Vital Signs Temp 97.8 F 11/24/18 20:21 Pulse 78 11/24/18 20:21 Resp 18 11/24/18 20:21 BP 133/94 11/24/18 20:21 Pulse Ox 94 11/24/18 20:21 Intake & Output 11/24/18 11/24/18 11/25/18 06:59 18:59 06:59 Intake Total 150 1109 Output Total 3 Balance 150 1106 Weight (lbs) 55.338 kg Intake: Intake, IV Amount 150 154 Clindamycin 600 mg In 54 Sodium Chloride 0.9% 50 ml @ 108 mls/hr IV Q6HR [facility] Rx#:[id number] Clindamycin 600mg/50mL 50 600 mg In 50 ml @ 100 mls /hr IV Q6HR [facility] Rx#: [id number] Piperacillin Sodium/ 100 100 Tazobact 4.5 gm In Sodium Chloride 0.9% 100 ml @ 100 mls/hr IV Q8HR [facility] Rx #:[id number] Tube Feeding 715 Other 240 Output: Stool 3 Other: # Voids 4 Stool Characteristics Soft Soft Brown Brown Weight Source Bedscale Active Medications: Current Medications Acetaminophen (Tylenol) 650 mg GT Q4HR PRN PRN Reason: PAIN AND FEVER TEMP>100 Stop: 01/19/19 20:26 Last Admin: 11/22/18 20:42 Dose: 650 mg Bisacodyl (Dulcolax 10 Mg Supp) 10 mg RC Q96HR PRN PRN Reason: FOR MODERATE CONSTIPATION Stop: 01/19/19 20:14 Calcium/Vitamin D (Oscal W/Vitamin D) 2 tab GT TID [facility] Stop: 01/20/19 07:59 Last Admin: 11/24/18 13:47 Dose: 2 tab Cholecalciferol (Vitamin D3) 2,000 iu PO TID [facility] Stop: 01/19/19 20:59 Last Admin: 11/24/18 13:47 Dose: 2,000 iu Piperacillin Sod/Tazobactam (Sod 4.5 gm/ Sodium Chloride) 100 mls @ 100 mls/hr IV Q8HR [facility] Stop: 01/19/19 20:59 Last Admin: 11/24/18 12:57 Dose: 100 mls/hr Clindamycin Phosphate 600 mg/ (Sodium Chloride) 54 mls @ 108 mls/hr IV Q6HR [facility] Stop: 01/23/19 11:59 Last Admin: 11/24/18 17:03 Dose: 108 mls/hr Lactobacillus Rhamnosus (Culturelle 15b) 1 each PO DAILY [facility] Stop: 01/21/19 08:59 Last Admin: 11/24/18 09:11 Dose: 1 each Levetiracetam (Keppra) 500 mg GT BID [facility] Stop: 01/19/19 20:29 Last Admin: 11/24/18 16:42 Dose: 500 mg Levothyroxine Sodium (Synthroid) 0.088 mg GT QDAC [facility] Stop: 01/20/19 07:29 Last Admin: 11/24/18 06:43 Dose: 0.088 mg Magnesium Hydroxide (Milk Of Magnesia) 30 ml GT Q72HR PRN PRN Reason: Constipation Stop: 01/19/19 20:29 Miscellaneous (Vte Chemical Prophylaxis Screen/ Admission) 1 ea PRN PRN PRN Reason: PROTOCOL Stop: 01/20/19 10:22 Miscellaneous (Probiotic Screen) 1 ea PRN PRN PRN Reason: PROTOCOL Stop: 01/20/19 15:18 Pantoprazole Sodium (Protonix) 40 mg IVP DAILY [facility] Stop: 01/20/19 08:59 Last Admin: 11/24/18 09:12 Dose: 40 mg Potassium Chloride (Potassium Chloride Elixir) 40 meq GT X1 ONE Stop: 11/24/18 22:01 Sodium Phosphate (Fleet Enema) 135 ml RC Q96HR PRN PRN Reason: SEVERE CONSTIPATION Stop: 01/19/19 20:14 Valproate Sodium (Depakene) 250 mg GT BID [facility]; Protocol Stop: 01/19/19 20:29 Last Admin: 11/24/18 16:42 Dose: 250 mg General: No acute distress Neck: Supple Cardiovascular: Regular rate, Normal S1, Normal S2 Lungs: Clear to auscultation Abdomen: Bowel sounds, Soft, no Tender - Procedures Procedures: Procedures Procedure Code Date CHANGE FEEDING DEVICE IN UP INTEST TRACT, BRADDER APPROACH [id number] 10/21/18 CHANGE GASTROSTOMY TUBE 55601 01/20/12 EGD DIAGNOSTIC BRUSH WASH 34406 11/17/[address] GASTROSTOMY TUBE 22681 11/23/13 OTHER ENDOSCOPY OF SM INTEST 45.13 11/23/13 PERCUTANEOUS [ENDOSCOPIC] GASTROSTOMY [PEG] 43.11 12/27/10 RECONSTRUCTION OF HIP SOCKET 30921 11/17/15 REPLACE GASTROSTOMY TUBE 97.02 11/23/13 REVISION OF FEEDING DEVICE IN STOMACH, PERCUTANEOUS APPROACH [id number] 11/17/15 VACCINATION NEC 99.55 07/13/13 Assessment/Plan - Problem List Patient Problems: All Active Problems Dysphagia (Acute) R13.10 GI bleeding (Acute) K92.2 Gastrostomy malfunction (Acute) K94.23 - Assessment Assessment: Sepsis Pneumonia Dysphagia Seizure disorder Hypothyroidism - Plan Plan: Continue antibiotics So far blood cx negative Chest xray 11/23 atelectesis Tube feeding Keppra Plan of care discussed with nursing staff Nutritional Asmnt/Malnutr-PDOC - Dietary Evaluation Malnutrition Findings (Please click <Entered> for more info): Nutritional Asmnt/Malnutrition Start: 11/21/18 12: 13 Text: Status: Complete Freq: Protocol: Document 11/21/18 12:14 GREGORY (Rec: 11/21/18 12:23 GREGORY [email or web address]) Nutritional Asmnt/Malnutrition Patient General Information Nutritional Screening High Risk Consult Diagnosis Sepsis, Pneumonia Pertinent Medical Hx/Surgical Hx Asthma/COPD, PUD/GERD, Arthritis, hyponatremia, Hepatitis B, PEG/G-Tube, Seizure disorder, hypothyroidism Subjective Information Consult: G-Tube Feeding Pt was downgraded to low risk d/t well tolerance on enteral feeding and meeting nutritional needs. Pt is a 68-year-old female from nursing facility admitted on 11/20 c/o coffee-ground emesis. Per Meal/Nutrition Activity Record, Pt is on G- Tube feeding with Jevity 1.2 at 40ml/24 hrs, no residual noted. Per Nurse note on 11/21, GT Feeding tolerating well, no residual, G-Tube Intact. HT: 48 WT: 116 LB 14.4 oz (53.18 kg) ADJ BW: 46.36 kg BMI: 26.20 (Overweight) GI: Non-Tender, Round, Coffee- ground emesis BM: 11/21 x1 I/O: 1930/Not Noted Skin: WNL, Intact Mayur: 13 Diet Order: Jevity 1.2 at 40ml /24hrs Estimated Energy Needs: ( Geriatric, ADJ BW) 5695-7066 kcals (25-30 kcals/ kg) 46-56g Pro (1.0-1.2 g/kg) 2679-1038 ml (25-30 ml/kg) Pt on G-Tube feeding with Jevity 1.2 at 40ml/24hrs Per Meal/Nutrition Activity Record . Enteral feeding is currently providing an estimated 1152 kcals and 53 gm Pro, to meet 99% kcal and 100+% Pro needs- adequate. Current Diet Order/ Nutrition Support G-Tube Feeding Jevity 1.2 at 40ml/24hrs Pertinent Medications Dulcolax (PRN), Oscal w/ Vitamin D, Vitamin D3, Keppra, Synthroid, MOM (PRN), Protonix, Fleet Enema (PRN) Pertinent Labs 11/21: Hgb/Hct 12.8/36.9, Potass 3.0, BUN/Cr 21/0.5, Glucose 153, Ca 8.4 11/20: Cl 97, Glucose 204 Nutritional Hx/Data Height 1.42 m Height (Calculated Centimeters) 142.2 Current Weight (lbs) 52.617 kg Weight (Calculated Kilograms) 52.6 Weight (Calculated Grams) 78724.7 [place] Body Weight 92 lbs (41.84 kg) % [place] Body Weight 127 Body Mass Index (BMI) 25.9 Weight Status Overweight GI Symptoms GI Symptoms None Last BM 11/21 x1 Skin Integrity/Comment: WNL, Intact Mayur: 13 Estimated Nutritional Goals BEE in Kcals: Adj wt of IBW Calories/Kcals/Kg 25-30 Kcals Calculated 0737-5735 Protein: Adj wt of IBW Protein g/k.0-1.2 Protein Calculated 46-56 Fluid: ml 4416-6296 ml (25-30 ml/kg) Nutritional Problem 1. Problem Problem Altered nutrition related labs Etiology r/t medical condition Signs/Symptoms: aeb lab result Potass 3.0, BUN /Cr 21/0.5, Glucose 153, Ca 8. 4 Malnutrition Related to Morbid Obesity Malnutrition related to morbid obesity No Intervention/Recommendation Comments 1.Continue on G-tube feeding Jevity 1.2 at 40ml/24hrs to meet nutritional needs. Expected Outcomes/Goals Expected Outcomes/Goals 1.Monitor on TF regiment and enteral feeding tolerance. 2.Monitor wt, skin integrity and nutrition related labs to Trend WNL. 3.F/U as low risk in 7 days,
[2018-11-24] MEDS ORDERED: Potassium Chloride Elixir 20 mEq /15 mL UDC GT ONE (22:00)
[2018-11-25 04:35] LABS: HEMATOCRIT 38.8 % (41.0-60); HEMOGLOBIN 13.3 gm/dL (12-16); MEAN CELL VOLUME 91.5 fl (81-100); MEAN CORPUSCULAR HEMOGLOBIN 31.4 pg (27.0-31.0); MEAN CORPUSCULAR HGB CONC 34.4 pg (28.0-36.0); PLATELET COUNT 94 Th/cmm (150-400); RED BLOOD COUNT 4.24 Mil/cmm (3.80-5.20); RED CELL DISTRIBUTION WIDTH 13.5 % (11.5-20.0); WHITE BLOOD COUNT 12.3 Th/cmm (4.8-10.8)
[2018-11-25 05:10] LABS: ANION GAP 12.8 (7.0-16.0); BUN - UREA NITROGEN 17 mg/dL (7-25); CALCIUM SERUM 8.8 mg/dL (8.6-10.3); CARBON DIOXIDE 24.2 mEq/L (21.0-31.0); CHLORIDE 105 mEq/L (98-107); CREATININE - SERUM 0.6 mg/dL (0.6-1.2); GFR AFRICAN-AMERICAN > 60.0 ml/min (>90); GFR NON AFRICAN-AMERICAN > 60.0 ml/min; GLUCOSE 142 mg/dL (70-105); SODIUM SERUM 137 mEq/L (136-145)
[2018-11-25 06:06] LABS: BAND NEUTROPHILE 2 % (0-10); NEUTROPHILS 70 % (40-80)
[2018-11-25 06:07] LABS: BASOPHIL 0 % (0-3); EOSINOPHIL 2 % (0-5); LYMPHOCYTE 20 % (20-50); MONOCYTE 6 % (2-10); PLATELET ESTIMATE DECREASED PLATELETS (NORMAL)
[2018-11-25] MEDS: Levothyroxine 0.088 Mg Tab GT SCH (06:39)
[2018-11-25] MEDS: Calcium Carb/Vit D 500 mg/200 U Tab GT SCH ×3 (08:39→21:50)
[2018-11-25] MEDS: Levetiracetam 500 mg/5mL 5mL UDSyr *for ORAL USE ONLY GT SCH ×2 (08:39→16:34)
[2018-11-25] MEDS: Multivitamin w/ Minerals Tab PO SCH (08:40)
[2018-11-25] MEDS: Lactobacillus Rhamnosus GG 15 Billion CFU CAP.SPRINK PO SCH (08:40)
--- NOTE | 2018-11-25 18:10 | General Progress Note ---
Subjective - Review of Systems Events since last encounter: Patient seen and examined doing ok no new concern reported Subjective: Patient seen and examined afebrile breathing fine Objective - Results Result Diagrams: 11/25/18 04:10 11/25/18 04:10 Recent Labs: Laboratory Last Values WBC 12.3 Th/cmm (4.8-10.8) H 11/25/18 04:10 RBC 4.24 Mil/cmm (3.80-5.20) 11/25/18 04:10 Hgb 13.3 gm/dL (12-16) 11/25/18 04:10 Hct 38.8 % (41.0-60) L 11/25/18 04:10 MCV 91.5 fl (81-100) 11/25/18 04:10 MCH 31.4 pg (27.0-31.0) H 11/25/18 04:10 MCHC Differential 34.4 pg (28.0-36.0) 11/25/18 04:10 RDW 13.5 % (11.5-20.0) 11/25/18 04:10 Plt Count 94 Th/cmm (150-400) L 11/25/18 04:10 MPV 9.0 fl 11/25/18 04:10 Add Manual Diff YES 11/25/18 04:10 Neutrophils % PLANT ATTENDANT OR ASSISTANT OPERATOR 11/25/18 04:10 Band Neutrophils % 2 % (0-10) 11/25/18 04:10 Lymphocytes % PLANT ATTENDANT OR ASSISTANT OPERATOR 11/25/18 04:10 Monocytes % PLANT ATTENDANT OR ASSISTANT OPERATOR 11/25/18 04:10 Eosinophils % PLANT ATTENDANT OR ASSISTANT OPERATOR 11/25/18 04:10 Basophils % PLANT ATTENDANT OR ASSISTANT OPERATOR 11/25/18 04:10 Neutrophils (Manual) 70 % (40-80) 11/25/18 04:10 Lymphocytes 20 % (20-50) 11/25/18 04:10 Monocytes 6 % (2-10) 11/25/18 04:10 Eosinophils 2 % (0-5) 11/25/18 04:10 Basophils 0 % (0-3) 11/25/18 04:10 Platelet Estimate DECREASED PLATELETS (NORMAL) 11/25/18 04:10 Platelet Morphology GIANT PLATELETS SEEN (NORMAL) 11/20/18 11:35 PT 10.4 SECONDS (9.5-11.5) 11/20/18 11:35 INR 1.00 (0.5-1.4) 11/20/18 11:35 PTT (Actin FS) 19.9 SECONDS (26.0-38.0) L 11/20/18 11:35 Sodium 137 mEq/L (136-145) 11/25/18 04:10 Potassium 5.0 mEq/L (3.5-5.1) 11/25/18 04:10 Chloride 105 mEq/L (98-107) 11/25/18 04:10 Carbon Dioxide 24.2 mEq/L (21.0-31.0) 11/25/18 04:10 Anion Gap 12.8 (7.0-16.0) 11/25/18 04:10 BUN 17 mg/dL (7-25) 11/25/18 04:10 Creatinine 0.6 mg/dL (0.6-1.2) 11/25/18 04:10 Est GFR ( Amer) > 60.0 ml/min (>90) 11/25/18 04:10 Est GFR (Non-Af Amer) > 60.0 ml/min 11/25/18 04:10 BUN/Creatinine Ratio 28.3 11/25/18 04:10 Glucose 142 mg/dL (70-105) H 11/25/18 04:10 Whole Bld Lactic Acid 1.72 mmol/L (0.60-1.99) 11/22/18 06:15 Calcium 8.8 mg/dL (8.6-10.3) 11/25/18 04:10 - Physical Exam Vitals and I&O: Vital Signs Temp 97.4 F 11/25/18 15:59 Pulse 69 11/25/18 15:59 Resp 18 11/25/18 16:57 BP 118/64 11/25/18 15:59 Pulse Ox 98 11/25/18 15:59 Intake & Output 11/24/18 11/25/18 11/25/18 18:59 06:59 18:59 Intake Total 1263 254 108 Output Total 3 Balance 1260 254 108 Weight (lbs) 55.338 kg Intake: Intake, IV Amount 308 254 108 Clindamycin 600 mg In 108 54 108 Sodium Chloride 0.9% 50 ml @ 108 mls/hr IV Q6HR [facility] Rx#:[id number] Piperacillin Sodium/ 200 200 Tazobact 4.5 gm In Sodium Chloride 0.9% 100 ml @ 100 mls/hr IV Q8HR [facility] Rx #:[id number] Tube Feeding 715 Other 240 Output: Stool 3 Other: # Voids 4 Stool Characteristics Soft Soft Soft Brown Brown Brown Weight Source Bedscale Active Medications: Current Medications Acetaminophen (Tylenol) 650 mg GT Q4HR PRN PRN Reason: PAIN AND FEVER TEMP>100 Stop: 01/19/19 20:26 Last Admin: 11/22/18 20:42 Dose: 650 mg Bisacodyl (Dulcolax 10 Mg Supp) 10 mg RC Q96HR PRN PRN Reason: FOR MODERATE CONSTIPATION Stop: 01/19/19 20:14 Calcium/Vitamin D (Oscal W/Vitamin D) 2 tab GT TID [facility] Stop: 01/20/19 07:59 Last Admin: 11/25/18 14:00 Dose: 2 tab Cholecalciferol (Vitamin D3) 2,000 iu PO TID [facility] Stop: 01/19/19 20:59 Last Admin: 11/25/18 14:00 Dose: 2,000 iu Piperacillin Sod/Tazobactam (Sod 4.5 gm/ Sodium Chloride) 100 mls @ 100 mls/hr IV Q8HR [facility] Stop: 01/19/19 20:59 Last Admin: 11/25/18 14:00 Dose: 100 mls/hr Clindamycin Phosphate 600 mg/ (Sodium Chloride) 54 mls @ 108 mls/hr IV Q6HR [facility] Stop: 01/23/19 11:59 Last Admin: 11/25/18 17:03 Dose: 108 mls/hr Lactobacillus Rhamnosus (Culturelle 15b) 1 each PO DAILY [facility] Stop: 01/21/19 08:59 Last Admin: 11/25/18 08:40 Dose: 1 each Levetiracetam (Keppra) 500 mg GT BID [facility] Stop: 01/19/19 20:29 Last Admin: 11/25/18 16:34 Dose: 500 mg Levothyroxine Sodium (Synthroid) 0.088 mg GT QDAC [facility] Stop: 01/20/19 07:29 Last Admin: 11/25/18 06:39 Dose: 0.088 mg Magnesium Hydroxide (Milk Of Magnesia) 30 ml GT Q72HR PRN PRN Reason: Constipation Stop: 01/19/19 20:29 Miscellaneous (Vte Chemical Prophylaxis Screen/ Admission) 1 ea MC PRN PRN PRN Reason: PROTOCOL Stop: 01/20/19 10:22 Miscellaneous (Probiotic Screen) 1 ea MC PRN PRN PRN Reason: PROTOCOL Stop: 01/20/19 15:18 Pantoprazole Sodium (Protonix) 40 mg IVP DAILY [facility] Stop: 01/20/19 08:59 Last Admin: 11/25/18 08:39 Dose: 40 mg Sodium Phosphate (Fleet Enema) 135 ml RC Q96HR PRN PRN Reason: SEVERE CONSTIPATION Stop: 01/19/19 20:14 Valproate Sodium (Depakene) 250 mg GT BID [facility]; Protocol Stop: 01/19/19 20:29 Last Admin: 11/25/18 16:33 Dose: 250 mg General: No acute distress Neck: Supple Cardiovascular: Regular rate, Normal S1, Normal S2 Lungs: Clear to auscultation Abdomen: Bowel sounds, Soft, no Tender - Procedures Procedures: Procedures Procedure Code Date CHANGE FEEDING DEVICE IN UP INTEST TRACT, UNIVERSITY COUNSELOR APPROACH [id number] 10/21/18 CHANGE GASTROSTOMY TUBE 65850 01/20/12 EGD DIAGNOSTIC BRUSH WASH 77933 11/17/[address] GASTROSTOMY TUBE 15640 11/23/13 OTHER ENDOSCOPY OF SM INTEST 45.13 11/23/13 PERCUTANEOUS [ENDOSCOPIC] GASTROSTOMY [PEG] 43.11 12/27/10 RECONSTRUCTION OF HIP SOCKET 13769 11/17/15 REPLACE GASTROSTOMY TUBE 97.02 11/23/13 REVISION OF FEEDING DEVICE IN STOMACH, PERCUTANEOUS APPROACH [id number] 11/17/15 VACCINATION NEC 99.55 07/13/13 Assessment/Plan - Problem List Patient Problems: All Active Problems Dysphagia (Acute) R13.10 GI bleeding (Acute) K92.2 Gastrostomy malfunction (Acute) K94.23 - Assessment Assessment: Sepsis Pneumonia Dysphagia Seizure disorder Hypothyroidism - Plan Plan: Continue antibiotics So far blood cx negative Chest xray 11/23 atelectesis Tube feeding Keppra Plan of care discussed with nursing staff Nutritional Asmnt/Malnutr-PDOC - Dietary Evaluation Malnutrition Findings (Please click <Entered> for more info): Nutritional Asmnt/Malnutrition Start: 11/21/18 12: 13 Text: Status: Complete Freq: Protocol: Document 11/21/18 12:14 TRAVISROGESIMEON (Rec: 11/21/18 12:23 [email or web address] [email or web address]) Nutritional Asmnt/Malnutrition Patient General Information Nutritional Screening High Risk Consult Diagnosis Sepsis, Pneumonia Pertinent Medical Hx/Surgical Hx Asthma/COPD, PUD/GERD, Arthritis, hyponatremia, Hepatitis B, PEG/G-Tube, Seizure disorder, hypothyroidism Subjective Information Consult: G-Tube Feeding Pt was downgraded to low risk d/t well tolerance on enteral feeding and meeting nutritional needs. Pt is a 68-year-old female from nursing facility admitted on 11/20 c/o coffee-ground emesis. Per Meal/Nutrition Activity Record, Pt is on G- Tube feeding with Jevity 1.2 at 40ml/24 hrs, no residual noted. Per Nurse note on 11/21, GT Feeding tolerating well, no residual, G-Tube Intact. HT: 48 WT: 116 LB 14.4 oz (53.18 kg) ADJ BW: 46.36 kg BMI: 26.20 (Overweight) GI: Non-Tender, Round, Coffee- ground emesis BM: 11/21 x1 I/O: 1930/Not Noted Skin: WNL, Intact Mayur: 13 Diet Order: Jevity 1.2 at 40ml /24hrs Estimated Energy Needs: ( Geriatric, ADJ BW) 0572-7188 kcals (25-30 kcals/ kg) 46-56g Pro (1.0-1.2 g/kg) 6496-4740 ml (25-30 ml/kg) Pt on G-Tube feeding with Jevity 1.2 at 40ml/24hrs Per Meal/Nutrition Activity Record . Enteral feeding is currently providing an estimated 1152 kcals and 53 gm Pro, to meet 99% kcal and 100+% Pro needs- adequate. Current Diet Order/ Nutrition Support G-Tube Feeding Jevity 1.2 at 40ml/24hrs Pertinent Medications Dulcolax (PRN), Oscal w/ Vitamin D, Vitamin D3, Keppra, Synthroid, MOM (PRN), Protonix, Fleet Enema (PRN) Pertinent Labs 11/21: Hgb/Hct 12.8/36.9, Potass 3.0, BUN/Cr 21/0.5, Glucose 153, Ca 8.4 11/20: Cl 97, Glucose 204 Nutritional Hx/Data Height 1.42 m Height (Calculated Centimeters) 142.2 Current Weight (lbs) 52.617 kg Weight (Calculated Kilograms) 52.6 Weight (Calculated Grams) 56062.7 [place] Body Weight 92 lbs (41.84 kg) % [place] Body Weight 127 Body Mass Index (BMI) 25.9 Weight Status Overweight GI Symptoms GI Symptoms None Last BM 8/2 x1 Skin Integrity/Comment: WNL, Intact Mayur: 13 Estimated Nutritional Goals BEE in Kcals: Adj wt of IBW Calories/Kcals/Kg 25-30 Kcals Calculated 0210-0308 Protein: Adj wt of IBW Protein g/k.0-1.2 Protein Calculated 46-56 Fluid: ml 5486-8038 ml (25-30 ml/kg) Nutritional Problem 1. Problem Problem Altered nutrition related labs Etiology r/t medical condition Signs/Symptoms: aeb lab result Potass 3.0, BUN /Cr 21/0.5, Glucose 153, Ca 8. 4 Malnutrition Related to Morbid Obesity Malnutrition related to morbid obesity No Intervention/Recommendation Comments 1.Continue on G-tube feeding Jevity 1.2 at 40ml/24hrs to meet nutritional needs. Expected Outcomes/Goals Expected Outcomes/Goals 1.Monitor on TF regiment and enteral feeding tolerance. 2.Monitor wt, skin integrity and nutrition related labs to Trend WNL. 3.F/U as low risk in 7 days,
--- NOTE | 2018-11-26 02:49 | Infectious Disease Prog Note ---
Infectious Disease Subjective - Review of Systems Service Date: 11/25/18 Subjective: There is no new change, no fever, Infectious Disease Objective - Results Result Diagrams: 11/25/18 04:10 11/25/18 04:10 Recent Labs: Laboratory Last Values WBC 12.3 Th/cmm (4.8-10.8) H 11/25/18 04:10 RBC 4.24 Mil/cmm (3.80-5.20) 11/25/18 04:10 Hgb 13.3 gm/dL (12-16) 11/25/18 04:10 Hct 38.8 % (41.0-60) L 11/25/18 04:10 MCV 91.5 fl (81-100) 11/25/18 04:10 MCH 31.4 pg (27.0-31.0) H 11/25/18 04:10 MCHC Differential 34.4 pg (28.0-36.0) 11/25/18 04:10 RDW 13.5 % (11.5-20.0) 11/25/18 04:10 Plt Count 94 Th/cmm (150-400) L 11/25/18 04:10 MPV 9.0 fl 11/25/18 04:10 Add Manual Diff YES 11/25/18 04:10 Neutrophils % FARM EQUIPMENT ASSEMBLER 11/25/18 04:10 Band Neutrophils % 2 % (0-10) 11/25/18 04:10 Lymphocytes % FARM EQUIPMENT ASSEMBLER 11/25/18 04:10 Monocytes % FARM EQUIPMENT ASSEMBLER 11/25/18 04:10 Eosinophils % FARM EQUIPMENT ASSEMBLER 11/25/18 04:10 Basophils % FARM EQUIPMENT ASSEMBLER 11/25/18 04:10 Neutrophils (Manual) 70 % (40-80) 11/25/18 04:10 Lymphocytes 20 % (20-50) 11/25/18 04:10 Monocytes 6 % (2-10) 11/25/18 04:10 Eosinophils 2 % (0-5) 11/25/18 04:10 Basophils 0 % (0-3) 11/25/18 04:10 Platelet Estimate DECREASED PLATELETS (NORMAL) 11/25/18 04:10 Platelet Morphology GIANT PLATELETS SEEN (NORMAL) 11/20/18 11:35 PT 10.4 SECONDS (9.5-11.5) 11/20/18 11:35 INR 1.00 (0.5-1.4) 11/20/18 11:35 PTT (Actin FS) 19.9 SECONDS (26.0-38.0) L 11/20/18 11:35 Sodium 137 mEq/L (136-145) 11/25/18 04:10 Potassium 5.0 mEq/L (3.5-5.1) 11/25/18 04:10 Chloride 105 mEq/L (98-107) 11/25/18 04:10 Carbon Dioxide 24.2 mEq/L (21.0-31.0) 11/25/18 04:10 Anion Gap 12.8 (7.0-16.0) 11/25/18 04:10 BUN 17 mg/dL (7-25) 11/25/18 04:10 Creatinine 0.6 mg/dL (0.6-1.2) 11/25/18 04:10 Est GFR ( Amer) > 60.0 ml/min (>90) 11/25/18 04:10 Est GFR (Non-Af Amer) > 60.0 ml/min 11/25/18 04:10 BUN/Creatinine Ratio 28.3 11/25/18 04:10 Glucose 142 mg/dL (70-105) H 11/25/18 04:10 Whole Bld Lactic Acid 1.72 mmol/L (0.60-1.99) 11/22/18 06:15 Calcium 8.8 mg/dL (8.6-10.3) 11/25/18 04:10 - Physical Exam Vitals and I&O: Vital Signs Temp 97.4 F 11/25/18 15:59 Pulse 69 11/25/18 15:59 Resp 18 11/26/18 01:00 BP 118/64 11/25/18 15:59 Pulse Ox 98 11/25/18 15:59 Intake & Output 11/25/18 11/25/18 11/26/18 06:59 18:59 06:59 Intake Total 254 1217 Output Total 2 Balance 254 1215 Weight (lbs) 55.338 kg Intake: Intake, IV Amount 254 262 Clindamycin 600 mg In 54 162 Sodium Chloride 0.9% 50 ml @ 108 mls/hr IV Q6HR [facility] Rx#:[id number] Piperacillin Sodium/ 200 100 Tazobact 4.5 gm In Sodium Chloride 0.9% 100 ml @ 100 mls/hr IV Q8HR [facility] Rx #:[id number] Tube Feeding 715 Other 240 Output: Stool 2 Other: # Voids 3 Stool Characteristics Soft Soft Soft Brown Brown Brown Weight Source Bedscale Active Medications: Current Medications Acetaminophen (Tylenol) 650 mg GT Q4HR PRN PRN Reason: PAIN AND FEVER TEMP>100 Stop: 01/19/19 20:26 Last Admin: 11/22/18 20:42 Dose: 650 mg Bisacodyl (Dulcolax 10 Mg Supp) 10 mg RC Q96HR PRN PRN Reason: FOR MODERATE CONSTIPATION Stop: 01/19/19 20:14 Calcium/Vitamin D (Oscal W/Vitamin D) 2 tab GT TID [facility] Stop: 01/20/19 07:59 Last Admin: 11/25/18 21:50 Dose: 2 tab Cholecalciferol (Vitamin D3) 2,000 iu PO TID [facility] Stop: 01/19/19 20:59 Last Admin: 11/25/18 21:50 Dose: 2,000 iu Piperacillin Sod/Tazobactam (Sod 4.5 gm/ Sodium Chloride) 100 mls @ 100 mls/hr IV Q8HR [facility] Stop: 01/19/19 20:59 Last Admin: 11/25/18 23:58 Dose: 100 mls/hr Clindamycin Phosphate 600 mg/ (Sodium Chloride) 54 mls @ 108 mls/hr IV Q6HR [facility] Stop: 01/23/19 11:59 Last Admin: 11/25/18 23:57 Dose: 108 mls/hr Lactobacillus Rhamnosus (Culturelle 15b) 1 each PO DAILY [facility] Stop: 01/21/19 08:59 Last Admin: 11/25/18 08:40 Dose: 1 each Levetiracetam (Keppra) 500 mg GT BID [facility] Stop: 01/19/19 20:29 Last Admin: 11/25/18 16:34 Dose: 500 mg Levothyroxine Sodium (Synthroid) 0.088 mg GT QDAC [facility] Stop: 01/20/19 07:29 Last Admin: 11/25/18 06:39 Dose: 0.088 mg Magnesium Hydroxide (Milk Of Magnesia) 30 ml GT Q72HR PRN PRN Reason: Constipation Stop: 01/19/19 20:29 Miscellaneous (Vte Chemical Prophylaxis Screen/ Admission) 1 ea PRN PRN PRN Reason: PROTOCOL Stop: 01/20/19 10:22 Miscellaneous (Probiotic Screen) 1 ea PRN PRN PRN Reason: PROTOCOL Stop: 01/20/19 15:18 Pantoprazole Sodium (Protonix) 40 mg IVP DAILY [facility] Stop: 01/20/19 08:59 Last Admin: 11/25/18 08:39 Dose: 40 mg Sodium Phosphate (Fleet Enema) 135 ml RC Q96HR PRN PRN Reason: SEVERE CONSTIPATION Stop: 01/19/19 20:14 Valproate Sodium (Depakene) 250 mg GT BID [facility]; Protocol Stop: 01/19/19 20:29 Last Admin: 11/25/18 16:33 Dose: 250 mg General: no acute distress, cachectic HEENT: atraumatic, normocephalic, PERRLA, EOMI Neck: supple, no thyromegaly Cardiovascular: S1S2, regular Lungs: clear to auscultation bilaterally, clear to percussion Abdomen: soft, no tender, no distended Extremities: no cyanosis, no clubbing, no edema - Procedures Procedures: Procedures Procedure Code Date CHANGE FEEDING DEVICE IN UP INTEST TRACT, MOLD MAKING PLASTICS SHEETS SUPERVISOR APPROACH [id number] 10/21/18 CHANGE GASTROSTOMY TUBE 83230 01/20/12 EGD DIAGNOSTIC BRUSH WASH 15229 11/17/[address] GASTROSTOMY TUBE 26805 11/23/13 OTHER ENDOSCOPY OF SM INTEST 45.13 11/23/13 PERCUTANEOUS [ENDOSCOPIC] GASTROSTOMY [PEG] 43.11 12/27/10 RECONSTRUCTION OF HIP SOCKET 18989 11/17/15 REPLACE GASTROSTOMY TUBE 97.02 11/23/13 REVISION OF FEEDING DEVICE IN STOMACH, PERCUTANEOUS APPROACH [id number] 11/17/15 VACCINATION NEC 99.55 07/13/13 Infectious Disease Assmt/Plan - Problem List Patient Problems: All Active Problems Dysphagia (Acute) R13.10 GI bleeding (Acute) K92.2 Gastrostomy malfunction (Acute) K94.23 - Assessment Assessment: 1. Severe sepsis on the presentation. 2. Aspiration pneumonia. 3. Lactic acidosis. 4. Mental retardation. 5. Seizure disorder. 6. Psychosis and aggressive behavior. 7. Hypothyroidism. - Plan Plan: Continue Clinda and Zosyn. Nutritional Asmnt/Malnutr-PDOC - Dietary Evaluation Malnutrition Findings (Please click <Entered> for more info): Nutritional Asmnt/Malnutrition Start: 11/21/18 12: 13 Text: Status: Complete Freq: Protocol: Document 11/21/18 12:14 GREGORY (Rec: 11/21/18 12:23 GREGORY [email or web address]) Nutritional Asmnt/Malnutrition Patient General Information Nutritional Screening High Risk Consult Diagnosis Sepsis, Pneumonia Pertinent Medical Hx/Surgical Hx Asthma/COPD, PUD/GERD, Arthritis, hyponatremia, Hepatitis B, PEG/G-Tube, Seizure disorder, hypothyroidism Subjective Information Consult: G-Tube Feeding Pt was downgraded to low risk d/t well tolerance on enteral feeding and meeting nutritional needs. Pt is a 68-year-old female from nursing facility admitted on 11/20 c/o coffee-ground emesis. Per Meal/Nutrition Activity Record, Pt is on G- Tube feeding with Jevity 1.2 at 40ml/24 hrs, no residual noted. Per Nurse note on 11/21, GT Feeding tolerating well, no residual, G-Tube Intact. HT: 48 WT: 116 LB 14.4 oz (53.18 kg) ADJ BW: 46.36 kg BMI: 26.20 (Overweight) GI: Non-Tender, Round, Coffee- ground emesis BM: 11/21 x1 I/O: 1930/Not Noted Skin: WNL, Intact Mayur: 13 Diet Order: Jevity 1.2 at 40ml /24hrs Estimated Energy Needs: ( Geriatric, ADJ BW) 8454-2829 kcals (25-30 kcals/ kg) 46-56g Pro (1.0-1.2 g/kg) 5344-1579 ml (25-30 ml/kg) Pt on G-Tube feeding with Jevity 1.2 at 40ml/24hrs Per Meal/Nutrition Activity Record . Enteral feeding is currently providing an estimated 1152 kcals and 53 gm Pro, to meet 99% kcal and 100+% Pro needs- adequate. Current Diet Order/ Nutrition Support G-Tube Feeding Jevity 1.2 at 40ml/24hrs Pertinent Medications Dulcolax (PRN), Oscal w/ Vitamin D, Vitamin D3, Keppra, Synthroid, MOM (PRN), Protonix, Fleet Enema (PRN) Pertinent Labs 11/21: Hgb/Hct 12.8/36.9, Potass 3.0, BUN/Cr 21/0.5, Glucose 153, Ca 8.4 11/20: Cl 97, Glucose 204 Nutritional Hx/Data Height 1.42 m Height (Calculated Centimeters) 142.2 Current Weight (lbs) 52.617 kg Weight (Calculated Kilograms) 52.6 Weight (Calculated Grams) 67272.7 [place] Body Weight 92 lbs (41.84 kg) % [place] Body Weight 127 Body Mass Index (BMI) 25.9 Weight Status Overweight GI Symptoms GI Symptoms None Last BM 11/21 x1 Skin Integrity/Comment: WNL, Intact Mayur: 13 Estimated Nutritional Goals BEE in Kcals: Adj wt of IBW Calories/Kcals/Kg 25-30 Kcals Calculated 5356-8819 Protein: Adj wt of IBW Protein g/k.0-1.2 Protein Calculated 46-56 Fluid: ml 0288-4107 ml (25-30 ml/kg) Nutritional Problem 1. Problem Problem Altered nutrition related labs Etiology r/t medical condition Signs/Symptoms: aeb lab result Potass 3.0, BUN /Cr 21/0.5, Glucose 153, Ca 8. 4 Malnutrition Related to Morbid Obesity Malnutrition related to morbid obesity No Intervention/Recommendation Comments 1.Continue on G-tube feeding Jevity 1.2 at 40ml/24hrs to meet nutritional needs. Expected Outcomes/Goals Expected Outcomes/Goals 1.Monitor on TF regiment and enteral feeding tolerance. 2.Monitor wt, skin integrity and nutrition related labs to Trend WNL. 3.F/U as low risk in 7 days,
--- NOTE | 2018-11-26 02:49 | Infectious Disease Prog Note ---
Infectious Disease Subjective - Review of Systems Service Date: 11/26/18 Subjective: There is no new change, no fever, Infectious Disease Objective - Results Result Diagrams: 11/25/18 04:10 11/25/18 04:10 Recent Labs: Laboratory Last Values WBC 12.3 Th/cmm (4.8-10.8) H 11/25/18 04:10 RBC 4.24 Mil/cmm (3.80-5.20) 11/25/18 04:10 Hgb 13.3 gm/dL (12-16) 11/25/18 04:10 Hct 38.8 % (41.0-60) L 11/25/18 04:10 MCV 91.5 fl (81-100) 11/25/18 04:10 MCH 31.4 pg (27.0-31.0) H 11/25/18 04:10 MCHC Differential 34.4 pg (28.0-36.0) 11/25/18 04:10 RDW 13.5 % (11.5-20.0) 11/25/18 04:10 Plt Count 94 Th/cmm (150-400) L 11/25/18 04:10 MPV 9.0 fl 11/25/18 04:10 Add Manual Diff YES 11/25/18 04:10 Neutrophils % CUFF FOLDER 11/25/18 04:10 Band Neutrophils % 2 % (0-10) 11/25/18 04:10 Lymphocytes % CUFF FOLDER 11/25/18 04:10 Monocytes % CUFF FOLDER 11/25/18 04:10 Eosinophils % CUFF FOLDER 11/25/18 04:10 Basophils % CUFF FOLDER 11/25/18 04:10 Neutrophils (Manual) 70 % (40-80) 11/25/18 04:10 Lymphocytes 20 % (20-50) 11/25/18 04:10 Monocytes 6 % (2-10) 11/25/18 04:10 Eosinophils 2 % (0-5) 11/25/18 04:10 Basophils 0 % (0-3) 11/25/18 04:10 Platelet Estimate DECREASED PLATELETS (NORMAL) 11/25/18 04:10 Platelet Morphology GIANT PLATELETS SEEN (NORMAL) 11/20/18 11:35 PT 10.4 SECONDS (9.5-11.5) 11/20/18 11:35 INR 1.00 (0.5-1.4) 11/20/18 11:35 PTT (Actin FS) 19.9 SECONDS (26.0-38.0) L 11/20/18 11:35 Sodium 137 mEq/L (136-145) 11/25/18 04:10 Potassium 5.0 mEq/L (3.5-5.1) 11/25/18 04:10 Chloride 105 mEq/L (98-107) 11/25/18 04:10 Carbon Dioxide 24.2 mEq/L (21.0-31.0) 11/25/18 04:10 Anion Gap 12.8 (7.0-16.0) 11/25/18 04:10 BUN 17 mg/dL (7-25) 11/25/18 04:10 Creatinine 0.6 mg/dL (0.6-1.2) 11/25/18 04:10 Est GFR ( Amer) > 60.0 ml/min (>90) 11/25/18 04:10 Est GFR (Non-Af Amer) > 60.0 ml/min 11/25/18 04:10 BUN/Creatinine Ratio 28.3 11/25/18 04:10 Glucose 142 mg/dL (70-105) H 11/25/18 04:10 Whole Bld Lactic Acid 1.72 mmol/L (0.60-1.99) 11/22/18 06:15 Calcium 8.8 mg/dL (8.6-10.3) 11/25/18 04:10 - Physical Exam Vitals and I&O: Vital Signs Temp 97.4 F 11/25/18 15:59 Pulse 69 11/25/18 15:59 Resp 18 11/26/18 01:00 BP 118/64 11/25/18 15:59 Pulse Ox 98 11/25/18 15:59 Intake & Output 11/25/18 11/25/18 11/26/18 06:59 18:59 06:59 Intake Total 254 1217 Output Total 2 Balance 254 1215 Weight (lbs) 55.338 kg Intake: Intake, IV Amount 254 262 Clindamycin 600 mg In 54 162 Sodium Chloride 0.9% 50 ml @ 108 mls/hr IV Q6HR [facility] Rx#:[id number] Piperacillin Sodium/ 200 100 Tazobact 4.5 gm In Sodium Chloride 0.9% 100 ml @ 100 mls/hr IV Q8HR [facility] Rx #:[id number] Tube Feeding 715 Other 240 Output: Stool 2 Other: # Voids 3 Stool Characteristics Soft Soft Soft Brown Brown Brown Weight Source Bedscale Active Medications: Current Medications Acetaminophen (Tylenol) 650 mg GT Q4HR PRN PRN Reason: PAIN AND FEVER TEMP>100 Stop: 01/19/19 20:26 Last Admin: 11/22/18 20:42 Dose: 650 mg Bisacodyl (Dulcolax 10 Mg Supp) 10 mg RC Q96HR PRN PRN Reason: FOR MODERATE CONSTIPATION Stop: 01/19/19 20:14 Calcium/Vitamin D (Oscal W/Vitamin D) 2 tab GT TID [facility] Stop: 01/20/19 07:59 Last Admin: 11/25/18 21:50 Dose: 2 tab Cholecalciferol (Vitamin D3) 2,000 iu PO TID [facility] Stop: 01/19/19 20:59 Last Admin: 11/25/18 21:50 Dose: 2,000 iu Piperacillin Sod/Tazobactam (Sod 4.5 gm/ Sodium Chloride) 100 mls @ 100 mls/hr IV Q8HR [facility] Stop: 01/19/19 20:59 Last Admin: 11/25/18 23:58 Dose: 100 mls/hr Clindamycin Phosphate 600 mg/ (Sodium Chloride) 54 mls @ 108 mls/hr IV Q6HR [facility] Stop: 01/23/19 11:59 Last Admin: 11/25/18 23:57 Dose: 108 mls/hr Lactobacillus Rhamnosus (Culturelle 15b) 1 each PO DAILY [facility] Stop: 01/21/19 08:59 Last Admin: 11/25/18 08:40 Dose: 1 each Levetiracetam (Keppra) 500 mg GT BID [facility] Stop: 01/19/19 20:29 Last Admin: 11/25/18 16:34 Dose: 500 mg Levothyroxine Sodium (Synthroid) 0.088 mg GT QDAC [facility] Stop: 01/20/19 07:29 Last Admin: 11/25/18 06:39 Dose: 0.088 mg Magnesium Hydroxide (Milk Of Magnesia) 30 ml GT Q72HR PRN PRN Reason: Constipation Stop: 01/19/19 20:29 Miscellaneous (Vte Chemical Prophylaxis Screen/ Admission) 1 ea PRN PRN PRN Reason: PROTOCOL Stop: 01/20/19 10:22 Miscellaneous (Probiotic Screen) 1 ea PRN PRN PRN Reason: PROTOCOL Stop: 01/20/19 15:18 Pantoprazole Sodium (Protonix) 40 mg IVP DAILY [facility] Stop: 01/20/19 08:59 Last Admin: 11/25/18 08:39 Dose: 40 mg Sodium Phosphate (Fleet Enema) 135 ml RC Q96HR PRN PRN Reason: SEVERE CONSTIPATION Stop: 01/19/19 20:14 Valproate Sodium (Depakene) 250 mg GT BID [facility]; Protocol Stop: 01/19/19 20:29 Last Admin: 11/25/18 16:33 Dose: 250 mg General: no acute distress, cachectic HEENT: atraumatic, normocephalic, PERRLA Neck: supple, no thyromegaly Cardiovascular: S1S2, regular Lungs: clear to auscultation bilaterally, clear to percussion Abdomen: soft, no tender, no distended Extremities: no cyanosis, no clubbing, no edema Neurological: awake, alert Skin: intact - Procedures Procedures: Procedures Procedure Code Date CHANGE FEEDING DEVICE IN UP INTEST TRACT, ELEVATOR TENDER APPROACH [id number] 10/21/18 CHANGE GASTROSTOMY TUBE 24064 01/20/12 EGD DIAGNOSTIC BRUSH WASH 00027 11/17/[address] GASTROSTOMY TUBE 34970 11/23/13 OTHER ENDOSCOPY OF SM INTEST 45.13 11/23/13 PERCUTANEOUS [ENDOSCOPIC] GASTROSTOMY [PEG] 43.11 12/27/10 RECONSTRUCTION OF HIP SOCKET 92238 11/17/15 REPLACE GASTROSTOMY TUBE 97.02 11/23/13 REVISION OF FEEDING DEVICE IN STOMACH, PERCUTANEOUS APPROACH [id number] 11/17/15 VACCINATION NEC 99.55 07/13/13 Infectious Disease Assmt/Plan - Problem List Patient Problems: All Active Problems Dysphagia (Acute) R13.10 GI bleeding (Acute) K92.2 Gastrostomy malfunction (Acute) K94.23 - Assessment Assessment: 1. Severe sepsis on the presentation. 2. Aspiration pneumonia. 3. Lactic acidosis. 4. Mental retardation. 5. Seizure disorder. 6. Psychosis and aggressive behavior. 7. Hypothyroidism. - Plan Plan: Continue Clinda and Zosyn. Nutritional Asmnt/Malnutr-PDOC - Dietary Evaluation Malnutrition Findings (Please click <Entered> for more info): Nutritional Asmnt/Malnutrition Start: 11/21/18 12: 13 Text: Status: Complete Freq: Protocol: Document 11/21/18 12:14 GREGORY (Rec: 11/21/18 12:23 GREGORY [email or web address]) Nutritional Asmnt/Malnutrition Patient General Information Nutritional Screening High Risk Consult Diagnosis Sepsis, Pneumonia Pertinent Medical Hx/Surgical Hx Asthma/COPD, PUD/GERD, Arthritis, hyponatremia, Hepatitis B, PEG/G-Tube, Seizure disorder, hypothyroidism Subjective Information Consult: G-Tube Feeding Pt was downgraded to low risk d/t well tolerance on enteral feeding and meeting nutritional needs. Pt is a 68-year-old female from nursing facility admitted on 11/20 c/o coffee-ground emesis. Per Meal/Nutrition Activity Record, Pt is on G- Tube feeding with Jevity 1.2 at 40ml/24 hrs, no residual noted. Per Nurse note on 11/21, GT Feeding tolerating well, no residual, G-Tube Intact. HT: 48 WT: 116 LB 14.4 oz (53.18 kg) ADJ BW: 46.36 kg BMI: 26.20 (Overweight) GI: Non-Tender, Round, Coffee- ground emesis BM: 11/21 x1 I/O: 1930/Not Noted Skin: WNL, Intact Mayur: 13 Diet Order: Jevity 1.2 at 40ml /24hrs Estimated Energy Needs: ( Geriatric, ADJ BW) 0637-9022 kcals (25-30 kcals/ kg) 46-56g Pro (1.0-1.2 g/kg) 9881-1748 ml (25-30 ml/kg) Pt on G-Tube feeding with Jevity 1.2 at 40ml/24hrs Per Meal/Nutrition Activity Record . Enteral feeding is currently providing an estimated 1152 kcals and 53 gm Pro, to meet 99% kcal and 100+% Pro needs- adequate. Current Diet Order/ Nutrition Support G-Tube Feeding Jevity 1.2 at 40ml/24hrs Pertinent Medications Dulcolax (PRN), Oscal w/ Vitamin D, Vitamin D3, Keppra, Synthroid, MOM (PRN), Protonix, Fleet Enema (PRN) Pertinent Labs 11/21: Hgb/Hct 12.8/36.9, Potass 3.0, BUN/Cr 21/0.5, Glucose 153, Ca 8.4 11/20: Cl 97, Glucose 204 Nutritional Hx/Data Height 1.42 m Height (Calculated Centimeters) 142.2 Current Weight (lbs) 52.617 kg Weight (Calculated Kilograms) 52.6 Weight (Calculated Grams) 88145.7 [place] Body Weight 92 lbs (41.84 kg) % [place] Body Weight 127 Body Mass Index (BMI) 25.9 Weight Status Overweight GI Symptoms GI Symptoms None Last BM 11/21 x1 Skin Integrity/Comment: WNL, Intact Mayur: 13 Estimated Nutritional Goals BEE in Kcals: Adj wt of IBW Calories/Kcals/Kg 25-30 Kcals Calculated 6636-1217 Protein: Adj wt of IBW Protein g/k.0-1.2 Protein Calculated 46-56 Fluid: ml 5548-5277 ml (25-30 ml/kg) Nutritional Problem 1. Problem Problem Altered nutrition related labs Etiology r/t medical condition Signs/Symptoms: aeb lab result Potass 3.0, BUN /Cr 21/0.5, Glucose 153, Ca 8. 4 Malnutrition Related to Morbid Obesity Malnutrition related to morbid obesity No Intervention/Recommendation Comments 1.Continue on G-tube feeding Jevity 1.2 at 40ml/24hrs to meet nutritional needs. Expected Outcomes/Goals Expected Outcomes/Goals 1.Monitor on TF regiment and enteral feeding tolerance. 2.Monitor wt, skin integrity and nutrition related labs to Trend WNL. 3.F/U as low risk in 7 days,
[2018-11-26] MEDS: Levothyroxine 0.088 Mg Tab GT SCH ×2 (06:58→09:32)
[2018-11-26] MEDS: Lactobacillus Rhamnosus GG 15 Billion CFU CAP.SPRINK PO SCH (09:35)
[2018-11-26] MEDS: Levetiracetam 500 mg/5mL 5mL UDSyr *for ORAL USE ONLY GT SCH ×2 (09:35→17:23)
[2018-11-26] MEDS: Multivitamin w/ Minerals Tab PO SCH (09:36)
[2018-11-26] MEDS: Calcium Carb/Vit D 500 mg/200 U Tab GT SCH ×3 (09:36→21:20)
--- NOTE | 2018-11-26 13:17 | General Progress Note ---
Subjective - Review of Systems Service Date: 11/26/18 Subjective: Patient seen and examined nursing staff reported patient had large coffee ground emesis this am no bloody stool reported Objective - Results Result Diagrams: 11/25/18 04:10 11/25/18 04:10 Recent Labs: Laboratory Last Values WBC 12.3 Th/cmm (4.8-10.8) H 11/25/18 04:10 RBC 4.24 Mil/cmm (3.80-5.20) 11/25/18 04:10 Hgb 13.3 gm/dL (12-16) 11/25/18 04:10 Hct 38.8 % (41.0-60) L 11/25/18 04:10 MCV 91.5 fl (81-100) 11/25/18 04:10 MCH 31.4 pg (27.0-31.0) H 11/25/18 04:10 MCHC Differential 34.4 pg (28.0-36.0) 11/25/18 04:10 RDW 13.5 % (11.5-20.0) 11/25/18 04:10 Plt Count 94 Th/cmm (150-400) L 11/25/18 04:10 MPV 9.0 fl 11/25/18 04:10 Add Manual Diff YES 11/25/18 04:10 Neutrophils % FRUIT RANCHER 11/25/18 04:10 Band Neutrophils % 2 % (0-10) 11/25/18 04:10 Lymphocytes % FRUIT RANCHER 11/25/18 04:10 Monocytes % FRUIT RANCHER 11/25/18 04:10 Eosinophils % FRUIT RANCHER 11/25/18 04:10 Basophils % FRUIT RANCHER 11/25/18 04:10 Neutrophils (Manual) 70 % (40-80) 11/25/18 04:10 Lymphocytes 20 % (20-50) 11/25/18 04:10 Monocytes 6 % (2-10) 11/25/18 04:10 Eosinophils 2 % (0-5) 11/25/18 04:10 Basophils 0 % (0-3) 11/25/18 04:10 Platelet Estimate DECREASED PLATELETS (NORMAL) 11/25/18 04:10 Platelet Morphology GIANT PLATELETS SEEN (NORMAL) 11/20/18 11:35 PT 10.4 SECONDS (9.5-11.5) 11/20/18 11:35 INR 1.00 (0.5-1.4) 11/20/18 11:35 PTT (Actin FS) 19.9 SECONDS (26.0-38.0) L 11/20/18 11:35 Sodium 137 mEq/L (136-145) 11/25/18 04:10 Potassium 5.0 mEq/L (3.5-5.1) 11/25/18 04:10 Chloride 105 mEq/L (98-107) 11/25/18 04:10 Carbon Dioxide 24.2 mEq/L (21.0-31.0) 11/25/18 04:10 Anion Gap 12.8 (7.0-16.0) 11/25/18 04:10 BUN 17 mg/dL (7-25) 11/25/18 04:10 Creatinine 0.6 mg/dL (0.6-1.2) 11/25/18 04:10 Est GFR ( Amer) > 60.0 ml/min (>90) 11/25/18 04:10 Est GFR (Non-Af Amer) > 60.0 ml/min 11/25/18 04:10 BUN/Creatinine Ratio 28.3 11/25/18 04:10 Glucose 142 mg/dL (70-105) H 11/25/18 04:10 Whole Bld Lactic Acid 1.72 mmol/L (0.60-1.99) 11/22/18 06:15 Calcium 8.8 mg/dL (8.6-10.3) 11/25/18 04:10 - Physical Exam Vitals and I&O: Vital Signs Temp 97.4 F 11/26/18 11:44 Pulse 71 11/26/18 11:44 Resp 18 11/26/18 11:44 BP 117/71 11/26/18 11:44 Pulse Ox 100 11/26/18 11:44 Intake & Output 11/25/18 11/26/18 11/26/18 18:59 06:59 18:59 Intake Total 1217 154 54 Output Total 2 Balance 1215 154 54 Weight (lbs) 55.338 kg Intake: Intake, IV Amount 262 154 54 Clindamycin 600 mg In 162 54 54 Sodium Chloride 0.9% 50 ml @ 108 mls/hr IV Q6HR [facility] Rx#:[id number] Piperacillin Sodium/ 100 100 Tazobact 4.5 gm In Sodium Chloride 0.9% 100 ml @ 100 mls/hr IV Q8HR [facility] Rx #:[id number] Tube Feeding 715 Other 240 Output: Stool 2 Other: # Voids 3 Stool Characteristics Soft Soft Soft Brown Brown Brown Weight Source Bedscale Active Medications: Current Medications Acetaminophen (Tylenol) 650 mg GT Q4HR PRN PRN Reason: PAIN AND FEVER TEMP>100 Stop: 01/19/19 20:26 Last Admin: 11/22/18 20:42 Dose: 650 mg Bisacodyl (Dulcolax 10 Mg Supp) 10 mg RC Q96HR PRN PRN Reason: FOR MODERATE CONSTIPATION Stop: 01/19/19 20:14 Calcium/Vitamin D (Oscal W/Vitamin D) 2 tab GT TID [facility] Stop: 01/20/19 07:59 Last Admin: 11/26/18 09:36 Dose: Not Given Cholecalciferol (Vitamin D3) 2,000 iu PO TID [facility] Stop: 01/19/19 20:59 Last Admin: 11/26/18 09:35 Dose: Not Given Piperacillin Sod/Tazobactam (Sod 4.5 gm/ Sodium Chloride) 100 mls @ 100 mls/hr IV Q8HR [facility] Stop: 01/19/19 20:59 Last Admin: 11/26/18 05:30 Dose: 100 mls/hr Clindamycin Phosphate 600 mg/ (Sodium Chloride) 54 mls @ 108 mls/hr IV Q6HR [facility] Stop: 01/23/19 11:59 Last Admin: 11/26/18 11:36 Dose: 108 mls/hr Lactobacillus Rhamnosus (Culturelle 15b) 1 each PO DAILY [facility] Stop: 01/21/19 08:59 Last Admin: 11/26/18 09:35 Dose: Not Given Levetiracetam (Keppra) 500 mg GT BID [facility] Stop: 01/19/19 20:29 Last Admin: 11/26/18 09:35 Dose: 500 mg Levothyroxine Sodium (Synthroid) 0.088 mg GT QDAC [facility] Stop: 01/20/19 07:29 Last Admin: 11/26/18 09:32 Dose: Not Given Magnesium Hydroxide (Milk Of Magnesia) 30 ml GT Q72HR PRN PRN Reason: Constipation Stop: 01/19/19 20:29 Miscellaneous (Vte Chemical Prophylaxis Screen/ Admission) 1 ea PRN PRN PRN Reason: PROTOCOL Stop: 01/20/19 10:22 Miscellaneous (Probiotic Screen) 1 ea PRN PRN PRN Reason: PROTOCOL Stop: 01/20/19 15:18 Pantoprazole Sodium (Protonix) 40 mg IVP DAILY [facility] Stop: 01/20/19 08:59 Last Admin: 11/26/18 09:34 Dose: 40 mg Sodium Phosphate (Fleet Enema) 135 ml RC Q96HR PRN PRN Reason: SEVERE CONSTIPATION Stop: 01/19/19 20:14 Valproate Sodium (Depakene) 250 mg GT BID [facility]; Protocol Stop: 01/19/19 20:29 Last Admin: 11/26/18 09:35 Dose: 250 mg General: No acute distress Neck: Supple Cardiovascular: Regular rate, Normal S1, Normal S2 Lungs: Clear to auscultation Abdomen: Bowel sounds, Soft, no Tender - Procedures Procedures: Procedures Procedure Code Date CHANGE FEEDING DEVICE IN UP INTEST TRACT, TOE PUNCHER APPROACH [id number] 10/21/18 CHANGE GASTROSTOMY TUBE 04296 01/20/12 EGD DIAGNOSTIC BRUSH WASH 39247 11/17/[address] GASTROSTOMY TUBE 89709 11/23/13 OTHER ENDOSCOPY OF SM INTEST 45.13 11/23/13 PERCUTANEOUS [ENDOSCOPIC] GASTROSTOMY [PEG] 43.11 12/27/10 RECONSTRUCTION OF HIP SOCKET 08608 11/17/15 REPLACE GASTROSTOMY TUBE 97.02 11/23/13 REVISION OF FEEDING DEVICE IN STOMACH, PERCUTANEOUS APPROACH [id number] 11/17/15 VACCINATION NEC 99.55 07/13/13 Assessment/Plan - Problem List Patient Problems: All Active Problems Dysphagia (Acute) R13.10 GI bleeding (Acute) K92.2 Gastrostomy malfunction (Acute) K94.23 - Assessment Assessment: Hemetemesis Sepsis Pneumonia Dysphagia Seizure disorder Hypothyroidism - Plan Plan: Hold feeding Protonix HH later today GI notified IV fluids started Plan of care dw nursing staff DC Clinda Continue Zosyn Nutritional Asmnt/Malnutr-PDOC - Dietary Evaluation Malnutrition Findings (Please click <Entered> for more info): Nutritional Asmnt/Malnutrition Start: 11/21/18 12: 13 Text: Status: Complete Freq: Protocol: Document 11/21/18 12:14 TRAVISROGESIMEON (Rec: 11/21/18 12:23 [email or web address] [email or web address]) Nutritional Asmnt/Malnutrition Patient General Information Nutritional Screening High Risk Consult Diagnosis Sepsis, Pneumonia Pertinent Medical Hx/Surgical Hx Asthma/COPD, PUD/GERD, Arthritis, hyponatremia, Hepatitis B, PEG/G-Tube, Seizure disorder, hypothyroidism Subjective Information Consult: G-Tube Feeding Pt was downgraded to low risk d/t well tolerance on enteral feeding and meeting nutritional needs. Pt is a 68-year-old female from nursing facility admitted on 11/20 c/o coffee-ground emesis. Per Meal/Nutrition Activity Record, Pt is on G- Tube feeding with Jevity 1.2 at 40ml/24 hrs, no residual noted. Per Nurse note on 11/21, GT Feeding tolerating well, no residual, G-Tube Intact. HT: 48 WT: 116 LB 14.4 oz (53.18 kg) ADJ BW: 46.36 kg BMI: 26.20 (Overweight) GI: Non-Tender, Round, Coffee- ground emesis BM: 11/21 x1 I/O: 1930/Not Noted Skin: WNL, Intact Mayur: 13 Diet Order: Jevity 1.2 at 40ml /24hrs Estimated Energy Needs: ( Geriatric, ADJ BW) 9359-1420 kcals (25-30 kcals/ kg) 46-56g Pro (1.0-1.2 g/kg) 8155-7167 ml (25-30 ml/kg) Pt on G-Tube feeding with Jevity 1.2 at 40ml/24hrs Per Meal/Nutrition Activity Record . Enteral feeding is currently providing an estimated 1152 kcals and 53 gm Pro, to meet 99% kcal and 100+% Pro needs- adequate. Current Diet Order/ Nutrition Support G-Tube Feeding Jevity 1.2 at 40ml/24hrs Pertinent Medications Dulcolax (PRN), Oscal w/ Vitamin D, Vitamin D3, Keppra, Synthroid, MOM (PRN), Protonix, Fleet Enema (PRN) Pertinent Labs 11/21: Hgb/Hct 12.8/36.9, Potass 3.0, BUN/Cr 21/0.5, Glucose 153, Ca 8.4 11/20: Cl 97, Glucose 204 Nutritional Hx/Data Height 1.42 m Height (Calculated Centimeters) 142.2 Current Weight (lbs) 52.617 kg Weight (Calculated Kilograms) 52.6 Weight (Calculated Grams) 85306.7 [place] Body Weight 92 lbs (41.84 kg) % [place] Body Weight 127 Body Mass Index (BMI) 25.9 Weight Status Overweight GI Symptoms GI Symptoms None Last BM 8/2 x1 Skin Integrity/Comment: WNL, Intact Mayur: 13 Estimated Nutritional Goals BEE in Kcals: Adj wt of IBW Calories/Kcals/Kg 25-30 Kcals Calculated 2887-3122 Protein: Adj wt of IBW Protein g/k.0-1.2 Protein Calculated 46-56 Fluid: ml 6650-1146 ml (25-30 ml/kg) Nutritional Problem 1. Problem Problem Altered nutrition related labs Etiology r/t medical condition Signs/Symptoms: aeb lab result Potass 3.0, BUN /Cr 21/0.5, Glucose 153, Ca 8. 4 Malnutrition Related to Morbid Obesity Malnutrition related to morbid obesity No Intervention/Recommendation Comments 1.Continue on G-tube feeding Jevity 1.2 at 40ml/24hrs to meet nutritional needs. Expected Outcomes/Goals Expected Outcomes/Goals 1.Monitor on TF regiment and enteral feeding tolerance. 2.Monitor wt, skin integrity and nutrition related labs to Trend WNL. 3.F/U as low risk in 7 days,
[2018-11-26] MEDS: 0.9% NS w/20 mEq KCL 1,000 ML IV SCH (13:48)
[2018-11-26 17:38] LABS: % EOSINOPHILS 2.8 % (0.0-5.0); % LYMPHOCYTES 15.7 % (20.0-50.0); % MONOCYTES 8.7 % (2.0-10.0); % NEUTROPHILS 72.8 % (40.0-80.0); EOSINOPHILE ABSOLUTE 0.4 Th/cmm (0.1-0.4); HEMATOCRIT 41.2 % (41.0-60); HEMOGLOBIN 14.3 gm/dL (12-16); LYMPHOCYTE ABSOLUTE 2.4 Th/cmm (1.5-3.0); MEAN CELL VOLUME 91.3 fl (81-100); MEAN CORPUSCULAR HEMOGLOBIN 31.8 pg (27.0-31.0); MEAN CORPUSCULAR HGB CONC 34.8 pg (28.0-36.0); MONOCYTE ABSOLUTE 1.3 Th/cmm (0.3-1.0); PLATELET COUNT 204 Th/cmm (150-400); RED BLOOD COUNT 4.51 Mil/cmm (3.80-5.20); RED CELL DISTRIBUTION WIDTH 13.8 % (11.5-20.0)
[2018-11-26 17:46] LABS: WHITE BLOOD COUNT 15.1 Th/cmm (4.8-10.8)
[2018-11-27 05:18] LABS: EOSINOPHILE ABSOLUTE 0.4 Th/cmm (0.1-0.4); RED CELL DISTRIBUTION WIDTH 13.8 % (11.5-20.0)
[2018-11-27 05:23] LABS: % LYMPHOCYTES 13.9 % (20.0-50.0); % MONOCYTES 9.3 % (2.0-10.0); % NEUTROPHILS 73.8 % (40.0-80.0); HEMATOCRIT 38.8 % (41.0-60); HEMOGLOBIN 13.5 gm/dL (12-16); LYMPHOCYTE ABSOLUTE 1.8 Th/cmm (1.5-3.0); MEAN CELL VOLUME 90.7 fl (81-100); MEAN CORPUSCULAR HEMOGLOBIN 31.5 pg (27.0-31.0); MEAN CORPUSCULAR HGB CONC 34.7 pg (28.0-36.0); MONOCYTE ABSOLUTE 1.2 Th/cmm (0.3-1.0); NEUTROPHILE ABSOLUTE 9.7 Th/cmm (1.8-8.0); PLATELET COUNT 264 Th/cmm (150-400); RED BLOOD COUNT 4.28 Mil/cmm (3.80-5.20); WHITE BLOOD COUNT 13.1 Th/cmm (4.8-10.8)
[2018-11-27 05:33] LABS: ANION GAP 12.5 (7.0-16.0); BUN - UREA NITROGEN 13 mg/dL (7-25); CALCIUM SERUM 9.4 mg/dL (8.6-10.3); CARBON DIOXIDE 25.3 mEq/L (21.0-31.0); CHLORIDE 102 mEq/L (98-107); CREATININE - SERUM 0.6 mg/dL (0.6-1.2); GFR AFRICAN-AMERICAN > 60.0 ml/min (>90); GFR NON AFRICAN-AMERICAN > 60.0 ml/min; GLUCOSE 93 mg/dL (70-105); POTASSIUM SERUM 4.8 mEq/L (3.5-5.1); SODIUM SERUM 135 mEq/L (136-145)
--- NOTE | 2018-11-27 08:12 | GI Progress Note ---
Subjective - Review of Systems Service Date: 11/27/18 Subjective: Unable to obtain consent for EGD. Had another episode of coffee ground emesis yesterday GI OBJECTIVE - Results Result Diagrams: 11/27/18 05:05 11/27/18 05:05 Recent Labs: Laboratory Last Values WBC 13.1 Th/cmm (4.8-10.8) H 11/27/18 05:05 RBC 4.28 Mil/cmm (3.80-5.20) 11/27/18 05:05 Hgb 13.5 gm/dL (12-16) 11/27/18 05:05 Hct 38.8 % (41.0-60) L 11/27/18 05:05 MCV 90.7 fl (81-100) 11/27/18 05:05 MCH 31.5 pg (27.0-31.0) H 11/27/18 05:05 MCHC Differential 34.7 pg (28.0-36.0) 11/27/18 05:05 RDW 13.8 % (11.5-20.0) 11/27/18 05:05 Plt Count 264 Th/cmm (150-400) D 11/27/18 05:05 MPV 7.9 fl 11/27/18 05:05 Add Manual Diff YES 11/25/18 04:10 Neutrophils % 73.8 % (40.0-80.0) 11/27/18 05:05 Band Neutrophils % 2 % (0-10) 11/25/18 04:10 Lymphocytes % 13.9 % (20.0-50.0) L 11/27/18 05:05 Monocytes % 9.3 % (2.0-10.0) 11/27/18 05:05 Eosinophils % 3.0 % (0.0-5.0) 11/27/18 05:05 Basophils % 0.0 % (0.0-2.0) 11/27/18 05:05 Neutrophils (Manual) 70 % (40-80) 11/25/18 04:10 Lymphocytes 20 % (20-50) 11/25/18 04:10 Monocytes 6 % (2-10) 11/25/18 04:10 Eosinophils 2 % (0-5) 11/25/18 04:10 Basophils 0 % (0-3) 11/25/18 04:10 Platelet Estimate DECREASED PLATELETS (NORMAL) 11/25/18 04:10 Platelet Morphology GIANT PLATELETS SEEN (NORMAL) 11/20/18 11:35 PT 10.4 SECONDS (9.5-11.5) 11/20/18 11:35 INR 1.00 (0.5-1.4) 11/20/18 11:35 PTT (Actin FS) 19.9 SECONDS (26.0-38.0) L 11/20/18 11:35 Sodium 135 mEq/L (136-145) L 11/27/18 05:05 Potassium 4.8 mEq/L (3.5-5.1) 11/27/18 05:05 Chloride 102 mEq/L (98-107) 11/27/18 05:05 Carbon Dioxide 25.3 mEq/L (21.0-31.0) 11/27/18 05:05 Anion Gap 12.5 (7.0-16.0) 11/27/18 05:05 BUN 13 mg/dL (7-25) 11/27/18 05:05 Creatinine 0.6 mg/dL (0.6-1.2) 11/27/18 05:05 Est GFR ( Amer) > 60.0 ml/min (>90) 11/27/18 05:05 Est GFR (Non-Af Amer) > 60.0 ml/min 11/27/18 05:05 BUN/Creatinine Ratio 21.7 11/27/18 05:05 Glucose 93 mg/dL (70-105) 11/27/18 05:05 Whole Bld Lactic Acid 1.72 mmol/L (0.60-1.99) 11/22/18 06:15 Calcium 9.4 mg/dL (8.6-10.3) 11/27/18 05:05 - Physical Exam Vitals and I&O: Vital Signs Temp 97.5 F 11/27/18 07:36 Pulse 65 11/27/18 07:36 Resp 18 11/27/18 07:36 BP 137/60 11/27/18 07:36 Pulse Ox 93 11/27/18 07:36 Intake & Output 11/26/18 11/27/18 11/27/18 18:59 06:59 18:59 Intake Total 249 100 Balance 249 100 Weight (lbs) 55.338 kg 50.916 kg Intake: Intake, IV Amount 154 100 Clindamycin 600 mg In 54 Sodium Chloride 0.9% 50 ml @ 108 mls/hr IV Q6HR [facility] Rx#:[id number] Piperacillin Sodium/ 100 100 Tazobact 4.5 gm In Sodium Chloride 0.9% 100 ml @ 100 mls/hr IV Q8HR [facility] Rx #:[id number] Tube Feeding 95 Other: # Voids 3 3 # Bowel Movements 2 1 Stool Characteristics Soft Brown Weight Source Bedscale Bedscale Active Medications: Current Medications Acetaminophen (Tylenol) 650 mg GT Q4HR PRN PRN Reason: PAIN AND FEVER TEMP>100 Stop: 01/19/19 20:26 Last Admin: 11/22/18 20:42 Dose: 650 mg Bisacodyl (Dulcolax 10 Mg Supp) 10 mg RC Q96HR PRN PRN Reason: FOR MODERATE CONSTIPATION Stop: 01/19/19 20:14 Calcium/Vitamin D (Oscal W/Vitamin D) 2 tab GT TID [facility] Stop: 01/20/19 07:59 Last Admin: 11/26/18 21:20 Dose: 2 tab Cholecalciferol (Vitamin D3) 2,000 iu PO TID [facility] Stop: 01/19/19 20:59 Last Admin: 11/26/18 21:21 Dose: 2,000 iu Piperacillin Sod/Tazobactam (Sod 4.5 gm/ Sodium Chloride) 100 mls @ 100 mls/hr IV Q8HR [facility] Stop: 01/19/19 20:59 Last Admin: 11/27/18 04:41 Dose: 100 mls/hr Potassium Chloride/Sodium Chloride (0.9% Ns W/20 Meq Kcl) 1,000 mls @ 80 mls/ hr IV .[id number] [facility] Stop: 01/25/19 13:14 Last Admin: 11/26/18 13:48 Dose: 80 mls/hr Lactobacillus Rhamnosus (Culturelle 15b) 1 each PO DAILY [facility] Stop: 01/21/19 08:59 Last Admin: 11/26/18 09:35 Dose: Not Given Levetiracetam (Keppra) 500 mg GT BID [facility] Stop: 01/19/19 20:29 Last Admin: 11/26/18 17:23 Dose: 500 mg Levothyroxine Sodium (Synthroid) 0.088 mg GT QDAC [facility] Stop: 01/20/19 07:29 Last Admin: 11/26/18 09:32 Dose: Not Given Magnesium Hydroxide (Milk Of Magnesia) 30 ml GT Q72HR PRN PRN Reason: Constipation Stop: 01/19/19 20:29 Miscellaneous (Vte Chemical Prophylaxis Screen/ Admission) 1 ea PRN PRN PRN Reason: PROTOCOL Stop: 01/20/19 10:22 Miscellaneous (Probiotic Screen) 1 ea PRN PRN PRN Reason: PROTOCOL Stop: 01/20/19 15:18 Pantoprazole Sodium (Protonix) 40 mg IVP DAILY [facility] Stop: 01/20/19 08:59 Last Admin: 11/26/18 09:34 Dose: 40 mg Sodium Phosphate (Fleet Enema) 135 ml RC Q96HR PRN PRN Reason: SEVERE CONSTIPATION Stop: 01/19/19 20:14 Valproate Sodium (Depakene) 250 mg GT BID [facility]; Protocol Stop: 01/19/19 20:29 Last Admin: 11/26/18 17:23 Dose: 250 mg General: Alert HEENT: Atraumatic Neck: Supple Abdomen: Bowel sounds, Soft, Other, no Tender, no Hepatomegaly, no Splenomegaly , no Distended, no Mass, no Guarding Skin: no Rash Other physical findings: g tube c/d/i - Procedures Procedures: Procedures Procedure Code Date CHANGE FEEDING DEVICE IN UP INTEST TRACT, WOODWORKER APPROACH [id number] 10/21/18 CHANGE GASTROSTOMY TUBE 50419 01/20/12 EGD DIAGNOSTIC BRUSH WASH 55997 11/17/[address] GASTROSTOMY TUBE 72081 11/23/13 OTHER ENDOSCOPY OF SM INTEST 45.13 11/23/13 PERCUTANEOUS [ENDOSCOPIC] GASTROSTOMY [PEG] 43.11 12/27/10 RECONSTRUCTION OF HIP SOCKET 12818 11/17/15 REPLACE GASTROSTOMY TUBE 97.02 11/23/13 REVISION OF FEEDING DEVICE IN STOMACH, PERCUTANEOUS APPROACH [id number] 11/17/15 VACCINATION NEC 99.55 07/13/13 Assessment/Plan - Problem List Patient Problems: All Active Problems Dysphagia (Acute) R13.10 GI bleeding (Acute) K92.2 Gastrostomy malfunction (Acute) K94.23 - Assessment Assessment: # Coffee ground emesis # Dysphagia with G tube # Seizure disorder # Developmental delay As she had another episode on 11/26, we planned EGD for 11/27 but were unable to get consent from the conservator. Her hgb has not dropped significantly, thus I do not suspect a severe bleed. However, she may a jalen overton tear, peptic ulcer, or less likely malignancy. \ Plan: - EGD if consent can be obtained - ppi bid - trend hgb, transfuse to keep > 7 - will start reglan for a short course to help prevent recurrence of vomiting and promote gastric emptying - if no consent by this evening, restart tube feeding
--- NOTE | 2018-11-27 08:54 | Diagnostic Imaging Report ---
CHEST X-RAY: AP view INDICATION: Elevated white blood cell count COMPARISON: 11/23/2018 FINDINGS: There is elevation of the right hemidiaphragm with increased right basal lung markings. Heart size normal. Gas distended loops of bowel are seen along the upper abdomen. Percutaneous feeding tube is noted. IMPRESSION: Elevation of the right hemidiaphragm with increased right basal lung markings which may be due to atelectasis versus less likely infiltrate. Please correlate clinically. Generalized gas-filled bowel in the upper abdomen. Underlying Ileus may be considered.
[2018-11-27] MEDS: Levetiracetam 500 mg/5mL 5mL UDSyr *for ORAL USE ONLY GT SCH ×2 (09:09→17:10)
[2018-11-27] MEDS: Calcium Carb/Vit D 500 mg/200 U Tab GT SCH ×3 (09:09→21:38)
[2018-11-27] MEDS: Metoclopramide 5 mg/mL 2mL Vial IVP SCH ×3 (09:09→21:39)
[2018-11-27] MEDS: Lactobacillus Rhamnosus GG 15 Billion CFU CAP.SPRINK PO SCH (09:11)
[2018-11-27] MEDS: Multivitamin w/ Minerals Tab PO SCH (09:11)
[2018-11-27] MEDS: Levothyroxine 0.088 Mg Tab GT SCH (09:21)
[2018-11-27] MEDS: 0.9% NS w/20 mEq KCL 1,000 ML IV SCH (09:21)
[2018-11-28] MEDS: 0.9% NS w/20 mEq KCL 1,000 ML IV SCH ×2 (03:59→23:50)
[2018-11-28] MEDS: Metoclopramide 5 mg/mL 2mL Vial IVP SCH ×3 (05:35→20:29)
[2018-11-28 05:52] LABS: INR 0.97 (0.5-1.4)
[2018-11-28] MEDS: Levothyroxine 0.088 Mg Tab GT SCH ×2 (06:31→14:56)
[2018-11-28] MEDS: Lactobacillus Rhamnosus GG 15 Billion CFU CAP.SPRINK PO SCH ×2 (08:11→09:47)
[2018-11-28] MEDS: Levetiracetam 500 mg/5mL 5mL UDSyr *for ORAL USE ONLY GT SCH ×3 (08:11→16:11)
[2018-11-28] MEDS: Calcium Carb/Vit D 500 mg/200 U Tab GT SCH ×4 (08:11→20:30)
[2018-11-28] MEDS: Multivitamin w/ Minerals Tab PO SCH ×2 (08:12→09:47)
[2018-11-28] MEDS ORDERED: Propofol 10 mg/mL 20mL Vial **SURGERY USE ONLY IV ONE (08:25)
[2018-11-28] MEDS ORDERED: Lidocaine 2% Gel 5 mL TP ONE (08:25)
--- NOTE | 2018-11-28 10:01 | Operative Report ---
DATE OF SURGERY: 11/28/2018 INPATIENT EGD REPORT PROCEDURE PERFORMED: EGD with biopsy. ENDOSCOPIST: Pete Goodson M.D. PREOPERATIVE DIAGNOSIS: Coffee-ground emesis. POSTOPERATIVE DIAGNOSES: Gastritis and presbyesophagus. INDICATION: The patient is a 68-year-old female with developmental delay, dysphagia with permanent G-tube, who was admitted to the hospital with coffee-ground emesis from her nursing facility. Initially, it was thought that the coffee-ground emesis may be due to bleeding from her mouth that she had teeth pulled prior to her admission; however, she had another episode of coffee-ground emesis 2 days into the hospital stay and thus she is planned for EGD this morning for further evaluation. CONSENT: Informed consent was obtained from the patient's conservator. The risks and benefits of the procedure were discussed include, but not limited to infection, bleeding, perforation, need for further surgery, cardiopulmonary complications, missed pathology and . The patient's conservator indicated they understood these risks, which go for with the procedure, signed a consent form. ANESTHESIA: The procedure was done in the operating room under the care of Dr. Maxwell providing general anesthesia using propofol. PROCEDURE IN DETAIL: The patient was hooked up to appropriate monitoring devices including blood pressure, pulse and pulse oximetry. Anesthesia was administered by the anesthesiologist. The patient was in the supine position and a mouthpiece was inserted and secured. A gastroscope was introduced into the mouth and guided under direct visualization into the esophagus, stomach and duodenum. The scope was slowly and carefully withdrawn, making sure to examine the entire mucosa in careful and systematic fashion. Retroflexion was performed in the stomach prior to scope straightening and withdrawal from the body. There was no obvious sign of complication at the end of procedure. FINDINGS: Esophagus: The GE junction was located at 30 cm from incisors. The esophagus itself had a serpiginous shaped consistent with presbyesophagus, although there was no lesion or esophagitis noted. Stomach portion: The G-tube was found along the gastric body. There is some granulation tissue under the G-tube, but no ulceration, no active bleeding. There was mild gastritis in the antral region, but no ulcer and no mass anywhere else in the stomach. Biopsies were taken for SILVANO testing and histology. There was no active bleeding seen. Duodenum: The duodenal bulb and second portion appeared endoscopically normal. IMPRESSION: 1. Presbyesophagus. 2. Intact G-tube without ulcer. RECOMMENDATIONS: 1. We will follow up the biopsy results from the antrum and treat any H. pylori if found. 2. She can restart her tube feeding today and advance as tolerated. 3. If she has further episodes of vomiting, the patient can be given antiemetics such as Zofran and/or short course of Reglan. Thank you for allowing me to participate in her care. Please call with any questions. [facility]# [id number]
--- NOTE | 2018-11-28 22:01 | General Progress Note ---
Subjective - Review of Systems Service Date: 11/27/18 Subjective: Late entry; Patient seen and examined EGD tomorrow Objective - Results Result Diagrams: 11/27/18 05:05 11/27/18 05:05 Recent Labs: Laboratory Last Values WBC 13.1 Th/cmm (4.8-10.8) H 11/27/18 05:05 RBC 4.28 Mil/cmm (3.80-5.20) 11/27/18 05:05 Hgb 13.5 gm/dL (12-16) 11/27/18 05:05 Hct 38.8 % (41.0-60) L 11/27/18 05:05 MCV 90.7 fl (81-100) 11/27/18 05:05 MCH 31.5 pg (27.0-31.0) H 11/27/18 05:05 MCHC Differential 34.7 pg (28.0-36.0) 11/27/18 05:05 RDW 13.8 % (11.5-20.0) 11/27/18 05:05 Plt Count 264 Th/cmm (150-400) D 11/27/18 05:05 MPV 7.9 fl 11/27/18 05:05 Add Manual Diff YES 11/25/18 04:10 Neutrophils % 73.8 % (40.0-80.0) 11/27/18 05:05 Band Neutrophils % 2 % (0-10) 11/25/18 04:10 Lymphocytes % 13.9 % (20.0-50.0) L 11/27/18 05:05 Monocytes % 9.3 % (2.0-10.0) 11/27/18 05:05 Eosinophils % 3.0 % (0.0-5.0) 11/27/18 05:05 Basophils % 0.0 % (0.0-2.0) 11/27/18 05:05 Neutrophils (Manual) 70 % (40-80) 11/25/18 04:10 Lymphocytes 20 % (20-50) 11/25/18 04:10 Monocytes 6 % (2-10) 11/25/18 04:10 Eosinophils 2 % (0-5) 11/25/18 04:10 Basophils 0 % (0-3) 11/25/18 04:10 Platelet Estimate DECREASED PLATELETS (NORMAL) 11/25/18 04:10 Platelet Morphology GIANT PLATELETS SEEN (NORMAL) 11/20/18 11:35 PT 10.1 SECONDS (9.5-11.5) 11/28/18 05:15 INR 0.97 (0.5-1.4) 11/28/18 05:15 PTT (Actin FS) 19.9 SECONDS (26.0-38.0) L 11/20/18 11:35 Sodium 135 mEq/L (136-145) L 11/27/18 05:05 Potassium 4.8 mEq/L (3.5-5.1) 11/27/18 05:05 Chloride 102 mEq/L (98-107) 11/27/18 05:05 Carbon Dioxide 25.3 mEq/L (21.0-31.0) 11/27/18 05:05 Anion Gap 12.5 (7.0-16.0) 11/27/18 05:05 BUN 13 mg/dL (7-25) 11/27/18 05:05 Creatinine 0.6 mg/dL (0.6-1.2) 11/27/18 05:05 Est GFR ( Amer) > 60.0 ml/min (>90) 11/27/18 05:05 Est GFR (Non-Af Amer) > 60.0 ml/min 11/27/18 05:05 BUN/Creatinine Ratio 21.7 11/27/18 05:05 Glucose 93 mg/dL (70-105) 11/27/18 05:05 POC Glucose 81 MG/DL (70 - 105) 11/28/18 06:06 Whole Bld Lactic Acid 1.72 mmol/L (0.60-1.99) 11/22/18 06:15 Calcium 9.4 mg/dL (8.6-10.3) 11/27/18 05:05 - Physical Exam Vitals and I&O: Vital Signs Temp 97 F 11/28/18 20:00 Pulse 63 11/28/18 20:00 Resp 18 11/28/18 20:00 BP 117/71 11/28/18 20:00 Pulse Ox 98 11/28/18 20:00 Intake & Output 11/28/18 11/28/18 11/29/18 06:59 18:59 06:59 Intake Total 1350 440 Balance 1350 440 Weight (lbs) 50.802 kg 50.802 kg Intake: Intake, IV Amount 1200 100 0.9% NS w/20 mEq KCL 1, 1000 000 ml @ 80 mls/hr IV . [id number] [facility] Rx#:[id number] Piperacillin Sodium/ 200 100 Tazobact 4.5 gm In Sodium Chloride 0.9% 100 ml @ 100 mls/hr IV Q8HR [facility] Rx #:[id number] Oral 0 Tube Feeding 340 Other 150 Other: # Voids 3 3 # Bowel Movements 0 2 Stool Characteristics Soft Soft Brown Brown Weight Source Bedscale Bedscale Active Medications: Current Medications Acetaminophen (Tylenol) 650 mg GT Q4HR PRN PRN Reason: PAIN AND FEVER TEMP>100 Stop: 01/19/19 20:26 Last Admin: 11/22/18 20:42 Dose: 650 mg Bisacodyl (Dulcolax 10 Mg Supp) 10 mg RC Q96HR PRN PRN Reason: FOR MODERATE CONSTIPATION Stop: 01/19/19 20:14 Calcium/Vitamin D (Oscal W/Vitamin D) 2 tab GT TID [facility] Stop: 01/20/19 07:59 Last Admin: 11/28/18 20:30 Dose: 2 tab Cholecalciferol (Vitamin D3) 2,000 iu PO TID [facility] Stop: 01/19/19 20:59 Last Admin: 11/28/18 20:30 Dose: 2,000 iu Piperacillin Sod/Tazobactam (Sod 4.5 gm/ Sodium Chloride) 100 mls @ 100 mls/hr IV Q8HR [facility] Stop: 01/19/19 20:59 Last Admin: 11/28/18 20:49 Dose: 100 mls/hr Potassium Chloride/Sodium Chloride (0.9% Ns W/20 Meq Kcl) 1,000 mls @ 80 mls/ hr IV .[id number] [facility] Stop: 01/25/19 13:14 Last Admin: 11/28/18 03:59 Dose: 80 mls/hr Lactobacillus Rhamnosus (Culturelle 15b) 1 each PO DAILY [facility] Stop: 01/21/19 08:59 Last Admin: 11/28/18 09:47 Dose: 1 each Levetiracetam (Keppra) 500 mg GT BID [facility] Stop: 01/19/19 20:29 Last Admin: 11/28/18 16:11 Dose: 500 mg Levothyroxine Sodium (Synthroid) 0.088 mg GT QDAC [facility] Stop: 01/20/19 07:29 Last Admin: 11/28/18 14:56 Dose: 0.088 mg Magnesium Hydroxide (Milk Of Magnesia) 30 ml GT Q72HR PRN PRN Reason: Constipation Stop: 01/19/19 20:29 Metoclopramide HCl (Reglan) 5 mg IVP Q8HR [facility] Stop: 12/03/18 08:14 Last Admin: 11/28/18 20:29 Dose: 5 mg Miscellaneous (Vte Chemical Prophylaxis Screen/ Admission) 1 ea PRN PRN PRN Reason: PROTOCOL Stop: 01/20/19 10:22 Miscellaneous (Probiotic Screen) 1 ea PRN PRN PRN Reason: PROTOCOL Stop: 01/20/19 15:18 Pantoprazole Sodium (Protonix) 40 mg IVP DAILY [facility] Stop: 01/20/19 08:59 Last Admin: 11/28/18 09:47 Dose: 40 mg Sodium Phosphate (Fleet Enema) 135 ml RC Q96HR PRN PRN Reason: SEVERE CONSTIPATION Stop: 01/19/19 20:14 Valproate Sodium (Depakene) 250 mg GT BID [facility]; Protocol Stop: 01/19/19 20:29 Last Admin: 11/28/18 16:11 Dose: 250 mg General: Alert HEENT: Atraumatic Neck: Supple Cardiovascular: Regular rate, Normal S1, Normal S2 Lungs: Clear to auscultation Abdomen: Bowel sounds, Soft, Other, no Tender, no Hepatomegaly, no Splenomegaly , no Distended, no Mass, no Guarding Skin: no Rash - Procedures Procedures: Procedures Procedure Code Date CHANGE FEEDING DEVICE IN UP INTEST TRACT, SHANK CUTTER APPROACH [id number] 10/21/18 CHANGE GASTROSTOMY TUBE 25787 01/20/12 EGD DIAGNOSTIC BRUSH WASH 15857 11/17/[address] GASTROSTOMY TUBE 15475 11/23/13 OTHER ENDOSCOPY OF SM INTEST 45.13 11/23/13 PERCUTANEOUS [ENDOSCOPIC] GASTROSTOMY [PEG] 43.11 12/27/10 RECONSTRUCTION OF HIP SOCKET 45092 11/17/15 REPLACE GASTROSTOMY TUBE 97.02 11/23/13 REVISION OF FEEDING DEVICE IN STOMACH, PERCUTANEOUS APPROACH [id number] 11/17/15 VACCINATION NEC 99.55 07/13/13 Assessment/Plan - Problem List Patient Problems: All Active Problems Dysphagia (Acute) R13.10 GI bleeding (Acute) K92.2 Gastrostomy malfunction (Acute) K94.23 - Assessment Assessment: Hemetemesis Sepsis Pneumonia Dysphagia Seizure disorder Hypothyroidism - Plan Plan: EGD tomorrow Hold feeding Protonix HH later today GI notified IV fluids started Plan of care dw nursing staff DC Clinda Continue Zosyn Nutritional Asmnt/Malnutr-PDOC - Dietary Evaluation Malnutrition Findings (Please click <Entered> for more info): Nutritional Asmnt/Malnutrition Start: 11/21/18 12: 13 Text: Status: Complete Freq: Protocol: Document 11/21/18 12:14 GREGORY (Rec: 11/21/18 12:23 GREGORY [email or web address]) Nutritional Asmnt/Malnutrition Patient General Information Nutritional Screening High Risk Consult Diagnosis Sepsis, Pneumonia Pertinent Medical Hx/Surgical Hx Asthma/COPD, PUD/GERD, Arthritis, hyponatremia, Hepatitis B, PEG/G-Tube, Seizure disorder, hypothyroidism Subjective Information Consult: G-Tube Feeding Pt was downgraded to low risk d/t well tolerance on enteral feeding and meeting nutritional needs. Pt is a 68-year-old female from nursing facility admitted on 11/20 c/o coffee-ground emesis. Per Meal/Nutrition Activity Record, Pt is on G- Tube feeding with Jevity 1.2 at 40ml/24 hrs, no residual noted. Per Nurse note on 11/21, GT Feeding tolerating well, no residual, G-Tube Intact. HT: 48 WT: 116 LB 14.4 oz (53.18 kg) ADJ BW: 46.36 kg BMI: 26.20 (Overweight) GI: Non-Tender, Round, Coffee- ground emesis BM: 11/21 x1 I/O: 1930/Not Noted Skin: WNL, Intact Mayur: 13 Diet Order: Jevity 1.2 at 40ml /24hrs Estimated Energy Needs: ( Geriatric, ADJ BW) 2695-8600 kcals (25-30 kcals/ kg) 46-56g Pro (1.0-1.2 g/kg) 4932-5598 ml (25-30 ml/kg) Pt on G-Tube feeding with Jevity 1.2 at 40ml/24hrs Per Meal/Nutrition Activity Record . Enteral feeding is currently providing an estimated 1152 kcals and 53 gm Pro, to meet 99% kcal and 100+% Pro needs- adequate. Current Diet Order/ Nutrition Support G-Tube Feeding Jevity 1.2 at 40ml/24hrs Pertinent Medications Dulcolax (PRN), Oscal w/ Vitamin D, Vitamin D3, Keppra, Synthroid, MOM (PRN), Protonix, Fleet Enema (PRN) Pertinent Labs 11/21: Hgb/Hct 12.8/36.9, Potass 3.0, BUN/Cr 21/0.5, Glucose 153, Ca 8.4 11/20: Cl 97, Glucose 204 Nutritional Hx/Data Height 1.42 m Height (Calculated Centimeters) 142.2 Current Weight (lbs) 52.617 kg Weight (Calculated Kilograms) 52.6 Weight (Calculated Grams) 00898.7 [place] Body Weight 92 lbs (41.84 kg) % [place] Body Weight 127 Body Mass Index (BMI) 25.9 Weight Status Overweight GI Symptoms GI Symptoms None Last BM 11/21 x1 Skin Integrity/Comment: WNL, Intact Mayur: 13 Estimated Nutritional Goals BEE in Kcals: Adj wt of IBW Calories/Kcals/Kg 25-30 Kcals Calculated 4474-2894 Protein: Adj wt of IBW Protein g/k.0-1.2 Protein Calculated 46-56 Fluid: ml 5171-6574 ml (25-30 ml/kg) Nutritional Problem 1. Problem Problem Altered nutrition related labs Etiology r/t medical condition Signs/Symptoms: aeb lab result Potass 3.0, BUN /Cr 21/0.5, Glucose 153, Ca 8. 4 Malnutrition Related to Morbid Obesity Malnutrition related to morbid obesity No Intervention/Recommendation Comments 1.Continue on G-tube feeding Jevity 1.2 at 40ml/24hrs to meet nutritional needs. Expected Outcomes/Goals Expected Outcomes/Goals 1.Monitor on TF regiment and enteral feeding tolerance. 2.Monitor wt, skin integrity and nutrition related labs to Trend WNL. 3.F/U as low risk in 7 days,
--- NOTE | 2018-11-28 22:03 | General Progress Note ---
Subjective - Review of Systems Service Date: 11/28/18 Subjective: Patient seen and examined s/p EGD no active bleeding reported Objective - Results Result Diagrams: 11/27/18 05:05 11/27/18 05:05 Recent Labs: Laboratory Last Values WBC 13.1 Th/cmm (4.8-10.8) H 11/27/18 05:05 RBC 4.28 Mil/cmm (3.80-5.20) 11/27/18 05:05 Hgb 13.5 gm/dL (12-16) 11/27/18 05:05 Hct 38.8 % (41.0-60) L 11/27/18 05:05 MCV 90.7 fl (81-100) 11/27/18 05:05 MCH 31.5 pg (27.0-31.0) H 11/27/18 05:05 MCHC Differential 34.7 pg (28.0-36.0) 11/27/18 05:05 RDW 13.8 % (11.5-20.0) 11/27/18 05:05 Plt Count 264 Th/cmm (150-400) D 11/27/18 05:05 MPV 7.9 fl 11/27/18 05:05 Add Manual Diff YES 11/25/18 04:10 Neutrophils % 73.8 % (40.0-80.0) 11/27/18 05:05 Band Neutrophils % 2 % (0-10) 11/25/18 04:10 Lymphocytes % 13.9 % (20.0-50.0) L 11/27/18 05:05 Monocytes % 9.3 % (2.0-10.0) 11/27/18 05:05 Eosinophils % 3.0 % (0.0-5.0) 11/27/18 05:05 Basophils % 0.0 % (0.0-2.0) 11/27/18 05:05 Neutrophils (Manual) 70 % (40-80) 11/25/18 04:10 Lymphocytes 20 % (20-50) 11/25/18 04:10 Monocytes 6 % (2-10) 11/25/18 04:10 Eosinophils 2 % (0-5) 11/25/18 04:10 Basophils 0 % (0-3) 11/25/18 04:10 Platelet Estimate DECREASED PLATELETS (NORMAL) 11/25/18 04:10 Platelet Morphology GIANT PLATELETS SEEN (NORMAL) 11/20/18 11:35 PT 10.1 SECONDS (9.5-11.5) 11/28/18 05:15 INR 0.97 (0.5-1.4) 11/28/18 05:15 PTT (Actin FS) 19.9 SECONDS (26.0-38.0) L 11/20/18 11:35 Sodium 135 mEq/L (136-145) L 11/27/18 05:05 Potassium 4.8 mEq/L (3.5-5.1) 11/27/18 05:05 Chloride 102 mEq/L (98-107) 11/27/18 05:05 Carbon Dioxide 25.3 mEq/L (21.0-31.0) 11/27/18 05:05 Anion Gap 12.5 (7.0-16.0) 11/27/18 05:05 BUN 13 mg/dL (7-25) 11/27/18 05:05 Creatinine 0.6 mg/dL (0.6-1.2) 11/27/18 05:05 Est GFR ( Amer) > 60.0 ml/min (>90) 11/27/18 05:05 Est GFR (Non-Af Amer) > 60.0 ml/min 11/27/18 05:05 BUN/Creatinine Ratio 21.7 11/27/18 05:05 Glucose 93 mg/dL (70-105) 11/27/18 05:05 POC Glucose 81 MG/DL (70 - 105) 11/28/18 06:06 Whole Bld Lactic Acid 1.72 mmol/L (0.60-1.99) 11/22/18 06:15 Calcium 9.4 mg/dL (8.6-10.3) 11/27/18 05:05 - Physical Exam Vitals and I&O: Vital Signs Temp 97 F 11/28/18 20:00 Pulse 63 11/28/18 20:00 Resp 18 11/28/18 20:00 BP 117/71 11/28/18 20:00 Pulse Ox 98 11/28/18 20:00 Intake & Output 11/28/18 11/28/18 11/29/18 06:59 18:59 06:59 Intake Total 1350 440 Balance 1350 440 Weight (lbs) 50.802 kg 50.802 kg Intake: Intake, IV Amount 1200 100 0.9% NS w/20 mEq KCL 1, 1000 000 ml @ 80 mls/hr IV . [id number] [facility] Rx#:[id number] Piperacillin Sodium/ 200 100 Tazobact 4.5 gm In Sodium Chloride 0.9% 100 ml @ 100 mls/hr IV Q8HR [facility] Rx #:[id number] Oral 0 Tube Feeding 340 Other 150 Other: # Voids 3 3 # Bowel Movements 0 2 Stool Characteristics Soft Soft Brown Brown Weight Source Bedscale Bedscale Active Medications: Current Medications Acetaminophen (Tylenol) 650 mg GT Q4HR PRN PRN Reason: PAIN AND FEVER TEMP>100 Stop: 01/19/19 20:26 Last Admin: 11/22/18 20:42 Dose: 650 mg Bisacodyl (Dulcolax 10 Mg Supp) 10 mg RC Q96HR PRN PRN Reason: FOR MODERATE CONSTIPATION Stop: 01/19/19 20:14 Calcium/Vitamin D (Oscal W/Vitamin D) 2 tab GT TID [facility] Stop: 01/20/19 07:59 Last Admin: 11/28/18 20:30 Dose: 2 tab Cholecalciferol (Vitamin D3) 2,000 iu PO TID [facility] Stop: 01/19/19 20:59 Last Admin: 11/28/18 20:30 Dose: 2,000 iu Piperacillin Sod/Tazobactam (Sod 4.5 gm/ Sodium Chloride) 100 mls @ 100 mls/hr IV Q8HR [facility] Stop: 01/19/19 20:59 Last Admin: 11/28/18 20:49 Dose: 100 mls/hr Potassium Chloride/Sodium Chloride (0.9% Ns W/20 Meq Kcl) 1,000 mls @ 80 mls/ hr IV .[id number] [facility] Stop: 01/25/19 13:14 Last Admin: 11/28/18 03:59 Dose: 80 mls/hr Lactobacillus Rhamnosus (Culturelle 15b) 1 each PO DAILY [facility] Stop: 01/21/19 08:59 Last Admin: 11/28/18 09:47 Dose: 1 each Levetiracetam (Keppra) 500 mg GT BID [facility] Stop: 01/19/19 20:29 Last Admin: 11/28/18 16:11 Dose: 500 mg Levothyroxine Sodium (Synthroid) 0.088 mg GT QDAC [facility] Stop: 01/20/19 07:29 Last Admin: 11/28/18 14:56 Dose: 0.088 mg Magnesium Hydroxide (Milk Of Magnesia) 30 ml GT Q72HR PRN PRN Reason: Constipation Stop: 01/19/19 20:29 Metoclopramide HCl (Reglan) 5 mg IVP Q8HR [facility] Stop: 12/03/18 08:14 Last Admin: 11/28/18 20:29 Dose: 5 mg Miscellaneous (Vte Chemical Prophylaxis Screen/ Admission) 1 ea PRN PRN PRN Reason: PROTOCOL Stop: 01/20/19 10:22 Miscellaneous (Probiotic Screen) 1 ea PRN PRN PRN Reason: PROTOCOL Stop: 01/20/19 15:18 Pantoprazole Sodium (Protonix) 40 mg IVP DAILY [facility] Stop: 01/20/19 08:59 Last Admin: 11/28/18 09:47 Dose: 40 mg Sodium Phosphate (Fleet Enema) 135 ml RC Q96HR PRN PRN Reason: SEVERE CONSTIPATION Stop: 01/19/19 20:14 Valproate Sodium (Depakene) 250 mg GT BID [facility]; Protocol Stop: 01/19/19 20:29 Last Admin: 11/28/18 16:11 Dose: 250 mg HEENT: Atraumatic Neck: Supple Cardiovascular: Regular rate, Normal S1, Normal S2 Lungs: Clear to auscultation Abdomen: Bowel sounds, Soft, Other, no Tender, no Hepatomegaly, no Splenomegaly , no Distended, no Mass, no Guarding Skin: no Rash - Procedures Procedures: Procedures Procedure Code Date CHANGE FEEDING DEVICE IN UP INTEST TRACT, PERSONAL LINES APPRAISER APPROACH [id number] 10/21/18 CHANGE GASTROSTOMY TUBE 08193 01/20/12 EGD DIAGNOSTIC BRUSH WASH 56327 11/17/[address] GASTROSTOMY TUBE 15157 11/23/13 OTHER ENDOSCOPY OF SM INTEST 45.13 11/23/13 PERCUTANEOUS [ENDOSCOPIC] GASTROSTOMY [PEG] 43.11 12/27/10 RECONSTRUCTION OF HIP SOCKET 49753 11/17/15 REPLACE GASTROSTOMY TUBE 97.02 11/23/13 REVISION OF FEEDING DEVICE IN STOMACH, PERCUTANEOUS APPROACH [id number] 11/17/15 VACCINATION NEC 99.55 07/13/13 Assessment/Plan - Problem List Patient Problems: All Active Problems Dysphagia (Acute) R13.10 GI bleeding (Acute) K92.2 Gastrostomy malfunction (Acute) K94.23 - Assessment Assessment: Hemetemesis Sepsis Pneumonia Dysphagia Seizure disorder Hypothyroidism - Plan Plan: EGD no active bleeding reported G tube feeding restarted Protonix continued Plan of care dw nursing staff Nutritional Asmnt/Malnutr-PDOC - Dietary Evaluation Malnutrition Findings (Please click <Entered> for more info): Nutritional Asmnt/Malnutrition Start: 11/21/18 12: 13 Text: Status: Complete Freq: Protocol: Document 11/21/18 12:14 GREGORY (Rec: 11/21/18 12:23 GREGORY [email or web address]) Nutritional Asmnt/Malnutrition Patient General Information Nutritional Screening High Risk Consult Diagnosis Sepsis, Pneumonia Pertinent Medical Hx/Surgical Hx Asthma/COPD, PUD/GERD, Arthritis, hyponatremia, Hepatitis B, PEG/G-Tube, Seizure disorder, hypothyroidism Subjective Information Consult: G-Tube Feeding Pt was downgraded to low risk d/t well tolerance on enteral feeding and meeting nutritional needs. Pt is a 68-year-old female from nursing facility admitted on 11/20 c/o coffee-ground emesis. Per Meal/Nutrition Activity Record, Pt is on G- Tube feeding with Jevity 1.2 at 40ml/24 hrs, no residual noted. Per Nurse note on 11/21, GT Feeding tolerating well, no residual, G-Tube Intact. HT: 48 WT: 116 LB 14.4 oz (53.18 kg) ADJ BW: 46.36 kg BMI: 26.20 (Overweight) GI: Non-Tender, Round, Coffee- ground emesis BM: 11/21 x1 I/O: 1930/Not Noted Skin: WNL, Intact Mayur: 13 Diet Order: Jevity 1.2 at 40ml /24hrs Estimated Energy Needs: ( Geriatric, ADJ BW) 2740-1755 kcals (25-30 kcals/ kg) 46-56g Pro (1.0-1.2 g/kg) 1300-4917 ml (25-30 ml/kg) Pt on G-Tube feeding with Jevity 1.2 at 40ml/24hrs Per Meal/Nutrition Activity Record . Enteral feeding is currently providing an estimated 1152 kcals and 53 gm Pro, to meet 99% kcal and 100+% Pro needs- adequate. Current Diet Order/ Nutrition Support G-Tube Feeding Jevity 1.2 at 40ml/24hrs Pertinent Medications Dulcolax (PRN), Oscal w/ Vitamin D, Vitamin D3, Keppra, Synthroid, MOM (PRN), Protonix, Fleet Enema (PRN) Pertinent Labs 11/21: Hgb/Hct 12.8/36.9, Potass 3.0, BUN/Cr 21/0.5, Glucose 153, Ca 8.4 11/20: Cl 97, Glucose 204 Nutritional Hx/Data Height 1.42 m Height (Calculated Centimeters) 142.2 Current Weight (lbs) 52.617 kg Weight (Calculated Kilograms) 52.6 Weight (Calculated Grams) 99435.7 [employer] Body Weight 92 lbs (41.84 kg) % [employer] Body Weight 127 Body Mass Index (BMI) 25.9 Weight Status Overweight GI Symptoms GI Symptoms None Last BM 11/21 x1 Skin Integrity/Comment: WNL, Intact Mayur: 13 Estimated Nutritional Goals BEE in Kcals: Adj wt of IBW Calories/Kcals/Kg 25-30 Kcals Calculated 1509-4971 Protein: Adj wt of IBW Protein g/k.0-1.2 Protein Calculated 46-56 Fluid: ml 6330-7706 ml (25-30 ml/kg) Nutritional Problem 1. Problem Problem Altered nutrition related labs Etiology r/t medical condition Signs/Symptoms: aeb lab result Potass 3.0, BUN /Cr 21/0.5, Glucose 153, Ca 8. 4 Malnutrition Related to Morbid Obesity Malnutrition related to morbid obesity No Intervention/Recommendation Comments 1.Continue on G-tube feeding Jevity 1.2 at 40ml/24hrs to meet nutritional needs. Expected Outcomes/Goals Expected Outcomes/Goals 1.Monitor on TF regiment and enteral feeding tolerance. 2.Monitor wt, skin integrity and nutrition related labs to Trend WNL. 3.F/U as low risk in 7 days,
[2018-11-29] MEDS: Metoclopramide 5 mg/mL 2mL Vial IVP SCH ×3 (05:17→21:24)
[2018-11-29] MEDS: Levothyroxine 0.088 Mg Tab GT SCH (06:42)
[2018-11-29] MEDS: Multivitamin w/ Minerals Tab PO SCH (08:36)
[2018-11-29] MEDS: Levetiracetam 500 mg/5mL 5mL UDSyr *for ORAL USE ONLY GT SCH ×2 (08:36→16:54)
[2018-11-29] MEDS: Lactobacillus Rhamnosus GG 15 Billion CFU CAP.SPRINK PO SCH (08:36)
[2018-11-29] MEDS: Calcium Carb/Vit D 500 mg/200 U Tab GT SCH ×3 (08:36→21:24)
--- NOTE | 2018-11-29 13:03 | GI Progress Note ---
Subjective - Review of Systems Service Date: 11/29/18 Subjective: tOLERATING TUBE FEEDING GI OBJECTIVE - Results Result Diagrams: 11/27/18 05:05 11/27/18 05:05 Recent Labs: Laboratory Last Values WBC 13.1 Th/cmm (4.8-10.8) H 11/27/18 05:05 RBC 4.28 Mil/cmm (3.80-5.20) 11/27/18 05:05 Hgb 13.5 gm/dL (12-16) 11/27/18 05:05 Hct 38.8 % (41.0-60) L 11/27/18 05:05 MCV 90.7 fl (81-100) 11/27/18 05:05 MCH 31.5 pg (27.0-31.0) H 11/27/18 05:05 MCHC Differential 34.7 pg (28.0-36.0) 11/27/18 05:05 RDW 13.8 % (11.5-20.0) 11/27/18 05:05 Plt Count 264 Th/cmm (150-400) D 11/27/18 05:05 MPV 7.9 fl 11/27/18 05:05 Add Manual Diff YES 11/25/18 04:10 Neutrophils % 73.8 % (40.0-80.0) 11/27/18 05:05 Band Neutrophils % 2 % (0-10) 11/25/18 04:10 Lymphocytes % 13.9 % (20.0-50.0) L 11/27/18 05:05 Monocytes % 9.3 % (2.0-10.0) 11/27/18 05:05 Eosinophils % 3.0 % (0.0-5.0) 11/27/18 05:05 Basophils % 0.0 % (0.0-2.0) 11/27/18 05:05 Neutrophils (Manual) 70 % (40-80) 11/25/18 04:10 Lymphocytes 20 % (20-50) 11/25/18 04:10 Monocytes 6 % (2-10) 11/25/18 04:10 Eosinophils 2 % (0-5) 11/25/18 04:10 Basophils 0 % (0-3) 11/25/18 04:10 Platelet Estimate DECREASED PLATELETS (NORMAL) 11/25/18 04:10 Platelet Morphology GIANT PLATELETS SEEN (NORMAL) 11/20/18 11:35 PT 10.1 SECONDS (9.5-11.5) 11/28/18 05:15 INR 0.97 (0.5-1.4) 11/28/18 05:15 PTT (Actin FS) 19.9 SECONDS (26.0-38.0) L 11/20/18 11:35 Sodium 135 mEq/L (136-145) L 11/27/18 05:05 Potassium 4.8 mEq/L (3.5-5.1) 11/27/18 05:05 Chloride 102 mEq/L (98-107) 11/27/18 05:05 Carbon Dioxide 25.3 mEq/L (21.0-31.0) 11/27/18 05:05 Anion Gap 12.5 (7.0-16.0) 11/27/18 05:05 BUN 13 mg/dL (7-25) 11/27/18 05:05 Creatinine 0.6 mg/dL (0.6-1.2) 11/27/18 05:05 Est GFR ( Amer) > 60.0 ml/min (>90) 11/27/18 05:05 Est GFR (Non-Af Amer) > 60.0 ml/min 11/27/18 05:05 BUN/Creatinine Ratio 21.7 11/27/18 05:05 Glucose 93 mg/dL (70-105) 11/27/18 05:05 POC Glucose 81 MG/DL (70 - 105) 11/28/18 06:06 Whole Bld Lactic Acid 1.72 mmol/L (0.60-1.99) 11/22/18 06:15 Calcium 9.4 mg/dL (8.6-10.3) 11/27/18 05:05 - Physical Exam Vitals and I&O: Vital Signs Temp 97.1 F 11/29/18 12:00 Pulse 63 11/29/18 12:00 Resp 18 11/29/18 12:00 BP 138/57 11/29/18 12:00 Pulse Ox 97 11/29/18 12:00 Intake & Output 11/28/18 11/29/18 11/29/18 18:59 06:59 18:59 Intake Total 1440 600 100 Balance 1440 600 100 Weight (lbs) 50.802 kg 50.802 kg Intake: Intake, IV Amount 1100 100 100 0.9% NS w/20 mEq KCL 1, 1000 000 ml @ 80 mls/hr IV . [id number] [facility] Rx#:[id number] Piperacillin Sodium/ 100 100 100 Tazobact 4.5 gm In Sodium Chloride 0.9% 100 ml @ 100 mls/hr IV Q8HR [facility] Rx #:[id number] Oral 0 Tube Feeding 340 500 Other: # Voids 3 3 # Bowel Movements 2 1 Stool Characteristics Soft Soft Soft Brown Brown Weight Source Bedscale Bedscale Active Medications: Current Medications Acetaminophen (Tylenol) 650 mg GT Q4HR PRN PRN Reason: PAIN AND FEVER TEMP>100 Stop: 01/19/19 20:26 Last Admin: 11/22/18 20:42 Dose: 650 mg Bisacodyl (Dulcolax 10 Mg Supp) 10 mg RC Q96HR PRN PRN Reason: FOR MODERATE CONSTIPATION Stop: 01/19/19 20:14 Calcium/Vitamin D (Oscal W/Vitamin D) 2 tab GT TID [facility] Stop: 01/20/19 07:59 Last Admin: 11/29/18 08:36 Dose: 2 tab Cholecalciferol (Vitamin D3) 2,000 iu PO TID [facility] Stop: 01/19/19 20:59 Last Admin: 11/29/18 08:36 Dose: 2,000 iu Piperacillin Sod/Tazobactam (Sod 4.5 gm/ Sodium Chloride) 100 mls @ 100 mls/hr IV Q8HR [facility] Stop: 01/19/19 20:59 Last Infusion: 11/29/18 07:23 Dose: Infused Potassium Chloride/Sodium Chloride (0.9% Ns W/20 Meq Kcl) 1,000 mls @ 80 mls/ hr IV .[id number] [facility] Stop: 01/25/19 13:14 Last Admin: 11/28/18 23:50 Dose: 80 mls/hr Lactobacillus Rhamnosus (Culturelle 15b) 1 each PO DAILY [facility] Stop: 01/21/19 08:59 Last Admin: 11/29/18 08:36 Dose: 1 each Levetiracetam (Keppra) 500 mg GT BID [facility] Stop: 01/19/19 20:29 Last Admin: 11/29/18 08:36 Dose: 500 mg Levothyroxine Sodium (Synthroid) 0.088 mg GT QDAC [facility] Stop: 01/20/19 07:29 Last Admin: 11/29/18 06:42 Dose: 0.088 mg Magnesium Hydroxide (Milk Of Magnesia) 30 ml GT Q72HR PRN PRN Reason: Constipation Stop: 01/19/19 20:29 Metoclopramide HCl (Reglan) 5 mg IVP Q8HR [facility] Stop: 12/03/18 08:14 Last Admin: 11/29/18 05:17 Dose: 5 mg Miscellaneous (Vte Chemical Prophylaxis Screen/ Admission) 1 ea PRN PRN PRN Reason: PROTOCOL Stop: 01/20/19 10:22 Miscellaneous (Probiotic Screen) 1 ea PRN PRN PRN Reason: PROTOCOL Stop: 01/20/19 15:18 Pantoprazole Sodium (Protonix) 40 mg IVP DAILY [facility] Stop: 01/20/19 08:59 Last Admin: 11/29/18 08:35 Dose: 40 mg Sodium Phosphate (Fleet Enema) 135 ml RC Q96HR PRN PRN Reason: SEVERE CONSTIPATION Stop: 01/19/19 20:14 Valproate Sodium (Depakene) 250 mg GT BID [facility]; Protocol Stop: 01/19/19 20:29 Last Admin: 11/29/18 08:36 Dose: 250 mg General: Alert HEENT: Atraumatic Cardiovascular: Regular rate Abdomen: Bowel sounds, Soft, no Tender, no Hepatomegaly, no Distended, no Rebound, no Mass - Procedures Procedures: Procedures Procedure Code Date CHANGE FEEDING DEVICE IN UP INTEST TRACT, ONLINE TUTOR APPROACH [id number] 10/21/18 CHANGE GASTROSTOMY TUBE 62601 01/20/12 EGD DIAGNOSTIC BRUSH WASH 09296 11/17/[address] GASTROSTOMY TUBE 22250 11/23/13 OTHER ENDOSCOPY OF SM INTEST 45.13 11/23/13 PERCUTANEOUS [ENDOSCOPIC] GASTROSTOMY [PEG] 43.11 12/27/10 RECONSTRUCTION OF HIP SOCKET 47070 11/17/15 REPLACE GASTROSTOMY TUBE 97.02 11/23/13 REVISION OF FEEDING DEVICE IN STOMACH, PERCUTANEOUS APPROACH [id number] 11/17/15 VACCINATION NEC 99.55 07/13/13 Assessment/Plan - Problem List Patient Problems: All Active Problems Dysphagia (Acute) R13.10 GI bleeding (Acute) K92.2 Gastrostomy malfunction (Acute) K94.23 - Assessment Assessment: # Coffee ground emesis # Dysphagia with G tube # Seizure disorder # Developmental delay EGD on 11/28 showed normal stomach, normal G tube site. Plan: - ppi daily - f/u biopsies - trend hgb, transfuse to keep > 7 - will start reglan for a short course to help prevent recurrence of vomiting and promote gastric emptying - cont tube feeding Stable from a GI standpoint
[2018-11-29] MEDS ORDERED: Levothyroxine 0.088 Mg Tab PO ONE (14:54)
[2018-11-29] MEDS: 0.9% NS w/20 mEq KCL 1,000 ML IV SCH (16:53)
--- NOTE | 2018-11-29 21:26 | General Progress Note ---
Subjective - Review of Systems Subjective: Patient seen and examined s/p EGD no active bleeding reported Objective - Results Result Diagrams: 11/27/18 05:05 11/27/18 05:05 Recent Labs: Laboratory Last Values WBC 13.1 Th/cmm (4.8-10.8) H 11/27/18 05:05 RBC 4.28 Mil/cmm (3.80-5.20) 11/27/18 05:05 Hgb 13.5 gm/dL (12-16) 11/27/18 05:05 Hct 38.8 % (41.0-60) L 11/27/18 05:05 MCV 90.7 fl (81-100) 11/27/18 05:05 MCH 31.5 pg (27.0-31.0) H 11/27/18 05:05 MCHC Differential 34.7 pg (28.0-36.0) 11/27/18 05:05 RDW 13.8 % (11.5-20.0) 11/27/18 05:05 Plt Count 264 Th/cmm (150-400) D 11/27/18 05:05 MPV 7.9 fl 11/27/18 05:05 Add Manual Diff YES 11/25/18 04:10 Neutrophils % 73.8 % (40.0-80.0) 11/27/18 05:05 Band Neutrophils % 2 % (0-10) 11/25/18 04:10 Lymphocytes % 13.9 % (20.0-50.0) L 11/27/18 05:05 Monocytes % 9.3 % (2.0-10.0) 11/27/18 05:05 Eosinophils % 3.0 % (0.0-5.0) 11/27/18 05:05 Basophils % 0.0 % (0.0-2.0) 11/27/18 05:05 Neutrophils (Manual) 70 % (40-80) 11/25/18 04:10 Lymphocytes 20 % (20-50) 11/25/18 04:10 Monocytes 6 % (2-10) 11/25/18 04:10 Eosinophils 2 % (0-5) 11/25/18 04:10 Basophils 0 % (0-3) 11/25/18 04:10 Platelet Estimate DECREASED PLATELETS (NORMAL) 11/25/18 04:10 Platelet Morphology GIANT PLATELETS SEEN (NORMAL) 11/20/18 11:35 PT 10.1 SECONDS (9.5-11.5) 11/28/18 05:15 INR 0.97 (0.5-1.4) 11/28/18 05:15 PTT (Actin FS) 19.9 SECONDS (26.0-38.0) L 11/20/18 11:35 Sodium 135 mEq/L (136-145) L 11/27/18 05:05 Potassium 4.8 mEq/L (3.5-5.1) 11/27/18 05:05 Chloride 102 mEq/L (98-107) 11/27/18 05:05 Carbon Dioxide 25.3 mEq/L (21.0-31.0) 11/27/18 05:05 Anion Gap 12.5 (7.0-16.0) 11/27/18 05:05 BUN 13 mg/dL (7-25) 11/27/18 05:05 Creatinine 0.6 mg/dL (0.6-1.2) 11/27/18 05:05 Est GFR ( Amer) > 60.0 ml/min (>90) 11/27/18 05:05 Est GFR (Non-Af Amer) > 60.0 ml/min 11/27/18 05:05 BUN/Creatinine Ratio 21.7 11/27/18 05:05 Glucose 93 mg/dL (70-105) 11/27/18 05:05 POC Glucose 81 MG/DL (70 - 105) 11/28/18 06:06 Whole Bld Lactic Acid 1.72 mmol/L (0.60-1.99) 11/22/18 06:15 Calcium 9.4 mg/dL (8.6-10.3) 11/27/18 05:05 Helicobacter pylori Ab NEGATIVE (NEGATIVE) 11/28/18 09:15 - Physical Exam Vitals and I&O: Vital Signs Temp 97.0 F 11/29/18 16:00 Pulse 62 11/29/18 16:00 Resp 18 11/29/18 16:00 BP 150/58 11/29/18 16:00 Pulse Ox 99 11/29/18 16:00 Intake & Output 11/29/18 11/29/18 11/30/18 06:59 18:59 06:59 Intake Total 600 1200 Balance 600 1200 Weight (lbs) 50.802 kg 50.802 kg Intake: Intake, IV Amount 100 1200 0.9% NS w/20 mEq KCL 1, 1000 000 ml @ 80 mls/hr IV . [id number] [facility] Rx#:[id number] Piperacillin Sodium/ 100 200 Tazobact 4.5 gm In Sodium Chloride 0.9% 100 ml @ 100 mls/hr IV Q8HR [facility] Rx #:[id number] Oral 0 Tube Feeding 500 Other: # Voids 3 3 # Bowel Movements 1 Stool Characteristics Soft Soft Brown Weight Source Bedscale Bedscale Active Medications: Current Medications Acetaminophen (Tylenol) 650 mg GT Q4HR PRN PRN Reason: PAIN AND FEVER TEMP>100 Stop: 01/19/19 20:26 Last Admin: 11/22/18 20:42 Dose: 650 mg Bisacodyl (Dulcolax 10 Mg Supp) 10 mg RC Q96HR PRN PRN Reason: FOR MODERATE CONSTIPATION Stop: 01/19/19 20:14 Calcium/Vitamin D (Oscal W/Vitamin D) 2 tab GT TID [facility] Stop: 01/20/19 07:59 Last Admin: 11/29/18 21:24 Dose: 2 tab Cholecalciferol (Vitamin D3) 2,000 iu PO TID [facility] Stop: 01/19/19 20:59 Last Admin: 11/29/18 21:24 Dose: 2,000 iu Piperacillin Sod/Tazobactam (Sod 4.5 gm/ Sodium Chloride) 100 mls @ 100 mls/hr IV Q8HR [facility] Stop: 01/19/19 20:59 Last Admin: 11/29/18 21:24 Dose: 100 mls/hr Potassium Chloride/Sodium Chloride (0.9% Ns W/20 Meq Kcl) 1,000 mls @ 80 mls/ hr IV .[id number] [facility] Stop: 01/25/19 13:14 Last Admin: 11/29/18 16:53 Dose: 80 mls/hr Lactobacillus Rhamnosus (Culturelle 15b) 1 each PO DAILY [facility] Stop: 01/21/19 08:59 Last Admin: 11/29/18 08:36 Dose: 1 each Levetiracetam (Keppra) 500 mg GT BID [facility] Stop: 01/19/19 20:29 Last Admin: 11/29/18 16:54 Dose: 500 mg Levothyroxine Sodium (Synthroid) 0.088 mg GT QDAC [facility] Stop: 01/20/19 07:29 Last Admin: 11/29/18 06:42 Dose: 0.088 mg Magnesium Hydroxide (Milk Of Magnesia) 30 ml GT Q72HR PRN PRN Reason: Constipation Stop: 01/19/19 20:29 Metoclopramide HCl (Reglan) 5 mg IVP Q8HR [facility] Stop: 12/03/18 08:14 Last Admin: 11/29/18 21:24 Dose: 5 mg Miscellaneous (Vte Chemical Prophylaxis Screen/ Admission) 1 ea PRN PRN PRN Reason: PROTOCOL Stop: 01/20/19 10:22 Miscellaneous (Probiotic Screen) 1 ea PRN PRN PRN Reason: PROTOCOL Stop: 01/20/19 15:18 Pantoprazole Sodium (Protonix) 40 mg IVP DAILY [facility] Stop: 01/20/19 08:59 Last Admin: 11/29/18 08:35 Dose: 40 mg Sodium Phosphate (Fleet Enema) 135 ml RC Q96HR PRN PRN Reason: SEVERE CONSTIPATION Stop: 01/19/19 20:14 Valproate Sodium (Depakene) 250 mg GT BID [facility]; Protocol Stop: 01/19/19 20:29 Last Admin: 11/29/18 16:54 Dose: 250 mg General: Alert HEENT: Atraumatic Neck: Supple Cardiovascular: Regular rate Lungs: Clear to auscultation Abdomen: Bowel sounds, Soft, no Tender, no Hepatomegaly, no Distended, no Rebound, no Mass Skin: no Rash - Procedures Procedures: Procedures Procedure Code Date CHANGE FEEDING DEVICE IN UP INTEST TRACT, SOLO MUSICIAN APPROACH [id number] 10/21/18 CHANGE GASTROSTOMY TUBE 09955 01/20/12 EGD DIAGNOSTIC BRUSH WASH 06398 11/17/[address] GASTROSTOMY TUBE 33940 11/23/13 OTHER ENDOSCOPY OF SM INTEST 45.13 11/23/13 PERCUTANEOUS [ENDOSCOPIC] GASTROSTOMY [PEG] 43.11 12/27/10 RECONSTRUCTION OF HIP SOCKET 37145 11/17/15 REPLACE GASTROSTOMY TUBE 97.02 11/23/13 REVISION OF FEEDING DEVICE IN STOMACH, PERCUTANEOUS APPROACH [id number] 11/17/15 VACCINATION NEC 99.55 07/13/13 Assessment/Plan - Problem List Patient Problems: All Active Problems Dysphagia (Acute) R13.10 GI bleeding (Acute) K92.2 Gastrostomy malfunction (Acute) K94.23 - Assessment Assessment: Hemetemesis Sepsis Pneumonia Dysphagia Seizure disorder Hypothyroidism - Plan Plan: EGD no active bleeding reported G tube feeding restarted Protonix continued Plan of care dw nursing staff Nutritional Asmnt/Malnutr-PDOC - Dietary Evaluation Malnutrition Findings (Please click <Entered> for more info): Nutritional Asmnt/Malnutrition Start: 11/21/18 12: 13 Text: Status: Complete Freq: Protocol: Document 11/21/18 12:14 GREGORY (Rec: 11/21/18 12:23 GREGORY [email or web address]) Nutritional Asmnt/Malnutrition Patient General Information Nutritional Screening High Risk Consult Diagnosis Sepsis, Pneumonia Pertinent Medical Hx/Surgical Hx Asthma/COPD, PUD/GERD, Arthritis, hyponatremia, Hepatitis B, PEG/G-Tube, Seizure disorder, hypothyroidism Subjective Information Consult: G-Tube Feeding Pt was downgraded to low risk d/t well tolerance on enteral feeding and meeting nutritional needs. Pt is a 68-year-old female from nursing facility admitted on 11/20 c/o coffee-ground emesis. Per Meal/Nutrition Activity Record, Pt is on G- Tube feeding with Jevity 1.2 at 40ml/24 hrs, no residual noted. Per Nurse note on 11/21, GT Feeding tolerating well, no residual, G-Tube Intact. HT: 48 WT: 116 LB 14.4 oz (53.18 kg) ADJ BW: 46.36 kg BMI: 26.20 (Overweight) GI: Non-Tender, Round, Coffee- ground emesis BM: 11/21 x1 I/O: 1930/Not Noted Skin: WNL, Intact Mayur: 13 Diet Order: Jevity 1.2 at 40ml /24hrs Estimated Energy Needs: ( Geriatric, ADJ BW) 8520-2620 kcals (25-30 kcals/ kg) 46-56g Pro (1.0-1.2 g/kg) 0357-3809 ml (25-30 ml/kg) Pt on G-Tube feeding with Jevity 1.2 at 40ml/24hrs Per Meal/Nutrition Activity Record . Enteral feeding is currently providing an estimated 1152 kcals and 53 gm Pro, to meet 99% kcal and 100+% Pro needs- adequate. Current Diet Order/ Nutrition Support G-Tube Feeding Jevity 1.2 at 40ml/24hrs Pertinent Medications Dulcolax (PRN), Oscal w/ Vitamin D, Vitamin D3, Keppra, Synthroid, MOM (PRN), Protonix, Fleet Enema (PRN) Pertinent Labs 11/21: Hgb/Hct 12.8/36.9, Potass 3.0, BUN/Cr 21/0.5, Glucose 153, Ca 8.4 11/20: Cl 97, Glucose 204 Nutritional Hx/Data Height 1.42 m Height (Calculated Centimeters) 142.2 Current Weight (lbs) 52.617 kg Weight (Calculated Kilograms) 52.6 Weight (Calculated Grams) 77667.7 [place] Body Weight 92 lbs (41.84 kg) % [place] Body Weight 127 Body Mass Index (BMI) 25.9 Weight Status Overweight GI Symptoms GI Symptoms None Last BM 11/21 x1 Skin Integrity/Comment: WNL, Intact Mayur: 13 Estimated Nutritional Goals BEE in Kcals: Adj wt of IBW Calories/Kcals/Kg 25-30 Kcals Calculated 2611-1513 Protein: Adj wt of IBW Protein g/k.0-1.2 Protein Calculated 46-56 Fluid: ml 6114-6966 ml (25-30 ml/kg) Nutritional Problem 1. Problem Problem Altered nutrition related labs Etiology r/t medical condition Signs/Symptoms: aeb lab result Potass 3.0, BUN /Cr 21/0.5, Glucose 153, Ca 8. 4 Malnutrition Related to Morbid Obesity Malnutrition related to morbid obesity No Intervention/Recommendation Comments 1.Continue on G-tube feeding Jevity 1.2 at 40ml/24hrs to meet nutritional needs. Expected Outcomes/Goals Expected Outcomes/Goals 1.Monitor on TF regiment and enteral feeding tolerance. 2.Monitor wt, skin integrity and nutrition related labs to Trend WNL. 3.F/U as low risk in 7 days,
[2018-11-30] MEDS: Metoclopramide 5 mg/mL 2mL Vial IVP SCH ×2 (05:20→13:57)
[2018-11-30] MEDS: Levothyroxine 0.088 Mg Tab GT SCH (06:48)
[2018-11-30] MEDS: Levetiracetam 500 mg/5mL 5mL UDSyr *for ORAL USE ONLY GT SCH ×2 (09:29→16:29)
[2018-11-30] MEDS: Calcium Carb/Vit D 500 mg/200 U Tab GT SCH ×2 (09:30→13:57)
[2018-11-30] MEDS: Lactobacillus Rhamnosus GG 15 Billion CFU CAP.SPRINK PO SCH (09:30)
[2018-11-30] MEDS: Multivitamin w/ Minerals Tab PO SCH (09:30)
[2018-11-30] MEDS: 0.9% NS w/20 mEq KCL 1,000 ML IV SCH (09:39)
--- NOTE | 2018-11-30 11:32 | GI Progress Note ---
Subjective - Review of Systems Service Date: 11/30/18 Subjective: tolerating tube feeding GI OBJECTIVE - Results Result Diagrams: 11/27/18 05:05 11/27/18 05:05 Recent Labs: Laboratory Last Values WBC 13.1 Th/cmm (4.8-10.8) H 11/27/18 05:05 RBC 4.28 Mil/cmm (3.80-5.20) 11/27/18 05:05 Hgb 13.5 gm/dL (12-16) 11/27/18 05:05 Hct 38.8 % (41.0-60) L 11/27/18 05:05 MCV 90.7 fl (81-100) 11/27/18 05:05 MCH 31.5 pg (27.0-31.0) H 11/27/18 05:05 MCHC Differential 34.7 pg (28.0-36.0) 11/27/18 05:05 RDW 13.8 % (11.5-20.0) 11/27/18 05:05 Plt Count 264 Th/cmm (150-400) D 11/27/18 05:05 MPV 7.9 fl 11/27/18 05:05 Add Manual Diff YES 11/25/18 04:10 Neutrophils % 73.8 % (40.0-80.0) 11/27/18 05:05 Band Neutrophils % 2 % (0-10) 11/25/18 04:10 Lymphocytes % 13.9 % (20.0-50.0) L 11/27/18 05:05 Monocytes % 9.3 % (2.0-10.0) 11/27/18 05:05 Eosinophils % 3.0 % (0.0-5.0) 11/27/18 05:05 Basophils % 0.0 % (0.0-2.0) 11/27/18 05:05 Neutrophils (Manual) 70 % (40-80) 11/25/18 04:10 Lymphocytes 20 % (20-50) 11/25/18 04:10 Monocytes 6 % (2-10) 11/25/18 04:10 Eosinophils 2 % (0-5) 11/25/18 04:10 Basophils 0 % (0-3) 11/25/18 04:10 Platelet Estimate DECREASED PLATELETS (NORMAL) 11/25/18 04:10 Platelet Morphology GIANT PLATELETS SEEN (NORMAL) 11/20/18 11:35 PT 10.1 SECONDS (9.5-11.5) 11/28/18 05:15 INR 0.97 (0.5-1.4) 11/28/18 05:15 PTT (Actin FS) 19.9 SECONDS (26.0-38.0) L 11/20/18 11:35 Sodium 135 mEq/L (136-145) L 11/27/18 05:05 Potassium 4.8 mEq/L (3.5-5.1) 11/27/18 05:05 Chloride 102 mEq/L (98-107) 11/27/18 05:05 Carbon Dioxide 25.3 mEq/L (21.0-31.0) 11/27/18 05:05 Anion Gap 12.5 (7.0-16.0) 11/27/18 05:05 BUN 13 mg/dL (7-25) 11/27/18 05:05 Creatinine 0.6 mg/dL (0.6-1.2) 11/27/18 05:05 Est GFR ( Amer) > 60.0 ml/min (>90) 11/27/18 05:05 Est GFR (Non-Af Amer) > 60.0 ml/min 11/27/18 05:05 BUN/Creatinine Ratio 21.7 11/27/18 05:05 Glucose 93 mg/dL (70-105) 11/27/18 05:05 POC Glucose 81 MG/DL (70 - 105) 11/28/18 06:06 Whole Bld Lactic Acid 1.72 mmol/L (0.60-1.99) 11/22/18 06:15 Calcium 9.4 mg/dL (8.6-10.3) 11/27/18 05:05 Helicobacter pylori Ab NEGATIVE (NEGATIVE) 11/28/18 09:15 - Physical Exam Vitals and I&O: Vital Signs Temp 97.0 F 11/30/18 08:00 Pulse 66 11/30/18 08:00 Resp 18 11/30/18 08:00 BP 135/52 11/30/18 08:00 Pulse Ox 96 11/30/18 08:00 Intake & Output 11/29/18 11/30/18 11/30/18 18:59 06:59 18:59 Intake Total 1200 2180 100 Output Total 0 Balance 1200 2180 100 Weight (lbs) 50.802 kg 51.347 kg 50.802 kg Intake: Intake, IV Amount 1200 1200 0.9% NS w/20 mEq KCL 1, 1000 1000 000 ml @ 80 mls/hr IV . [id number] [facility] Rx#:[id number] Piperacillin Sodium/ 200 200 Tazobact 4.5 gm In Sodium Chloride 0.9% 100 ml @ 100 mls/hr IV Q8HR [facility] Rx #:[id number] Oral 0 0 0 Tube Feeding 780 Other 200 100 Output: Stool 0 Other: # Voids 3 2 # Bowel Movements 1 Stool Characteristics Soft Weight Source Bedscale Bedscale Bedscale Active Medications: Current Medications Acetaminophen (Tylenol) 650 mg GT Q4HR PRN PRN Reason: PAIN AND FEVER TEMP>100 Stop: 01/19/19 20:26 Last Admin: 11/22/18 20:42 Dose: 650 mg Bisacodyl (Dulcolax 10 Mg Supp) 10 mg RC Q96HR PRN PRN Reason: FOR MODERATE CONSTIPATION Stop: 01/19/19 20:14 Calcium/Vitamin D (Oscal W/Vitamin D) 2 tab GT TID [facility] Stop: 01/20/19 07:59 Last Admin: 11/30/18 09:30 Dose: 2 tab Cholecalciferol (Vitamin D3) 2,000 iu PO TID [facility] Stop: 01/19/19 20:59 Last Admin: 11/30/18 09:30 Dose: 2,000 iu Piperacillin Sod/Tazobactam (Sod 4.5 gm/ Sodium Chloride) 100 mls @ 100 mls/hr IV Q8HR [facility] Stop: 01/19/19 20:59 Last Infusion: 11/30/18 06:15 Dose: Infused Potassium Chloride/Sodium Chloride (0.9% Ns W/20 Meq Kcl) 1,000 mls @ 80 mls/ hr IV .[id number] [facility] Stop: 01/25/19 13:14 Last Admin: 11/30/18 09:39 Dose: 80 mls/hr Lactobacillus Rhamnosus (Culturelle 15b) 1 each PO DAILY [facility] Stop: 01/21/19 08:59 Last Admin: 11/30/18 09:30 Dose: 1 each Levetiracetam (Keppra) 500 mg GT BID [facility] Stop: 01/19/19 20:29 Last Admin: 11/30/18 09:29 Dose: 500 mg Levothyroxine Sodium (Synthroid) 0.088 mg GT QDAC [facility] Stop: 01/20/19 07:29 Last Admin: 11/30/18 06:48 Dose: 0.088 mg Magnesium Hydroxide (Milk Of Magnesia) 30 ml GT Q72HR PRN PRN Reason: Constipation Stop: 01/19/19 20:29 Metoclopramide HCl (Reglan) 5 mg IVP Q8HR [facility] Stop: 12/03/18 08:14 Last Admin: 11/30/18 05:20 Dose: 5 mg Miscellaneous (Vte Chemical Prophylaxis Screen/ Admission) 1 ea PRN PRN PRN Reason: PROTOCOL Stop: 01/20/19 10:22 Miscellaneous (Probiotic Screen) 1 ea PRN PRN PRN Reason: PROTOCOL Stop: 01/20/19 15:18 Pantoprazole Sodium (Protonix) 40 mg IVP DAILY [facility] Stop: 01/20/19 08:59 Last Admin: 11/30/18 09:29 Dose: 40 mg Sodium Phosphate (Fleet Enema) 135 ml RC Q96HR PRN PRN Reason: SEVERE CONSTIPATION Stop: 01/19/19 20:14 Valproate Sodium (Depakene) 250 mg GT BID [facility]; Protocol Stop: 01/19/19 20:29 Last Admin: 11/30/18 09:29 Dose: 250 mg General: Alert Neck: Supple Cardiovascular: Regular rate Abdomen: Bowel sounds, no Soft, no Tender, no Hepatomegaly Extremities: no Clubbing Skin: Rash Psych/Mental Status: Mental status NL - Procedures Procedures: Procedures Procedure Code Date CHANGE FEEDING DEVICE IN UP INTEST TRACT, BIBLE TEACHER APPROACH [id number] 10/21/18 CHANGE GASTROSTOMY TUBE 45628 01/20/12 EGD DIAGNOSTIC BRUSH WASH 61229 11/17/[address] GASTROSTOMY TUBE 20750 11/23/13 OTHER ENDOSCOPY OF SM INTEST 45.13 11/23/13 PERCUTANEOUS [ENDOSCOPIC] GASTROSTOMY [PEG] 43.11 12/27/10 RECONSTRUCTION OF HIP SOCKET 00957 11/17/15 REPLACE GASTROSTOMY TUBE 97.02 11/23/13 REVISION OF FEEDING DEVICE IN STOMACH, PERCUTANEOUS APPROACH [id number] 11/17/15 VACCINATION NEC 99.55 07/13/13 Assessment/Plan - Problem List Patient Problems: All Active Problems Dysphagia (Acute) R13.10 GI bleeding (Acute) K92.2 Gastrostomy malfunction (Acute) K94.23 - Assessment Assessment: # Coffee ground emesis # Dysphagia with G tube # Seizure disorder # Developmental delay EGD on 11/28 showed normal stomach, normal G tube site. Plan: - ppi daily - SILVANO test negative - trend hgb, transfuse to keep > 7 - will start reglan for a short course to help prevent recurrence of vomiting and promote gastric emptying - cont tube feeding Stable from a GI standpoint, will see as needed.
--- NOTE | 2018-11-30 12:46 | General Progress Note ---
Subjective - Review of Systems Subjective: Patient seen and examined s/p EGD no active bleeding reported Objective - Results Result Diagrams: 11/27/18 05:05 11/27/18 05:05 Recent Labs: Laboratory Last Values WBC 13.1 Th/cmm (4.8-10.8) H 11/27/18 05:05 RBC 4.28 Mil/cmm (3.80-5.20) 11/27/18 05:05 Hgb 13.5 gm/dL (12-16) 11/27/18 05:05 Hct 38.8 % (41.0-60) L 11/27/18 05:05 MCV 90.7 fl (81-100) 11/27/18 05:05 MCH 31.5 pg (27.0-31.0) H 11/27/18 05:05 MCHC Differential 34.7 pg (28.0-36.0) 11/27/18 05:05 RDW 13.8 % (11.5-20.0) 11/27/18 05:05 Plt Count 264 Th/cmm (150-400) D 11/27/18 05:05 MPV 7.9 fl 11/27/18 05:05 Add Manual Diff YES 11/25/18 04:10 Neutrophils % 73.8 % (40.0-80.0) 11/27/18 05:05 Band Neutrophils % 2 % (0-10) 11/25/18 04:10 Lymphocytes % 13.9 % (20.0-50.0) L 11/27/18 05:05 Monocytes % 9.3 % (2.0-10.0) 11/27/18 05:05 Eosinophils % 3.0 % (0.0-5.0) 11/27/18 05:05 Basophils % 0.0 % (0.0-2.0) 11/27/18 05:05 Neutrophils (Manual) 70 % (40-80) 11/25/18 04:10 Lymphocytes 20 % (20-50) 11/25/18 04:10 Monocytes 6 % (2-10) 11/25/18 04:10 Eosinophils 2 % (0-5) 11/25/18 04:10 Basophils 0 % (0-3) 11/25/18 04:10 Platelet Estimate DECREASED PLATELETS (NORMAL) 11/25/18 04:10 Platelet Morphology GIANT PLATELETS SEEN (NORMAL) 11/20/18 11:35 PT 10.1 SECONDS (9.5-11.5) 11/28/18 05:15 INR 0.97 (0.5-1.4) 11/28/18 05:15 PTT (Actin FS) 19.9 SECONDS (26.0-38.0) L 11/20/18 11:35 Sodium 135 mEq/L (136-145) L 11/27/18 05:05 Potassium 4.8 mEq/L (3.5-5.1) 11/27/18 05:05 Chloride 102 mEq/L (98-107) 11/27/18 05:05 Carbon Dioxide 25.3 mEq/L (21.0-31.0) 11/27/18 05:05 Anion Gap 12.5 (7.0-16.0) 11/27/18 05:05 BUN 13 mg/dL (7-25) 11/27/18 05:05 Creatinine 0.6 mg/dL (0.6-1.2) 11/27/18 05:05 Est GFR ( Amer) > 60.0 ml/min (>90) 11/27/18 05:05 Est GFR (Non-Af Amer) > 60.0 ml/min 11/27/18 05:05 BUN/Creatinine Ratio 21.7 11/27/18 05:05 Glucose 93 mg/dL (70-105) 11/27/18 05:05 POC Glucose 81 MG/DL (70 - 105) 11/28/18 06:06 Whole Bld Lactic Acid 1.72 mmol/L (0.60-1.99) 11/22/18 06:15 Calcium 9.4 mg/dL (8.6-10.3) 11/27/18 05:05 Helicobacter pylori Ab NEGATIVE (NEGATIVE) 11/28/18 09:15 - Physical Exam Vitals and I&O: Vital Signs Temp 97.2 F 11/30/18 12:00 Pulse 64 11/30/18 12:00 Resp 17 11/30/18 12:00 BP 132/84 11/30/18 12:00 Pulse Ox 97 11/30/18 12:00 Intake & Output 11/29/18 11/30/18 11/30/18 18:59 06:59 18:59 Intake Total 1200 2180 100 Output Total 0 Balance 1200 2180 100 Weight (lbs) 50.802 kg 51.347 kg 50.802 kg Intake: Intake, IV Amount 1200 1200 0.9% NS w/20 mEq KCL 1, 1000 1000 000 ml @ 80 mls/hr IV . [id number] COUNT INCLUDES THE [facility] Rx#:[id number] Piperacillin Sodium/ 200 200 Tazobact 4.5 gm In Sodium Chloride 0.9% 100 ml @ 100 mls/hr IV Q8HR COUNT INCLUDES THE [facility] Rx #:[id number] Oral 0 0 0 Tube Feeding 780 Other 200 100 Output: Stool 0 Other: # Voids 3 2 # Bowel Movements 1 Stool Characteristics Soft Weight Source Bedscale Bedscale Bedscale Active Medications: Current Medications Acetaminophen (Tylenol) 650 mg GT Q4HR PRN PRN Reason: PAIN AND FEVER TEMP>100 Stop: 01/19/19 20:26 Last Admin: 11/22/18 20:42 Dose: 650 mg Bisacodyl (Dulcolax 10 Mg Supp) 10 mg RC Q96HR PRN PRN Reason: FOR MODERATE CONSTIPATION Stop: 01/19/19 20:14 Calcium/Vitamin D (Oscal W/Vitamin D) 2 tab GT TID COUNT INCLUDES THE [facility] Stop: 01/20/19 07:59 Last Admin: 11/30/18 09:30 Dose: 2 tab Cholecalciferol (Vitamin D3) 2,000 iu PO TID COUNT INCLUDES THE [facility] Stop: 01/19/19 20:59 Last Admin: 11/30/18 09:30 Dose: 2,000 iu Piperacillin Sod/Tazobactam (Sod 4.5 gm/ Sodium Chloride) 100 mls @ 100 mls/hr IV Q8HR COUNT INCLUDES THE [facility] Stop: 01/19/19 20:59 Last Infusion: 11/30/18 06:15 Dose: Infused Potassium Chloride/Sodium Chloride (0.9% Ns W/20 Meq Kcl) 1,000 mls @ 80 mls/ hr IV .[id number] COUNT INCLUDES THE [facility] Stop: 01/25/19 13:14 Last Admin: 11/30/18 09:39 Dose: 80 mls/hr Lactobacillus Rhamnosus (Culturelle 15b) 1 each PO DAILY COUNT INCLUDES THE [facility] Stop: 01/21/19 08:59 Last Admin: 11/30/18 09:30 Dose: 1 each Levetiracetam (Keppra) 500 mg GT BID COUNT INCLUDES THE [facility] Stop: 01/19/19 20:29 Last Admin: 11/30/18 09:29 Dose: 500 mg Levothyroxine Sodium (Synthroid) 0.088 mg GT QDAC SHELLY Stop: 01/20/19 07:29 Last Admin: 11/30/18 06:48 Dose: 0.088 mg Magnesium Hydroxide (Milk Of Magnesia) 30 ml GT Q72HR PRN PRN Reason: Constipation Stop: 01/19/19 20:29 Metoclopramide HCl (Reglan) 5 mg IVP Q8HR SHELLY Stop: 12/03/18 08:14 Last Admin: 11/30/18 05:20 Dose: 5 mg Miscellaneous (Vte Chemical Prophylaxis Screen/ Admission) 1 ea PRN PRN PRN Reason: PROTOCOL Stop: 01/20/19 10:22 Miscellaneous (Probiotic Screen) 1 ea PRN PRN PRN Reason: PROTOCOL Stop: 01/20/19 15:18 Pantoprazole Sodium (Protonix) 40 mg IVP DAILY COUNT INCLUDES THE [facility] Stop: 01/20/19 08:59 Last Admin: 11/30/18 09:29 Dose: 40 mg Sodium Phosphate (Fleet Enema) 135 ml RC Q96HR PRN PRN Reason: SEVERE CONSTIPATION Stop: 01/19/19 20:14 Valproate Sodium (Depakene) 250 mg GT BID COUNT INCLUDES THE [facility]; Protocol Stop: 01/19/19 20:29 Last Admin: 11/30/18 09:29 Dose: 250 mg General: Alert HEENT: Atraumatic Neck: Supple Cardiovascular: Regular rate Lungs: Clear to auscultation Abdomen: Bowel sounds, no Soft, no Tender, no Hepatomegaly Extremities: no Clubbing Skin: Rash Psych/Mental Status: Mental status NL - Procedures Procedures: Procedures Procedure Code Date CHANGE FEEDING DEVICE IN UP INTEST TRACT, COMPUTER PROCESSING SCHEDULER APPROACH [id number] 10/21/18 CHANGE GASTROSTOMY TUBE 20832 01/20/12 EGD DIAGNOSTIC BRUSH WASH 79384 11/17/[address] GASTROSTOMY TUBE 97758 11/23/13 OTHER ENDOSCOPY OF SM INTEST 45.13 11/23/13 PERCUTANEOUS [ENDOSCOPIC] GASTROSTOMY [PEG] 43.11 12/27/10 RECONSTRUCTION OF HIP SOCKET 69541 11/17/15 REPLACE GASTROSTOMY TUBE 97.02 11/23/13 REVISION OF FEEDING DEVICE IN STOMACH, PERCUTANEOUS APPROACH [id number] 11/17/15 VACCINATION NEC 99.55 07/13/13 Assessment/Plan - Problem List Patient Problems: All Active Problems Dysphagia (Acute) R13.10 GI bleeding (Acute) K92.2 Gastrostomy malfunction (Acute) K94.23 - Assessment Assessment: Hemetemesis Sepsis Pneumonia Dysphagia Seizure disorder Hypothyroidism - Plan Plan: EGD no active bleeding reported G tube feeding restarted Protonix continued Plan of care dw nursing staff Nutritional Asmnt/Malnutr-PDOC - Dietary Evaluation Malnutrition Findings (Please click <Entered> for more info): Nutritional Asmnt/Malnutrition Start: 11/21/18 12: 13 Text: Status: Complete Freq: Protocol: Document 11/21/18 12:14 GREGORY (Rec: 11/21/18 12:23 GREGORY [email or web address]) Nutritional Asmnt/Malnutrition Patient General Information Nutritional Screening High Risk Consult Diagnosis Sepsis, Pneumonia Pertinent Medical Hx/Surgical Hx Asthma/COPD, PUD/GERD, Arthritis, hyponatremia, Hepatitis B, PEG/G-Tube, Seizure disorder, hypothyroidism Subjective Information Consult: G-Tube Feeding Pt was downgraded to low risk d/t well tolerance on enteral feeding and meeting nutritional needs. Pt is a 68-year-old female from nursing facility admitted on 11/20 c/o coffee-ground emesis. Per Meal/Nutrition Activity Record, Pt is on G- Tube feeding with Jevity 1.2 at 40ml/24 hrs, no residual noted. Per Nurse note on 11/21, GT Feeding tolerating well, no residual, G-Tube Intact. HT: 48 WT: 116 LB 14.4 oz (53.18 kg) ADJ BW: 46.36 kg BMI: 26.20 (Overweight) GI: Non-Tender, Round, Coffee- ground emesis BM: 11/21 x1 I/O: 1930/Not Noted Skin: WNL, Intact Mayur: 13 Diet Order: Jevity 1.2 at 40ml /24hrs Estimated Energy Needs: ( Geriatric, ADJ BW) 9104-3336 kcals (25-30 kcals/ kg) 46-56g Pro (1.0-1.2 g/kg) 3815-2214 ml (25-30 ml/kg) Pt on G-Tube feeding with Jevity 1.2 at 40ml/24hrs Per Meal/Nutrition Activity Record . Enteral feeding is currently providing an estimated 1152 kcals and 53 gm Pro, to meet 99% kcal and 100+% Pro needs- adequate. Current Diet Order/ Nutrition Support G-Tube Feeding Jevity 1.2 at 40ml/24hrs Pertinent Medications Dulcolax (PRN), Oscal w/ Vitamin D, Vitamin D3, Keppra, Synthroid, MOM (PRN), Protonix, Fleet Enema (PRN) Pertinent Labs 11/21: Hgb/Hct 12.8/36.9, Potass 3.0, BUN/Cr 21/0.5, Glucose 153, Ca 8.4 11/20: Cl 97, Glucose 204 Nutritional Hx/Data Height 1.42 m Height (Calculated Centimeters) 142.2 Current Weight (lbs) 52.617 kg Weight (Calculated Kilograms) 52.6 Weight (Calculated Grams) 57064.7 [place] Body Weight 92 lbs (41.84 kg) % [place] Body Weight 127 Body Mass Index (BMI) 25.9 Weight Status Overweight GI Symptoms GI Symptoms None Last BM 11/21 x1 Skin Integrity/Comment: WNL, Intact Mayur: 13 Estimated Nutritional Goals BEE in Kcals: Adj wt of IBW Calories/Kcals/Kg 25-30 Kcals Calculated 4173-0289 Protein: Adj wt of IBW Protein g/k.0-1.2 Protein Calculated 46-56 Fluid: ml 4553-3912 ml (25-30 ml/kg) Nutritional Problem 1. Problem Problem Altered nutrition related labs Etiology r/t medical condition Signs/Symptoms: aeb lab result Potass 3.0, BUN /Cr 21/0.5, Glucose 153, Ca 8. 4 Malnutrition Related to Morbid Obesity Malnutrition related to morbid obesity No Intervention/Recommendation Comments 1.Continue on G-tube feeding Jevity 1.2 at 40ml/24hrs to meet nutritional needs. Expected Outcomes/Goals Expected Outcomes/Goals 1.Monitor on TF regiment and enteral feeding tolerance. 2.Monitor wt, skin integrity and nutrition related labs to Trend WNL. 3.F/U as low risk in 7 days,
[2018-11-30 13:08] LABS: % BASOPHILS 1.8 % (0.0-2.0); % EOSINOPHILS 2.1 % (0.0-5.0); % LYMPHOCYTES 18.6 % (20.0-50.0); % MONOCYTES 12.2 % (2.0-10.0); % NEUTROPHILS 65.3 % (40.0-80.0); BASOPHILE ABSOLUTE 0.1 Th/cumm (0-0.2); EOSINOPHILE ABSOLUTE 0.2 Th/cmm (0.1-0.4); HEMATOCRIT 40.6 % (41.0-60); HEMOGLOBIN 13.7 gm/dL (12-16); LYMPHOCYTE ABSOLUTE 1.5 Th/cmm (1.5-3.0); MEAN CELL VOLUME 91.8 fl (81-100); MEAN CORPUSCULAR HGB CONC 33.8 pg (28.0-36.0); NEUTROPHILE ABSOLUTE 5.5 Th/cmm (1.8-8.0); PLATELET COUNT 375 Th/cmm (150-400); RED BLOOD COUNT 4.43 Mil/cmm (3.80-5.20); RED CELL DISTRIBUTION WIDTH 13.8 % (11.5-20.0); WHITE BLOOD COUNT 8.3 Th/cmm (4.8-10.8)
[2018-11-30 13:52] LABS: ALBUMIN 3.6 gm/dL (3.7-5.3); ALKALINE PHOSPHATASE 113 U/L (34-104); ANION GAP 12.3 (7.0-16.0); BILIRUBIN,TOTAL 0.3 mg/dL (0.3-1.0); BUN - UREA NITROGEN 13 mg/dL (7-25); CALCIUM SERUM 9.4 mg/dL (8.6-10.3); CARBON DIOXIDE 23.5 mEq/L (21.0-31.0); CHLORIDE 101 mEq/L (98-107); CREATININE - SERUM 0.5 mg/dL (0.6-1.2); GFR AFRICAN-AMERICAN > 60.0 ml/min (>90); GFR NON AFRICAN-AMERICAN > 60.0 ml/min; GLUCOSE 95 mg/dL (70-105); POTASSIUM SERUM 4.8 mEq/L (3.5-5.1); SGOT 22 U/L (13-39); SGPT/ALT 16 U/L (7-52); SODIUM SERUM 132 mEq/L (136-145); TOTAL PROTEIN,SERUM 7.2 gm/dL (6.0-8.3)
== END 2018-11-30 18:00 | DRG 871 ==
LOC: ER 11:11 → TELE 17:04
PROVIDERS: ADMIT Family Medicine; ATTEND Family Medicine
PROC: 0DB68ZX Excision of Stomach, Via Natural or Artificial Opening Endoscopic, Diagnostic (ICD-10-PCS; principal; 2018-11-28)
DX: A41.9 Sepsis, unspecified organism (principal); J69.0 Pneumonitis due to inhalation of food and vomit; K29.71 Gastritis, unspecified, with bleeding; K92.0 Hematemesis; E87.2 Acidosis; F72 Severe intellectual disabilities; K94.23 Gastrostomy malfunction; K22.8 Other specified diseases of esophagus; R65.20 Severe sepsis without septic shock; R13.10 Dysphagia, unspecified; E03.9 Hypothyroidism, unspecified; G40.909 Epilepsy, unspecified, not intractable, without status epilepticus; K21.9 Gastro-esophageal reflux disease without esophagitis; F29 Unspecified psychosis not due to a substance or known physiological condition; M19.90 Unspecified osteoarthritis, unspecified site; D72.825 Bandemia; Y83.8 Other surgical procedures as the cause of abnormal reaction of the patient, or of later complication, without mention of misadventure at the time of the procedure; Y92.89 Other specified places as the place of occurrence of the external cause; Z79.899 Other long term (current) drug therapy; Z87.11 Personal history of peptic ulcer disease
CPT/HCPCS: 36415-UA; 71045-TC; 80048-TC; 80053-TC; 82948-90; 83036-90; 83605; 85007-TC; 85025-TC; 85610-TC; 85730-TC; 87338-TC; 93005; 94760; 96375; C9113; J2543; J2704; J2765; J3480; J7030; X5958; Z7610